=== PATIENT | female | born 1995 | race Caucasian/White ===

== ENCOUNTER 2022-05-12 16:42 | Emergency (ER) | payer BC, SELFPAY ==
[2022-05-12 17:02] VITALS: BP 133/91; PULSE 92; RESP 16; TEMP 36.6; O2SAT 98; BMI 34.5
--- NOTE | 2022-05-12 18:25 | CRLHL7_ITS ---
For Patients: As a result of the Century Cures Act, medical imaging exams and procedure reports are released immediately into your electronic medical record. You may view this report before your referring provider. If you have questions, please contact your health care provider. INDICATION: Cough. TECHNIQUE: Chest 2 views. COMPARISON: Radiograph 06/01/2017. FINDINGS: Cardiovascular and mediastinum: Heart size and vasculature are normal in caliber and appearance. Lungs and pleural spaces: Lungs are clear. No sign of infiltrate or mass. No sign of pleural effusion. No pneumothorax. Bones and soft tissues: No significant findings. IMPRESSION: No acute cardiopulmonary abnormalities. Dictated by Harish Rodriguez MD @ 05/12/2022 7:22:18 PM (Electronically Signed)
--- NOTE | 2022-05-12 18:25 | ED.GENADULT ---
HPI - General Adult General Date Seen: 05/12/22 Chief complaint: Cough Stated complaint: Cough getting worse, pressure right side of chest Time Seen by Provider: 05/12/22 18:18 Source: patient History of Present Illness HPI narrative: Patient is a 27-year-old here for evaluation of persistent cough. She says initially she had more congestion and runny nose, but now she just has a cough. She has not had fevers. She feels like her right lung has become congested and full feeling and she has tightness across her entire chest. She does not have any underlying asthma. She was diagnosed with lichen planus about a month ago and has been on prednisone ever since. No significant shortness of breath. No pleuritic chest pain. She says her son has been sick with upper respiratory infections and ear infections since February and she thinks she caught something from him. The cough just does not seem to be getting any better, and in fact she feels like it is getting a little worse. Related Data Home Medications Medication Instructions Recorded Confirmed benzonatate 100 mg capsule mg PO 05/12/22 doxycycline monohydrate 100 mg mg 05/12/22 tablet Previous Rx's Medication Instructions Recorded prednisone 20 mg tablet 40 mg PO QDAY Lichen Planus #30 04/02/22 tabs methylprednisolone 4 mg tablets in See Rx Instructions PO PER PKG DIR 05/07/22 a dose pack (Medrol (Tony)) #21 ea albuterol sulfate 90 mcg/actuation 2 puff inhalation 6XD PRN 05/12/22 aerosol inhaler shortness of breath or wheezing #6.7 grams codeine 10 mg-guaifenesin 100 mg/5 10 ml PO Q4-6H PRN #120 mL 05/12/22 mL oral liquid (Guaifenesin AC) Allergies Allergy/AdvReac Type Severity Reaction Status Date / Time latex Allergy Mild Rash Verified 05/12/22 17:08 ketorolac Allergy Verified 05/12/22 17:08 tree nut Allergy Verified 05/12/22 17:08 Review of Systems Status of ROS: Reports: 6 or more systems reviewed and unremarkable except as noted in History and below [facility] Medical History Abdominal pain Acute viral pharyngitis Contusion of knee History of delivery Injury of left shoulder Lichen planus care premature rupture of membranes, delivered, current hospitalization Vomiting and diarrhea Surgical History History of nasal septoplasty Family History Family/Other Colorectal cancer Maternal Grandmother Diabetes Father High cholesterol High blood pressure Social History Smoking Status: Never smoker Exam Narrative: Exam Narrative: Vital signs as noted above. In general, an alert, well-appearing patient. Head: Normocephalic, atraumatic. Eyes: Pupils are equal reactive. Extraocular movements are full. Conjunctivae are normal. ENT: Mucous membranes are moist. Throat is normal. TMs normal bilaterally. Neck: Supple without lymphadenopathy. No stridor. Heart: Regular rate and rhythm. No murmur or rub. Lungs: Few scattered wheezes bilaterally, right greater than left. No increased work of breathing. Abdomen: Soft and nontender. No organomegaly. Affect: Normal. Skin: Warm and dry. Well perfused. Const: Vital Signs, click to edit/add: Vital Signs - 24 hr 05/12/22 17:02 Temperature 97.9 F Pulse Rate [Right Pulse Oximeter] 92 Respiratory Rate 16 Blood Pressure [Ri ght Upper Arm] 133/91 H Pulse Oximetry 98 Oxygen Delivery Me thod Room Air Documenting provider has reviewed patient's vital signs: yes Course Course Hospital Course: Chest x-ray by my review is negative. Final radiology read is likewise negative. I think symptoms likely represent bronchitis, discussed with her that this is viral. From a symptomatic standpoint she might improve with albuterol. She can continue the prednisone that she is already on for her skin condition. Also offered to give her some Robitussin with codeine for nighttime cough as she says she has not been able to sleep for the past month. Anticipate this should improve over the next couple of weeks, if not recommend follow-up with primary doctor. If she has worsening such as high fevers, significant shortness of breath, etcetera. Return for re-evaluation. Vital Signs Vital signs: Initial Vital Signs Temperature 97.9 F 05/12/22 17:02 Temperature Source Temporal Artery Scan 05/12/22 17:02 Pulse Rate 92 05/12/22 17:02 Respiratory Rate 16 05/12/22 17:02 Blood Pressure 133/91 H 05/12/22 17:02 Blood Pressure Mean 105 05/12/22 17:02 Blood Pressure Position Sitting 05/12/22 17:02 Pulse Oximetry 98 05/12/22 17:02 Oxygen Delivery Method 05/12/22 17:02 Vital Signs Temperature 97.9 F 05/12/22 17:02 Pulse Rate 92 05/12/22 17:02 Respiratory Rate 16 05/12/22 17:02 Blood Pressure 133/91 H 05/12/22 17:02 Pulse Oximetry 98 05/12/22 17:02 Oxygen Delivery Method 05/12/22 17:02 Temperature 97.9 F 05/12/22 17:02 Pulse Rate 92 05/12/22 17:02 Respiratory Rate 16 05/12/22 17:02 Blood Pressure 133/91 H 05/12/22 17:02 Pulse Oximetry 98 05/12/22 17:02 Oxygen Delivery Method 05/12/22 17:02 Discharge Plan Discharge Clinical Impression: Bronchitis Patient Disposition: Home, Self-Care Condition: Stable Instructions: Acute Bronchitis (ED) Additional Instructions: Continue prednisone, inhaler as prescribed. Syrup as needed. If no improvement over the next couple weeks, follow up with primary care. If you have new symptoms such as high fever, significant shortness of breath, vomiting, etcetera, return for re-evaluation. Activity Level: No Restrictions Discharge Diet: Regular Prescriptions: New albuterol sulfate 90 mcg/actuation HFA aerosol inhaler 2 puff inhalation 6XD PRN (Reason: shortness of breath or wheezing) Qty: 6.7 0RF codeine-guaifenesin [Guaifenesin AC] 10-100 mg/5 mL liquid 10 ml PO Q4-6H PRNQty: 120 0RF No Action methylprednisolone [Medrol (Tony)] 4 mg tablets,dose pack See Rx Instructions PO PER PKG DIR Qty: 21 0RF Rx Instructions: orally per package directions; PO PER PKG DIR prednisone 20 mg tablet 40 mg PO QDAY Qty: 30 1RF doxycycline monohydrate 100 mg tablet benzonatate 100 mg capsule PO Follow Up/Referrals: Rich Resendez MD [Primary Care Provider] - Stand Alone Forms: MyHealth Info Instructions Discharge Comment: Pt knows to pick scripts up from [facility].
== END 2022-05-12 19:23 | disposition home or self-care (01) ==
PROVIDERS: Emergency Provider Emergency Medicine; PCP Internal Medicine
DX: J40 Bronchitis, not specified as acute or chronic (principal)
CPT/HCPCS: 71046; 99283; 99284

== ENCOUNTER 2022-06-16 14:20 | Outpatient (CLI) | payer BC, SELFPAY ==
[2022-06-16 16:52] LABS: Vitamin D 25 Hydroxy* 22 ng/mL (30-80)
[2022-06-16 17:23] LABS: Vitamin B12* 276 pg/mL (243-894)
[2022-06-16 17:59] LABS: Chlamydia DNA Amplified* NOT DETECTED (No Detected); GC DNA Amplified* NOT DETECTED (No Detected)
[2022-06-16 18:54] LABS: HCG Qualitative Serum* Negative (Negative)
== END 2022-06-16 14:21 | disposition home or self-care (01) ==
PROVIDERS: PCP Internal Medicine; Visit Provider Obstetrics & Gynecology
DX: Z01.419 Encounter for gynecological examination (general) (routine) without abnormal findings (principal); R63.5 Abnormal weight gain; E55.9 Vitamin D deficiency, unspecified; N92.6 Irregular menstruation, unspecified; Z11.3 Encounter for screening for infections with a predominantly sexual mode of transmission; Z86.2 Personal history of diseases of the blood and blood-forming organs and certain disorders involving the immune mechanism
CPT/HCPCS: 82306; 82607; 84443; 84703; 87491; 87591

== ENCOUNTER 2022-08-29 11:07 | Outpatient (CLI) | payer BC, SELFPAY ==
[2022-08-29 15:35] LABS: GC DNA Amplified* NOT DETECTED (No Detected)
[2022-08-29 17:04] LABS: Chlamydia DNA Amplified* DETECTED (No Detected)
== END 2022-08-29 11:08 | disposition home or self-care (01) ==
PROVIDERS: PCP Internal Medicine; Visit Provider Advanced Practice Midwife
DX: N89.8 Other specified noninflammatory disorders of vagina (principal); Z11.9 Encounter for screening for infectious and parasitic diseases, unspecified; Z11.3 Encounter for screening for infections with a predominantly sexual mode of transmission
CPT/HCPCS: 86592; 86703; 86706; 86803; 87340; 87491; 87591

== ENCOUNTER 2022-09-03 09:46 | Outpatient (CLI) | payer BC, SELFPAY ==
--- NOTE | 2022-09-03 10:00 | CRLHL7_ITS ---
For Patients: As a result of the Cures Act, medical imaging exams and procedure reports are released immediately into your electronic medical record. You may view this report before your referring provider. If you have questions, please contact your health care provider. Indication: Facial numbness, history of trauma Technique: Performed without IV contrast Comparison: 11/24/2016 Findings: Frontal sinuses: Clear. Ethmoid sinuses: Clear. Maxillary sinuses: Minimal mucosal thickening within both maxillary sinuses. The maxillary sinus drainage pathways are patent on both sides. Sphenoid sinuses: Clear, including both sphenoethmoidal recesses. Nasal Cavity: Postop changes the nasal septum. No polyps. Small olena bullosa right middle turbinate. No TMJ abnormalities identified. The visualized portions of the orbits, intracranial contents and upper soft tissue neck are grossly negative. Impression: 1. Minimal sinus disease within the maxillary sinuses. 2. Clear sinus drainage pathways. Postop changes to the nasal septum. Please note that all CT scans at this facility use dose modulation, iterative reconstruction, and/or weight-based dosing when appropriate to reduce radiation dose to as low as reasonably achievable. Dictated by Roland Roberto MD @ 09/03/2022 12:39:29 PM (Electronically Signed)
== END 2022-09-03 09:47 | disposition home or self-care (01) ==
LOC: CT 09:48
PROVIDERS: PCP Internal Medicine; Visit Provider Otolaryngology
DX: R09.81 Nasal congestion (principal); J32.0 Chronic maxillary sinusitis; J34.2 Deviated nasal septum; R20.0 Anesthesia of skin
CPT/HCPCS: 70486

== ENCOUNTER 2022-10-24 10:35 | Day surgery (SDC) | payer BC, SELFPAY ==
[2022-10-24] VITALS (19 sets, daily range): BP systolic 104–128; BP diastolic 52–87; PULSE 84–104; RESP 14–23; TEMP 36.5–36.8; O2SAT 94–97; BMI 34.0
[2022-10-24 11:27] LABS: Ur HCG Qualitative* Negative (Negative)
[2022-10-24] MEDS: LACTATED RINGERS 1000 ML 1,000 ML 35 ML IV (11:30)
[2022-10-24] MEDS: OXYMETAZOLINE 0.05% NASAL SPRAY 2 SPRAY NOSTRIL-B (11:33)
[2022-10-24] MEDS: SODIUM CHLORIDE 0.9 % (FLUSH) 10 ML SYRINGE IVF (11:33)
[2022-10-24] MEDS: COCAINE HCL 4 % 4 ML SOLUTION NOSTRIL-B (12:47)
[2022-10-24] MEDS: BUPIVACAINE 0.5%/EPINEPHRINE 0.9 MG (30.9 ML) INJECTION (12:48)
[2022-10-24] MEDS: MUPIROCIN 1 GM PACKET 1 APPLIC TOPICAL (13:08)
[2022-10-24] MEDS: AYR SALINE NASAL GEL 1 APPLIC NOSTRIL-B (13:09)
--- NOTE | 2022-10-24 13:13 | W.PM.ENTPROC ---
Procedure Note Date of procedure: 10/24/22 Procedure: Preoperative diagnosis acquired external nasal deformity, deviated septum nasal obstruction, right middle turbinate olena bullosa Postoperative diagnosis same Procedure septoplasty, endoscopic partial resection right middle turbinate olena bullosa, open reduction nasal fracture. Under general endotracheal anesthesia patient was prepped draped usual fashion the nose injected and decongested. A right hemitransfixion incision was made a left anterior tunnel created. This mobilized the septum enough I was able to simply post to push it to midline. The hemitransfixion was closed with 2 4-0 chromic sutures. Both inferior turbinates were outfractured. This portion of procedure was done with the available assistance of a 0 degree endoscope. The right middle turbinate olena bullosa was incised along its lateral aspect with a 15 blade the bone infractured and then the turbinate crushed with the Benjamin forceps. A right IC incision was made and the nasal dorsum was exposed through this. There is a fracture line that was reduced with a rasp. Bilateral baseline osteotomies were performed to straighten the bony pyramid. An external dressing consisting of benzoin Steri tapes an Aquaplast was applied. Silastic stents were secured inside the septum with 3-0 nylon. Merocel pack was placed in each side of the nose. The patient procedure well was taken recovery in satisfactory condition. Blood loss during procedure less than 50 mL. Surgeon: Reza Goff MD
--- NOTE | 2022-10-24 13:21 | W.ANESCHARGE ---
Anesthesia Charges Start Date/Time Anesthesia Start Date: 10/24/22 Anesthesia Start Time: 12:31 Stop Date/Time Anesthesia Stop Date: 10/24/22 Anesthesia Stop Time: 13:20
[2022-10-24] MEDS: fentaNYL 100 MCG/2 ML inj 50 MCG IVP (13:53)
--- NOTE | 2022-10-24 14:05 | SUR.PHASEI ---
patient met discharge criteria per anesthesia
--- NOTE | 2022-10-24 14:22 | W.ANESCHARGE ---
Anesthesia Charges Start Date/Time Anesthesia Start Date: 10/24/22 Anesthesia Start Time: 12:31 Stop Date/Time Anesthesia Stop Date: 10/24/22 Anesthesia Stop Time: 13:20
--- NOTE | 2022-10-24 15:34 | CRLHL7_ITS ---
For Patients: As a result of the Cures Act, medical imaging exams and procedure reports are released immediately into your electronic medical record. You may view this report before your referring provider. If you have questions, please contact your health care provider. INDICATION: Chest pain. Post surgery. Septoplasty. TECHNIQUE: Portable seated chest x-ray. COMPARISON : Two-view chest x-ray May 12, 2022. FINDINGS: Clear lungs. Normal heart size and pulmonary vascularity. Normal included skeleton. IMPRESSION: Negative chest. No change other than technique. Dictated by John Hodge MD @ 10/24/2022 4:04:19 PM (Electronically Signed)
--- NOTE | 2022-10-24 15:40 | SUR.PHASEII ---
1508: Patient complaining of chest pressure beginning at 1430. Patient dressed and moved to recliner. Patient states it still feels like someone is pushing on my chest. Pressure felt slightly worse after moving to the recliner. States she feels short of breath. VSS TOMASZ Zimmerman notified. VORB EKG. 1526: TOMASZ Zimmerman notified of EKG result. She is consulting Dr. Laws and will return a call. 1534: TOMASZ Zimmerman VORB portable chest xray. 1545: Portable chest xray obtained. Patient states no change in chest pressure. Unable to identify a number related discomfort. Restates it feels like someone leaning and pushing against her chest. States it's hard to breath. VSS
--- NOTE | 2022-10-24 16:32 | SUR.PHASEII ---
1600: TOMASZ Zimmerman at patient bedside to speak with patient. 1613: TOMASZ Zimmerman returned to patient room to review EKG and chest xray results. Patient verbalizes understanding. Patient plans to go home and nap. Patient understands to go to the ER for any concerns. She states there is no change in her chest pressure. VSS.
== END 2022-10-24 16:42 | disposition home or self-care (01) ==
PROVIDERS: PCP Internal Medicine; Visit Provider Otolaryngology
PROC: (CPT 31231; principal; 2022-10-24 11:45)
PROC: 0NSBXZZ Reposition Nasal Bone, External Approach (ICD-10-PCS; CPT 30520; 2022-10-24 11:45)
DX: M95.0 Acquired deformity of nose (principal); J34.2 Deviated nasal septum; J34.3 Hypertrophy of nasal turbinates
CPT/HCPCS: 30520; 30930; 31240; 21330; 00160; 00170; 71045; 81025; 84703; 93005; A4580; A9270; J1170; J1885; J2704; J3010; J3490; J7120

== ENCOUNTER 2022-11-06 09:35 | Outpatient (CLI) | payer BC, SELFPAY | END 2022-11-06 09:36 | disposition home or self-care (01) | PROVIDERS: PCP Internal Medicine; Visit Provider Dermatology | DX: Z51.81 Encounter for therapeutic drug level monitoring (principal); Z79.631 Long term (current) use of antimetabolite agent | CPT/HCPCS: 80053 ==

== ENCOUNTER 2022-12-09 09:57 | Outpatient (CLI) | payer BC, SELFPAY | END 2022-12-09 09:58 | disposition home or self-care (01) | LOC: NFLDREF 12-10 15:11 | PROVIDERS: PCP Internal Medicine; Referring Provider Internal Medicine; Visit Provider Dermatology | DX: N89.8 Other specified noninflammatory disorders of vagina (principal); Z79.899 Other long term (current) drug therapy | CPT/HCPCS: 80076 ==

== ENCOUNTER 2022-12-10 10:08 | Outpatient (CLI) | payer BC, SELFPAY ==
[2022-12-10 12:17] LABS: Chlamydia DNA Amplified* NOT DETECTED (No Detected); GC DNA Amplified* NOT DETECTED (No Detected)
== END 2022-12-10 10:09 | disposition home or self-care (01) ==
LOC: NFLDREF 10:08
PROVIDERS: PCP Internal Medicine; Visit Provider Registered Nurse
DX: N89.8 Other specified noninflammatory disorders of vagina (principal)
CPT/HCPCS: 87491; 87591

== ENCOUNTER 2022-12-17 15:42 | Outpatient (CLI) | payer BC, SELFPAY ==
--- NOTE | 2022-12-17 16:00 | CRLHL7_ITS ---
For Patients: As a result of the Century Cures Act, medical imaging exams and procedure reports are released immediately into your electronic medical record. You may view this report before your referring provider. If you have questions, please contact your health care provider. Indication: Chronic sinusitis. Technique: Noncontrast axial CT of the paranasal sinuses with coronal reformats are provided. No comparisons. Findings: Hypoplastic frontal sinuses. The visualized paranasal sinuses are clear. The ostiomeatal complexes are patent bilaterally. The visualized intraorbital contents appear within normal limits. Impression: Unremarkable CT of the paranasal sinuses. Please note that all CT scans at this facility use dose modulation, iterative reconstruction, and/or weight-based dosing when appropriate to reduce radiation dose to as low as reasonably achievable. Dictated by Los Rothman MD @ 12/17/2022 5:33:46 PM (Electronically Signed)
== END 2022-12-17 15:43 | disposition home or self-care (01) ==
LOC: CT 15:43
PROVIDERS: PCP Internal Medicine; Visit Provider Otolaryngology
DX: J32.9 Chronic sinusitis, unspecified (principal)
CPT/HCPCS: 70486

== ENCOUNTER 2023-05-15 12:36 | Outpatient (CLI) | payer BC, SELFPAY ==
--- OUTSIDE RECORDS SUMMARY | 2023-05-15 12:40 | XMS_ITS | Referral Summary ---
Author Name Unknown Organization [facility] Address [address] [place] [address] Care Team Providers Care Credit Portfolio Advisor Name Role Phone Rich Resendez MD Primary Care Provider Allergies Active Allergy Reactions Criticality Noted Date Comments Latex Rash Low 01/01/2019 Ketorolac Difficulty breathing High 01/01/2019 Medications Medication Sig Dispensed Refills Start Date End Date Status butalbital-acetaminop hen-caffeine (FIORICET/ESGIC) 50-325-40 MG tabletIndications:Sebastián adrianna Take 1 tablet by mouth every 6 hours as needed for headaches 0 Active MV-Min-Fe Fum-FA-DHA ( 1 PO) Take 1 tablet by mouth daily 0 Active Active Problems Problem Noted Date Diagnosed Date Encounter for triage in patient 019 Social History Tobacco Use Types Packs/Day Years Used Date Smoking Tobacco: Never Assessed Sex and Gender Information Value Date Recorded Sex Assigned at Not on file Gender Identity Not on file Sexual Orientation Not on file Last Filed Vital Signs Vital Sign Reading Time Taken Comments Blood Pressure 125/87 01/01/2019 6:25 AM CDT Pulse 107 01/01/2019 6:25 AM CDT Temperature 37 ??C (98.6 ??F) 01/01/2019 6:25 AM CDT Respiratory Rate 20 01/01/2019 6:25 AM CDT Oxygen Saturation - - Inhaled Oxygen Concentration - - Weight - - Height - - Body Mass Index - - Plan of Treatment Not on file Care Teams Credit Portfolio Advisor Relationship Specialty Start Date End Date Rich Resendez MD [facility] [address] [place] [address] PCP - General Emergency Medicine 01/02/19
--- OUTSIDE RECORDS SUMMARY | 2023-05-15 12:40 | XMS_ITS | Clinical Summary ---
Author Name Unknown Organization [facility] Address [place], [place] [address] Care Team Providers Care Business Broker Name Role Phone Rich Resendez MD Primary Care Provider [phone] Allergies Active Allergy Reactions Criticality Noted Date Comments Ketorolac Itching 02/07/2015 Medications Medication Sig Dispensed Refills Start Date End Date Status NUVARING vaginal ring Insert 1 ring into the vagina. 1 02/19/2017 Active celecoxib (CELEBREX) 100 mg capsule Take 1 capsule by mouth 2 times daily if needed. 0 03/05/2017 Active cyclobenzaprine (FLEXERIL) 10 mg tablet Take 1 tablet by mouth once daily. At bedtime if needed. 0 01/06/2017 Active fluticasone (50 mcg per actuation) nasal solution (FLONASE) Inhale 2 Sprays into both nostrils once daily. 11 03/03/2017 Active ferrous sulfate, 65 mg elemental, (IRON) tablet Take 1 tablet by mouth 2 times daily with meals. 0 03/23/2017 Active ondansetron (ZOFRAN ODT) 4 mg disintegrating tabletIndications:Servando sea and vomiting, unspecified vomiting type Place 1 Tablet (4 mg) on the tongue every 8 hours if needed for Nausea/Vomiting. 10 Tablet 0 06/25/2021 Active loperamide (IMODIUM) 2 mg capsuleIndications:Ab dominal pain, unspecified abdominal location,Nausea and vomiting, unspecified vomiting type Take 4mg by mouth with 1st loose stool, then 2mg with each subsequent loose stool. Max 16 mg in 24 hrs 15 Capsule 0 06/25/2021 Active Active Problems Problem Noted Date Diagnosed Date Adjustment disorder with depressed mood 06/25/19 09 Immunizations Name Administration Dates Next Due DTP 12/19/1999 Hepatitis B (Peds) 1994,1994, 994 Human Papilloma Virus Vaccine 10/09/2014 MMR 02/02/2007 Oral Polio Vaccine 12/19/1999 Tdap 02/02/2007 Family History Relation Name Status Comments Father Alive Mother Alive Social History Tobacco Use Types Packs/Day Years Used Date Smoking Tobacco: Never Smokeless Tobacco: Never Tobacco Cessation:Counseling Given: Yes Alcohol Use Standard Drinks/Week Comments Yes 0 (1 standard drink = 0.6 oz pur e alcohol) Sex and Gender Information Value Date Recorded Sex Assigned at Not on file Gender Identity Not on file Sexual Orientation Not on file Obstetrics History Last Filed Vital Signs Vital Sign Reading Time Taken Comments Blood Pressure 131/107 06/25/2021 3:02 AM [employer] Pulse 95 06/25/2021 3:59 AM [employer] Temperature 37.4 ??C (99.3 ??F) 06/25/2021 3:02 AM CS T Respiratory Rate 16 06/25/2021 3:02 AM [employer] Oxygen Saturation 98% 06/25/2021 3:59 AM [employer] Inhaled Oxygen Concentration - - Weight 83.9 kg (185 lb) 06/25/2021 3:02 AM [employer] Height 167.6 cm (5' 6) 06/25/2021 3:02 AM [employer] Body Mass Index 29.86 06/25/2021 3:02 AM [employer] Plan of Treatment Health Maintenance Due Date Last Done Comments COVID-19 vaccine series (#1) 1994 Depression screening for age 12+ 2006 HIV for age 15-65 2009 Hepatitis C screening for age 18-79 01/23/2012 Tetanus booster 02/02/2017 02/02/2007 BMI (ht and wt on same day) for age 18+ 03/23/2018 03/23/2017 Influenza for age 9-49 01/02/2023 Pap test for age 21-65 01/05/2024 , 06/07/2018, 10/09/2015, Additional history exists Tdap Completed 02/02/2007 Pneumococcal series for age 6-64 Aged Out No longer eligible based on patient's age to complete this topic Care Teams Business Broker Relationship Specialty Start Date End Date Rich Resendez MD [address] [place] [address] PCP - General Internal Medicine 07/29/20
--- OUTSIDE RECORDS SUMMARY | 2023-05-15 12:40 | XMS_ITS | Clinical Summary ---
Author Name Unknown Organization [facility] Address [address] [place] [place] [address] Care Team Providers Care Veneer Clipper Helper Name Role Phone Rich Resendez MD Primary [...] of Treatment Not on file Care Teams Veneer Clipper Helper Relationship Specialty Start Date End Date Rich Resendez MD [facility] [address] [place] [address] PCP - General Emergency Medicine 01/02/19
[2023-05-15 17:18] LABS: Chlamydia DNA Amplified* NOT DETECTED (No Detected); GC DNA Amplified* NOT DETECTED (No Detected)
== END 2023-05-15 12:37 | disposition home or self-care (01) ==
LOC: NFLDREF 12:37
PROVIDERS: PCP Internal Medicine; Visit Provider Registered Nurse
DX: N93.0 Postcoital and contact bleeding (principal); Z11.3 Encounter for screening for infections with a predominantly sexual mode of transmission
CPT/HCPCS: 87491; 87591

== ENCOUNTER 2023-05-20 15:01 | Outpatient (CLI) | payer BC, SELFPAY ==
--- NOTE | 2023-05-20 15:00 | CRLHL7_ITS ---
For Patients: As a result of the Century Cures Act, medical imaging exams and procedure reports are released immediately into your electronic medical record. You may view this report before your referring provider. If you have questions, please contact your health care provider. CLINICAL HISTORY: PELVIC AND PERINEAL PAIN Comparison 01/09/2021 TECHNIQUE: 2D paul scale ultrasound. In addition color Doppler and spectral Doppler analysis was performed of the pelvis using a transabdominal and transvaginal approach. FINDINGS: On transvaginal imaging, the myometrium has a normal uniform echotexture. The uterus measures 8.0 x 3.9 x 4.5 cm. The endometrial lining appears normal and measures 6 mm in thickness. The right ovary measures 4.5 x 3.1 x 2.3 cm in size and the left ovary measures 3.5 x 1.3 x 1.6 cm. The ovaries demonstrate normal arterial and venous blood flow on color Doppler and spectral Doppler analysis. There are no suspicious fluid collections within the cul-de-sac. Two smoothly marginated solid like lesions within the right ovary including mild-moderate internal flow. Measuring 2.3 x 1.7 x 2.1 cm and 2.6 x 1.9 x 2.4 cm. IMPRESSION: Two solid like lesions within the right ovary measuring 2.3 cm and 2.6 cm. Pelvic MRI recommended. No torsion. Dictated by Roland Roberto MD @ 05/21/2023 9:51:01 AM (Electronically Signed)
--- OUTSIDE RECORDS SUMMARY | 2023-05-20 15:04 | XMS_ITS | Referral Summary ---
Author Name Unknown Organization [facility] Address [address] [place] [address] Care Team Providers Care Computer Artist Name Role Phone Rich Resendez MD Primary [...] of Treatment Not on file Care Teams Computer Artist Relationship Specialty Start Date End Date Rich Resendez MD [facility] [address] [place] [address] PCP - General Emergency Medicine 01/02/19
--- OUTSIDE RECORDS SUMMARY | 2023-05-20 15:04 | XMS_ITS | Clinical Summary ---
Author Name Unknown Organization [facility] Address [place], [place] [address] Care Team Providers Care Consulting Database Administrator Name Role Phone Rich Resendez MD Primary [...] Adjustment disorder with depressed mood 06/25/19 09 Encounters Date Type Department Care Team Description 05/18/2023 Lab Requisition [facility] [phone] Vanessa Chavez, MECHANICAL TEST ENGINEER from Last 3 Months Immunizations Name Administration Dates Next Due DTP [...] Comments Blood Pressure 131/107 06/25/2021 3:02 AM PVC MONITOR Pulse 95 06/25/2021 3:59 AM PVC MONITOR Temperature 37.4 ??C (99.3 ??F) 06/25/2021 3:02 AM CS T Respiratory Rate 16 06/25/2021 3:02 AM PVC MONITOR Oxygen Saturation 98% 06/25/2021 3:59 AM PVC MONITOR Inhaled Oxygen Concentration - - Weight 83.9 kg (185 lb) 06/25/2021 3:02 AM PVC MONITOR Height 167.6 cm (5' 6) 06/25/2021 3:02 AM PVC MONITOR Body Mass Index 29.86 06/25/2021 3:02 AM PVC MONITOR Plan of Treatment Health Maintenance Due Date [...] age to complete this topic Care Teams Consulting Database Administrator Relationship Specialty Start Date End Date Rich Resendez MD [address] [place] [address] PCP - General Internal Medicine 07/29/20
--- OUTSIDE RECORDS SUMMARY | 2023-05-20 15:04 | XMS_ITS | Clinical Summary ---
Author Name Unknown Organization [facility] Address [address] [place] [address] Care Team Providers Care Tool Crib Manager Name Role Phone Rich Resendez MD Primary [...] of Treatment Not on file Care Teams Tool Crib Manager Relationship Specialty Start Date End Date Rich Resendez MD [facility] [address] [place] [address] PCP - General Emergency Medicine 01/02/19
== END 2023-05-20 15:02 | disposition home or self-care (01) ==
PROVIDERS: PCP Internal Medicine; Visit Provider Registered Nurse
DX: R10.2 Pelvic and perineal pain (principal); N83.201 Unspecified ovarian cyst, right side; N93.0 Postcoital and contact bleeding
CPT/HCPCS: 76830; 76856; 93976

== ENCOUNTER 2023-05-25 10:17 | Outpatient (CLI) | payer BC, SELFPAY ==
--- OUTSIDE RECORDS SUMMARY | 2023-05-28 09:42 | XMS_ITS | Clinical Summary ---
Author Name Unknown Organization [place] Address [address] [place] [address] Care Team Providers Care Police Clerk Name Role Phone Rich Resendez MD Primary [...] of Treatment Not on file Care Teams Police Clerk Relationship Specialty Start Date End Date Rich Resendez MD [facility] [address] [place] [address] PCP - General Emergency Medicine 01/02/19
--- OUTSIDE RECORDS SUMMARY | 2023-05-28 09:42 | XMS_ITS | Clinical Summary ---
Author Name Unknown Organization [facility] Address [place], [place] [address] Care Team Providers Care Supervisor Typesetting Name Role Phone Rich Resendez MD Primary [...] Department Care Team Description 05/18/2023 Lab Requisition [facility] [phone] Vanessa Chavez, STORAGE FACILITY RENTAL CLERK from Last 3 Months Immunizations Name Administration [...] Comments Blood Pressure 131/107 06/25/2021 3:02 AM DISPATCH MANAGER Pulse 95 06/25/2021 3:59 AM DISPATCH MANAGER Temperature 37.4 ??C (99.3 ??F) 06/25/2021 3:02 AM CS T Respiratory Rate 16 06/25/2021 3:02 AM DISPATCH MANAGER Oxygen Saturation 98% 06/25/2021 3:59 AM DISPATCH MANAGER Inhaled Oxygen Concentration - - Weight 83.9 kg (185 lb) 06/25/2021 3:02 AM DISPATCH MANAGER Height 167.6 cm (5' 6) 06/25/2021 3:02 AM DISPATCH MANAGER Body Mass Index 29.86 06/25/2021 3:02 AM DISPATCH MANAGER Plan of Treatment Health Maintenance Due Date Last Done Comments COVID-19 vaccine series (#1) 1994 Depression screening for age 12+ 2006 HIV for age 15-65 2009 Hepatitis C screening for age 18-79 01/23/2012 Tetanus booster 02/02/2017 02/02/2007 BMI (ht and wt on same day) for age 18+ 03/23/2018 03/23/2017 Influenza for age 9-49 01/02/2023 Pap test for age 21-65 05/15/2026 4, 05/15/2023, 01/04/2021, Additional history exists Tdap Completed 02/02/2007 Pneumococcal series for age 6-64 Aged Out No longer eligible based on patient's age to complete this topic Procedures Procedure Name Priority Date/Time Associated Diagnosis Comments LAB TRACKING EVENT Routine 05/15/2023 12 :30 PM DISPATCH MANAGER HPV THIN PREP Routine 05/15/2023 12:30 PM DISPATCH MANAGER POWER TRUCK DRIVER THIN PREP PAP SCREEN IMAGED Routine 05/15/2023 12:00 PM DISPATCH MANAGER from Last 3 Months Results * LAB TRACKING EVENT (05/15/2023 12:30 PM DISPATCH MANAGER) Other (Other) Client Collect / Unknown 05/15/2023 12:30 PM DISPATCH MANAGER 05/18/2023 3:12 PM DISPATCH MANAGER Vanessa Chavez NP LAB BILL ONLY [facility] [address] [place] [address] * (ABNORMAL) HPV HIGH RISK (05/15/2023 12:30 PM DISPATCH MANAGER) TYPE 16 Negative Negative 05/22/2023 11:44 AM DISPATCH MANAGER [facility] TYPE 18 Negative Negative 05/22/2023 11:44 AM DISPATCH MANAGER [facility] OTHER HIGH RISK TYPES Positive(A) Negative 05/22/2023 11:44 AM DISPATCH MANAGER [facility] Other (Cervical) Non-Blood / Unknown 05/15/2023 12:30 PM DISPATCH MANAGER 05/21/2023 7:37 AM DISPATCH MANAGER Narrative [facility] - 05/22/2023 11:44 AM DISPATCH MANAGER Specimen is positive for the DNA of any one of, or combination of, the following high risk HPV types: 31, 33, 35, 39, 45, 51, 52, 56, 58, 59, 66, 68. HPV types 16 and 18 DNA were undetectable or below the pre-set threshold. ? Methodology: Curio[employer] 4800 HPV Test Vanessa Chavez NP MICROBIOLOGY [facility] [address] [place] [address], * (ABNORMAL) POWER TRUCK DRIVER THIN PREP PAP SCREEN IMAGED (05/15/2023 12:00 PM DISPATCH MANAGER) Case Report Gynecologic Cytology Report ? Case: [id number] ? Authorizing Provider: ??Vanessa Chavez NP ?? Collected: ? 05/15/2023 1200 ? Ordering Location: ? [facility] ?Received: ?05/19/2023 08 ? First Screen: ?Bridgette Wilson ? Pathologist: ? Elsie Lopez MD ? Specimen: ?POWER TRUCK DRIVER ThinPrep Vial Screening, Cervical ? 05/25/2023 2:51 PM DISPATCH MANAGER [facility] INTERPRETATION/ RESULT LOW GRADE SQUAMOUS INTRAEPITHELIAL LESION (LSIL)(A) (none) 05/25/2023 2:51 PM DISPATCH MANAGER [facility] NISM(S) Fungal organisms morphologically consistent with Jeniffer species 05/25/2023 2:51 PM DISPATCH MANAGER [facility] SPECIMEN ADEQUACY Satisfactory for evaluation Endocervical component present 05/25/2023 2:51 PM DISPATCH MANAGER [facility] HPV REQUEST HPV and PAP 05/25/2023 2:51 PM DISPATCH MANAGER [facility] Date of LMP 04/14/2023 05/25/2023 2:51 PM DISPATCH MANAGER [facility] Last Pap Date 01/04/2021 05/25/2023 2:51 PM DISPATCH MANAGER [facility] Last Pap Result NIL 2:51 PM DISPATCH MANAGER [facility] Abnormal Pap or [place] Bx in last 5 years No 05/25/2023 2:51 PM DISPATCH MANAGER [facility] Menstrual Status Abnormal bleeding 05/25/2023 2:51 PM DISPATCH MANAGER [facility] [place] Bx Done Today No 05/25/2023 2:51 PM DISPATCH MANAGER [facility] Additional Information 05/25/2023 2:51 PM DISPATCH MANAGER [facility] Comment: Interpreted at [facility], Central Laboratory - [address], [place] [address] Automated Review Successful 05/25/2023 2:51 PM [facility] Comment:Specimen processed s uccessfully by automated manager cafe device, ThinPrep Imaging System, [employer] ANCILLARY TESTING POWER TRUCK DRIVER HPV Ordered, Please see separate report 05/25/2023 2:51 PM DISPATCH MANAGER [facility] Note The pap test is a screening technique, not a diagnostic procedure. It is used primarily to screen for squamous cancers and precursor lesions. Published studies have shown that it is subject to both false negative and false positive results. The pap test should not be used as the sole means to diagnose or exclude pre-malignant and malignant lesions. 05/25/2023 2:51 PM DISPATCH MANAGER [facility] Other (Cervical) 05/15/2023 12:00 PM DISPATCH MANAGER 05/19/2023 8:57 AM DISPATCH MANAGER Vanessa Chavez STORAGE FACILITY RENTAL CLERK PATHOLOGY/CYTOLOG Y [facility] [address] [place] [address], from Last 3 Months Care Teams Supervisor Typesetting Relationship Specialty Start Date End Date Rich Resendez MD [address] [place] [address] PCP - General Internal Medicine 07/29/20
--- OUTSIDE RECORDS SUMMARY | 2023-05-28 09:42 | XMS_ITS | Referral Summary ---
Author Name Unknown Organization [place] Address [address] [place] [address] Care Team Providers Care Antique Clock Repairer Name Role Phone Rich Resendez MD Primary [...] of Treatment Not on file Care Teams Antique Clock Repairer Relationship Specialty Start Date End Date Rich Resendez MD [facility] [address] [place] [address] PCP - General Emergency Medicine 01/02/19
== END 2023-05-25 10:18 | disposition home or self-care (01) ==
LOC: NFLDREF 05-28 09:37
PROVIDERS: PCP Internal Medicine; Referring Provider Internal Medicine; Visit Provider Registered Nurse
DX: N83.9 Noninflammatory disorder of ovary, fallopian tube and broad ligament, unspecified (principal)
CPT/HCPCS: 86304

== ENCOUNTER 2023-06-05 09:50 | Outpatient (CLI) | payer BC, SELFPAY ==
--- OUTSIDE RECORDS SUMMARY | 2023-06-05 09:53 | XMS_ITS | Referral Summary ---
Author Name Unknown Organization [place] Address [address] [place] [address] Care Team Providers Care Timber Estimator Name Role Phone Rich Resendez MD Primary [...] of Treatment Not on file Care Teams Timber Estimator Relationship Specialty Start Date End Date Rich Resendez MD [facility] [address] [place] [address] PCP - General Emergency Medicine 01/02/19
--- OUTSIDE RECORDS SUMMARY | 2023-06-05 09:53 | XMS_ITS | Clinical Summary ---
Author Name Unknown Organization [place] Address [address] [facility] [place] [address] Care Team Providers Care Director Water And Waste Services Name Role Phone Rich Resendez MD Primary [...] of Treatment Not on file Care Teams Director Water And Waste Services Relationship Specialty Start Date End Date Rich Resendez MD [facility] [address] [place] [address] PCP - General Emergency Medicine 01/02/19
--- OUTSIDE RECORDS SUMMARY | 2023-06-05 09:53 | XMS_ITS | Clinical Summary ---
Author Name Unknown Organization [facility] Address [place], [place] [address] Care Team Providers Care Day Habilitation Specialist Name Role Phone Rich Resendez MD Primary [...] Department Care Team Description 05/18/2023 Lab Requisition [facility] [phone] Vanessa Chavez, PROGRESS CLERK from Last 3 Months Immunizations Name [...] Comments Blood Pressure 131/107 06/25/2021 3:02 AM FREIGHT CONDUCTOR Pulse 95 06/25/2021 3:59 AM FREIGHT CONDUCTOR Temperature 37.4 ??C (99.3 ??F) 06/25/2021 3:02 AM CS T Respiratory Rate 16 06/25/2021 3:02 AM FREIGHT CONDUCTOR Oxygen Saturation 98% 06/25/2021 3:59 AM FREIGHT CONDUCTOR Inhaled Oxygen Concentration - - Weight 83.9 kg (185 lb) 06/25/2021 3:02 AM FREIGHT CONDUCTOR Height 167.6 cm (5' 6) 06/25/2021 3:02 AM FREIGHT CONDUCTOR Body Mass Index 29.86 06/25/2021 3:02 AM FREIGHT CONDUCTOR Plan of Treatment Health Maintenance Due Date [...] TRACKING EVENT Routine 05/15/2023 12 :30 PM FREIGHT CONDUCTOR HPV THIN PREP Routine 05/15/2023 12:30 PM FREIGHT CONDUCTOR WELDER EXPERIMENTAL THIN PREP PAP SCREEN IMAGED Routine 05/15/2023 12:00 PM FREIGHT CONDUCTOR from Last 3 Months Results * LAB TRACKING EVENT (05/15/2023 12:30 PM FREIGHT CONDUCTOR) Other (Other) Client Collect / Unknown 05/15/2023 12:30 PM FREIGHT CONDUCTOR 05/18/2023 3:12 PM FREIGHT CONDUCTOR Vanessa Chavez NP LAB BILL ONLY [facility] [address] [place] [address] * (ABNORMAL) HPV HIGH RISK (05/15/2023 12:30 PM FREIGHT CONDUCTOR) TYPE 16 Negative Negative 05/22/2023 11:44 AM FREIGHT CONDUCTOR [facility] TYPE 18 Negative Negative 05/22/2023 11:44 AM FREIGHT CONDUCTOR [facility] OTHER HIGH RISK TYPES Positive(A) Negative 05/22/2023 11:44 AM FREIGHT CONDUCTOR [facility] Other (Cervical) Non-Blood / Unknown 05/15/2023 12:30 PM FREIGHT CONDUCTOR 05/21/2023 7:37 AM FREIGHT CONDUCTOR Narrative [facility] - 05/22/2023 11:44 AM FREIGHT CONDUCTOR Specimen is positive for the DNA of any one of, or combination of, the following high risk HPV types: 31, 33, 35, 39, 45, 51, 52, 56, 58, 59, 66, 68. HPV types 16 and 18 DNA were undetectable or below the pre-set threshold. ? Methodology: [employer] 4800 HPV Test Vanessa Chavez NP MICROBIOLOGY [facility] [address] [place] [address], * (ABNORMAL) WELDER EXPERIMENTAL THIN PREP PAP SCREEN IMAGED (05/15/2023 12:00 PM FREIGHT CONDUCTOR) Case Report Gynecologic Cytology Report ? Case: [id number] ? Authorizing Provider: ??Vanessa Chavez NP ?? Collected: ? 05/15/2023 1200 ? Ordering Location: ? [facility] ?Received: ?05/19/2023 08 ? First Screen: ?Bridgette Wilson ? Pathologist: ? Elsie Lopez MD ? Specimen: ?WELDER EXPERIMENTAL ThinPrep Vial Screening, Cervical ? 05/25/2023 2:51 PM FREIGHT CONDUCTOR [facility] INTERPRETATION/ RESULT LOW GRADE SQUAMOUS INTRAEPITHELIAL LESION (LSIL)(A) (none) 05/25/2023 2:51 PM FREIGHT CONDUCTOR [facility] NISM(S) Fungal organisms morphologically consistent with Jeniffer species 05/25/2023 2:51 PM FREIGHT CONDUCTOR [facility] SPECIMEN ADEQUACY Satisfactory for evaluation Endocervical component present 05/25/2023 2:51 PM FREIGHT CONDUCTOR [facility] HPV REQUEST HPV and PAP 05/25/2023 2:51 PM FREIGHT CONDUCTOR [facility] Date of LMP 04/14/2023 05/25/2023 2:51 PM FREIGHT CONDUCTOR [facility] Last Pap Date 01/04/2021 05/25/2023 2:51 PM FREIGHT CONDUCTOR [facility] Last Pap Result NIL 2:51 PM FREIGHT CONDUCTOR [facility] Abnormal Pap or [place] Bx in last 5 years No 05/25/2023 2:51 PM FREIGHT CONDUCTOR [facility] Menstrual Status Abnormal bleeding 05/25/2023 2:51 PM FREIGHT CONDUCTOR [facility] [place] Bx Done Today No 05/25/2023 2:51 PM FREIGHT CONDUCTOR [facility] Additional Information 05/25/2023 2:51 PM FREIGHT CONDUCTOR [facility] Comment: Interpreted at [facility], [facility] Laboratory - [address], [place] [address] Automated Review Successful 05/25/2023 2:51 PM [facility] Comment:Specimen processed s uccessfully by automated desktop support consultant device, ThinPrep Imaging System, [employer] ANCILLARY TESTING WELDER EXPERIMENTAL HPV Ordered, Please see separate report 05/25/2023 2:51 PM FREIGHT CONDUCTOR [facility] Note The pap test is a screening technique, not a diagnostic procedure. It is used primarily to screen for squamous cancers and precursor lesions. Published studies have shown that it is subject to both false negative and false positive results. The pap test should not be used as the sole means to diagnose or exclude pre-malignant and malignant lesions. 05/25/2023 2:51 PM FREIGHT CONDUCTOR [facility] LABOR[facility] Other (Cervical) 05/15/2023 12:00 PM FREIGHT CONDUCTOR 05/19/2023 8:57 AM FREIGHT CONDUCTOR Vanessa Chavez PROGRESS CLERK PATHOLOGY/CYTOLOG Y [facility] [address] [place] [address], from Last 3 Months Care Teams Day Habilitation Specialist Relationship Specialty Start Date End Date Rich Resendez MD [address] [place] [address] PCP - General Internal Medicine 07/29/20
--- NOTE | 2023-06-05 10:15 | CRLHL7_ITS ---
For Patients: As a result of the Century Cures Act, medical imaging exams and procedure reports are released immediately into your electronic medical record. You may view this report before your referring provider. If you have questions, please contact your health care provider. INDICATION: Right ovarian lesions. COMPARISON: Pelvic ultrasound dated 20 May 2023. TECHNIQUE: Pelvic MRI with T1, T2, and postcontrast images. Intravenous gadolinium administered. FINDINGS: 2.0 x 1.6 x 1.3 cm fluid collection in the fundal portion of the endometrial canal. The uterus is otherwise unremarkable. Two lesions in the right ovary measuring 2.4 x 1.9 x 1.6 cm and 2.3 x 1.9 x 1.3 cm show heterogeneous enhancement. The right ovary measures 4.2 x 2.8 x 2.8 cm. Small follicles in a normal-appearing left ovary. The left ovary measures 3.1 x 1.8 x 1.8 cm. No other pelvic masses. No adenopathy. No other bony or soft tissue abnormalities identified. Impression : 1. Two heterogeneous enhancing lesions in the right ovary may represent collapsed cysts but cannot exclude an ovarian neoplasm. Recommend follow-up ultrasound in 6-8 weeks to assess for decrease in size. Recommend BOTTOM LOADER consultation. 2. Fluid collection in the fundal portion of the endometrial canal. Cannot exclude this representing a gestational sac. Correlate with test. Dictated by Gurdeep Little MD @ 06/11/2023 11:17:16 AM (Electronically Signed)
== END 2023-06-05 09:51 | disposition home or self-care (01) ==
LOC: MRI 09:51
PROVIDERS: PCP Internal Medicine; Visit Provider Registered Nurse
DX: N83.9 Noninflammatory disorder of ovary, fallopian tube and broad ligament, unspecified (principal)
CPT/HCPCS: 72197; A9575

== ENCOUNTER 2023-07-03 09:44 | Outpatient (CLI) | payer BC, SELFPAY ==
--- NOTE | 2023-07-03 11:15 | US_ITS ---
Patient: LENORE Lugo DAILY Facility:?[facility] Patient ID:?[id number] Site Patient ID:?[id number]. Site :?[id number] Study:?US-OB Pelvis OB TV-07/03/2023 11:56:29 AM Ordering Physician:FRANC AUGUST Final Report: Indication: Dating and viability LMP: 04/14/2024 Technique: Real-time sonographic images of the pelvis were obtained transvaginally using grayscale, color, and Doppler imaging. Comparison: Report 05/21/2023 Findings: Uterus: Normal. Gestational sac: Mean sac diameter measures 4.5 centimeter. Small subchorionic hemorrhage is seen inferior to the gestational sac measuring 0.9 x 0.3 x 1.4 centimeter. pole: Neal-rump length measures 3.6 centimeter, compatible with an average ultrasound age of 10 weeks 4 days and estimated date of delivery 01/25/2024. Yolk sac: Present. heart rate: 159 beats/min. Right ovary: Size: 3.9 x 2.3 x 2.0 centimeter. Appearance: Normal morphology. No masses. Left ovary: Size: 2.7 x 1.7 x 1.4 centimeter. Appearance: Normal morphology. No masses. Bladder: Visualized bladder is normal. Other: No free fluid. Impression: 1. Single live intrauterine with crown-rump length corresponding to 10 weeks 4 days. 2. Small subchorionic hemorrhage is seen inferior to the gestational sac measuring 0.9 x 0.3 x 1.4 centimeter. 3. Please see previous ultrasound and MRI for description of right ovarian lesions, which are not well visualized today. Dictated by Bong Browning MD @ 07/03/2023 12:46:22 PM Signed by:?Bong Browning MD @07/03/2023 12:46:22 PM (Electronic Signature)
== END 2023-07-03 09:45 | disposition home or self-care (01) ==
PROVIDERS: PCP Internal Medicine; Visit Provider Physician Assistant
DX: Z34.91 Encounter for supervision of normal pregnancy, unspecified, first trimester (principal); O20.9 Hemorrhage in early pregnancy, unspecified; Z3A.10 10 weeks gestation of pregnancy
CPT/HCPCS: 76817; 86703; 86706; 86803; 86850; 86900; 86901; 87086; 87340; 87491; 87591

== ENCOUNTER 2023-07-03 13:33 | Outpatient (CLI) | payer BC, SELFPAY ==
[2023-07-03 19:09] LABS: Chlamydia DNA Amplified* NOT DETECTED (No Detected); GC DNA Amplified* NOT DETECTED (No Detected)
== END 2023-07-03 13:34 | disposition home or self-care (01) ==
PROVIDERS: PCP Internal Medicine; Visit Provider Advanced Practice Midwife
DX: Z34.91 Encounter for supervision of normal pregnancy, unspecified, first trimester (principal)
CPT/HCPCS: 86592; 86703; 86704; 86706; 86762; 86787; 86803; 86850; 86900; 86901; 87086; 87340; 87491; 87591

== ENCOUNTER 2023-08-31 13:22 | Outpatient (CLI) | payer BC, SELFPAY ==
--- OUTSIDE RECORDS SUMMARY | 2023-08-31 13:24 | XMS_ITS | Referral Summary ---
Author Name Unknown Organization [place] Address [address] [place] [address] Care Team Providers Care Warranty Coordinator Name Role Phone Rich Resendez MD Primary Care Provider Allergies Active Allergy Reactions Criticality Noted Date Comments Latex Rash Low 01/01/2019 Ketorolac Difficulty breathing High 01/01/2019 Medications Medication Sig Dispensed Refills Start Date End Date Status butalbital-acetaminop hen-caffeine (FIORICET/ESGIC) 50-325-40 MG tabletIndications:Sebastián adrianna Take 1 tablet by mouth every 6 hours as needed for headaches Active MV-Min-Fe Fum-FA-DHA ( 1 PO) Take 1 tablet by mouth daily Active Active Problems Problem Noted Date Diagnosed [...] of Treatment Not on file Care Teams Warranty Coordinator Relationship Specialty Start Date End Date Rich Resendez MD [facility] [address] [place] [address] PCP - General Emergency Medicine 01/02/19
--- OUTSIDE RECORDS SUMMARY | 2023-08-31 13:24 | XMS_ITS | Clinical Summary ---
Author Name Unknown Organization [employer] [facility] [employer] [facility] Address [place], [place] [address] Care Team Providers Care Door Puller Name Role Phone Rich Resendez MD Primary [...] hours if needed for Nausea/Vomiting. 10 Tablet 06/25/2021 Active loperamide (IMODIUM) 2 mg capsuleIndications:Ab dominal pain, unspecified abdominal location,Nausea and vomiting, unspecified vomiting type Take 4mg by mouth with 1st loose stool, then 2mg with each subsequent loose stool. Max 16 mg in 24 hrs 15 Capsule 06/25/2021 Active Active Problems Problem Noted Date Diagnosed Date Adjustment disorder with depressed mood 06/25/19 09 Encounters Date Type Department Care Team Description 06/12/2023 Lab Requisition [facility] [phone] Verito Mckay MD from Last 3 Months Immunizations Name Administration [...] Comments Blood Pressure 131/107 06/25/2021 3:02 AM PULMONOLOGIST/INTENSIVIST Pulse 95 06/25/2021 3:59 AM PULMONOLOGIST/INTENSIVIST Temperature 37.4 ??C (99.3 ??F) 06/25/2021 3:02 AM CS T Respiratory Rate 16 06/25/2021 3:02 AM PULMONOLOGIST/INTENSIVIST Oxygen Saturation 98% 06/25/2021 3:59 AM PULMONOLOGIST/INTENSIVIST Inhaled Oxygen Concentration - - Weight 83.9 kg (185 lb) 06/25/2021 3:02 AM PULMONOLOGIST/INTENSIVIST Height 167.6 cm (5' 6) 06/25/2021 3:02 AM PULMONOLOGIST/INTENSIVIST Body Mass Index 29.86 06/25/2021 3:02 AM PULMONOLOGIST/INTENSIVIST Plan of Treatment Health Maintenance Due Date Last Done Comments Depression screening for age 12+ 2006 HIV for age 15-65 2009 Hepatitis C screening for age 18-79 01/23/2012 Tetanus booster 02/02/2017 02/02/2007 BMI (ht and wt on same day) for age 18+ 03/23/2018 03/23/2017 COVID-19 vaccine series ( season) 2023 Influenza for age 9-49 01/03/2024 Pap test for age 21-65 05/15/2026 4, 05/15/2023, 01/04/2021, Additional history exists Tdap Completed 02/02/2007 Pneumococcal series for age 6-64 Aged Out No longer eligible based on patient's age to complete this topic Procedures Procedure Name Priority Date/Time Associated Diagnosis Comments LAB TRACKING EVENT Routine 06/11/2023 11 :40 AM PULMONOLOGIST/INTENSIVIST PATH TISSUE EXAM Routine 06/11/2023 11:4 0 AM PULMONOLOGIST/INTENSIVIST HPV THIN PREP Routine 05/15/2023 12:30 PM PULMONOLOGIST/INTENSIVIST from Last 3 Months or Most Recently Relevant to Health Maintenance Results * LAB TRACKING EVENT (06/11/2023 11:40 AM PULMONOLOGIST/INTENSIVIST) Other (Other) Client Collect / Unknown 06/11/2023 11:40 AM PULMONOLOGIST/INTENSIVIST 06/12/2023 3:29 PM PULMONOLOGIST/INTENSIVIST Verito Mckay MD LAB BILL [facility] [address] [place], [place] [id number], * PATH TISSUE EXAM (06/11/2023 11:40 AM PULMONOLOGIST/INTENSIVIST) Case Report Pathology Report ?Case: [id number] ? Authorizing Provider: ??Verito Mckay ??Collected: ? 06/11/2023 1140 ? MD Sole ? Ordering Location: ? [facility] ?Received: ?06/12/2023 1725 ? Pathologist: ? Franklin Duckworth MD ? Specimens: ?? A) - Cervical Biopsy, 6 oclock ? B) - Cervical Biopsy, 9 oclock ? 06/17/2023 7:45 AM [facility]ATORY Addendum The patient's prior Pap test ([id number]; 4) was diagnosed as low grade squamous intraepithelial lesion (LSIL). Concurrent HR-HPV testing was positive for HR-HPV other (non-16/18) subtype(s). The atypical cells seen on the prior cervical Pap test are explained by the current biopsies 06/17/2023 7:45 AM [facility] Addendum electronically signed by Franklin Duckworth MD on 06/17/2023 at 7:45 AM Final Diagnosis A) CERVIX, 6:00, BIOPSY: 1. Low grade squamous intraepithelial lesion (NICHOLE 1) ?? a. Sampling: Ectocervix and endocervix ?? b. Transformation zone: Present 2. Negative for high grade NICHOLE and invasive carcinoma 3. Background cervical mucosa with acute and chronic cervicitis B) CERVIX, 9:00, BIOPSY: 1. Low grade squamous intraepithelial lesion (NICHOLE 1) ?? a. Sampling: Ectocervix and endocervix ?? b. Transformation zone: Present 2. Negative for high grade NICHOLE and invasive carcinoma 3. Background cervical mucosa with acute and chronic cervicitis 06/17/2023 7:45 AM PULMONOLOGIST/INTENSIVIST [facility] [employer] [facility] Comment Case seen in consultation with Dr. Bailey (H&E stained slides only). 06/17/2023 7:45 AM PULMONOLOGIST/INTENSIVIST [facility] Payments Anytime | Anywhere [facility] Clinical Information LGSIL, HPV positive Pap test 06/17/2023 7:45 AM PULMONOLOGIST/INTENSIVIST [facility] [employer] [facility] Gross Description A) Received in formalin, labeled with the patient's name and A cervical biopsy, is a single clemens mucosal fragment measuring 0.7 cm in greatest dimension. ??The specimen is entirely submitted in 1 cassette. B) Received in formalin, labeled with the patient's name and B cervical biopsy, is a single clemens mucosal fragment measuring 0.5 cm in greatest dimension as well as a 1.0 x 0.5 x 0.1 cm aggregate of blood-tinged mucus. ??The specimen is entirely submitted in 1 cassette. EKW 06/12/2023 06/17/2023 7:45 AM [facility] Microscopic Description The final diagnosis is based on microscopic examination of appropriate sections of all specimens. Immunohistochemica l staining for p16 is performed on specimen blocks A1,B1 (patchy rare cells) and supports the diagnosis. 06/17/2023 7:45 AM PULMONOLOGIST/INTENSIVIST [facility] [employer] [facility] Additional Information Interpreted at [facility] Central Laboratory - [address] [address] 06/17/2023 7:45 AM [facility] [employer] [facility] Other (Cervical Biopsy) 06/11/2023 11:40 AM PULMONOLOGIST/INTENSIVIST 06/12/2023 5:25 PM PULMONOLOGIST/INTENSIVIST Specimen (specimen) (Cervical Biopsy) 06/11/2023 11:40 AM PULMONOLOGIST/INTENSIVIST 06/12/2023 5:25 PM PULMONOLOGIST/INTENSIVIST Verito Mckay MD PATHOLOGY/ CYTOLOGY Performing Organization Address [facility] Co de Phone Number [facility] [address] [place] [address], * (ABNORMAL) HPV HIGH RISK (05/15/2023 12:30 PM PULMONOLOGIST/INTENSIVIST) TYPE 16 Negative Negative 05/22/2023 11:44 AM PULMONOLOGIST/INTENSIVIST [facility] TRAL LABORATORY TYPE 18 Negative Negative 05/22/2023 11:44 AM PULMONOLOGIST/INTENSIVIST [facility] TRA LABORATORY OTHER HIGH RISK TYPES Positive(A) Negative 05/22/2023 11:44 AM PULMONOLOGIST/INTENSIVIST [facility] Other (Cervical) Non-Blood / Unknown 05/15/2023 12:30 PM PULMONOLOGIST/INTENSIVIST 05/21/2023 7:37 AM PULMONOLOGIST/INTENSIVIST Narrative [facility] - 05/22/2023 11:44 AM PULMONOLOGIST/INTENSIVIST Specimen is positive for the DNA of any one of, or combination of, the following high risk HPV types: 31, 33, 35, 39, 45, 51, 52, 56, 58, 59, 66, 68. HPV types 16 and 18 DNA were undetectable or below the pre-set threshold. ? Methodology: Yung Mabel 4800 HPV Test Vanessa Chavez NP MICROBIOLOGY Performing Organization Address [facility] Co de Phone Number [facility] [address] [place] [address], from Last 3 Months or Most Recently Relevant to Health Maintenance Care Teams Door Puller Relationship Specialty Start Date End Date Rich Resendez MD [address] [place] [address] PCP - General Internal Medicine 07/29/20"
--- OUTSIDE RECORDS SUMMARY | 2023-08-31 13:24 | XMS_ITS | Clinical Summary ---
Author Name Unknown Organization [place] Address [address] [place] [address] Care Team Providers Care Customer Service Security Officer Name Role Phone Rich Resendez MD Primary [...] of Treatment Not on file Care Teams Customer Service Security Officer Relationship Specialty Start Date End Date Rich Resendez MD [facility] [address] [place] [address] PCP - General Emergency Medicine 01/02/19
[2023-08-31 16:02] LABS: Chlamydia DNA Amplified* NOT DETECTED (No Detected); GC DNA Amplified* NOT DETECTED (No Detected)
== END 2023-08-31 13:23 | disposition home or self-care (01) ==
PROVIDERS: PCP Internal Medicine; Visit Provider Obstetrics & Gynecology
DX: N89.8 Other specified noninflammatory disorders of vagina (principal); R10.2 Pelvic and perineal pain
CPT/HCPCS: 87086; 87491; 87591

== ENCOUNTER 2023-09-17 13:56 | Outpatient (CLI) | payer BC, SELFPAY ==
--- OUTSIDE RECORDS SUMMARY | 2023-09-17 13:58 | XMS_ITS | Referral Summary ---
Author Name Unknown Organization [place] Address [address] [place] [address] Care Team Providers Care Property Adjuster Name Role Phone Rich Resendez MD Primary [...] of Treatment Not on file Care Teams Property Adjuster Relationship Specialty Start Date End Date Rich Resendez MD [facility] [address] [place] [address] PCP - General Emergency Medicine 01/02/19
--- OUTSIDE RECORDS SUMMARY | 2023-09-17 13:58 | XMS_ITS | Clinical Summary ---
Author Name Unknown Organization [place] Address [address] [place] [address] Care Team Providers Care 1St Grade Teacher Name Role Phone Rich Resendez MD Primary [...] of Treatment Not on file Care Teams 1St Grade Teacher Relationship Specialty Start Date End Date Rich Resendez MD [facility] [address] [place] [address] PCP - General Emergency Medicine 01/02/19
--- OUTSIDE RECORDS SUMMARY | 2023-09-17 13:58 | XMS_ITS | Clinical Summary ---
Author Name Unknown Organization [employer] [facility] [employer] Address [place], [place] [address] Care Team Providers Care Courtesy Car Driver Name Role Phone Rich Resendez MD Primary Care Provider [phone] Allergies Active Allergy Reactions Criticality Noted Date [...] Comments Blood Pressure 131/107 06/25/2021 3:02 AM ENTRY LEVEL INSTALLATION TECHNICIAN Pulse 95 06/25/2021 3:59 AM ENTRY LEVEL INSTALLATION TECHNICIAN Temperature 37.4 ??C (99.3 ??F) 06/25/2021 3:02 AM CS T Respiratory Rate 16 06/25/2021 3:02 AM ENTRY LEVEL INSTALLATION TECHNICIAN Oxygen Saturation 98% 06/25/2021 3:59 AM ENTRY LEVEL INSTALLATION TECHNICIAN Inhaled Oxygen Concentration - - Weight 83.9 kg (185 lb) 06/25/2021 3:02 AM ENTRY LEVEL INSTALLATION TECHNICIAN Height 167.6 cm (5' 6) 06/25/2021 3:02 AM ENTRY LEVEL INSTALLATION TECHNICIAN Body Mass Index 29.86 06/25/2021 3:02 AM ENTRY LEVEL INSTALLATION TECHNICIAN Plan of Treatment Health Maintenance Due Date Last Done Comments Depression screening for age 12+ 2006 HIV for age 15-65 2009 Hepatitis C screening for age 18-79 01/23/2012 Tetanus booster 02/02/2017 02/02/2007 BMI (ht and wt on same day) for age 18+ 03/23/2018 03/23/2017 COVID-19 vaccine series (2022- season) 2023 Influenza for age 9-49 01/03/2024 Pap test for age 21-65 05/15/2026 , 05/15/2023, 01/04/2021, Additional history exists Tdap Completed 02/02/2007 Pneumococcal series for age 6-64 Aged Out No longer eligible based on patient's age to complete this topic Procedures Procedure Name Priority Date/Time Associated Diagnosis Comments HPV THIN PREP Routine 05/15/2023 12:30 PM ENTRY LEVEL INSTALLATION TECHNICIAN from Last 3 Months or Most Recently Relevant to Health Maintenance Results * (ABNORMAL) HPV HIGH RISK (05/15/2023 12:30 PM ENTRY LEVEL INSTALLATION TECHNICIAN) TYPE 16 Negative Negative 05/22/2023 11:44 AM ENTRY LEVEL INSTALLATION TECHNICIAN [facility] LAB[facility]AT[facility] TYPE 18 Negative Negative 05/22/2023 11:44 AM ENTRY LEVEL INSTALLATION TECHNICIAN [facility] LAB[facility] OTHER HIGH RISK TYPES Positive(A) Negative 05/22/2023 11:44 AM ENTRY LEVEL INSTALLATION TECHNICIAN [facility] Other (Cervical) Non-Blood / Unknown 05/15/2023 12:30 PM ENTRY LEVEL INSTALLATION TECHNICIAN 05/21/2023 7:37 AM ENTRY LEVEL INSTALLATION TECHNICIAN Narrative [facility] - 05/22/2023 11:44 AM ENTRY LEVEL INSTALLATION TECHNICIAN Specimen is positive for the DNA of any one of, or combination of, the following high risk HPV types: 31, 33, 35, 39, 45, 51, 52, 56, 58, 59, 66, 68. HPV types 16 and 18 DNA were undetectable or below the pre-set threshold. ? Methodology: Yung Mabel 4800 HPV Test Vanessa Chavez NP MICROBIOLOGY [facility] [address] [address], from Last 3 Months or Most Recently Relevant to Health Maintenance Care Teams Courtesy Car Driver Relationship Specialty Start Date End Date Rich Resendez MD [address] [place] [address] PCP - General Internal Medicine 07/29/20
--- NOTE | 2023-09-17 14:00 | US_ITS ---
Patient: LENORE Lugo DAILY Facility:?[facility] RIS Patient ID:?[id number] Site Patient ID:?[id number]. Site :?[id number] Study:?US-Pelvis PELVIS TA & TV-09/17/2023 2:50:40 PM Ordering Physician:?BACILIO GILLESPIE M.D. Final Report: INDICATION: Other noninflammatory disorders of ovary COMPARISON: 05/20/2023 TECHNIQUE: 2D paul scale and color Doppler images were acquired of the pelvis using a transabdominal and transvaginal approach. FINDINGS: Sonographic images demonstrate a normal size and smooth outer contour of the uterus. Uterus measures 9.5 cm in length by 4.1 cm in AP diameter by 6.3 cm in transverse dimension. The myometrium has a normal uniform echotexture. The endometrial lining appears normal and measures 5 mm in composite thickness. The right ovary measures 4.7 x 3.6 x 3.8 cm in size and the left ovary measures 4.7 x 3.8 x 3.4 cm. The ovaries demonstrate normal arterial and venous blood flow on color Doppler analysis. There are no suspicious fluid collections within the cul-de-sac. Simple anechoic ovarian cysts are present bilaterally measuring 3.3 x 2.7 x 2.6 cm on the right and 3.2 x 3.4 x 2.7 cm on the left. IMPRESSION: Simple bilateral ovarian cysts. Dictated by Roland Roberto MD @ 09/18/2023 10:01:53 AM Signed by:?Roland Roberto MD @09/18/2023 10:01:53 AM (Electronic Signature)
== END 2023-09-17 13:57 | disposition home or self-care (01) ==
LOC: US 13:56
PROVIDERS: PCP Internal Medicine; Visit Provider Obstetrics & Gynecology
DX: N83.201 Unspecified ovarian cyst, right side (principal); N83.202 Unspecified ovarian cyst, left side
CPT/HCPCS: 76830; 76856; 93976

== ENCOUNTER 2023-11-19 09:03 | Outpatient (CLI) | payer BC, SELFPAY ==
--- OUTSIDE RECORDS SUMMARY | 2023-11-19 09:05 | XMS_ITS | Clinical Summary ---
Author Organization [place] Address [address] [facility] [place] [address] Care Team Providers Care Epic Willow Analyst Name Role Phone Rich Resendez MD Primary [...] of Treatment Not on file Care Teams Epic Willow Analyst Relationship Specialty Start Date End Date Rich Resendez MD [facility] [address] [place] [address] PCP - General Emergency Medicine 01/02/19
--- OUTSIDE RECORDS SUMMARY | 2023-11-19 09:05 | XMS_ITS | Referral Summary ---
Author Organization [place] Address [address] [facility] [place] [address] Care Team Providers Care Numerical Control Drill Press Operator Name Role Phone Rich Resendez MD Primary [...] of Treatment Not on file Care Teams Numerical Control Drill Press Operator Relationship Specialty Start Date End Date Rich Resendez MD [facility] [address] [place] [address] PCP - General Emergency Medicine 01/02/19
--- OUTSIDE RECORDS SUMMARY | 2023-11-19 09:05 | XMS_ITS | Clinical Summary ---
Author Organization [employer] [facility] [employer] [facility] Address [place], [place] [address] Care Team Providers Care Direct Response Consultant Name Role Phone Rich Resendez MD Primary Care Provider [phone] Allergies Active Allergy Reactions Criticality Noted Date [...] Comments Blood Pressure 131/107 06/25/2021 3:02 AM TERRA COTTA ROOFER HELPER Pulse 95 06/25/2021 3:59 AM TERRA COTTA ROOFER HELPER Temperature 37.4 ??C (99.3 ??F) 06/25/2021 3:02 AM CS T Respiratory Rate 16 06/25/2021 3:02 AM TERRA COTTA ROOFER HELPER Oxygen Saturation 98% 06/25/2021 3:59 AM TERRA COTTA ROOFER HELPER Inhaled Oxygen Concentration - - Weight 83.9 kg (185 lb) 06/25/2021 3:02 AM TERRA COTTA ROOFER HELPER Height 167.6 cm (5' 6) 06/25/2021 3:02 AM TERRA COTTA ROOFER HELPER Body Mass Index 29.86 06/25/2021 3:02 AM TERRA COTTA ROOFER HELPER Plan of Treatment Health Maintenance Due Date [...] HPV THIN PREP Routine 05/15/2023 12:30 PM TERRA COTTA ROOFER HELPER from Last 3 Months or Most Recently Relevant to Health Maintenance Results * (ABNORMAL) HPV HIGH RISK (05/15/2023 12:30 PM TERRA COTTA ROOFER HELPER) TYPE 16 Negative Negative 05/22/2023 11:44 AM TERRA COTTA ROOFER HELPER [facility] TRAL LAB[facility] TYPE 18 Negative Negative 05/22/2023 11:44 AM TERRA COTTA ROOFER HELPER [facility] TRA LABORATORY OTHER HIGH RISK TYPES Positive(A) Negative 05/22/2023 11:44 AM TERRA COTTA ROOFER HELPER [facility] Other (Cervical) Non-Blood / Unknown 05/15/2023 12:30 PM TERRA COTTA ROOFER HELPER 05/21/2023 7:37 AM TERRA COTTA ROOFER HELPER Narrative [facility] - 05/22/2023 11:44 AM TERRA COTTA ROOFER HELPER Specimen is positive for the DNA of any one of, or combination of, the following high risk HPV types: 31, 33, 35, 39, 45, 51, 52, 56, 58, 59, 66, 68. HPV types 16 and 18 DNA were undetectable or below the pre-set threshold. ? Methodology: Yung Mabel 4800 HPV Test Vanessa Chavez NP MICROBIOLOGY [facility] [address] [place] [address], from Last 3 Months or Most Recently Relevant to Health Maintenance Care Teams Direct Response Consultant Relationship Specialty Start Date End Date Rich Resendez MD [address] [place] [address] PCP - General Internal Medicine 07/29/20
--- NOTE | 2023-11-19 09:15 | CRLHL7_ITS ---
For Patients: As a result of the Cures Act, medical imaging exams and procedure reports are released immediately into your electronic medical record. You may view this report before your referring provider. If you have questions, please contact your health care provider. INDICATION: First trimester scan, establish dates. COMPARISON: None. TECHNIQUE: Real-time paul-scale imaging of the pelvis was performed. FINDINGS: Sonographic imaging demonstrates a twin living intrauterine gestation, diamniotic/dichorionic. Twin A: The embryo demonstrates a regular cardiac rate measuring 169 beats per minute. The embryo`s crown-rump length measurement of 1.6 cm corresponds to a gestational age of 8 weeks 0 days with a sonographic due date of 07/02/2024. There is a normal-appearing yolk sac. There are no gross abnormalities noted within the embryo at this early state of development. The gestational sac has a normal appearance. The amount of fluid within the sac appears appropriate for gestational age. Twin B: The embryo demonstrates a regular cardiac rate measuring 165 beats per minute. The embryo`s crown-rump length measurement of 1.7 cm corresponds to a gestational age of 8 weeks 1 day with a sonographic due date of 07/02/2024. There is a normal-appearing yolk sac. There are no gross abnormalities noted within the embryo at this early state of development. The gestational sac has a normal appearance. The amount of fluid within the sac appears appropriate for gestational age. The cervix is closed. Small inferior subchorionic hemorrhage measures 4 x 5 x 10 millimeters. The myometrium appears normal. The ovaries are of normal size. There are no suspicious fluid collections noted in the cul-de-sac. Corpus luteal cyst right ovary. IMPRESSION: Twin A: Gestational age calculated at 7 weeks 5 days with a sonographic due date of 07/02/2024. Twin B: Gestational age calculated at 7 weeks 5 days with a sonographic due date of 07/02/2024. Dictated by Roland Roberto MD @ 11/19/2023 10:20:48 AM (Electronically Signed)
== END 2023-11-19 09:04 | disposition home or self-care (01) ==
LOC: US 09:03
PROVIDERS: PCP Internal Medicine; Visit Provider Physician Assistant
DX: Z34.91 Encounter for supervision of normal pregnancy, unspecified, first trimester (principal); O30.001 Twin pregnancy, unspecified number of placenta and unspecified number of amniotic sacs, first trimester; Z3A.01 Less than 8 weeks gestation of pregnancy
CPT/HCPCS: 76817

== ENCOUNTER 2023-12-01 14:37 | Outpatient (CLI) | payer BC, SELFPAY ==
--- OUTSIDE RECORDS SUMMARY | 2023-12-01 14:39 | XMS_ITS | Clinical Summary ---
Author Organization [employer] [facility] [employer] [facility] Address [place], [place] [address] Care Team Providers Care Coffee Brewer Name Role Phone Rich Resendez MD Primary [...] Comments Blood Pressure 131/107 06/25/2021 3:02 AM ORDNANCE EQUIPMENT WORKER Pulse 95 06/25/2021 3:59 AM ORDNANCE EQUIPMENT WORKER Temperature 37.4 ??C (99.3 ??F) 06/25/2021 3:02 AM CS T Respiratory Rate 16 06/25/2021 3:02 AM ORDNANCE EQUIPMENT WORKER Oxygen Saturation 98% 06/25/2021 3:59 AM ORDNANCE EQUIPMENT WORKER Inhaled Oxygen Concentration - - Weight 83.9 kg (185 lb) 06/25/2021 3:02 AM ORDNANCE EQUIPMENT WORKER Height 167.6 cm (5' 6) 06/25/2021 3:02 AM ORDNANCE EQUIPMENT WORKER Body Mass Index 29.86 06/25/2021 3:02 AM ORDNANCE EQUIPMENT WORKER Plan of Treatment Health Maintenance Due Date [...] HPV THIN PREP Routine 05/15/2023 12:30 PM ORDNANCE EQUIPMENT WORKER from Last 3 Months or Most Recently Relevant to Health Maintenance Results * (ABNORMAL) HPV HIGH RISK (05/15/2023 12:30 PM ORDNANCE EQUIPMENT WORKER) TYPE 16 Negative Negative 05/22/2023 11:44 AM ORDNANCE EQUIPMENT WORKER [facility] TRAL LABORAT[facility] TYPE 18 Negative Negative 05/22/2023 11:44 AM ORDNANCE EQUIPMENT WORKER [facility] TRA LABORATORY OTHER HIGH RISK TYPES Positive(A) Negative 05/22/2023 11:44 AM ORDNANCE EQUIPMENT WORKER [facility] Other (Cervical) Non-Blood / Unknown 05/15/2023 12:30 PM ORDNANCE EQUIPMENT WORKER 05/21/2023 7:37 AM ORDNANCE EQUIPMENT WORKER Narrative [facility] - 05/22/2023 11:44 AM ORDNANCE EQUIPMENT WORKER Specimen is positive for the DNA of any one of, or combination of, the following high risk HPV types: 31, 33, 35, 39, 45, 51, 52, 56, 58, 59, 66, 68. HPV types 16 and 18 DNA were undetectable or below the pre-set threshold. ? Methodology: Yung Mabel 4800 HPV Test Vanessa Chavez NP MICROBIOLOGY [facility] [address] [place] [address], from Last 3 Months or Most Recently Relevant to Health Maintenance Care Teams Coffee Brewer Relationship Specialty Start Date End Date Rich Resendez MD [address] [place] [address] PCP - General Internal Medicine 07/29/20
--- OUTSIDE RECORDS SUMMARY | 2023-12-01 14:39 | XMS_ITS | Clinical Summary ---
Author Organization [place] Address [address] [facility] [place] [address] Care Team Providers Care Geospatial Imagery Intelligence Analyst Name Role Phone Rich Resendez MD [...] of Treatment Not on file Care Teams Geospatial Imagery Intelligence Analyst Relationship Specialty Start Date End Date Rich Resendez MD [facility] [address] [place] [address] PCP - General Emergency Medicine 01/02/19
--- OUTSIDE RECORDS SUMMARY | 2023-12-01 14:39 | XMS_ITS | Referral Summary ---
Author Organization [place] Address [address] [facility] [place] [address] Care Team Providers Care Credit Or Loans Officer Name Role Phone Rich Resendez MD [...] Treatment Not on file Care Teams Credit Or Loans Officer Relationship Specialty Start Date End Date Rich Resendez MD [facility] [address] [place] [address] PCP - General Emergency Medicine 01/02/19
[2023-12-01 21:02] LABS: Chlamydia DNA Amplified* NOT DETECTED (No Detected); GC DNA Amplified* NOT DETECTED (No Detected)
== END 2023-12-01 14:38 | disposition home or self-care (01) ==
PROVIDERS: PCP Internal Medicine; Visit Provider Physician Assistant
DX: O30.041 Twin pregnancy, dichorionic/diamniotic, first trimester (principal); Z3A.09 9 weeks gestation of pregnancy
CPT/HCPCS: 82607; 86592; 86703; 86704; 86706; 86762; 86787; 86803; 86850; 86900; 86901; 87086; 87340; 87491; 87591

== ENCOUNTER 2023-12-23 14:36 | Outpatient (CLI) | payer BC, SELFPAY ==
--- OUTSIDE RECORDS SUMMARY | 2023-12-23 14:39 | XMS_ITS | Encounter Summary ---
Author Organization [place] Address [address] [place] [address]. [place] [address] Care Team Providers Care Insulator Tester Name Role Phone Rich Resendez MD Primary Care Provider Encounter Details Date Type Department Care Team (Late st Contact Info) Description 12/17/2023 4:00 PM CDT Lab [facility] Laboratory [address] [place] [phone] Rima Portillo MD [address] [facility] [address] [place] [address] Dichorionic diamniotic twin in first trimester; screening encounter; Encounter of female for testing for genetic disease carrier status for procreative management Social History Tobacco Use Types Packs/Day Years Used Date Smoking Tobacco: Never Assessed Estimated Date of Delivery Comme nts Yes 06/30/2024 Based on last me nstrual period of 09/24/2023 Sex and Gender Information Value Date Recorded Sex Assigned at Female 12/03/2023 6:00 PM CDT Gender Identity Female 12/03/2023 6:00 PM CDT Sexual Orientation Straight 12/03/2023 6: 00 PM CDT documented as of this encounter Plan of Treatment Upcoming Encounters Date Type Department Care Team (Late st Contact Info) Description 02/01/2024 8:45 AM CDT Appointment [facility] [place] [address] [place] [phone] Rima Portillo MD [address] [place], [place] [address] 02/01/2024 9:15 AM CDT Office Visit [facility] Maternal Medicine [facility] [address] [place], [place] [address] Rima Portillo MD [address] [facility] [address] [place], [place] [phone] Pending Results Name Type Priority Associated Diagnoses Date /Time Laboratory Miscellaneous Result Lab Routine Dichorionic diamniotic twin in first trimester screening encounter 12/17/2023 5:29 PM CDT Laboratory Miscellaneous Result Lab Routine Dichorionic diamniotic twin in first trimester Encounter of female for testing for genetic disease carrier status for procreative management 12/17/2023 5:30 PM CDT documented as of this encounter Procedures Procedure Name Priority Date/Time Associated Diagnosis Comments LABORATORY MISCELLANEOUS ORDER Routine 12/17/2023 5:30 PM CDT Dichorionic diamniotic twin in first trimester Encounter of female for testing for genetic disease carrier status for procreative management LABORATORY MISCELLANEOUS ORDER Routine 12/17/2023 5:29 PM CDT Dichorionic diamniotic twin in first trimester screening encounter documented in this encounter Results * Other Laboratory; Iain; Horizon (Laboratory Miscellaneous Order) (12/17/2023 5:30 PM CDT) Specimen Status Specimen received. Reordered and sent to performing laboratory. Report to follow upon completion. RAMAKRISHNA 12/18/2023 2:56 PM CDT UU LABORATORY Performing Laboratory Iain RAMAKRISHNA 12/18/2023 2:56 PM CDT UR LABORATORY Test Name Horizon RAMAKRISHNA 12/18/2023 2:56 PM CDT UR LABORATORY Blood BLOOD SPECIMEN / Unknown Venipuncture / Unknown 12/17/2023 5:30 PM CDT 12/17/2023 5:35 PM CDT Roxane Goldstein GC LAB - BLOOD ORDERABL ES U LABORATORY [facility] Core Lab [address] [facility], [address] [place] [address], [facility] UR LABORATORY [facility] Acute Care Lab [address] [facility], Room [address] [phone] * Other Laboratory; Iain; Panorama (Laboratory Miscellaneous Order) (12/17/2023 5:29 PM CDT) Specimen Status Specimen received. Reordered and sent to performing laboratory. Report to follow upon completion. RAMAKRISHNA 12/18/2023 2:50 PM CDT [facility]U LABORATORY Performing Laboratory Iain RAMAKRISHNA 12/18/2023 2:50 PM CDT UR LABORATORY Test Name Panorama [facility] 12/18/2023 2:50 PM CDT UR LABORATORY Blood BLOOD SPECIMEN / Unknown Venipuncture / Unknown 12/17/2023 5:29 PM CDT 12/17/2023 5:30 PM CDT Roxane Goldstein LAB - BLOOD ORDERABL ES U LABORATORY [facility] Core Lab [address] [facility], [address] [place] [phone], [facility] UR LABORATORY [facility] Acute Care Lab Count includes the [facility], [address] [phone], [facility] documented in this encounter Visit Diagnoses Diagnosis Dichorionic diamniotic twin in first trimester Twin , antepartum screening encounter Unspecified screening Encounter of female for testing for genetic disease carrier status for procreative management Testing of female for genetic disease carrier status documented in this encounter Care Teams Insulator Tester Relationship Specialty Start Date End Date Rich Resendez MD [facility] [address] [place] [address] PCP - General Emergency Medicine 01/02/19 documented as of this encounter
--- OUTSIDE RECORDS SUMMARY | 2023-12-23 14:39 | XMS_ITS | Encounter Summary ---
Author Organization [place] Address [address] [facility] [place] [address] Care Team Providers Care Cattle And Wheat Farmer Name Role Phone Rich Resendez MD Primary Care Provider Reason for Visit * Reason Onset Date Comments Clinic Care Coordination - Follow-up 12/18/2023 Encounter Details Date Type Department Care Team (Late st Contact Info) Description 12/18/2023 Telephone [facility] Maternal Medicine [facility] [address] [place], [place] [phone] Roxane Goldstein GC [address] [place] [address] [address] [place] [address] Clinic Care Coordination - Follow-up Social History Tobacco Use Types Packs/Day Years [...] Info) Description 02/01/2024 8:45 AM CDT Appointment [facility] Maternal Medicine [facility] [address] [place] [phone] Rima Portillo MD [address] [facility] [address] [place], [place] [phone] 02/01/2024 9:15 AM CDT Office Visit [facility] Maternal Medicine [facility] [address] [place], [place] [phone] Rima Portillo MD [address] [place], [place] [phone] documented as of this encounter Visit Diagnoses Not on filedocumented in this encounter Care Teams Cattle And Wheat Farmer Relationship Specialty Start Date End Date Rich Resendez MD [facility] [address] [place] [address] PCP - General Emergency Medicine 01/02/19 documented as of this encounter
--- OUTSIDE RECORDS SUMMARY | 2023-12-23 14:39 | XMS_ITS | Clinical Summary ---
Author Organization [place] Address [address] [place] [address]. [place] [address] Care Team Providers Care Newspaper Press Operator Apprentice Name Role Phone Rich Resendez MD Primary Care Provider Allergies Active Allergy Reactions Criticality Noted Date Comments Ketorolac Difficulty breathing,Itching High 015 Latex Rash Low 01/01/2019 Medications Medication Sig Dispensed Refills Start Date End Date Status butalbital-acetaminop hen-caffeine (FIORICET/ESGIC) 50-325-40 MG tabletIndications:Sebastián adrianna Take 1 tablet by mouth every 6 hours as needed for headaches Active MV-Min-Fe Fum-FA-DHA ( 1 PO) Take 1 tablet by mouth daily Active ASPIRIN LOW DOSE 81 MG EC tablet Take 81 mg by mouth daily 12/08/2023 Active Active Problems Problem Noted Date Diagnosed Date Encounter for triage in patient 019 Estimated Date of Delivery Comme nts Yes 06/30/2024 Based on last me nstrual period of 09/24/2023 Resolved Problems Problem Noted Date Diagnosed Date Resolved Date related condition in second trimester 12/18/2023 12/18/2023 Encounters Date Type Department Care Team Description 12/18/2023 Telephone [facility] [place] [address] [place], [place] [phone] Roxane Goldstein GC Clinic Care Coordination - Follow-up 12/17/2023 4:00 PM CDT Lab [facility] Laboratory [address] [place] [phone] Rima Portillo MD Dichorionic diamniotic twin in first trimester; screening encounter; Encounter of female for testing for genetic disease carrier status for procreative management 12/17/2023 2:15 PM CDT Office Visit [facility] Medicine [facility] [address] [place] [address] Rima Portillo MD Dichorionic diamniotic twin in first trimester (Primary Dx); History of delivery, currently in first trimester 12/17/2023 12:45 PM CDT Office Visit [facility] Medicine [facility] [address] [place] [address] Rima Portillo MD Meyer, Jennifer R, NEELAM screening encounter (Primary Dx); Dichorionic diamniotic twin in first trimester; Encounter of female for testing for genetic disease carrier status for procreative management 12/17/2023 12:24 PM CDT - 12/17/2023 11:59 PM CDT Hospital Encounter [facility] [address] [place] [phone] Rima Portillo MD Dichorionic diamniotic twin in first trimester; Joint derangement Discharge Disposition: Home or Self Care 12/17/2023 Travel 12/15/2023 PRE VISIT [facility] [address] [place] [address] Lilia Moctezuma, RN Genetic Counseling (Di/di twins, PCOS, Fibromyalgia, BMI>30, hx PPROM/PTD); Ultrasound (Twin NT- Di/di twins, PCOS, Fibromyalgia, BMI>30, hx PPROM/PTD/); Consult (Di/di twins, PCOS, Fibromyalgia, BMI>30, hx PPROM/PTD/) 12/12/2023 Travel 12/11/2023 MyC Medical Advice [facility] [address] [facility] [address] [place] [phone] Albina Lorne 12/03/2023 Transcribe Orders [facility] Medicine [facility] [address] [place] [address] August related condition (Primary Dx) 12/02/2023 Orders Only [facility] Maternal Medicine [facility] [address] [place] [address] Elsie Blanchard, RN Dichorionic diamniotic twin in first trimester (Primary Dx); Joint derangement 12/02/2023 Transcribe Orders [facility] Maternal Medicine [facility] [address] [place] [phone] August related condition, antepartum (Primary Dx) 12/01/2023 Medical Correspondence [facility] [address] [place] [address] Scan, Non-Provider from Last 3 Months Social History Tobacco Use Types Packs/Day Years Used Date Smoking Tobacco: Never Assessed Estimated Date of Delivery Comme nts Yes 06/30/2024 Based on last me nstrual period of 09/24/2023 Sex and Gender Information Value Date Recorded Sex Assigned at Female 12/03/2023 6:00 PM CDT Gender Identity Female 12/03/2023 6:00 PM CDT Sexual Orientation Straight 12/03/2023 6: 00 PM CDT Last Filed Vital Signs Vital Sign Reading Time Taken Comments Blood Pressure 125/87 01/01/2019 6:25 AM CDT Pulse 107 01/01/2019 6:25 AM CDT Temperature 37 ??C (98.6 ??F) 01/01/2019 6:25 AM CDT Respiratory Rate 20 01/01/2019 6:25 AM CDT Oxygen Saturation - - Inhaled Oxygen Concentration - - Weight - - Height - - Body Mass Index - - Plan of Treatment Upcoming Encounters Date Type Department Care Team (Late st Contact Info) Description 02/01/2024 8:45 AM CDT Appointment [facility] Maternal Medicine [facility] [address] [place] [phone] Rima Portillo MD [address] [place], [place] [phone] 02/01/2024 9:15 AM CDT Office Visit [facility] [place] [address] [place], [place] [phone] Rima Portillo MD [address] [place], [place] [phone] Health Maintenance Due Date Last Done Comments ADVANCE CARE PLANNING 1994 ANNUAL REVIEW OF HM ORDERS 1994 YEARLY PREVENTIVE VISIT 1994 HIV SCREENING 2009 HEPATITIS C SCREENING 01/23/2012 COVID-19 Vaccine ( season) 2023 PHQ-2 (once per calendar year) 2023 MATERNAL SCREENING DISCUSSION 12/03/2023 INFLUENZA VACCINE (#1) 2024 02/02/2019, 2018 RSV VACCINE ( & 60+) (1 - Risk 1-dose series) 05/05/2024 PAP 05/15/2026 05/15/2023, 06/07/2018 DTAP/TDAP/TD IMMUNIZATION (5 - Td or Tdap) 12/27/2028 12/27/2018, 04/01/2017, 02/02/2007, Additional history exists HEPATITIS B IMMUNIZATION Completed 995, 1994, 1994 HPV IMMUNIZATION Completed 08/27/2016, 06/2015, 10/09/2014 MENINGITIS IMMUNIZATION Aged Out 08/27/2016 No l onger eligible based on patient's age to complete this topic Pneumococcal Vaccine: Pediatrics (0 to 5 Years) and At-Risk Patients (6 to 64 Years) Aged Out No longer eligible based on patient's age to complete this topic RSV MONOCLONAL ANTIBODY Aged Out No l onger eligible based on patient's age to complete this topic Procedures Procedure Name Priority Date/Time Associated Diagnosis Comments LABORATORY MISCELLANEOUS ORDER Routine 12/17/2023 5:30 PM CDT Dichorionic diamniotic twin in first trimester Encounter of female for testing for genetic disease carrier status for procreative management LABORATORY MISCELLANEOUS ORDER Routine 12/17/2023 5:29 PM CDT Dichorionic diamniotic twin in first trimester screening encounter MFM TWINS NUCHAL TRANSLUCENCY W US Routine 12/17/2023 2:19 PM CDT Dichorionic diamniotic twin in first trimester Joint derangement from Last 3 Months Results * Other Laboratory; Iain; Horizon (Laboratory Miscellaneous Order) (12/17/2023 5:30 PM CDT) Only the most recent of2 resultswithin the time period is included. Specimen Status Specimen received. Reordered and sent to performing laboratory. Report to follow upon completion. [facility] 12/18/2023 2:56 PM CDT [facility]U LABORATORY Performing Laboratory Iain [facility] 12/18/2023 2:56 PM CDT UR LABORATORY Test Name Horizon [facility] 12/18/2023 2:56 PM CDT UR LABORATORY Blood BLOOD SPECIMEN / Unknown Venipuncture / Unknown 12/17/2023 5:30 PM CDT 12/17/2023 5:35 PM CDT Roxane Goldstein LAB - BLOOD ORDERABL ES UU LABORATORY [facility] Core Lab [address] [facility], [address] [place] [address], [facility] UR LABORATORY [facility] Acute Care Lab [address] [facility], [address] [place] [address], [facility] * MFM Twins Nuchal Trans w/US (12/17/2023 2:19 PM CDT) Anatomical Region Laterality Modality Ultrasound 12/17/2023 1:29 PM CDT Impressions 12/17/2023 5:01 PM CDT IMPRESSION ----- 1. Dichorionic diamniotic twins at 12w 0d gestational age. 2. There are separate placentas with a thick intertwin membrane consistent with a dichorionic diamniotic twin . 3. Sonographic biometry agrees with gestational age predicted by assigned SHORTY for both fetuses. 4. The nuchal translucency measurement is within the normal range in both fetuses. 5. The nasal bone was visualized in both twins. 6. Visualized anatomy appears normal for early gestational age. Narrative 12/17/2023 5:01 PM CDT ?NT ----- Pat. Name: LENORE CALLOWAY ? Study Date: ??12/17/2023 1:29pm Pat. NO: ??[id number] ?Referring ??MD: AUGUST SADIE Site: ? Service Desk Technician: Patricia Irvin RDMS : ??1995 ?Age: ?? 28 ----- INDICATION ----- Twin gestation METHOD ----- Transabdominal ultrasound examination. View: Sufficient. ----- Twin . Number of fetuses: 2. Dichorionic-diamniotic Membrane Description: thick dividing membrane visualized between fetuses 1 and 2 DATING ----- ? Date ?Details ?Gest. age ?SHORTY LMP ?09/24/2023 ? 12 w + 0 d ? 06/30/2024 Previous U/S ?11/19/2023 ?GA, GA 7 w + 5 d ? 11 w + 5 d ?07/02/2024 U/S Fetus 1 ? 12/17/2023 ? based upon CRL ?12 w + 1 d ? 06/29/2024 U/S Fetus 2 ?based upon CRL ? 12 w + 2 d ? 06/28/2024 Assigned dating ?based on the LMP, selected on 12/17/2023 ? 12 w + 0 d ? 06/30/2024 Fetus 1: GENERAL EVALUATION ----- Cardiac activity present Placenta: anterior Cord vessels: normal insertion Amniotic fluid: normal amount Fetus 2: GENERAL EVALUATION ----- Cardiac activity present Placenta: posterior Cord vessels: normal insertion Amniotic fluid: normal Fetus 1: BIOMETRY ----- FHR ? 158 ? bpm CRL ? 55.6 ?mm ? 12w 1d ? Hadlock NT ?1.30 ? mm Fetus 2: BIOMETRY ----- FHR ? 153 ? bpm CRL ? 58.1 ?mm ? 12w 2d ? Hadlock NT ?1.40 ? mm Fetus 1: ANATOMY ----- Face: Nasal bone present Neck: Normal Nuchal Translucency The following structures appear normal: Cranium. Abdominal wall. Stomach. Bladder. Arms. Legs. Fetus 2: ANATOMY ----- Face: Nasal bone present Neck: Normal Nuchal Translucency The following structures appear normal: Cranium. Abdominal wall. Stomach. Bladder. Arms. Legs. MATERNAL STRUCTURES ----- Cervix ?Visualized ? Appearance: Appears Closed ? Approach - Transabdominal Right Ovary ?Visualized Left Ovary ?Visualized RECOMMENDATION ----- We discussed the findings on today's ultrasound with the patient. The patient was see for an outpatient consultation in conjunction with the ultrasound today. Please see the EPIC chart for further details. Your patient had cell-free DNA screening and expanded carrier screening drawn today. The results of the screen will be forwarded to you as soon as they become available. Because cell-free DNA screening does not screen for open neural tube defects, the patient should be offered MSAFP screening at 15 to 20 weeks gestation. Recommend serial cervical lengths (every 2 weeks) from 16 through 23-24 weeks gestation, which can be scheduled in our office or in your office at your discretion. Additionally, a comprehensive ultrasound is recommended at 18 to 20 weeks gestation and has been scheduled at our [facility] clinic at patient's request. Return to primary provider for continued care. Thank-you for the opportunity to participate in the care of this patient. If you have questions regarding today's evaluation or if we can be of further service, please contact the Maternal- Medicine Center. anomalies may be present but not detected Procedure Note Rima Portillo MD - 12/17/2023 NT ----- Pat. Name: LENORE CALLOWAY Study Date: 12/17/2023 1:29pm Pat. NO: [id number] Referring MD: LATISHA NOEL Site: Service Desk Technician: Patricia Irvin RDMS : 1995 Age: 28 ----- INDICATION ----- Twin gestation METHOD ----- Transabdominal ultrasound examination. View: Sufficient. ----- Twin . Number of fetuses: 2. Dichorionic-diamniotic Membrane Description: thick dividing membrane visualized between fetuses 1and 2 DATING ----- DateDetailsGest. age SHORTY LMP w + 0 d 06/30/2024 Previous U/S 11/19/2023 GA, GA7 w + 5 d11 w + 5 d 07/02/2024 U/S Fetus 1 12/17/2023 basedupon CRL12 w + 1 d 06/29/2024 U/S Fetus 2based upon CRL12 w + 2 d 06/28/2024 Assigned dating based on the LMP, selected on w + 0 d 06/30/2024 Fetus 1: GENERAL EVALUATION ----- Cardiac activity present Placenta: anterior Cord vessels: normal insertion Amniotic fluid: normal amount Fetus 2: GENERAL EVALUATION ----- Cardiac activity present Placenta: posterior Cord vessels: normal insertion Amniotic fluid: normal Fetus 1: BIOMETRY ----- FHR 158bpm CRL 55.6mm 12w 1dHadlock NT 1.30mm Fetus 2: BIOMETRY ----- FHR 153bpm CRL 58.1mm 12w 2dHadlock NT 1.40mm Fetus 1: ANATOMY ----- Face: Nasal bone present Neck: Normal Nuchal Translucency The following structures appear normal: Cranium. Abdominal wall. Stomach. Bladder. Arms. Legs. Fetus 2: ANATOMY ----- Face: Nasal bone present Neck: Normal Nuchal Translucency The following structures appear normal: Cranium. Abdominal wall. Stomach. Bladder. Arms. Legs. MATERNAL STRUCTURES ----- Cervix Visualized Appearance: Appears Closed Approach - Transabdominal Right Ovary Visualized Left Ovary Visualized RECOMMENDATION ----- We discussed the findings on today's ultrasound with the patient. [facility] Please see the EPIC chart for further details. Your patient had cell-free DNA screening and expanded carrier screeningdrawn today. The results of the screen will be forwarded to you as soon asthey become available. Because cell-free DNA screening does not screen for open neural tubedefects, the patient should be offered MSAFP screening at 15 to 20 weeksgestation. Recommend serial cervical lengths (every 2 weeks) from 16 through 23-24weeks gestation, which can be scheduled in our office or in your office atyour discretion. Additionally, a comprehensive ultrasound is recommended at 18 to 20 weeksgestation and [facility]. Return to primary provider for continued care. Thank-you for the opportunity to participate in the care of this patient.If you have questions regarding today's evaluation or if we can be offurther service, please contact the Maternal- Medicine Center. anomalies may be present but not detected IMPRESSION ----- 1. Dichorionic diamniotic twins at 12w 0d gestational age. 2. There are separate placentas with a thick intertwin membrane consistentwith a dichorionic diamniotic twin . 3. Sonographic biometry agrees with gestational age predicted by assignedEDD for both fetuses. 4. The nuchal translucency measurement is within the normal range in bothfetuses. 5. The nasal bone was visualized in both twins. 6. Visualized anatomy appears normal for early gestational age. Katiana Montez [facility] ORDER JANIE from Last 3 Months Care Teams Newspaper Press Operator Apprentice Relationship Specialty Start Date End Date Rich Resendez MD [facility] [address] [place] [address] PCP - General Emergency Medicine 01/02/19
--- OUTSIDE RECORDS SUMMARY | 2023-12-23 14:39 | XMS_ITS | Referral Summary ---
Author Organization [facility] Address [address] [place] [address]. [place] [address] Care Team Providers Care Finisher Brush Name Role Phone Rich Resendez MD Primary Care Provider Encounters Date Type Department Care Team Description 12/18/2023 Telephone [facility] [place] [address] [place] [phone] Roxane Goldstein, Clinic Care Coordination - Follow-up 12/17/2023 4:00 PM CDT Lab [facility] [place] [phone] Rima Portillo MD Dichorionic diamniotic twin in first trimester; screening encounter; Encounter of female for testing for genetic disease carrier status for procreative management 12/17/2023 Travel 12/17/2023 2:15 PM CDT Office Visit [facility] [place] [address] [place] [address] Rima Portillo MD Dichorionic diamniotic twin in first trimester (Primary Dx); History of delivery, currently in first trimester 12/17/2023 12:24 PM CDT - 12/17/2023 11:59 PM CDT Hospital Encounter [facility] [place] [address] [place] [phone] Rima Portillo MD Dichorionic diamniotic twin in first trimester; Joint derangement Discharge Disposition: Home or Self Care 12/17/2023 12:45 PM CDT Office Visit [facility] [address] [place] [address] Rima Portillo MD Meyer, Jennifer R, GC screening encounter (Primary Dx); Dichorionic diamniotic twin in first trimester; Encounter of female for testing for genetic disease carrier status for procreative management 12/15/2023 PRE VISIT [facility] [address] [place] [address] Lilia Moctezuma RN Genetic Counseling (Di/di twins, PCOS, Fibromyalgia, BMI>30, hx PPROM/PTD); Ultrasound (Twin NT- Di/di twins, PCOS, Fibromyalgia, BMI>30, hx PPROM/PTD/); Consult (Di/di twins, PCOS, Fibromyalgia, BMI>30, hx PPROM/PTD/) 12/12/2023 Travel 12/11/2023 MyC Medical Advice [facility] [address] [facility] [address] [place] [address] [facility] 12/03/2023 Transcribe Orders [facility] [address] [place], [place] [address] [place] [address] Tobyaugust related condition (Primary Dx) 12/02/2023 Orders Only [facility] [address] [place] [address] Elsie Blanchard, RN Dichorionic diamniotic twin in first trimester (Primary Dx); Joint derangement 12/02/2023 Transcribe Orders [facility] [address] [facility] [address] [place] [address] SadieAugust related condition, antepartum (Primary Dx) 12/01/2023 Medical Correspondence [facility] Info [facility] [address] [place] [phone] Scan, Non-Provider from Last 3 Months Allergies Active Allergy Reactions Criticality Noted Date Comments Ketorolac Difficulty breathing,Itching High 015 Latex Rash Low 01/01/2019 Medications Medication Sig Dispensed Refills Start Date End Date Status butalbital-acetaminop hen-caffeine (FIORICET/ESGIC) 50-325-40 MG tabletIndications:Sebastián rodas Take 1 tablet by mouth every 6 [...] related condition in second trimester 12/18/2023 12/18/2023 Social History Tobacco Use Types Packs/Day Years [...] Info) Description 02/01/2024 8:45 AM CDT Appointment [facility] [place] [address] [place] [phone] Rima Portillo MD [address] [place] [address] 02/01/2024 9:15 AM CDT Office Visit [facility] [place] [address] [place] [address] Rima Portillo MD [address] [place] [address] Procedures Procedure Name Priority Date/Time Associated Diagnosis [...] Goldstein GC LAB - BLOOD ORDERABL ES [facility] [place] [facility] [address] [facility] [address] Building, Room [address] [place] [address], [facility] Acute Care Lab [address] [facility] Building, [address] [place] [address], [facility] * MFM Twins Nuchal Trans w/US [...] ? Study Date: ??12/17/2023 1:29pm Pat. NO: ??[id number] ?Referring ??MD: LATISHA SADIE Site: ? Training Designer: Patricia Irvin RDMS : ??1995 ?Age: ?? [...] gestation and [facility] at patient's request. Return to primary [...] [place] Study Date: 12/17/2023 1:29pm Pat. NO: [id number] Referring MD: LATISHA NOEL Site: Training Designer: Patricia Irvin RDMS : 1995 Age: 28 [...] for an outpatient consultation in conjunction with theultrasound today. Please see the EPIC chart for [...] weeksgestation and has [facility] at[facility]'s request. Return to primary provider [...] normal for early gestational age. Katiana Montez CNM [facility] US ORDER JANIE from Last 3 Months Care Teams Finisher Brush Relationship Specialty Start Date End Date Rich Resendez MD [facility] [address] [place] [address] PCP - General Emergency Medicine 01/02/19
--- OUTSIDE RECORDS SUMMARY | 2023-12-23 14:40 | XMS_ITS | Encounter Summary ---
Author Organization [facility] Address [address] [place] [address] Care Team Providers Care Bisque Kiln Placer Name Role Phone Rich Resendez MD Primary Care Provider Encounter Details Date Type Department Care Team (Late st Contact Info) Description 12/11/2023 MyC Medical Advice [facility] [address] [place] [address] [address] [place] [address] [facility] Social History Tobacco Use Types Packs/Day Years Used Date Smoking Tobacco: Never Assessed Sex and Gender Information Value Date Recorded Sex Assigned at Female 12/03/2023 6:00 PM CDT Gender Identity Female 12/03/2023 6:00 PM CDT Sexual Orientation Straight 12/03/2023 6: 00 PM CDT documented as of this encounter Plan of Treatment Upcoming Encounters Date Type Department Care Team (Late Contact Info) Description 02/01/2024 8:45 AM CDT Appointment [facility] [place] [address] [place] [phone] Rima Portillo MD [address] [facility] [address] [place] [address] 02/01/2024 9:15 AM CDT Office Visit [facility] [place] [address] [place], [place] [address] Rima Portillo MD [address] [place], [place] [address]E [facility] [address] [place] [address] documented as of this encounter Visit Diagnoses Not on filedocumented in this encounter Care Teams Bisque Kiln Placer Relationship Specialty Start Date End Date Rich Resendez MD [facility] [address] [place] [address] PCP - General Emergency Medicine 01/02/19 documented as of this encounter
--- OUTSIDE RECORDS SUMMARY | 2023-12-23 14:40 | XMS_ITS | Encounter Summary ---
Author Organization [place] Address [address] [facility] [place] [address] Care Team Providers Care Stars Specialist Name Role Phone Rich Resendez MD Primary Care Provider Encounter Details Date Type Department Care Team (Latest Contact Info) Description 12/17/2023 Travel Social History Tobacco Use Types Packs/Day Years [...] Info) Description 02/01/2024 8:45 AM CDT Appointment [facility] [place] [address] [place] [phone] Rima Portillo MD [address] [place], [place] [address] [address] [address] 02/01/2024 9:15 AM CDT Office Visit [facility] [place] [address] [place], [place] [phone] Rima Portillo MD [address] [place], [place] [address] [facility] [address] [place], [place] [address] documented as of this encounter Visit Diagnoses Not on filedocumented in this encounter Care Teams Stars Specialist Relationship Specialty Start Date End Date Rich Resendez MD [facility] [address] [place] [address] PCP - General Emergency Medicine 01/02/19 documented as of this encounter
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
--- OUTSIDE RECORDS SUMMARY | 2023-12-23 14:40 | XMS_ITS | Encounter Summary ---
Author Organization [place] Address [address] [facility] [place] [address] Care Team Providers Care Medical Recruiter Name Role Phone Rich Resendez MD Primary Care Provider Reason for Referral * Consultation (Routine: Next available opening) - Pending Review Specialty Diagnoses / Procedures Referred By Vale argueta Referred To Contact Diagnoses related condition Monica Becerril [address] [place] [address] Referral ID Status Reason Start Date Expiration Date V isits Requested Visits Authorized [id number] Pending Review 12/03/2023 12/02/2024 1 1 Question Answer Office Visit Type: MFM Consult Encounter Details Date Type Department Care Team (Latest Contact Info) Description 12/03/2023 Transcribe Orders [facility] [place] [address] [place] [address] Monica Becerril [address] [place] [phone] related condition (Primary Dx) Social History Tobacco Use Types Packs/Day Years [...] Appointment [facility] [place] [address] [place] [address] Rima Portillo MD [address] [place] [address] 02/01/2024 9:15 AM CDT Office Visit [facility] [address] [place] [address] Rima Portillo MD [address] [facility] [address] [place], [place] [address] Scheduled Referrals Name Type Priority Associated Diagnoses Orde r Schedule MFM Office Visit - M Consult Referral Routine: Next available opening related condition Expected: 12/03/2023 (Approximate), Expires: 12/02/2024 documented as of this encounter Visit Diagnoses Diagnosis related condition- Primary Unspecified complication of , unspecified as to episode of care documented in this encounter Care Teams Medical Recruiter Relationship Specialty Start Date End Date Rich Resendez MD [facility] [address] [place] [address] PCP - General Emergency Medicine 01/02/19 documented as of this encounter
--- OUTSIDE RECORDS SUMMARY | 2023-12-23 14:40 | XMS_ITS | Clinical Summary ---
Author Organization [facility] Address [place], [place] [address] Care Team Providers Care Corner Block Cutter Name Role Phone Rich Resendez MD Primary [...] Comments Blood Pressure 131/107 06/25/2021 3:02 AM DRILL OPERATOR Pulse 95 06/25/2021 3:59 AM DRILL OPERATOR Temperature 37.4 ??C (99.3 ??F) 06/25/2021 3:02 AM CS T Respiratory Rate 16 06/25/2021 3:02 AM DRILL OPERATOR Oxygen Saturation 98% 06/25/2021 3:59 AM DRILL OPERATOR Inhaled Oxygen Concentration - - Weight 83.9 kg (185 lb) 06/25/2021 3:02 AM DRILL OPERATOR Height 167.6 cm (5' 6) 06/25/2021 3:02 AM DRILL OPERATOR Body Mass Index 29.86 06/25/2021 3:02 AM DRILL OPERATOR Plan of Treatment Health Maintenance Due Date [...] HPV THIN PREP Routine 05/15/2023 12:30 PM DRILL OPERATOR from Last 3 Months or Most Recently Relevant to Health Maintenance Results * (ABNORMAL) HPV HIGH RISK (05/15/2023 12:30 PM DRILL OPERATOR) TYPE 16 Negative Negative 05/22/2023 11:44 AM DRILL OPERATOR [facility] TYPE 18 Negative Negative 05/22/2023 11:44 AM DRILL OPERATOR [facility] OTHER HIGH RISK TYPES Positive(A) Negative 05/22/2023 11:44 AM DRILL OPERATOR [facility] Other (Cervical) Non-Blood / Unknown 05/15/2023 12:30 PM DRILL OPERATOR 05/21/2023 7:37 AM DRILL OPERATOR Narrative [facility] - 05/22/2023 11:44 AM DRILL OPERATOR Specimen is positive for the DNA of any one of, or combination of, the following high risk HPV types: 31, 33, 35, 39, 45, 51, 52, 56, 58, 59, 66, 68. HPV types 16 and 18 DNA were undetectable or below the pre-set threshold. ? Methodology: Yung Mabel 4800 HPV Test Vanessa Chavez NP MICROBIOLOGY [facility] [address] [place] [address], from Last 3 Months or Most Recently Relevant to Health Maintenance Care Teams Corner Block Cutter Relationship Specialty Start Date End Date Rich Resendez MD [address] [place] [address] PCP - General Internal Medicine 07/29/20
--- OUTSIDE RECORDS SUMMARY | 2023-12-23 14:40 | XMS_ITS | Encounter Summary ---
Author Organization [place] Address [address] [facility] [place] [address] Care Team Providers Care Grid Caster Name Role Phone Rich Resendez MD Primary Care Provider Reason for Referral * Diagnostic Imaging Ultrasound (Routine) - Pending Review Specialty Diagnoses / Procedures Referred By Vale argueta Referred To Contact Radiology. Diagnoses Dichorionic diamniotic twin in first trimester Joint derangement Procedures MFM Twins Nuchal Trans w/US Katiana Montez CNM [address] [place] [address] Referral ID Status Reason Start Date Expiration Date V isits Requested Visits Authorized [id number] Pending Review 12/02/2023 12/01/2024 1 1 Reason for Visit * Diagnostic Imaging Ultrasound (Routine) - Pending Review Specialty Diagnoses / Procedures Referred By Vale argueta Referred To Contact Radiology. Diagnoses Dichorionic diamniotic twin in first trimester Joint derangement Procedures MFM Twins Nuchal Trans w/US Katiana Montez CNM [address] [place] [address] Referral ID Status Reason Start Date Expiration Date V isits Requested Visits Authorized [id number] Pending Review 12/02/2023 12/01/2024 1 1 Encounter Details Date Type Department Care Team (Latest Contact Info) Description 12/17/2023 12:24 PM CDT - 12/17/2023 11:59 PM CDT Hospital Encounter [facility] [address] [place] [phone] Rima Portillo MD [address] [address] Dichorionic diamniotic twin in first trimester; Joint derangement Discharge Disposition: Home or Self Care Social History Tobacco Use Types Packs/Day Years [...] PM CDT documented as of this encounter Medications at Time of Discharge Medication Sig Dispensed Refills Start Date End Date ASPIRIN LOW DOSE 81 MG EC tablet Take 81 mg by mouth daily 12/08/2023 butalbital-acetaminophen -caffeine (FIORICET/ESGIC) 50-325-40 MG tabletIndications:Migrai ne Take 1 tablet by mouth every 6 hours as needed for headaches MV-Min-Fe Fum-FA-DHA ( 1 PO) Take 1 tablet by mouth daily documented as of this encounter Plan of Treatment Upcoming Encounters Date Type Department Care Team (Late st Contact Info) Description 02/01/2024 8:45 AM CDT Appointment [facility] [address] [place] [phone] Rima Portillo MD [address] [id number] 02/01/2024 9:15 AM CDT Office Visit [facility] [address] [place] [address] Rima Portillo MD [address] [address] [phone] (work) documented as of this encounter Procedures Procedure Name Priority Date/Time Associated Diagnosis Comments MFM TWINS NUCHAL TRANSLUCENCY W US Routine 12/17/2023 2:19 PM CDT Dichorionic diamniotic twin in first trimester Joint derangement documented in this encounter Results * MFM Twins Nuchal Trans w/US (12/17/2023 [...] ? Study Date: ??12/17/2023 1:29pm Pat. NO: ??[id number] ?Referring ??MD: LATISHA NOEL Site: ? Mini Shifter: Patricia Irvin RDMS : ??1995 ?Age: ?? [...] gestation [facility] patient's [facility]. Return [...] [place] Study Date: 12/17/2023 1:29pm Pat. NO: [id number] Referring MD: LATISHA NOEL Site: Mini Shifter: Patricia Irvin RDMS : 1995 Age: 28 [...] [facility]. Please see the EPIC chart for [...] weeksgestation and has been scheduled at our [facility] clinic atpatient's request. Return to [...] for early gestational age. Katiana Montez CNM IMG MFM US ORDER JANIE documented in this encounter Visit Diagnoses Diagnosis Dichorionic diamniotic twin in first trimester Twin , antepartum Joint derangement Unspecified derangement, joint, site unspecified documented in this encounter Care Teams Grid Caster Relationship Specialty Start Date End Date Rich Resendez MD [place] [phone] PCP - General Emergency Medicine 01/02/19 documented as of this encounter
--- OUTSIDE RECORDS SUMMARY | 2023-12-23 14:40 | XMS_ITS | Encounter Summary ---
Author Organization [place] Address [address] [facility] [place] [address] Care Team Providers Care Mold Parter Name Role Phone Rich Resendez MD Primary Care Provider Reason for Referral * Consultation (Routine: Next available opening) - Pending Review Specialty Diagnoses / Procedures Referred By Vale t Referred To Contact Diagnoses related condition, antepartum Jone August [address] [place] [address] Maternal Med [address] [place] [address] Referral ID Status Reason Start Date Expiration Date V isits Requested Visits Authorized [id number] Pending Review 12/02/2023 12/01/2024 1 1 Question Answer Preferred Location: [facility] [place] 06/30/2024 Ultrasound MFM Recommendation US PROC NONE MFM Issue OTHER (enter details in Comments) - twin preg, di-di, joint derangement, supervision of other high risk preg MFM MD Consultation (unrelated to Ultrasound findings): Yes Inflammatory Bowel Disease Clinic: Joint MFM and GI Consultation: No Chronic Kidney Disease: Joint MFM and Nephrology Consultation No Cardio-Obstetrics: Joint MFM and Cardiology Consultation No Genetic Counseling Consultation: No fax [facility] August Jone [phone] Comments twin preg, di-di, joint derangement, supervision of other high risk preg Encounter Details Date Type Department Care Team (Latest Contact Info) Description 12/02/2023 Transcribe Orders [facility] [place] [address] [place] [address] Monica Becerril [facility] [address] [facility] [facility] [place] [address] related condition, antepartum (Primary Dx) Social History Tobacco Use Types [...] CDT Appointment [facility] [place] [address] [place], [place] [address] [place] [phone] Rima Portillo MD [address] [place] [id number] 02/01/2024 9:15 AM CDT Office Visit [facility] [address] [place] [address] Rima Portillo MD [address] [place] [phone] Scheduled Referrals Name Type Priority Associated Diagnoses Orde r Schedule [facility] Referral - Referral Routine: Next available opening related condition, antepartum Expected: 12/02/2023 (Approximate), Expires: 05/30/2024 documented as of this encounter Visit Diagnoses Diagnosis related condition, antepartum- Primary documented in this encounter Care Teams Mold Parter Relationship Specialty Start Date End Date Rich Resendez MD [facility] [address] [place] [address] PCP - General Emergency Medicine 01/02/19 documented as of this encounter
--- OUTSIDE RECORDS SUMMARY | 2023-12-23 14:40 | XMS_ITS | Encounter Summary ---
Author Organization [place] Address [address] [facility] [place] [address] Care Team Providers Care Form Maker Name Role Phone Rich Resendez MD Primary Care Provider Reason for Visit * Reason Comments Genetic Counseling Di/di twins, PCOS, F ibromyalgia, BMI>30, hx PPROM/PTD Ultrasound Twin NT- Di/di twins , PCOS, Fibromyalgia, BMI>30, hx PPROM/PTD Consult Di/di twins, PCOS, F ibromyalgia, BMI>30, hx PPROM/PTD Encounter Details Date Type Department Care Team (Late st Contact Info) Description 12/15/2023 PRE VISIT [facility] [place] [address] [place], [place] [phone] Lilia Moctezuma, RN Genetic Counseling (Di/di twins, PCOS, Fibromyalgia, BMI>30, hx PPROM/PTD); Ultrasound (Twin NT- Di/di twins, PCOS, Fibromyalgia, BMI>30, hx PPROM/PTD/); Consult (Di/di twins, PCOS, Fibromyalgia, BMI>30, hx PPROM/PTD/) Social History Tobacco Use Types Packs/Day Years [...] Info) Description 02/01/2024 8:45 AM CDT Appointment [facility] [address] [place] [address] Rima Portillo MD [address] [place] [address] 02/01/2024 9:15 AM CDT Office Visit [facility] [address] [place] [address] Rima Portillo MD [address] [facility] [address] [place], [place] [phone] documented as of this encounter Visit Diagnoses Not on filedocumented in this encounter Care Teams Form Maker Relationship Specialty Start Date End Date Rich Resendez MD [facility] [address] [place] [address] PCP - General Emergency Medicine 01/02/19 documented as of this encounter
--- OUTSIDE RECORDS SUMMARY | 2023-12-23 14:40 | XMS_ITS | Encounter Summary ---
Author Organization [facility] Address [address] 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 Joint derangement Katiana Montez CNM [address] [place] [id number] Referral ID Status Reason Start Date Expiration Date V isits Requested Visits Authorized [id number] Pending Review 12/02/2023 12/01/2024 1 1 Encounter Details Date Type Department Care Team (Late st Contact Info) Description 12/17/2023 12:45 PM CDT Office Visit [facility] [address] [id number] Rima Portillo MD [address] [place], [place] [id number] [address] [address] Roxane Goldstein GC [address] [place] [id number] screening encounter (Primary Dx); Dichorionic diamniotic twin [...] as of this encounter Progress Notes * Roxane Goldstein, - 12/17/2023 12:45 PM CDT [facility] Genetic Counseling Consult Patient: Constance Lugo Daily Date of : 1995 Date of Service: 12/17/23 Constance Lugo Daily was seen at [facility] for genetic consultation to discuss the options for screening and testing for chromosome abnormalities. The indication for genetic counseling is desire to discuss options for genetic screening and diagnostics. Constance was accompanied to the appointment today by her rwthch-wn-rrb (her brother's ) Yumi. IMPRESSION/ PLAN 1. Constance has not had genetic screening in this but elected to have screening today. 2. During today's [facility] visit, Constance had blood draw for NIPS (Panorama) through [facility]. The NIPS screens for trisomy 21, 18, and 13, monosomy X if twins are monozygotic, and the patient opted to include sex reporting and opted for 22q11.2 deletion syndrome screening. Results are expected in 7-10 days. The patient will be called with results and if they do not answer they requested a detailed message with results on their voicemail, including the predicted sex information. Patient was informed that results, including sex, will be available in [employer]. 3. Constance had a blood draw for expanded carrier screening (Horizon carrier screen, 613 conditions,through [employer]). Results are expected within 14-21 days, and will be available in [employer]. We willcontact her to discuss the results, and a copy will be forwarded to the office of the referring OB provider. The patient was informed that results will also be available via [employer]. Consent to communicate form to share results with her partner Lilia was completed today to allow us to coordinate carrier screening for him as indicated by results. 4. Since the patient chose aneuploidy screening via NIPT, quad screen is NOT recommended in the second trimester. If the patient desires screening for open neural tube defects, maternal serum AFP only is recommended, ideally between 16- 18 weeks gestation. 5. Constance had a nuchal translucency ultrasound today. Please see the ultrasound report for furtherdetails. Constance also had a MFM consultation today. Please see the consult note for more details. 6. Further recommendations include a anatomy level II ultrasound with MFM. The upcoming ultrasound has been scheduled for 02/01/2024. HISTORY /Parity: Constance's history is significant for: 01/2019: 36w3d , PPROM, male 07/2023: IAB, 15w - conceived with a different partner CURRENT Current Age: [age] year old Age at Delivery: 29 year old SHORTY: 06/30/2024, by Last Menstrual Period Gestational Age: 12w1d This is a dichorionic diamniotic twin gestation. Twin pregnancies are described by the number of placentas (-chorionic) and amniotic sacs (-amniotic). In addition, twin pregnancies are also characterized by the number (mono- or di-) of zygotes (fertilized egg) the developed from. This is a dichorionic diamniotic twin which means each fetus has a separate placenta and a separate amniotic sac. Due to being dichorionic, there is a 20-30% chance the twins are monozygotic, or genetically identical and a 70-80% chance the twins are dizygotic, or NOT genetically identical. If the twins are discordant in sex (one male, one female) they are most likely dizygotic. If they are the same sex, the zygosity is unclear. There is a screening option called cell-free DNA that can determine zygosity with certain technology (see discussion below). This was conceived spontaneously. 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 She was evaluated for Esthela Danlos syndrome (EDS) at age 11 at [facility] and met many criteria but did not receive a diagnosis of EDS at that time. She does report that she underwent genetic testing for some forms of EDS at that time, including at least vascular EDS, and this was negative. Thisreport is not available for review today. She denies any personal or family history of arterial aneurysm/dissection/rupture or organ rupture (such as uterine or gastrointestinal). Constance also had [facility] consultation today with Dr. Portillo to discuss management recommendations. Please see [facility] consult note for details. FAMILY HISTORY A three-generation pedigree was obtained today and is scanned under the Media tab in [employer]. The family history was reported by Constance and her gwgcak-zw-qsu Yumi. The following significant findings were reported today: Constance's partner and the father of her 4 year old son, Lilia, is 31 and has epilepsy. Constance's 4 year old son has autism and epilepsy. He has had some genetic testing, which identified a genetic change that Constance was told can be associated with epilepsy but may not be causative of all of his features. He has a follow-up appointment with genetics at [facility] in January to discuss further testing. Constance does not believe that she or Lilia have been tested for this variant. This report was not available for review during our consult today. We discussed that testing for Constance and Lilia, if indicated, could determine whether this variant is de marquise in their son or was inherited and wouldinform recurrence risk in the current . She was encouraged to discuss this further with her son's genetics providers at his appointment. We reviewed that if a genetic cause were identified for her son's features and was found to be inherited, testing for the current would be available either via invasive diagnostic testing ([facility] or amniocentesis) or postnatally. Constance shared that she would not wish to proceed with amniocentesis to test for this variant if the current were at risk. She was provided with my card and will call me after her son's upcoming appointmentif any additional information is gathered. Constance's nephew (her brother's son) also has autism. He has not had any genetic testing. This nephew and his brother were both found to be cystic fibrosis carriers via the screen. Per this brother's Yumi, who is here today, she believes that she was tested for CF carrier status and was negative, so it was presumed that Constance's brother was a CF carrier, but she does not believe heever had testing. We reviewed that based on the reported family history, there would be a 50% chance that Constance is also a carrier of CF. She opted to proceed with expanded carrier screening today, which includes carrier screening for cystic fibrosis. See below for details. Constance has a brother who was born with a hole in his heart that required surgical repair. This brother also has hearing loss, which he has had since . Constance notes that she also has hearing impairment which was not present at . Congenital heart defects can be isolated or associated with multiple defects (syndromic). There are many genetic syndromes, single gene disorders or chromosomal abnormalities, that can be associated with congenital heart defects. Isolated congenital heart defects are usually a multi-factorialcondition caused by the combination of genetic and environmental factors and familial clustering isnot uncommon. Since there is a genetic component to multi-factorial conditions, the recurrence riskis higher for first degree relatives (siblings) than in second degree relatives and decreases with distance in relationship. This is a second degree relative to the family member with a hole in his heart; therefore, the recurrence risk is likely slightly increased over baseline populationrisks. Reviewed the role of comprehensive level II ultrasound. We reviewed that approximately half of cases of hearing loss are thought to be due to environmentalfactors (acoustic trauma, ototoxic drug exposure, and bacterial or viral infections such as rubellaor cytomegalovirus) and half may be due to an underlying genetic etiology. Genetic causes can be syndromic or nonsyndromic. In the absence of an identified underlying cause, risk assessment is challenging. We discussed option of carrier screening which can include more common genes related to nonsyndromic hearing loss. Hulbert screen involves a hearing screen and this family history can be sharedwith the sales planning analyst. Constance had a sister who was born with a neural tube defect which sounds most consistent with anencephaly and in the period. Anencephaly is a type of neural tube defect (NTD) that results in the incomplete development of theskull and brain. The cause of this condition is likely multifactorial, including multiple genetic and environmental factors. Given that this is a second degree relative to the , the recurrence risk for a neural tube defect is likely slightly increased over population-level risk. Reviewed role of ultrasound in screening for neural tube defects. Constance's paternal grandmother was born with a cleft lip. She was otherwise healthy. Cleft lip can be isolated or part of a broader genetic syndrome. When isolated, orofacial clefts are usually multifactorial, meaning they are often caused by a combination of genetic and environmental factors. In general, the recurrence risk is likely increased for first and second degree relatives of an individual with a defect. This is a third degree relative to the family member with cleft lip; therefore, the recurrence risk is likely equal to the population risk. Constance's mother had multiple miscarriages of unknown etiology. Otherwise, the reported family history is unremarkable for multiple miscarriages, stillbirths, defects, intellectual disabilities, known genetic conditions, and consanguinity. RISK ASSESSMENT FOR INHERITED CONDITIONS AND CARRIER SCREENING OPTIONS Expanded carrier screening is available to screen for autosomal recessive conditions and X-linked conditions in a large list of genes. Carrier screening does not test the but gives a risk assessment for the and future pregnancies to have the condition. Expanded carrier screeningis designed to identify carrier status for conditions that are primarily childhood or adolescent onset. Expanded carrier screening does not evaluate for adult-onset conditions such as hereditary cancer syndromes, dementia/ Alzheimer's disease, or cardiovascular disease risk factors. Additionally, expanded carrier screening is not comprehensive for all known genetic diseases or inherited conditions. Carrier screening does not test for all genetic and health conditions or risk factors. It does not intentionally screen for autosomal dominant conditions. Hulbert screening was reviewed. About [place] Hulbert Screening Autosomal recessive conditions happen when a mutation has been inherited from the egg and sperm andinclude conditions like cystic fibrosis, thalassemia, hearing loss, spinal muscular atrophy, and more. We reviewed that when both biological parents carry a harmful genetic change in a gene associated with autosomal recessive inheritance, each of their pregnancies has a 1 in 4 (25%) chance to be affected by that condition. X-linked conditions happen when a mutation has been inherited from the eggand include conditions like fragile X syndrome.With x-linked conditions, the specific risk generally depends on the chromosomal sex of the fetus, with XY individuals (generally male) being most severely affected. The patient does NOT have a family history of known inherited conditions. This does NOT mean the patient and/or their partner is not a carrier of a condition. Approximately 90% of couples at an increased reproductive risk for an inherited condition have no family history of that condition. The patient has not had carrier screening previously. Constance opted to proceed with carrier screening today. We discussed the option of proceeding with testing through either [employer] (up to 267 conditions) or [facility] (up to 613 conditions). After reviewing the benefits and limitations, expressed her desire for as much information as possible and opted to proceed with the [employer] 613 panel. We did specifically review that if she has any positive results, an accurate reproductive risk assessment is only possible if the father of the undergoescarrier screening as well and Constance voiced understanding. If both parents are carriers of an autosomal recessive condition, there are three possible outcomesfor each /child: 25% unaffected, 50% carrier, and 25% affected. The only method to determine the outcome or diagnose the condition in a is an invasive testing option such as an amniocentesis. Some genetic conditions will have ultrasound findings during the but many do not. Some couples will choose the diagnostic testing to plan for delivery or choose termination of anaffected . Other couples will choose to test for the condition after delivery. While theseconditions cannot be cured or treated during the it may guide management recommendations ( ultrasounds) for as well as delivery and infant care. Carrier screening is not meant to diagnose the patient with a condition, and generally carriers areasymptomatic. However, certain genes may confer increased risks for various health concerns in carriers (including, but not limited to: YOLANDE, DMD, FMR1). We discussed that carrier screening can have implications for other family members. If an individual is a carrier of a condition there is a chance for relatives to also be a carrier. This may be helpful information to disclose to family members of reproductive age (e.g. siblings, cousins) so they may choose if they want to pursue carrier screening. In addition, if only one parent is found to be acarrier, there is a 50% chance for each child to be a carrier. This may be helpful information for the patient's children when they start a family. We reviewed that there is a law in place, the Genetic Information Nondiscrimination Act (CRISTIAN), that protects patients from discrimination by health insurance companies and employers based on their genetic information. CRISTIAN does not protect against discrimination by life insurance companies or disability insurance. We reviewed that carrier screening will report on variants classified by the lab as pathogenic or likely pathogenic. Although carrier status does not change management lead time, it is possible that a variant could be reclassified as more information about the variant is learned. If this occurs, the couple will be contacted and a new risk assessment will be provided. We discussed that [facility] will generate a cost estimate and contact the patient with their expected [id number] cost. If the estimated [id number] cost is estimated to exceed $349, a patient-pay option of $349 is available. The patient must select this option in the [facility] portal within a specific window after receiving their cost estimate. It is the patient's responsibility to determine whether insurance billing or patient pay is a better financial decision and to follow up with [facility] to make the selection for patient pay if desired. The patient was also provided with a [facility] billing card and is encouraged to contact [employer]'s billing office directly if they have additional questions or concerns regarding billing. The patient expressed her understanding. RISK ASSESSMENT FOR CHROMOSOME CONDITIONS We explained that the risk for chromosome abnormalities increases with maternal age. We discussed specific features of common chromosome abnormalities, including Down syndrome, trisomy 13, trisomy 18, and sex chromosome trisomies. At age 29 at midtrimester, the risk to have a baby with Down syndrome is 1 in 690. At age 29 at midtrimester, the risk to have a baby with any chromosome abnormality is 1 in 345. The above estimates reflect the risk for a single conception. In a monozygotic twin , eachtwin received their DNA from the same conception, and the twins are expected to have the same complement of chromosomes. The risk numbers above would accurately reflect the risks for a chromosome abnormality to be affecting both twins in a monozygotic twin . In a dizygotic twin , each twin comes from a separate conception and has separate risks for chromosome abnormalities. In adizygotic , the risks above reflect the risk to each individual fetus to have a chromosomeabnormality, and the overall risk for the as a whole to have either fetus affected with achromosome abnormality are doubled. We discussed that current ACMG guidelines also recommend that screening for 22q11.2 deletion syndrome be offered to all patients. 22q11.2 deletion syndrome has an estimated prevalence of 1 in 990 to 1 in 2148 (0.05-0.1%). Risk is not thought to increase with maternal age. Clinical featuresare variable but include congenital heart defects, cleft palate, developmental delays, immune system deficiencies, and hearing loss. Approximately 90% of cases are de marquise (a sporadic new change in apregnancy) and 10% are inherited. Cell-free DNA screening for 22q11.2 deletion syndrome is available via [facility] for monozygotic twins. We discussed the limitations of cell-free DNA screening in detecting microdeletions and the possiblity of false positives and false negatives. Constance has not had genetic screening in this but elected to have screening today. GENETIC TESTING OPTIONS Genetic testing during a includes screening and diagnostic procedures. Screening tests are non-invasive which means no risk to the and includes ultrasounds and blood work. The benefits and limitations of screening were reviewed. Screening tests provide a risk assessment (chance) specific to the for certain chromosome abnormalities but cannot definitively diagnose or exclude a chromosome abnormality. Follow-up genetic counseling and consideration of diagnostic testing is recommended with any abnormal screening result. Diagnostic testing during a is more certain and can test for more conditions. However, the tests do have a risk of miscarriage that requires careful consideration. These tests can detect chromosome ab normalities with greater than 99% certainty. Results can be compromised by maternal cell contamination or mosaicism and are limited by the resolution of current genetic testing technology. There is no screening or diagnostic test that detects all forms of defects or intellectual disability. We discussed the following screening options: Non-invasive testing (NIPT) Also called cell-free DNA screening because it detects chromosomes from the placenta in the person's blood Can be done any time after 10 weeks gestation Screens for trisomy 21, trisomy 18, trisomy 13, and sex chromosome aneuploidies. Can also include screening for 22q11.2 microdeletion syndrome. Cannot screen for open neural tube defects, maternal serum AFP after 15 weeks is recommended The following was discussed regarding NIPT in twin pregnancies: Cell-free DNA non-invasive screening (NIPT) is available for twins, but results are difficult to interpret since the cell-free DNA in maternal circulation derives from the placenta(s). If the result is abnormal, especially for dichorionic twins, it is difficult to determine which twin's placenta contributed to the abnormal result. Less validation data is available for twins and some insurance plans will not cover this screening in twin pregnancies. NIPT for twin pregnancies does not allow for assessment of all sex chromosome differences. NIPT runon MPSS platform (such as [employer] Prequel) does not allow for assessment of any sex chromosome conditions. NIPT run on a SNP platform ([employer]) can screen for monosomy X if the twins are identified to be monozygotic. NIPT through MPSS platform does not allow for assessment of 22q11.2 deletion syndrome. NIPT throughSNP platform can include 22q11.2 deletion syndrome. Analysis can be performed to detect the presence or absence of a Y chromosome. In the case of a dichorionic twin the presence of a Y chromosome would mean that at least one twin is a male. SNP-based NIPT ([employer] through [employer]) allows for sex to be reported for each twin in a dichorionic twin . SNP-based NIPT platform allows for zygosity reporting (monozygotic or dizygotic) in the case of dichorionic twin pregnancies, which can be helpful if abnormalities are identified in a . SNP-based NIPT platform has an estimated 10% failure rate for twins, which is likely slightly higher than MPSS platforms. We discussed that [employer] or [facility] will perform a benefits investigation to determine coverage, butthat it is the patient's responsibility to select billing through insurance or self-pay ($249 for either test). If no contact from [employer] or [facility] is received, of if she is very concerned about cost, the patient should contact [employer]'s or [employer]'s billing office at the number provided today. We reviewed that if no selection is made before results return, no cost can be guaranteed. The patient expressed her understanding. Carrier screening Risk assessment for certain autosomal recessive and x-linked conditions. These conditions are generally infantile- or childhood-onset conditions. Can be done any time during the or prior to . Can screen for over 400 different genetic conditions. Is not intended to diagnosis a condition in the carrier parent. Even with negative results, a residual risk for screened conditions remains. We discussed the following ultrasound options: Nuchal translucency (NT) ultrasound Ultrasound between [id number] that includes nuchal translucency measurement and nasal bone assessments for each twin Nuchal translucency refers to the space at the back of the neck where fluid builds up. All babies at this stage have fluid and there is only concern if there is too much fluid Nasal bone refers to the small bone in the nose. There is concern for conditions like Down syndromeif the bone cannot be seen at all If the NT measurements are discordant, this may help in the interpretation of abnormal screening results. This ultrasound can be done as part of first trimester screening, at the same time as another screen (NIPT), at the same time as a CVS, or if the patient does not want genetic screening. Markers on ultrasound detects about 70% of pregnancies with aneuploidy Abnormalities on NT ultrasound can also increase the risk for a defect, like a heart defect Comprehensive level II ultrasound ( Anatomy Ultrasound) Ultrasound done between 18-20 weeks gestation Screens for major defects and markers for aneuploidy (like trisomy 21 and trisomy 18) Includes assessment of the growth, internal organs, placenta, and amniotic fluid We discussed the following diagnostic options: Chorionic villus sampling (CVS) Invasive diagnostic procedure done between 10w0d and 13w6d The procedure collects a small sample from the placenta for the purpose of chromosomal testing and/or other genetic testing Diagnostic result; more than 99% sensitivity for chromosome abnormalities Cannot screen for open neural tube defects, maternal serum AFP after 15 weeks is recommended Amniocentesis Invasive diagnostic procedure done after 15 weeks gestation The procedure collects a small sample of amniotic fluid for the purpose of chromosomal testing and/or other genetic testing Diagnostic result; more than 99% sensitivity for chromosome abnormalities Testing for AFP in the amniotic fluid can test for open neural tube defects It was a pleasure to be involved with [facility] [place]. Bjjq-dy-xrwc time of the meeting was 45 minutes. Roxane Goldstein [facility], [facility] Certified and [place] Licensed Genetic Counselor [facility] Maternal Medicine Office: [phone] MFM: [phone] [facility] documented in this encounter Plan of Treatment Upcoming Encounters Date Type Department Care Team (Late st Contact Info) Description 02/01/2024 8:45 AM CDT Appointment [facility] [place] [address] [place] [address] Rima Portillo MD [address] [address] 02/01/2024 9:15 AM CDT Office Visit [facility] [address] [place] [address] Rima Portillo MD [address] [place] [address] documented as of this encounter Results * Other Laboratory; Iain; Tanja (Laboratory Miscellaneous Order) (12/17/2023 5:30 PM CDT) Specimen Status Specimen received. Reordered and sent to performing laboratory. Report to follow upon completion. RAMAKRISHNA 12/18/2023 2:56 PM CDT [facility] Performing Laboratory Iain [facility] 12/18/2023 2:56 PM CDT [facility] Test Name Horizon [facility] 12/18/2023 2:56 PM CDT [facility] LAB[facility]ATORY Blood BLOOD SPECIMEN / Unknown Venipuncture / Unknown 12/17/2023 5:30 PM CDT 12/17/2023 5:35 PM CDT Roxane Goldstein GC LAB - BLOOD ORDERABL ES [facility] Core Lab [address] [facility], [address] [place] [address], [facility] UR LABORATORY [facility] Acute Care Lab [address], [address] [place] [address] * Other Laboratory; Iain; Mari (Laboratory Miscellaneous Order) (12/17/2023 5:29 PM CDT) Specimen Status Specimen received. Reordered and sent to performing laboratory. Report to follow upon completion. RAMAKRISHNA 12/18/2023 2:50 PM CDT [facility] Performing Laboratory Iain RAMAKRISHNA 12/18/2023 2:50 PM CDT UR LABORATORY Test Name Panorama [facility] 12/18/2023 2:50 PM CDT UR LABORATORY Blood BLOOD SPECIMEN / Unknown Venipuncture / Unknown 12/17/2023 5:29 PM CDT 12/17/2023 5:30 PM CDT Roxane Goldstein GC LAB - BLOOD ORDERABL ES [facility] Core Lab [address] [facility] [address], [address] [place] [address], [facility] UR LABORATORY [facility] Acute Care Lab [address], [address] [place] [address] documented in this encounter Visit Diagnoses Diagnosis screening encounter- Primary Unspecified screening Dichorionic diamniotic twin in first trimester Twin , antepartum Encounter of female for testing for genetic disease carrier status for procreative management Testing of female for genetic disease carrier status documented in this encounter Care Teams Washer And Crusher Tender Relationship Specialty Start Date End Date Rich Resendez MD [facility] [address] [place] [address] PCP - General Emergency Medicine 01/02/19 documented as of this encounter
--- OUTSIDE RECORDS SUMMARY | 2023-12-23 14:40 | XMS_ITS | Encounter Summary ---
Author Organization [place] Address [address] [facility] [place] [address] Care Team Providers Care Fermentation Scientist Name Role Phone Rich Resendez MD Primary Care Provider Encounter Details Date Type Department Care Team (Latest Contact Info) Description 12/12/2023 Travel Social History Tobacco Use Types Packs/Day [...] Info) Description 02/01/2024 8:[address] [facility] Maternal Medicine [facility] [address] [place] [phone] Rima Portillo MD [address] [place], [place] [address]E [address] [address] 02/01/2024 9:15 AM CDT Office Visit [facility] Maternal Medicine [facility] [address] [place] [address] Rima Portillo MD [address] [address] documented as of this encounter Visit Diagnoses Not on filedocumented in this encounter Care Teams Fermentation Scientist Relationship Specialty Start Date End Date Rich Resendez MD [facility] [address] [place] [address] PCP - General Emergency Medicine 01/02/19 documented as of this encounter
--- OUTSIDE RECORDS SUMMARY | 2023-12-23 14:40 | XMS_ITS | Encounter Summary ---
Author Organization [place] Address [address] [place] [address]. [place] [address] Care Team Providers Care Returned Goods Receiving Clerk Name Role Phone Rich Resendez MD Primary Care Provider Encounter Details Date Type Department Care Team (Late st Contact Info) Description 12/01/2023 Medical Correspondence [facility] Mgmt [facility] [address] [place] [address] Scan, Non-Provider Social History Tobacco Use Types Packs/Day Years [...] Info) Description 02/01/2024 8:45 AM CDT Appointment [facility] Maternal Medicine Center [place] [address] [place] [phone] Rima Portillo MD [address] [address] 02/01/2024 9:15 AM CDT Office Visit [facility] Maternal Medicine [facility] [address] [place], [place] [address] Rima Portillo MD [address] [phone] documented as of this encounter Visit Diagnoses Not on filedocumented in this encounter Care Teams Returned Goods Receiving Clerk Relationship Specialty Start Date End Date Rich Resendez MD [facility] [address] [place] [address] PCP - General Emergency Medicine 01/02/19 documented as of this encounter
--- OUTSIDE RECORDS SUMMARY | 2023-12-23 14:40 | XMS_ITS | Encounter Summary ---
Author Organization [place] Address [address] [place] [address] Care Team Providers Care Raw Shellfish Preparer Name Role Phone Rich Resendez MD Primary Care Provider Reason for Referral * Consultation (Routine: Next available opening) - Pending Review Specialty Diagnoses / Procedures Referred By Vale argueta Referred To Contact Diagnoses Dichorionic diamniotic twin in first trimester Joint derangement Katiana Montez CNM [address] [place] [address] Referral ID Status Reason Start Date Expiration Date V isits Requested Visits Authorized [id number] Pending Review 12/02/2023 12/01/2024 1 1 * Diagnostic Imaging Ultrasound (Routine) - Pending Review Specialty Diagnoses / Procedures Referred By Vale argueta Referred To Contact Radiology. Diagnoses Dichorionic diamniotic twin in first trimester Joint derangement Procedures MFM Twins Nuchal Trans w/US Katiana Montez CNM [address] [place] [address] Referral ID Status Reason Start Date Expiration Date V isits Requested Visits Authorized [id number] Pending Review 12/02/2023 12/01/2024 1 1 Encounter Details Date Type Department Care Team (Late st Contact Info) Description 12/02/2023 Orders Only [facility] Maternal Medicine [facility] [address] [place] [address] Elsie Blanchard RN Dichorionic diamniotic twin in first trimester (Primary Dx); Joint derangement Social History Tobacco Use Types Packs/Day Years [...] Info) Description 02/01/2024 8:45 AM CDT Appointment [facility] Maternal Medicine [facility] [address] [place] [phone] Rima Portillo MD [address] [address] 02/01/2024 9:15 AM CDT Office Visit [facility] Maternal Medicine [facility] [address] [place] [address] Rima Portillo MD [address] [phone] Scheduled Referrals Name Type Priority Associated Diagnoses Orde r Schedule [facility] Genetic Counseling Referral Routine: Next available opening Dichorionic diamniotic twin in first trimester Joint derangement Expected: 12/02/2023 (Approximate), Expires: 12/01/2024 documented as of this encounter Results * [facility] Twins Nuchal Trans w/US (12/17/2023 2:19 PM [...] ? Study Date: ??12/17/2023 1:29pm Pat. NO: ??[id number] ?Referring ??MD: LATISHA SADIE Site: ? Manager Instrumentation: Patricia Irvin RDMS : ??1995 ?Age: ?? [...] gestation and [facility] at [facility] at patient's request. Return to [...] [place] Study Date: 12/17/2023 1:29pm Pat. NO: [id number] Referring MD: AUGUST SADIE Site: Manager Instrumentation: Patricia Irvin RDMS : 1995 Age: 28 [...] [facility]. Please see the EPIC chart for [...] weeksgestation and has been scheduled at our [facility] clinic atpatient's request. Return to primary provider [...] normal for early gestational age. Katiana Montez [facility] US ORDER JANIE documented in this encounter Visit Diagnoses Diagnosis Dichorionic diamniotic twin in first trimester- Primary Twin , antepartum Joint derangement Unspecified derangement, joint, site unspecified Dichorionic diamniotic twin in first trimester Twin , antepartum Joint derangement Unspecified derangement, joint, site unspecified documented in this encounter Care Teams Raw Shellfish Preparer Relationship Specialty Start Date End Date Rich Resendez MD [facility] [address] [place] [address] PCP - General Emergency Medicine 01/02/19 documented as of this encounter
== END 2023-12-23 14:37 | disposition home or self-care (01) ==
PROVIDERS: PCP Internal Medicine; Visit Provider Internal Medicine
DX: E53.8 Deficiency of other specified B group vitamins (principal); Z86.2 Personal history of diseases of the blood and blood-forming organs and certain disorders involving the immune mechanism
CPT/HCPCS: 82607; 83090

== ENCOUNTER 2024-01-13 07:53 | Outpatient (CLI) | payer BC, SELFPAY ==
--- OUTSIDE RECORDS SUMMARY | 2024-01-13 07:55 | XMS_ITS | Encounter Summary ---
Author Organization [place] Address [address] [facility] [place] [address] Care Team Providers Care Sewer And Cutter Finger Buff Material Name Role Phone Rich Resendez MD Primary Care Provider Reason for Referral * Diagnostic Imaging Ultrasound (Routine) - Pending Review Specialty Diagnoses / Procedures Referred By Vale argueta Referred To Contact Radiology. Diagnoses Dichorionic diamniotic twin in first trimester Joint derangement Procedures MFM Twins Nuchal Trans w/US Katiana Montez CNM [address] [place] [address] Referral ID Status Reason Start Date Expiration Date V isits Requested Visits Authorized [id number] Pending Review 12/02/2023 12/01/2024 1 1 Reason for Visit * Diagnostic Imaging Ultrasound (Routine) - Pending Review Specialty Diagnoses / Procedures Referred By Vale argueta Referred To Contact Radiology. Diagnoses Dichorionic diamniotic twin in first trimester Joint derangement Procedures MFM Twins Nuchal Trans w/US Katiana Montez CNM [address] [place] [address] Referral ID Status Reason Start Date Expiration Date V isits Requested Visits Authorized [id number] Pending Review 12/02/2023 12/01/2024 1 1 Encounter Details Date Type Department Care Team (Latest Contact Info) Description 12/17/2023 12:24 PM CDT - 12/17/2023 11:59 PM CDT Hospital Encounter [facility] Maternal Medicine Center [place] [address] [place] [phone] Rima Portillo MD [address] [address] Dichorionic diamniotic twin in first trimester; Joint [...] Info) Description 02/01/2024 8:45 AM CDT Appointment [facility] Maternal Medicine Center [place] [address] [place] [phone] Rima Portillo MD [address] [address] 02/01/2024 9:15 AM CDT Office Visit [facility] Medicine [facility] [place] [address] [place] [address] Rima Portillo MD [address] [address] [phone] (work) documented as of this encounter Procedures [...] ? Study Date: ??12/17/2023 1:29pm Pat. NO: ??[id number] ?Referring ??MD: LATISHA NOEL Site: ? Cutting Machine Tender Decorative: Patricia Irvin RDMS : ??1995 ?Age: ?? [...] [facility] at patient's request. Return to primary [...] [place] Study Date: 12/17/2023 1:29pm Pat. NO: [id number] Referring MD: LATISHA NOEL Site: Cutting Machine Tender Decorative: Patricia Irvin RDMS : 1995 Age: 28 [...] for an outpatient [facility]. Please see the EPIC chart for [...] and has been scheduled at our [facility] clinic atpatient's request. Return to primary provider [...] unspecified documented in this encounter Care Teams Sewer And Cutter Finger Buff Material Relationship Specialty Start Date End Date Rich Resendez MD [place] [id number] PCP - General Emergency Medicine 01/02/19 documented as of this encounter
--- OUTSIDE RECORDS SUMMARY | 2024-01-13 07:55 | XMS_ITS | Encounter Summary ---
Author Organization [place] Address [address] [place] [address]. [place] [address] Care Team Providers Care Stove Carriage Operator Name Role Phone Rich Resendez MD Primary Care Provider Encounter Details Date Type Department Care Team (Late st Contact Info) Description 12/28/[address] [facility] Mgmt [facility] [address] [place] [phone] Scan, Non-Provider Social History Tobacco Use [...] Appointment [facility] Maternal Medicine Center [place] [address] [place] [phone] Rima Portillo MD [address] [facility] [address] [place], [place] [address] 02/01/2024 9:15 AM CDT Office Visit [facility] Maternal Medicine Center [place] [address] [place], [place] [address] Rima Portillo MD [address] [facility] [address] [place] [address] documented as of this encounter Visit Diagnoses Not on filedocumented in this encounter Care Teams Stove Carriage Operator Relationship Specialty Start Date End Date Rich Resendez MD [facility] [address] [place] [address] PCP - General Emergency Medicine 01/02/19 documented as of this encounter
--- OUTSIDE RECORDS SUMMARY | 2024-01-13 07:55 | XMS_ITS | Encounter Summary ---
Author Organization [place] Address [address] [facility] [place] [address] Care Team Providers Care Academic Vice President Name Role Phone Rich Resendez MD Primary Care Provider Reason for Referral * Diagnostic Imaging Ultrasound (Routine) - Pending Review Specialty Diagnoses / Procedures Referred By Vale t Referred To Contact Radiology. Diagnoses related condition Procedures [facility] US Comprehensive [facility] Rima Portillo MD [address] [place] [address] Referral ID Status Reason Start Date Expiration Date V isits Requested Visits Authorized [id number] Pending Review 12/17/2023 12/16/2024 1 1 Reason for Visit * Reason Comments Ultrasound Twin NT- Di/di twins , fibromyalgia, PCOS, BMI>30, hx PPROM/PTD Consult Di/di twins, fibromy algia, PCOS, BMI>30, hx PPROM/PTD * Consultation (Routine: Next available opening) - Pending Review Specialty Diagnoses / Procedures Referred By Contac t Referred To Contact Diagnoses related condition Jone, [place] [phone] [place] [address] Referral ID Status Reason Start Date Expiration Date V isits Requested Visits Authorized [id number] Pending Review 12/03/2023 12/02/2024 1 1 Encounter Details Date Type Department Care Team (Late st Contact Info) Description 12/17/2023 2:15 PM CDT Office Visit [facility] Maternal Medicine Center [place] [address] [place] [address] Rima Portillo MD [address] [place], [place] [address] Dichorionic diamniotic twin in first trimester (Primary [...] note were not included. Maternal Medicine Center [address], [place] [address] Main: [phone], Referring Provider: Jone Alonsocrista Del Toro is a 28 year old at 12w0d by LMP consistent with 7w5d US here for MFM consultation regarding di/di twin with joint derangement. She presents with her sister in-law for this visit. Her obstetric history is notable for vaginal delivery of male at 36w3d in 2019 and one surgical induced at 15 weeks gestation on 07/2023. Her delivery was in the setting of PPROM and labor. During that , she endorsed hypermobile joints with episodes of falls she attributed to her joints. From her chart review, she has history of fibromyalgia and deviated septum s/p septoplasty. She endorsed being evaluated at [facility] at the age of 11 for Ehler [...] been with Dr. Becerril from [facility]. OB History Para Term AB Living [...] Medication Sig Last Dose Taking? Auth Provider Inspector [place] End Date ASPIRIN LOW DOSE 81 MG EC tablet Take 81 mg by mouth daily Taking Yes Reported, Patient MV-Min-Fe Fum-FA-DHA ( 1 PO) Take 1 tablet by mouth daily Taking Yes Reported, Patient czzgbmudow-iidikaftjujna-xwncjazl (FIORICET/ESGIC) 50-325-40 MG tablet Take 1 tablet [...] (we presume these will be performed through [facility]). -Targeted anatomy at 18-20 weeks (schedule at [facility] due to patient preference/appointment access to coordinate with her child's appointments at the [facility] in [place]. -Serial growth ultrasounds every 4 weeks until [...] can potentially do these via MFM in [place]. Pt discharged stable and ambulatory to outpatient lab. Lilia Moctezuma RN documented in this encounter Plan of Treatment Upcoming Encounters Date Type Department Care Team (Late st Contact Info) Description 02/01/2024 8:45 AM CDT Appointment [facility] Maternal Medicine Center [address] [phone] Rima Portillo MD [address] [place] [phone] 02/01/2024 9:15 AM CDT Office Visit [facility] Maternal Medicine [facility] [place] [address] [place], [place] [address] Rima Portillo MD [address] [place] [address] Scheduled Orders Name Type Priority Associated Diagnoses Orde r Schedule [facility] US Comprehensive Single Imaging Routine Expected: 2023 (Approximate), Expires: 10/16/2024 documented as of this encounter Visit Diagnoses Diagnosis Dichorionic diamniotic twin in first trimester- Primary Twin , antepartum History of delivery, currently in first trimester documented in this encounter Care Teams Academic Vice President Relationship Specialty Start Date End Date Rich Resendez MD [facility] [address] [place] [address] PCP - General Emergency Medicine 01/02/19 documented as of this encounter
--- OUTSIDE RECORDS SUMMARY | 2024-01-13 07:55 | XMS_ITS | Encounter Summary ---
Author Organization [place] Address [address] [facility] [place] [address] Care Team Providers Care Stone Finisher Name Role Phone Rich Resendez MD Primary Care Provider Reason for Visit * Reason Onset Date Comments Results 12/28/2023 NIPT Encounter Details Date Type Department Care Team (Late st Contact Info) Description 12/28/2023 Telephone [facility] Maternal Medicine Center [place] [address] [facility] [address] [place] [address] Kaitlin Olivera GC [address] [place] [address] Results (NIPT) Social History Tobacco Use Types Packs/Day Years [...] PM CDT documented as of this encounter Miscellaneous Notes * Telephone Encounter - Kaitlin Olivera GC - 12/28/2023 8:48 AM CDT December 28, 2023 I called Constance and spoke to her regarding her NIPT result. It was run as a rogel and Constance is with twins. Discussed that I will re-requisition the NIPT and results will be available in 48-72 hours. Called and spoke to a Iain account maintenance representative who has begun this process. Constance had no further questions. Kaitlin Olivera MS, [facility] Licensed Genetic Counselor [facility] Pager: [phone] Office: documented in this encounter Plan of Treatment Upcoming Encounters Date Type Department Care Team (Late st Contact Info) Description 02/01/2024 8:45 AM CDT Appointment [facility] Maternal Medicine [facility] [address] [place] [address] Rima Portillo MD [address] [place], [place] [address] [address] [address] 02/01/2024 9:15 AM CDT Office Visit [facility] Maternal Medicine [facility] [address] [place] [address] Rima Portillo MD [address] [address] documented as of this encounter Visit Diagnoses Not on filedocumented in this encounter Care Teams Stone Finisher Relationship Specialty Start Date End Date Rich Resendez MD [facility] [address] [place] [address] PCP - General Emergency Medicine 01/02/19 documented as of this encounter
--- OUTSIDE RECORDS SUMMARY | 2024-01-13 07:55 | XMS_ITS | Encounter Summary ---
Author Organization [place] Address [address] [place] [address]. [place] [address] Care Team Providers Care Cleat Blanker Name Role Phone Rich Resendez MD Primary Care Provider Encounter Details Date Type Department Care Team (Late st Contact Info) Description 12/17/2023 4:00 PM CDT Lab [facility] [address] [place] [phone] Rima Portillo MD [address] [facility] [address] [place] [address] Dichorionic diamniotic twin in first [...] Info) Description 02/01/2024 8:45 AM CDT Appointment [facility] [place] [address] [place] [phone] Rima Portillo MD [address] [place] [address] 02/01/2024 9:15 AM CDT Office Visit [facility] [address] [place], [place] [phone] Rima Portillo MD [address] [place], [place] [address] documented as of this encounter Procedures Procedure Name Priority Date/Time Associated Diagnosis Comments LABORATORY MISCELLANEOUS RESULT Routine 12/17/2023 5:30 PM CDT Dichorionic diamniotic twin in first trimester Encounter of female for testing for genetic disease carrier status for procreative management LABORATORY MISCELLANEOUS ORDER Routine 12/17/2023 5:30 PM CDT Dichorionic diamniotic twin in first trimester Encounter of female for testing for genetic disease carrier status for procreative management LABORATORY MISCELLANEOUS RESULT Routine 12/17/2023 5:29 PM CDT Dichorionic diamniotic twin in first trimester screening encounter LABORATORY MISCELLANEOUS ORDER Routine 12/17/2023 5:29 PM CDT Dichorionic diamniotic twin in first trimester screening encounter documented in this encounter Results * (ABNORMAL) Laboratory Miscellaneous Result (12/17/2023 5:30 PM CDT) Test Name [facility] 12/30/2023 11:13 AM CDT MISCELLANEOUS TESTING See Scanned Result LABORATORY MISCELLANEOUS RESULT-Scanned(A ) 12/30/2023 11:13 AM CDT MISCELLANEOUS TESTING Blood BLOOD SPECIMEN / Unknown Venipuncture / Unknown 12/17/2023 5:30 PM CDT 12/17/2023 5:35 PM CDT Roxane Goldstein GC LAB - BLOOD ORDERABL ES MISCELLANEOUS TESTING * Other Laboratory; Iain; Horizon (Laboratory Miscellaneous Order) (12/17/2023 5:30 PM CDT) Specimen Status Specimen received. Reordered and sent to performing laboratory. Report to follow upon completion. [facility] 12/18/2023 2:56 PM CDT [facility] LABORATORY Performing Laboratory Iain [facility] 12/18/2023 2:56 PM CDT UR LABORATORY Test Name Horizon [facility] 12/18/2023 2:56 PM CDT UR LABORATORY Blood BLOOD SPECIMEN / Unknown Venipuncture / Unknown 12/17/2023 5:30 PM CDT 12/17/2023 5:35 PM CDT Roxane Goldstein LAB - BLOOD ORDERABL ES Performing Organization Address [facility] Co de Phone Number UU LABORATORY [facility] Core Lab [address] [facility], [address] [place] [address] [[email or web address]] UR LABORATORY [facility] Acute Care Lab [address] [facility], [address] [place] [address] [[email or web address]] * Laboratory Miscellaneous Result (12/17/2023 5:29 PM CDT) Test Name [facility] 12/29/2023 9:50 AM CDT MISCELLANEOUS TESTING See Scanned Result LABORATORY MISCELLANEOUS RESULT-Scanned 12/29/2023 9:50 AM CDT MISCELLANEOUS TESTING Blood BLOOD SPECIMEN / Unknown Venipuncture / Unknown 12/17/2023 5:29 PM CDT 12/17/2023 5:30 PM CDT Roxane Goldstein GC LAB - BLOOD ORDERABL ES Performing Organization Address City/[facility]/ZIP Co de Phone Number MISCELLANEOUS TESTING * Other Laboratory; Iain; Mari (Laboratory Miscellaneous Order) (12/17/2023 5:29 PM CDT) Specimen Status Specimen received. Reordered and sent to performing laboratory. Report to follow upon completion. [facility] 12/18/2023 2:50 PM CDT [facility]U LABORATORY Performing Laboratory Iain [facility]AKR[facility]NA 12/18/2023 2:50 PM CDT UR LABORATORY Test Name Mari [facility] 12/18/2023 2:50 PM CDT UR LABORATORY Blood BLOOD SPECIMEN / Unknown Venipuncture / Unknown 12/17/2023 5:29 PM CDT 12/17/2023 5:30 PM CDT Roxane Goldstein GC LAB - BLOOD ORDERABL ES [facility] LABORATORY [facility] Core Lab [address] [facility], [address] [place] [address] [[email or web address]] UR LABORATORY [facility] Acute Care Lab [address] [facility], [address] [place] [address] [[email or web address]] documented in this encounter Visit Diagnoses Diagnosis Dichorionic diamniotic twin in first trimester Twin , antepartum screening encounter Unspecified screening Encounter of female for testing for genetic disease carrier status for procreative management Testing of female for genetic disease carrier status documented in this encounter Care Teams Cleat Blanker Relationship Specialty Start Date End Date Rich Resendez MD [facility] [address] [place] [address] PCP - General Emergency Medicine 01/02/19 documented as of this encounter
--- OUTSIDE RECORDS SUMMARY | 2024-01-13 07:55 | XMS_ITS | Referral Summary ---
Author Organization [place] Address [address] [place] [address]. [place] [address] Care Team Providers Care Anode Builder Name Role Phone Rich Resendez MD Primary Care Provider Encounters Date Type Department Care Team Description 12/30/2023 Telephone [facility] [address] [facility] [facility] [address] [place] [address] Kaitlin Olivera GC 12/28/[address] [facility] Info Mgmt [facility] [address] [place] [phone] Scan, Non-Provider 12/28/2023 Telephone [facility] [address] [facility] [address] [place] [address] Kaitlin Olivera GC Results (NIPT) 12/18/2023 Telephone [facility] Maternal Medicine [facility] [address] [place] [address] Roxane Goldstein GC Clinic Care Coordination - Follow-up 12/17/2023 4:00 PM CDT Lab [facility] [address] [place] [phone] Rima Portillo MD Dichorionic diamniotic twin in first trimester; screening encounter; Encounter of female for testing for genetic disease carrier status for procreative management 12/17/2023 Travel 12/17/2023 2:15 PM CDT Office Visit [facility] [address] [place] [address] Rima Portillo MD Dichorionic diamniotic twin in first trimester (Primary Dx); History of delivery, currently in first trimester 12/17/2023 12:24 PM CDT - 12/17/2023 11:59 PM CDT Hospital Encounter [facility] [address] [place] [phone] Rima Portillo MD Dichorionic diamniotic twin in first trimester; Joint derangement Discharge Disposition: Home or Self Care 12/17/2023 12:45 PM CDT Office Visit [facility] [address] [place] [address] Rima Portillo MD Meyer, Jennifer R screening encounter (Primary Dx); Dichorionic diamniotic twin in first trimester; Encounter of female for testing for genetic disease carrier status for procreative management 12/15/2023 PRE VISIT [facility] [address] [facility] [place] [address] Lilia Moctezuma, RN Genetic Counseling (Di/di twins, PCOS, Fibromyalgia, BMI>30, hx PPROM/PTD); Ultrasound (Twin NT- Di/di twins, PCOS, Fibromyalgia, BMI>30, hx PPROM/PTD/); Consult (Di/di twins, PCOS, Fibromyalgia, BMI>30, hx PPROM/PTD/) 12/12/2023 Travel 12/11/2023 MyC Medical Advice [facility] [address] [facility] [address] [place] [phone] Lorne Montemayor 12/03/2023 Transcribe Orders [facility] [address] [facility] [facility] [place] [address] Monica Noel related condition (Primary Dx) 12/02/2023 Orders Only [facility] [address] [place] [address] Elsie Blanchard RN Dichorionic diamniotic twin in first trimester (Primary Dx); Joint derangement 12/02/2023 Transcribe Orders [facility] [place] [address] [place] [address] Fitzlaugust related condition, antepartum (Primary Dx) 12/01/[address] [facility] Info Mgmt Sr[facility] [address] [place] [address] Scan, Non-Provider from Last 3 Months Allergies [...] CDT Appointment [facility] [place] [address] [place] [phone] Rima Portillo MD [address] [place], [place] [address] 02/01/2024 9:15 AM CDT Office Visit [facility] [address] [place], [place] [address] Rima Portillo MD [address] [facility] [address] [place] [address] Procedures Procedure Name Priority Date/Time [...] diamniotic twin in first trimester Joint derangement GENETIC LAB RESULT - HIM SCAN 12/17/2023 12:00 AM CDT from Last 3 Months Results * (ABNORMAL) Laboratory Miscellaneous Result (12/17/2023 5:30 PM CDT) Only the most recent of2 resultswithin the time period is included. Test Name [facility] 12/30/2023 11:13 AM CDT MISCELLANEOUS TESTING See [...] performing laboratory. Report to follow upon completion. [facility] 12/18/2023 2:56 PM CDT [facility]U LABORATORY Performing Laboratory Iain [facility] 12/18/2023 2:56 PM CDT UR LABORATORY Test Name Horizon [facility] 12/18/2023 2:56 PM CDT UR LABORATORY Blood BLOOD SPECIMEN / Unknown Venipuncture / Unknown 12/17/2023 5:30 PM CDT 12/17/2023 5:35 PM CDT Roxane Goldstein GC LAB - BLOOD ORDERABL ES UU LABORATORY [facility] Core Lab [address] [facility], [address] [place] [address], [facility] UR LABORATORY [facility] Acute Care Lab [address] [facility], [address] [place] [address], [place] * [facility] Twins Nuchal Trans w/US (12/17/2023 2:19 [...] ? Study Date: ??12/17/2023 1:29pm Pat. NO: ??[id number] ?Referring ??MD: MONICA NOEL Site: ? Process Equipment Operator: Patricia Irvin RDMS : ??1995 ?Age: ?? [...] gestation and has been scheduled at our [facility] clinic at patient's request. Return to primary [...] [place] Study Date: 12/17/2023 1:29pm Pat. NO: [id number] Referring MD: MONICA NOEL Site: Process Equipment Operator: Patricia Irvin RDMS : 1995 Age: 28 [...] for an outpatient [facility]. Please see the EPIC chart for [...] weeksgestation and has been scheduled at our [facility] clinic atpatient's request. Return to primary [...] normal for early gestational age. Katiana Montez [facility] US ORDER JANIE * Genetic Lab Result - HIM Scan (12/17/2023 12:00 AM CDT) 12/17/2023 Provider Outside LAB - [facility] SPECIAL DIAG ORDERABLES from Last 3 Months Care Teams Anode Builder Relationship Specialty Start Date End Date Rich Resendez MD [facility] [address] [place] [address] PCP - General Emergency Medicine 01/02/19
--- OUTSIDE RECORDS SUMMARY | 2024-01-13 07:55 | XMS_ITS | Encounter Summary ---
Author Organization [place] Address [address] [facility] [place] [address] Care Team Providers Care Bottoming Room Inspector Name Role Phone Rich Resendez MD Primary Care Provider Encounter Details Date Type Department Care Team (Late st Contact Info) Description 12/30/2023 Telephone [facility] [place] [address] [facility] [address] [place] [address] Kaitlin Olivera, GC [address] [place] [address] Social History Tobacco Use Types Packs/Day Years [...] Telephone Encounter - Kaitlin Olivera GC - 12/30/2023 12:03 PM CDT December 30, 2023 I spoke with Constance regarding her NIPT results. Report was amended due to first result run as a rogel. Results indicate NO ANEUPLOIDY DETECTED for chromosomes 21, 18, or 13. I disclosed predicted male sex of babies. This puts her current at low risk for Down syndrome, trisomy 18, and trisomy 13. Althoughthese results are reassuring, this does not replace a standard chromosome analysis from a chorionicvillus sampling or amniocentesis Level II ultrasound is scheduled. MSAFP is the appropriate second trimester screening test for open neural tube defects; the maternalquad screen is not recommended. I disclosed her Horizon 613 carrier screening results. She is not expected to have symptoms of the conditions she carries. She is encouraged to share results with family members for their own consideration of carrier screening. 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 We discussed that should her partner desire carrier screening, or should she desire an amniocentesis to sequence the genes for an additional variant, she could callthierry or Roxane Goldstein MS, [facility] directly. Abeoj-Qrrdm-Imtlr syndrome (SLOS) (DHCR7: c.440G>A): This condition is caused by deficiency of an enzyme involved in cholesterol synthesis. It can be a very severe condition, impacting many body systems, though it can vary in severity even among individuals of the same family. Infants with severe SLOS have hypotonia, feeding difficulties, and slow growth. Microcephaly, cleftpalate, finger and toe anomalies, and short stature are common. The condition can also present withbehavioral concerns, intellectual disability, and autism. Other body systems commonly impacted include the heart, lungs, kidneys, and GI tract. In males, underdeveloped genitalia are common. Individuals with the more mild forms may only present with hypotonia and subtle facial or toe characteristics. They may have mild intellectual disability, or typical cognitive function. Life expectancy depends on severity of symptoms, and approximately 25% of individuals with SLOS pass away in childhood. Steroid Resistant Nephrotic Syndrome (NPHS2: c.686G>A (p.R229Q)): This condition impacts the body's ability to properly filter waste products from the blood. There are different types of nephrotic syndrome caused by mutations in different genes. Type 2 is also called steroid-resistant nephrotic syndrome. Symptoms can include protein in the urine, increased cholesterol in the blood, abnormal buildup of fluid in the abdominal cavity, and whole-body swelling. Other symptoms can include blood in the urine, anemia, and an increased risk for infections. Affected individuals typically experience kidney failure during childhood or adolescence. However, age of onset and severity can vary. Her results are available in her [facility] chart for her primary OB to review. Kaitlin Olivera MS, [facility] Licensed Genetic Counselor [facility] Pager: [phone] Office: [phone] documented in this encounter Plan of Treatment Upcoming Encounters Date Type Department Care Team (Late st Contact Info) Description 02/01/2024 8:45 AM CDT Appointment [facility] Maternal [facility] [address] [place] [phone] Rima Portillo MD [address] [place], [place] [address] 02/01/2024 9:15 AM CDT Office Visit [facility] M[facility] [address] [place], [place] [address] Rima Portillo MD [address] [place], [place] [phone] documented as of this encounter Visit Diagnoses Not on filedocumented in this encounter Care Teams Bottoming Room Inspector Relationship Specialty Start Date End Date Rich Resendez MD [facility] [address] [place] [address] PCP - General Emergency Medicine 01/02/19 documented as of this encounter
--- OUTSIDE RECORDS SUMMARY | 2024-01-13 07:55 | XMS_ITS | Encounter Summary ---
Author Organization [place] Address [address] [facility] [place] [address] Care Team Providers Care Piercer Name Role Phone Rich Resendez MD Primary Care Provider Reason for Visit * Reason Onset Date Comments Clinic Care Coordination - Follow-up 12/18/2023 Encounter Details Date Type Department Care Team (Late st Contact Info) Description 12/18/2023 Telephone [facility] [address] [place], [place] [phone] Roxane Goldstein GC [address] [place] [address] [address] [place] [address] Clinic Care Coordination - Follow-up [...] AM CDT Appointment [facility] [address] [place] [phone] Rima Portillo MD [address] [facility] [address] [place], [place] [phone] 02/01/2024 9:15 AM CDT Office Visit [facility] [address] [place], [place] [phone] Rima Portillo MD [address] [place], [place] [phone] documented as of this encounter Visit Diagnoses Not on filedocumented in this encounter Care Teams Piercer Relationship Specialty Start Date End Date Rich Resendez MD [facility] [address] [place] [address] PCP - General Emergency Medicine 01/02/19 documented as of this encounter
--- OUTSIDE RECORDS SUMMARY | 2024-01-13 07:55 | XMS_ITS | Encounter Summary ---
Author Organization [place] Address [address] [facility] [place] [address] Care Team Providers Care Pastry Finisher Name Role Phone Rich Resendez MD [...] Info) Description 02/01/2024 8:45 AM CDT Appointment [facility] [place] [address] [place] [phone] Rima Portillo MD [address] [place], [place] [address] [address] [address] 02/01/2024 9:15 AM CDT Office Visit [facility] [place] [address] [place], [place] [phone] Rima Portillo MD [address] [place], [place] [address] [facility] [address] [place], [place] [address] documented as of this encounter Visit Diagnoses Not on filedocumented in this encounter Care Teams Pastry Finisher Relationship Specialty Start Date End Date Rich Resendez MD [facility] [place] [address] [place] [address] PCP - General Emergency Medicine 01/02/19 documented as of this encounter
--- OUTSIDE RECORDS SUMMARY | 2024-01-13 07:55 | XMS_ITS | Encounter Summary ---
Author Organization [place] Address [address] [facility] [place] [address] Care Team Providers Care [employer] Technology Teacher Name Role Phone Rich Resendez MD Primary Care Provider Reason for Visit * Reason Comments Genetic Counseling screening * Consultation (Routine: Next available opening) - Pending Review Specialty Diagnoses / Procedures Referred By Contac t Referred To Contact Diagnoses Dichorionic diamniotic twin in first trimester Joint derangement Katiana Montez CNM [address] [place] [id number] Referral ID Status Reason Start Date Expiration Date V isits Requested Visits Authorized [id number] Pending Review 12/02/2023 12/01/2024 1 1 Encounter Details Date Type Department Care Team (Late st Contact Info) Description 12/17/2023 12:45 PM CDT Office Visit [facility] [address] [id number] Rima Portillo MD [address] [place], [place] [address] [address] [address] Roxane Goldstein GC [address] [place] [address] screening encounter (Primary Dx); Dichorionic diamniotic [...] Roxane Goldstein, - 12/17/2023 12:[address] [facility] Medicine [facility] Genetic Counseling Consult Patient: Constance Lugo Daily Date of : 1995 Date of Service: 12/17/23 Constance Lugo Daily was seen at [facility] for genetic consultation to discuss the options for screening and testing for chromosome abnormalities. The indication for genetic counseling is desire to discuss options for genetic screening and diagnostics. Constance was accompanied to the appointment today by her avzrbs-fd-bao (her brother's ) Yumi. IMPRESSION/ PLAN 1. Constance has not had genetic screening in this but elected to have screening today. 2. During today's [facility] visit, Constance had blood draw for NIPS (Panorama) through [facility]. The NIPS screens for trisomy 21, 18, [...] results, including sex, will be available in Eayun. 3. Constance had a blood draw for expanded carrier screening (Horizon carrier screen, 613 conditions,through [employer]). Results are expected within 14-21 days, and will be available in Soniqplay. We willcontact her to discuss the results, and a copy will be forwarded to the office of the referring OB provider. The patient was informed that results will also be available via Eayun. 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 Constance also had [facility] consultation today with Dr. Portillo to discuss management recommendations. Please see [facility] consult note for details. FAMILY HISTORY A three-generation pedigree was obtained today and is scanned under the Media tab in Soniqplay. The family history was reported by Constance and her eyfdny-fv-lfm Yumi. The following significant findings were reported [...] has a follow-up appointment with genetics at [facility] in January to discuss further testing. Constance [...] common genes related to nonsyndromic hearing loss. screen involves a hearing screen and this family history can be sharedwith the manager aerospace. Constance had a sister who was born [...] not intentionally screen for autosomal dominant conditions. screening was reviewed. About [place] Screening Autosomal recessive conditions happen when a [...] option of proceeding with testing through either [employer] (up to 267 conditions) or [facility] (up to 613 conditions). After reviewing the [...] ultrasounds) for as well as delivery and care. Carrier screening is not meant to [...] likely pathogenic. Although carrier status does not exchange consultant time, it is possible that a variant could be reclassified as more information about the variant is learned. If this occurs, the couple will be contacted and a new risk assessment will be provided. We discussed that [employer] [facility] will generate a cost estimate and contact the patient with their expected odu-gd-omewwp cost. If the estimated qcr-rp-kbbmlg cost is estimated to exceed $349, a patient-pay option of $349 is available. The patient must select this option in the [employer] [facility] portal within a specific window after receiving their cost estimate. It is the patient's responsibility to determine whether insurance billing or patient pay is a better financial decision and to follow up with [employer] [facility] to make the selection for patient pay if desired. The patient was also provided with a [employer] [facility] billing card and is encouraged to contact [employer] [facility]'s billing office directly if they have additional [...] conditions. NIPT run on a SNP platform ([employer]) can screen for monosomy X if the [...] one twin is a male. SNP-based NIPT ([employer] through [employer] [facility]) allows for sex to be reported for [...] higher than MPSS platforms. We discussed that [employer] or [employer] [facility] will perform a benefits investigation to determine coverage, butthat it is the patient's responsibility to select billing through insurance or self-pay ($249 for either test). If no contact from [employer] or [employer] [facility] is received, of if she is very concerned about cost, the patient should contact [employer]'s or [employer] [facility]'s billing office at the number provided today. [...] options: Nuchal translucency (NT) ultrasound Ultrasound between [id number] that includes nuchal translucency measurement and nasal [...] was a pleasure to be involved with [facility] [place] [facility]. Etvx-gi-vlsx time of the meeting was 45 minutes. Roxane Goldstein [facility] [place], [facility] Certified and [place] Licensed Genetic Counselor [facility] Maternal Medicine Office: [phone] MFM: [phone] [facility] documented in this encounter Plan of Treatment Upcoming Encounters Date Type Department Care Team (Late st Contact Info) Description 02/01/2024 8:45 AM CDT Appointment [facility] [place] [address] [place] [address] Rima Portillo MD [address] [address] 02/01/2024 9:15 AM CDT Office Visit [facility] Maternal Medicine [facility] [address] [place] [address] Rima Portillo MD [address] [place] [address] documented as of this encounter [...] LAB - BLOOD ORDERABL ES [facility] Core Lab [address] [facility], [address] [place] [address], [facility] UR LABORATORY [facility] Acute Care Lab [address] [facility], [address] [place] [address] * Other Laboratory; Iain; Mari (Laboratory Miscellaneous Order) (12/17/2023 5:29 PM CDT) Specimen Status Specimen received. Reordered and sent to performing laboratory. Report to follow upon completion. RAMAKRISHNA 12/18/2023 2:50 PM CDT [facility] LAB[facility]AT[facility] Performing Laboratory Iain RAMAKRISHNA 12/18/2023 2:50 PM CDT UR LABORATORY Test Name Panorama [facility] 12/18/2023 2:50 PM CDT UR LABORATORY Blood BLOOD SPECIMEN / Unknown Venipuncture / Unknown 12/17/2023 5:29 PM CDT 12/17/2023 5:30 PM CDT Roxane Goldstein GC LAB - BLOOD ORDERABL ES [facility] LABORATORY [facility] Core Lab [address] [facility] [address], [address] [place] [address], [facility] UR LABORATORY [facility] Acute Care Lab [address] [facility], [address] [place] [address] documented in this encounter Visit Diagnoses Diagnosis screening encounter- Primary Unspecified screening Dichorionic diamniotic twin in first trimester Twin , antepartum Encounter of female for testing for genetic disease carrier status for procreative management Testing of female for genetic disease carrier status documented in this encounter Care Teams Middle [employer] Technology Teacher Relationship Specialty Start Date End Date Rich Resendez MD [facility] [address] [place] [address] PCP - General Emergency Medicine 01/02/19 documented as of this encounter
--- OUTSIDE RECORDS SUMMARY | 2024-01-13 07:55 | XMS_ITS | Clinical Summary ---
Author Organization [place] Address [address] [facility] [place] [address] Care Team Providers Care Monitor And Storage Bin Tender Name Role Phone Rich Resendez MD [...] Type Department Care Team Description 12/30/2023 Telephone [facility] [place] [address] [place] [address] Kaitlin Olivera, NEELAM 12/28/2023 [facility] [address] [place] [address] Scan, Non-Provider 12/28/2023 Telephone [facility] [place] [address] [place] [phone] Kaitlin Olivera, NEELAM Results (NIPT) 12/18/2023 Telephone [facility] Maternal Medicine [facility] [address] [place] [address] Roxane Goldstein GC Clinic Care Coordination - Follow-up 12/17/2023 4:00 PM CDT Lab [facility] Laboratory [address] [place] [phone] Rima Portillo MD Dichorionic diamniotic twin in first trimester; screening encounter; Encounter of female for testing for genetic disease carrier status for procreative management 12/17/2023 2:15 PM CDT Office Visit [facility] Maternal Medicine [facility] [address] [place] [address] Rima Portillo MD Dichorionic diamniotic twin in first trimester (Primary Dx); History of delivery, currently in first trimester 12/17/2023 12:45 PM CDT Office Visit [facility] Medicine [facility] [address] [place] [address] Rima Portillo MD Meyer, Jennifer R, GC screening encounter (Primary Dx); Dichorionic diamniotic twin in first trimester; Encounter of female for testing for genetic disease carrier status for procreative management 12/17/2023 12:24 PM CDT - 12/17/2023 11:59 PM CDT Hospital Encounter [facility] Maternal Medicine [facility] [address] [place] [phone] Rima Portillo MD Dichorionic diamniotic twin in first trimester; Joint derangement Discharge Disposition: Home or Self Care 12/17/2023 Travel 12/15/2023 PRE VISIT [facility] Maternal Medicine [facility] [address] [place] [address] Lilia Moctezuma, RN Genetic Counseling (Di/di twins, PCOS, Fibromyalgia, BMI>30, hx PPROM/PTD); Ultrasound (Twin NT- Di/di twins, PCOS, Fibromyalgia, BMI>30, hx PPROM/PTD/); Consult (Di/di twins, PCOS, Fibromyalgia, BMI>30, hx PPROM/PTD/) 12/12/2023 Travel 12/11/2023 MyC Medical Advice [facility] [address] [facility] [address] [place] [phone] [facility] 12/03/2023 Transcribe Orders [facility] M[facility] [place] [address] [facility] [place] [address] SadieAugust related condition (Primary Dx) 12/02/2023 Orders Only [facility] [place] [address] [place] [address] Elsie Blanchard RN Dichorionic diamniotic twin in first trimester (Primary Dx); Joint derangement 12/02/2023 Transcribe Orders [facility] [place] [address] [facility] [address] [place] [phone] SadieAugust related condition, antepartum (Primary Dx) 12/01/[address] [facility] [address] [place] [phone] Scan, Non-Provider from Last 3 Months Social [...] Info) Description 02/01/2024 8:45 AM CDT Appointment [facility] Maternal Medicine [facility] [address] [place] [phone] Rima Portillo MD [address] [facility] [address] [place] [address] 02/01/2024 9:15 AM CDT Office Visit [facility] Maternal Medicine [facility] [address] [place] [address] Rima Portillo MD [address] [facility] [address] [place] [address] Health Maintenance Due Date Last Done Comments ADVANCE CARE PLANNING 1995 ANNUAL REVIEW OF HM ORDERS 1995 YEARLY PREVENTIVE VISIT 1995 HIV SCREENING 2009 HEPATITIS C SCREENING 01/23/2012 PHQ-2 (once per calendar year) 2023 MATERNAL SCREENING DISCUSSION 12/03/2023 COVID-19 Vaccine ( season) 2024 INFLUENZA VACCINE (#1) 2024 02/02/2019, 2018 RSV VACCINE (1 - Risk 1-dose series) 05/05/2024 PAP [...] the time period is included. Test Name RAMAKRISHNA 12/30/2023 11:13 AM CDT MISCELLANEOUS TESTING See [...] performing laboratory. Report to follow upon completion. [facility] 12/18/2023 2:56 PM CDT [facility] LABORATORY Performing Laboratory Iain [facility] 12/18/2023 2:56 PM CDT UR LABORATORY Test Name Tanja [facility] 12/18/2023 2:56 PM CDT UR LABORATORY Blood BLOOD SPECIMEN / Unknown Venipuncture / Unknown 12/17/2023 5:30 PM CDT 12/17/2023 5:35 PM CDT Roxane Goldstein GC LAB - BLOOD ORDERABL ES UU LABORATORY [facility] Core Lab [address] [facility], [address] [place] [address] UR LABORATORY [facility] Acute Care Lab [address] [facility], [address] [place] [address], [facility] * MFM Twins Nuchal Trans [...] ? Study Date: ??12/17/2023 1:29pm Pat. NO: ??[id number] ?Referring ??MD: AUGUST SADIE Site: ? Call Or Contact Centre Team Leader: Patricia Irvin RDMS : ??1995 ?Age: ?? [...] gestation and has been scheduled at our [facility] clinic at patient's request. Return to [...] [place] Study Date: 12/17/2023 1:29pm Pat. NO: [id number] Referring MD: LATISHA SADIE Site: Call Or Contact Centre Team Leader: Patricia Irvin RDMS : 1995 Age: 28 [...] for an outpatient consultation in conjunction with [facility] today. Please see the EPIC chart for [...] weeksgestation and has been scheduled at [facility] atpatient's request. Return to primary provider [...] [facility] ORDER JANIE * Genetic Lab Result - HIM Scan (12/17/2023 12:00 AM CDT) 12/17/2023 Provider Outside LAB - COPATH SPECIAL DIAG ORDERABLES from Last 3 Months Care Teams Monitor And Storage Bin Tender Relationship Specialty Start Date End Date Rich Resendez MD [facility] [address] [place] [address] PCP - General Emergency Medicine 01/02/19
--- OUTSIDE RECORDS SUMMARY | 2024-01-13 07:56 | XMS_ITS | Encounter Summary ---
Author Organization [place] Address [address] [place] [address] Care Team Providers Care Crew Boat Operator Name Role Phone Rich Resendez MD Primary Care Provider Encounter Details Date Type Department Care Team (Late st Contact Info) Description 12/11/2023 MyC Medical Advice [facility] [address] [place] [address] [address] [place] [address] [facility] Social History Tobacco Use Types Packs/Day [...] Info) Description 02/01/2024 8:45 AM CDT Appointment [facility] M[facility] Medicine [facility] [place] [address] [place] [phone] Rima Portillo MD [address] [facility] [address] [place] [address] 02/01/2024 9:15 AM CDT Office Visit [facility] Maternal Medicine Center [place] [address] [place], [place] [phone] Rima Portillo MD [address] [place], [place] [address] [facility] [address] [place] [address] documented as of this encounter Visit Diagnoses Not on filedocumented in this encounter Care Teams Crew Boat Operator Relationship Specialty Start Date End Date Rich Resendez MD [facility] [address] [place] [address] PCP - General Emergency Medicine 01/02/19 documented as of this encounter
--- OUTSIDE RECORDS SUMMARY | 2024-01-13 07:56 | XMS_ITS | Encounter Summary ---
Author Organization [place] Address [address] [place] [address]. [place] [address] Care Team Providers Care Cash Analyst Name Role Phone Rich Resendez MD Primary Care Provider Encounter Details Date Type Department Care Team (Late st Contact Info) Description 12/01/2023 Medical Correspondence [facility] [address] [place] [address] Scan, Non-Provider Social History Tobacco Use [...] CDT Appointment [facility] [place] [address] [place] [phone] Rima Portillo MD [address] [address] 02/01/2024 9:15 AM CDT Office Visit [facility] Maternal Medicine [facility] [address] [place], [place] [address] Rima Portillo MD [address] [phone] documented as of this encounter Visit Diagnoses Not on filedocumented in this encounter Care Teams Cash Analyst Relationship Specialty Start Date End Date Rich Resendez MD [facility] [address] [place] [address] PCP - General Emergency Medicine 01/02/19 documented as of this encounter
--- OUTSIDE RECORDS SUMMARY | 2024-01-13 07:56 | XMS_ITS | Encounter Summary ---
Author Organization [place] Address [address] [facility] [place] [address] Care Team Providers Care Infectious Waste Technician Name Role Phone Rich Resendez MD Primary Care Provider Reason for Visit * Reason Comments Genetic Counseling Di/di twins, PCOS, F ibromyalgia, BMI>30, hx PPROM/PTD Ultrasound Twin NT- Di/di twins , PCOS, Fibromyalgia, BMI>30, hx PPROM/PTD Consult Di/di twins, PCOS, F ibromyalgia, BMI>30, hx PPROM/PTD Encounter Details Date Type Department Care Team (Late st Contact Info) Description 12/15/2023 PRE VISIT [facility] M[facility] Medicine [facility] [place] [address] [place], [place] [phone] Lilia Moctezuma, RN Genetic Counseling (Di/di twins, [...] Info) Description 02/01/2024 8:45 AM CDT Appointment [facility] Maternal Medicine [facility] [address] [place] [address] Rima Portillo MD [address] [place] [address] 02/01/2024 9:15 AM CDT Office Visit [facility] Maternal Medicine [facility] [address] [place] [address] Rima Portillo MD [address] [facility] [address] [place], [place] [address] documented as of this encounter Visit Diagnoses Not on filedocumented in this encounter Care Teams Infectious Waste Technician Relationship Specialty Start Date End Date Rich Resendez MD [facility] [address] [place] [address] PCP - General Emergency Medicine 01/02/19 documented as of this encounter
--- OUTSIDE RECORDS SUMMARY | 2024-01-13 07:56 | XMS_ITS | Clinical Summary ---
Author Organization [facility] Address [place], [place] [address] Care Team Providers Care Cotton Cleaner Name Role Phone Rich Resendez MD Primary [...] Comments Blood Pressure 131/107 06/25/2021 3:02 AM BUILDING MAINTENANCE MECHANIC Pulse 95 06/25/2021 3:59 AM BUILDING MAINTENANCE MECHANIC Temperature 37.4 ??C (99.3 ??F) 06/25/2021 3:02 AM CS T Respiratory Rate 16 06/25/2021 3:02 AM BUILDING MAINTENANCE MECHANIC Oxygen Saturation 98% 06/25/2021 3:59 AM BUILDING MAINTENANCE MECHANIC Inhaled Oxygen Concentration - - Weight 83.9 kg (185 lb) 06/25/2021 3:02 AM BUILDING MAINTENANCE MECHANIC Height 167.6 cm (5' 6) 06/25/2021 3:02 AM BUILDING MAINTENANCE MECHANIC Body Mass Index 29.86 06/25/2021 3:02 AM BUILDING MAINTENANCE MECHANIC Plan of Treatment Health Maintenance Due Date Last Done Comments Depression screening for age 12+ 2006 HIV for age 15-65 2009 Hepatitis C screening for age 18-79 01/23/2012 Tetanus booster 02/02/2017 02/02/2007 BMI (ht and wt on same day) for age 18+ 03/23/2018 03/23/2017 COVID-19 vaccine series ( season) 2024 Influenza for age 9-49 01/03/2024 Pap test for age 21-65 05/15/2026 , 05/15/2023, 01/04/2021, Additional history exists Tdap Completed 02/02/2007 Pneumococcal series for age 6-64 Aged Out No longer eligible based on patient's age to complete this topic Procedures Procedure Name Priority Date/Time Associated Diagnosis Comments HPV THIN PREP Routine 05/15/2023 12:30 PM BUILDING MAINTENANCE MECHANIC from Last 3 Months or Most Recently Relevant to Health Maintenance Results * (ABNORMAL) HPV HIGH RISK (05/15/2023 12:30 PM BUILDING MAINTENANCE MECHANIC) TYPE 16 Negative Negative 05/22/2023 11:44 AM BUILDING MAINTENANCE MECHANIC [facility] TYPE 18 Negative Negative 05/22/2023 11:44 AM BUILDING MAINTENANCE MECHANIC [facility] OTHER HIGH RISK TYPES Positive(A) Negative 05/22/2023 11:44 AM BUILDING MAINTENANCE MECHANIC [facility] Other (Cervical) Non-Blood / Unknown 05/15/2023 12:30 PM BUILDING MAINTENANCE MECHANIC 05/21/2023 7:37 AM BUILDING MAINTENANCE MECHANIC Narrative [facility] - 05/22/2023 11:44 AM BUILDING MAINTENANCE MECHANIC Specimen is positive for the DNA of any one of, or combination of, the following high risk HPV types: 31, 33, 35, 39, 45, 51, 52, 56, 58, 59, 66, 68. HPV types 16 and 18 DNA were undetectable or below the pre-set threshold. ? Methodology: Yung Mabel 4800 HPV Test Vanessa Chavez NP MICROBIOLOGY [facility] [address] [place] [address], from Last 3 Months or Most Recently Relevant to Health Maintenance Care Teams Cotton Cleaner Relationship Specialty Start Date End Date Rich Resendez MD [address] [place] [address] PCP - General Internal Medicine 07/29/20
--- OUTSIDE RECORDS SUMMARY | 2024-01-13 07:56 | XMS_ITS | Encounter Summary ---
Author Organization [place] Address [address] [place] [address] Care Team Providers Care Slip Cover Seamstress Name Role Phone Rich Resendez MD Primary Care Provider Reason for Referral * Consultation (Routine: Next available opening) - Pending Review Specialty Diagnoses / Procedures Referred By Vale t Referred To Contact Diagnoses related condition, antepartum Jone August [address] [place] [address] Maternal Med [address] [place] [address] Referral ID Status Reason Start Date Expiration Date V isits Requested Visits Authorized [id number] Pending Review 12/02/2023 12/01/2024 1 1 Question Answer Preferred Location: [facility] [place] SH[facility] 06/30/2024 Ultrasound MFM Recommendation US PROC [...] Consultation No Genetic Counseling Consultation: No fax [facility] August Jone [phone] Comments twin preg, di-di, joint derangement, supervision of other high risk preg Encounter Details Date Type Department Care Team (Latest Contact Info) Description 12/02/2023 Transcribe Orders [facility] Maternal Medicine Center [place] [address] [place] [address] Monica Becerril [facility] [address] [place] [address] related condition, antepartum (Primary Dx) Social History [...] Info) Description 02/01/2024 8:45 AM CDT Appointment [facility] Maternal Medicine Center [place] [address] [place], [place] [address] [place] [phone] Rima Portillo MD [address] [place] [address] [id number] 02/01/2024 9:15 AM CDT Office Visit [facility] Maternal Medicine [facility] [address] [place] [address] Rima Portillo MD [address] [place] [phone] Scheduled Referrals Name Type Priority Associated Diagnoses Orde r Schedule [facility] Med Ctr Referral - Referral Routine: Next available opening related condition, antepartum Expected: 12/02/2023 (Approximate), Expires: 05/30/2024 documented as of this encounter Visit Diagnoses Diagnosis related condition, antepartum- Primary documented in this encounter Care Teams Slip Cover Seamstress Relationship Specialty Start Date End Date Rich Resendez MD [facility] [address] [place] [address] PCP - General Emergency Medicine 01/02/19 documented as of this encounter
--- OUTSIDE RECORDS SUMMARY | 2024-01-13 07:56 | XMS_ITS | Encounter Summary ---
Author Organization [place] Address [address] [place] [address] Care Team Providers Care Dining Room Tables Set Up Attendant Name Role Phone Rich Resendez MD Primary Care Provider Reason for Referral * Consultation (Routine: Next available opening) - Pending Review Specialty Diagnoses / Procedures Referred By Vale argueta Referred To Contact Diagnoses related condition Monica Becerril [place] [address] [place] [address] Referral ID Status Reason Start Date Expiration Date V isits Requested Visits Authorized [id number] Pending Review 12/03/2023 12/02/2024 1 1 Question Answer Office Visit Type: MFM Consult Encounter Details Date Type Department Care Team (Latest Contact Info) Description 12/03/2023 Transcribe Orders [facility] Maternal Medicine Center [place] [address] [place] [address] Monica Becerril [place] [address] [place] [phone] related condition (Primary Dx) Social History Tobacco [...] Appointment [facility] Maternal Medicine [facility] [place] [address] [place] [address] Rima Portillo MD [address] [place] [address] 02/01/2024 9:15 AM CDT Office Visit [facility] Maternal Medicine [facility] [address] [place] [address] Rima Portillo MD [address] [facility] [address] [place], [place] [address] Scheduled Referrals Name Type Priority Associated Diagnoses Orde r Schedule MFM Office Visit - M Consult Referral Routine: Next available opening related condition Expected: 12/03/2023 (Approximate), Expires: 12/02/2024 documented as of this encounter Visit Diagnoses Diagnosis related condition- Primary Unspecified complication of , unspecified as to episode of care documented in this encounter Care Teams Dining Room Tables Set Up Attendant Relationship Specialty Start Date End Date Rich Resendez MD [facility] [address] [place] [address] PCP - General Emergency Medicine 01/02/19 documented as of this encounter
--- OUTSIDE RECORDS SUMMARY | 2024-01-13 07:56 | XMS_ITS | Encounter Summary ---
Author Organization [place] Address [address] [facility] [place] [address] Care Team Providers Care Group Art Supervisor Name Role Phone Rich Resendez MD Primary [...] CDT Appointment [facility] Maternal Medicine [facility] [address] [place] [phone] Rima Portillo MD [address] [place], [place] [address] [id number] 02/01/2024 9:15 AM CDT Office Visit [facility] Maternal Medicine [facility] [address] [place] [address] Rima Portillo MD [address] [address] documented as of this encounter Visit Diagnoses Not on filedocumented in this encounter Care Teams Group Art Supervisor Relationship Specialty Start Date End Date Rich Resendez MD [facility] [address] [place] [address] PCP - General Emergency Medicine 01/02/19 documented as of this encounter
--- OUTSIDE RECORDS SUMMARY | 2024-01-13 07:56 | XMS_ITS | Encounter Summary ---
Author Organization [place] Address [address] [facility] [place] [address] Care Team Providers Care Air Support Control Officer Name Role Phone Rich Resendez MD Primary Care Provider Reason for Referral * Consultation (Routine: Next available opening) - Pending Review Specialty Diagnoses / Procedures Referred By Vale argueta Referred To Contact Diagnoses Dichorionic diamniotic twin in first trimester Joint derangement Katiana Montez CNM [address] [place] [address] Referral ID Status Reason Start Date Expiration Date V isits Requested Visits Authorized [id number] Pending Review 12/02/2023 12/01/2024 1 1 * Diagnostic Imaging Ultrasound (Routine) - Pending Review Specialty Diagnoses / Procedures Referred By Vale argueta Referred To Contact Radiology. Diagnoses Dichorionic diamniotic twin in first trimester Joint derangement Procedures MFM Twins Nuchal Trans w/US Katiana Montez CNM [address] [place] [address] Referral ID Status Reason Start Date Expiration Date V isits Requested Visits Authorized [id number] Pending Review 12/02/2023 12/01/2024 1 1 Encounter Details Date Type Department Care Team (Late st Contact Info) Description 12/02/2023 Orders Only [facility] Maternal Medicine [facility] [address] [place] [address] Elsie Blanchard RN Dichorionic diamniotic twin in [...] 02/01/2024 8:45 AM CDT Appointment [facility] Maternal Medicine [facility] [address] [place] [phone] Rima Portillo MD [address] 1[address] 02/01/2024 9:15 AM CDT Office Visit [facility] Maternal Medicine [facility] [address] [place] [address] Rima Portillo MD [address] [id number] Scheduled Referrals Name Type Priority Associated Diagnoses Orde r Schedule [facility] Genetic Counseling Referral Routine: Next available opening Dichorionic diamniotic twin in first trimester Joint derangement Expected: 12/02/2023 (Approximate), Expires: 12/01/2024 documented as of this encounter Results * [facility] Twins Nuchal Trans w/US (12/17/2023 2:19 [...] ? Study Date: ??12/17/2023 1:29pm Pat. NO: ??[id number] ?Referring ??MD: LATISHA SADIE Site: ? Consumer Electronics Merchandiser: Patricia Irvin RDMS : ??1995 ?Age: ?? [...] gestation and [facility] at patient's request. Return [...] [place]AY Study Date: 12/17/2023 1:29pm Pat. NO: [id number] Referring MD: AUGUST SADIE Site: [employer] Merchandiser: Patricia Irvin RDMS : 1995 Age: 28 [...] [facility]. Please see the EPIC chart [...] and has been scheduled at our [facility] clinic atpatient's request. Return to primary [...] normal for early gestational age. Katiana Montez [facility] US ORDER JANIE documented in this encounter Visit Diagnoses Diagnosis Dichorionic diamniotic twin in first trimester- Primary Twin , antepartum Joint derangement Unspecified derangement, joint, site unspecified Dichorionic diamniotic twin in first trimester Twin , antepartum Joint derangement Unspecified derangement, joint, site unspecified documented in this encounter Care Teams Air Support Control Officer Relationship Specialty Start Date End Date Rich Resendez MD [facility] [address] [place] [address] PCP - General Emergency Medicine 01/02/19 documented as of this encounter
--- NOTE | 2024-01-13 08:00 | CRLHL7_ITS ---
For Patients: As a result of the Century Cures Act, medical imaging exams and procedure reports are released immediately into your electronic medical record. You may view this report before your referring provider. If you have questions, please contact your health care provider. INDICATION: f/u cervix and FHR DI DI Twin COMPARISON: 11/19/2023 TECHNIQUE: Real-time paul-scale imaging of the pelvis was performed. FINDINGS: Normal early twin gestation noted, diamniotic/dichorionic. Left ovary normal. Right ovary not visualized. heart rates are 168 beats per minute and 144 beats per minute. Transvaginal measurement of the cervix performed. The cervix measures 4.0 cm. IMPRESSION: Twin A heart rate 168 beats per minute. Twin B heart rate 144 beats per minute. Cervix closed measuring 4.0 cm. Dictated by Roland Roberto MD @ 01/13/2024 9:54:46 AM (Electronically Signed)
== END 2024-01-13 07:54 | disposition home or self-care (01) ==
LOC: US 07:53
PROVIDERS: PCP Internal Medicine; Visit Provider Obstetrics & Gynecology
DX: O30.041 Twin pregnancy, dichorionic/diamniotic, first trimester (principal)
CPT/HCPCS: 76816; 76817; 81511

== ENCOUNTER 2024-01-29 09:58 | Outpatient (CLI) | payer BC, SELFPAY ==
--- OUTSIDE RECORDS SUMMARY | 2024-01-29 10:03 | XMS_ITS | Encounter Summary ---
Author Organization [place] Address [address] [facility] [place] [address] Care Team Providers Care Crocheter Name Role Phone Rich Resendez MD Primary Care Provider Reason for Visit * Reason Onset Date Comments Clinic Care Coordination - Follow-up 12/18/2023 Encounter Details Date Type Department Care Team (Late st Contact Info) Description 12/18/2023 Telephone [facility] Maternal Medicine Center [place] [address] [facility] [place], [place] [phone] Roxane Goldstein, [address] [place] [address] [address] [place] [address] Clinic Care Coordination - Follow-up [...] Team (Late st Contact Info) Description 02/01/2024 8:00 AM CDT Appointment [facility] Maternal Medicine Center [place] [address] [place] [phone] Monica Becerril [place] [address] [facility] [facility] [place] [id number] 02/01/2024 9:15 AM CDT Office Visit [facility] Maternal Medicine [facility] [address] [place] [address] Jone, Monica [facility] [address] [facility] [place] [address] documented as of this encounter Visit Diagnoses Not on filedocumented in this encounter Care Teams Crocheter Relationship Specialty Start Date End Date Rich Resendez MD [facility] [address] [place] [address] PCP - General Emergency Medicine 01/02/19 documented as of this encounter
--- OUTSIDE RECORDS SUMMARY | 2024-01-29 10:03 | XMS_ITS | Encounter Summary ---
Author Organization [place] Address [address] [facility] [place] [address] Care Team Providers Care Bending Frame Operator Name Role Phone Rich Resendez MD Primary Care Provider Reason for Referral * Diagnostic Imaging Ultrasound (Routine) - Pending Review Specialty Diagnoses / Procedures Referred By Vale argueta Referred To Contact Radiology. Diagnoses Dichorionic diamniotic twin in first trimester Joint derangement Procedures MFM Twins Nuchal Trans w/US Katiana Montez CNM [address] [place] [address] Referral ID Status Reason Start Date Expiration Date V isits Requested Visits Authorized [id number] Pending Review 12/02/2023 12/01/2024 1 1 Reason for Visit * Diagnostic Imaging Ultrasound (Routine) - Pending Review Specialty Diagnoses / Procedures Referred By Vale argueta Referred To Contact Radiology. Diagnoses Dichorionic diamniotic twin in first trimester Joint derangement Procedures MFM Twins Nuchal Trans w/US Katiana Montez CNM [address] [place] [address] Referral ID Status Reason Start Date Expiration Date V isits Requested Visits Authorized [id number] Pending Review 12/02/2023 12/01/2024 1 1 Encounter Details Date Type Department Care Team (Latest Contact Info) Description 12/17/2023 12:24 PM CDT - 12/17/2023 11:59 PM CDT Hospital Encounter [facility] Maternal Medicine Center [place] [address] [place] [phone] Rima Portillo MD [address] [place] [address] Dichorionic diamniotic twin in first trimester; Joint [...] Info) Description 02/01/2024 8:00 AM CDT Appointment [facility] Maternal Medicine [facility] [address] [place] [phone] Monica Noel [place] [address] [place] [id number] 02/01/2024 9:15 AM CDT Office Visit [facility] Maternal Medicine [facility] [address] [place] [address] Monica Noel [place] [address] [id number] documented as of this encounter Procedures Procedure [...] ? Study Date: ??12/17/2023 1:29pm Pat. NO: ??[id number] ?Referring ??MD: AUGUST SADIE Site: ? Table Runner: Patricia Irvin RDMS : ??1995 ?Age: ?? [...] gestation and has been scheduled at our [facility] clinic at patient's request. Return [...] CALLOWAY Study Date: 12/17/2023 1:29pm Pat. NO: [id number] Referring MD: MONICA NOEL Site: Table Runner: Patricia Irvin RDMS : 1995 Age: 28 [...] weeksgestation and [facility]'s request. Return to [...] early gestational age. Katiana Montez CNM [facility] US ORDER JANIE documented in this encounter Visit Diagnoses Diagnosis Dichorionic diamniotic twin in first trimester Twin , antepartum Joint derangement Unspecified derangement, joint, site unspecified documented in this encounter Care Teams Bending Frame Operator Relationship Specialty Start Date End Date Rich Resendez MD [facility] [address] [place] [address] PCP - General Emergency Medicine 01/02/19 documented as of this encounter
--- OUTSIDE RECORDS SUMMARY | 2024-01-29 10:03 | XMS_ITS | Encounter Summary ---
Author Organization [place] Address [address] 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 We discussed that should her partner desire carrier screening, or should she desire an amniocentesis to sequence the genes for an additional variant, she could callthierry or Roxane Goldstein MS, [facility] directly. 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 Her results are available in her [facility] chart for her primary OB to review. Kaitlin Olivera MS, [facility] Licensed Genetic Counselor [facility] Pager: [phone] Office: [phone] documented in this encounter Plan of Treatment Upcoming Encounters Date Type Department Care Team (Late st Contact Info) Description 02/01/2024 8:00 AM CDT Appointment [facility] Maternal Medicine [facility] [address] [place] [phone] [facility] [address] [place] [address] 02/01/2024 9:15 AM CDT Office Visit [facility] Medicine [facility] [address] [place] [address] [facility] [address] [place] [address] documented as of this encounter Visit Diagnoses Not on filedocumented in this encounter Care Teams Heavy Equipment Sales Associate Relationship Specialty Start Date End Date Rich Resendez MD [facility] [address] [place] [address] PCP - General Emergency Medicine 01/02/19 documented as of this encounter
--- OUTSIDE RECORDS SUMMARY | 2024-01-29 10:03 | XMS_ITS | Encounter Summary ---
Author Organization [place] Address [address] [place] [address] Care Team Providers Care Despatching And Receiving Clerk Name Role Phone Rich Resendez MD Primary Care Provider Encounter Details Date Type Department Care Team (Late st Contact Info) Description 12/11/2023 MyC Medical Advice [facility] [address] [place] [address] [address] [place] [phone] [facility] Social History Tobacco Use Types Packs/Day Years Used Date Smoking Tobacco: Never Assessed Sex and Gender Information Value Date Recorded Sex Assigned at Female 12/03/2023 6:00 PM CDT Gender Identity Female 12/03/2023 6:00 PM CDT Sexual Orientation Straight 12/03/2023 6: 00 PM CDT documented as of this encounter Plan of Treatment Upcoming Encounters Date Type Department Care Team (Late Contact Info) Description 02/01/2024 8:00 AM CDT Appointment [facility] Maternal Medicine [facility] [address] [place] [phone] [place] [address] [place] [address] 02/01/2024 9:15 AM CDT Office Visit [facility] Maternal Medicine [facility] [address] [place] [address] [place] [address] [place] [address] documented as of this encounter Visit Diagnoses Not on filedocumented in this encounter Care Teams Despatching And Receiving Clerk Relationship Specialty Start Date End Date Rich Resendez MD [facility] [address] [place] [address] PCP - General Emergency Medicine 01/02/19 documented as of this encounter
--- OUTSIDE RECORDS SUMMARY | 2024-01-29 10:03 | XMS_ITS | Encounter Summary ---
Author Organization [place] Address [address] [facility] [place] [place] [address] Care Team Providers Care Machined Parts Metal Sprayer Name Role Phone Rich Resendez MD Primary Care Provider Reason for Visit * Reason Onset Date Comments Results 12/28/2023 NIPT Encounter Details Date Type Department Care Team (Late st Contact Info) Description 12/28/[address] [facility] Maternal Medicine Center [place] [address] [facility] [address] [place] [address] Kaitlin Olivera GC [address] [place] [address] Results (NIPT) Social History Tobacco [...] hours. Called and spoke to a Iain key account representative who has begun this process. Constance had no further questions. Kaitlin Olivera MS, [facility] Licensed Genetic Counselor [facility] Pager: [phone] Office: documented in this encounter Plan of Treatment Upcoming Encounters Date Type Department Care Team (Late st Contact Info) Description 02/01/2024 8:[address] [facility] Maternal Medicine [facility] [address] [place] [phone] [place] [address] [place] [address] 02/01/2024 9:15 AM CDT Office [facility] [address] [place] [address] Jone [place] [address] [place] [address] documented as of this encounter Visit Diagnoses Not on filedocumented in this encounter Care Teams Machined Parts Metal Sprayer Relationship Specialty Start Date End Date Rich Resendez MD [facility] [address] [place] [address] PCP - General Emergency Medicine 01/02/19 documented as of this encounter
--- OUTSIDE RECORDS SUMMARY | 2024-01-29 10:03 | XMS_ITS | Encounter Summary ---
Author Organization [place] Address [address] [facility] [place] [address] Care Team Providers Care Runstitching Machine Operator Name Role Phone Rich Resendez MD Primary Care Provider Reason for Visit * Reason Comments Genetic Counseling Di/di twins, PCOS, F ibromyalgia, BMI>30, hx PPROM/PTD Ultrasound Twin NT- Di/di twins , PCOS, Fibromyalgia, BMI>30, hx PPROM/PTD Consult Di/di twins, PCOS, F ibromyalgia, BMI>30, hx PPROM/PTD Encounter Details Date Type Department Care Team (Late st Contact Info) Description 12/15/2023 PRE VISIT [facility] Medicine [facility] [place] [address] [place], [place] [phone] Lilia Moctezuma, RN Genetic Counseling (Di/di twins, [...] Info) Description 02/01/2024 8:00 AM CDT Appointment [facility] Maternal Medicine [facility] [address] [place] [address] [place] [address] [place] [address] 02/01/2024 9:15 AM CDT Office Visit [facility] Medicine [facility] [address] [place] [address] Monica Becerril [place] [address] [place] [address] documented as of this encounter Visit Diagnoses Not on filedocumented in this encounter Care Teams Runstitching Machine Operator Relationship Specialty Start Date End Date Rich Resendez MD [facility] [address] [place] [address] PCP - General Emergency Medicine 01/02/19 documented as of this encounter
--- OUTSIDE RECORDS SUMMARY | 2024-01-29 10:03 | XMS_ITS | Encounter Summary ---
Author Organization [place] Address [address] [facility] [place] [address] Care Team Providers Care Supervisor Mold Shop Name Role Phone Rich Resendez MD Primary [...] Info) Description 02/01/2024 8:00 AM CDT Appointment [facility] Maternal Medicine [facility] [address] [place] [phone] Monica Becerril [place] [address] [place] [address] 02/01/2024 9:15 AM CDT Office Visit [facility] Maternal Medicine [facility] [address] [place] [address] Monica Becerril [place] [address] [place] [address] documented as of this encounter Visit Diagnoses Not on filedocumented in this encounter Care Teams Supervisor Mold Shop Relationship Specialty Start Date End Date Rich Resendez MD [facility] [address] [place] [address] PCP - General Emergency Medicine 01/02/19 documented as of this encounter
--- OUTSIDE RECORDS SUMMARY | 2024-01-29 10:03 | XMS_ITS | Encounter Summary ---
Author Organization [place] Address [address] [place] [address] Care Team Providers Care Forest Economics Professor Name Role Phone Rich Resendez MD Primary Care Provider Reason for Visit * Reason Comments Ultrasound Twin NT- Di/di twins , fibromyalgia, PCOS, BMI>30, hx PPROM/PTD Consult Di/di twins, fibromy algia, PCOS, BMI>30, hx PPROM/PTD * Consultation (Routine: Next available opening) - Pending Review Specialty Diagnoses / Procedures Referred By Contac t Referred To Contact Diagnoses related condition JoneAugust [facility] [address] [facility] [place] [address] Referral ID Status Reason Start Date Expiration Date V isits Requested Visits Authorized [id number] Pending Review 12/03/2023 12/02/2024 1 1 Encounter Details Date Type Department Care Team (Late st Contact Info) Description 12/17/2023 2:15 PM CDT Office Visit [facility] [place] [address] [place], [place] [address] Rima Portillo MD [address] [place] [address] Dichorionic diamniotic twin in first trimester (Primary [...] note were not included. Maternal Medicine Center [address] [place] [address] [address], [place] [address] Main: [phone], Referring Provider: Jone Alonsocrista Del Toro is [...] s/p septoplasty. She endorsed being evaluated at [facility] at the age of 11 for Ehler [...] this has been with Dr. Becerril from [facility] in [facility]. OB History Para Term AB Living [...] Medication Sig Last Dose Taking? Auth Provider Residential End Date ASPIRIN LOW DOSE 81 MG EC tablet Take 81 mg by mouth daily Taking Yes Reported, Patient MV-Min-Fe Fum-FA-DHA ( 1 PO) Take 1 tablet by mouth daily Taking Yes Reported, Patient xoakukafav-dhlhavgdsnzqb-ytgtksae (FIORICET/ESGIC) 50-325-40 MG tablet Take 1 tablet [...] [facility]pos[facility]2023[facility] - Genetic Screening: Planning on NIPT and [...] tocolytic drugs, or prophylactic cerclage. Given Ms Del Toro history of PPROM and PTB, recommendation is [...] (we presume these will be performed through [facility]). -Targeted anatomy at 18-20 weeks (schedule at [facility] due to patient preference/appointment access to coordinate with her child's appointments at the [facility] in [place]. -Serial growth ultrasounds every 4 weeks until [...] can potentially do these via MFM in [place]. Pt discharged stable and ambulatory to outpatient lab. Lilia R. Wevers, RN documented in this encounter Plan of Treatment Upcoming Encounters Date Type Department Care Team (Late st Contact Info) Description 02/01/2024 8:00 AM CDT Appointment [facility] Maternal Medicine [facility] [address] [place] [address] [place] [address] [place] [address] 02/01/2024 9:15 AM CDT Office Visit [facility] Medicine [facility] [address] [place] [address] [place] [address] [place] [address] documented as of this encounter Visit Diagnoses Diagnosis Dichorionic diamniotic twin in first trimester- Primary Twin , antepartum History of delivery, currently in first trimester documented in this encounter Care Teams Forest Economics Professor Relationship Specialty Start Date End Date Rich Resendez MD [facility] [address] [place] [address] PCP - General Emergency Medicine 01/02/19 documented as of this encounter
--- OUTSIDE RECORDS SUMMARY | 2024-01-29 10:03 | XMS_ITS | Encounter Summary ---
Author Organization [place] Address [address] [facility] [place] [address] Care Team Providers Care Android Architect Name Role Phone Rich Resendez MD Primary Care Provider Reason for Referral * Diagnostic Imaging Ultrasound (Routine) - Pending Review Specialty Diagnoses / Procedures Referred By Vale argueta Referred To Contact Radiology. Diagnoses related condition, antepartum Procedures MFM [facility] Jone Monica [place] [address] [place] [address] Referral ID Status Reason Start Date Expiration Date V isits Requested Visits Authorized [id number] Pending Review 01/28/2024 01/27/2025 1 1 Encounter Details Date Type Department Care Team (Latest Contact Info) Description 01/28/2024 Transcribe Orders [facility] M[facility] [place] [address] [place] [address] Monica Becerril [place] [address] [place] [place] [id number] related condition, antepartum (Primary Dx) Social History [...] Info) Description 02/01/2024 8:00 AM CDT Appointment [facility] Maternal Medicine [facility] [address] [place] [address] [place] [address] [place] [address] 02/01/2024 9:15 AM CDT Office Visit [facility] Maternal Medicine [facility] [address] [place] [address] [place] [address] [place] [address] Scheduled Orders Name Type Priority Associated Diagnoses Orde r Schedule MFM Twins [facility] Routine related condition, antepartum Expected: 02/01/2024 (Approximate), Expires: 11/26/2024 documented as of this encounter Visit Diagnoses Diagnosis related condition, antepartum- Primary documented in this encounter Care Teams Android Architect Relationship Specialty Start Date End Date Rich Resendez MD [facility] [address] [place] [address] PCP - General Emergency Medicine 01/02/19 documented as of this encounter
--- OUTSIDE RECORDS SUMMARY | 2024-01-29 10:03 | XMS_ITS | Encounter Summary ---
Author Organization [place] Address [address] [place] [address]. [place] [address] Care Team Providers Care Longshore Equipment Operator Name Role Phone Rich Resendez MD Primary Care Provider Encounter Details Date Type Department Care Team (Late st Contact Info) Description 12/17/2023 4:00 PM CDT Lab [facility] [address] [place] [phone] Rima Portillo MD [address] [place] [address] Dichorionic diamniotic twin in first [...] CDT Appointment [facility] [place] [address] [place] [phone] Monica Becerril [place] [address] [address] [facility] [place] [address] 02/01/2024 9:15 AM CDT Office Visit [facility] Maternal Medicine [facility] [address] [place] [address] August [facility] [address] [place] [address] documented as of this encounter Procedures Procedure [...] Result (12/17/2023 5:30 PM CDT) Test Name RAMAKRISHNA 12/30/2023 11:13 AM CDT MISCELLANEOUS TESTING See Scanned Result LABORATORY MISCELLANEOUS RESULT-Scanned(A ) 12/30/2023 11:13 AM CDT MISCELLANEOUS TESTING Blood BLOOD SPECIMEN / Unknown Venipuncture / Unknown 12/17/2023 5:30 PM CDT 12/17/2023 5:35 PM CDT Roxane Goldstein GC LAB - BLOOD ORDERABL ES MISCELLANEOUS TESTING * Other Laboratory; Iain; Tanja (Laboratory Miscellaneous Order) (12/17/2023 5:30 PM CDT) Specimen Status Specimen received. Reordered and sent to performing laboratory. Report to follow upon completion. [facility] 12/18/2023 2:56 PM CDT UU LABORATORY Performing Laboratory Iain [facility] 12/18/2023 2:56 PM CDT UR LABORATORY Test Name Horizon [facility] 12/18/2023 2:56 PM CDT UR LABORATORY Blood BLOOD SPECIMEN / Unknown Venipuncture / Unknown 12/17/2023 5:30 PM CDT 12/17/2023 5:35 PM CDT Roxane Goldstein GC LAB - BLOOD ORDERABL ES UU LABORATORY [facility] Core Lab [address] [facility], [address] [place] [address] UR LABORATORY [facility] Acute Care Lab [address] [facility], [address] [place] [address] * Laboratory Miscellaneous Result (12/17/2023 5:29 PM CDT) Test Name [facility] 12/29/2023 9:50 AM CDT MISCELLANEOUS TESTING See Scanned Result LABORATORY MISCELLANEOUS RESULT-Scanned 12/29/2023 9:50 AM CDT MISCELLANEOUS TESTING Blood BLOOD SPECIMEN / Unknown Venipuncture / Unknown 12/17/2023 5:29 PM CDT 12/17/2023 5:30 PM CDT Roxane Goldstein GC LAB - BLOOD ORDERABL ES MISCELLANEOUS TESTING * Other Laboratory; Iain; Mari (Laboratory Miscellaneous Order) (12/17/2023 5:29 PM CDT) Specimen Status Specimen received. Reordered and sent to performing laboratory. Report to follow upon completion. [facility] 12/18/2023 2:50 PM CDT UU LABORATORY Performing Laboratory Aiin RAMAKRISHNA 12/18/2023 2:50 PM CDT UR LABORATORY Test Name Mari RAMAKRISHNA 12/18/2023 2:50 PM CDT UR LABORATORY Blood BLOOD SPECIMEN / Unknown Venipuncture / Unknown 12/17/2023 5:29 PM CDT 12/17/2023 5:30 PM CDT Roxane Goldstein GC LAB - BLOOD ORDERABL ES UU LABORATORY [facility] Core Lab [address] [facility], [address] [place] [address], [facility] UR LABORATORY [facility] Acute Care Lab [address] [facility], [address] [place] [address] documented in this encounter Visit Diagnoses Diagnosis Dichorionic diamniotic twin in first trimester Twin , antepartum screening encounter Unspecified screening Encounter of female for testing for genetic disease carrier status for procreative management Testing of female for genetic disease carrier status documented in this encounter Care Teams Longshore Equipment Operator Relationship Specialty Start Date End Date Rich Resendez MD [facility] [address] [place] [address] PCP - General Emergency Medicine 01/02/19 documented as of this encounter
--- OUTSIDE RECORDS SUMMARY | 2024-01-29 10:03 | XMS_ITS | Clinical Summary ---
Author Organization [place] Address [address] [facility] [place] [address] Care Team Providers Care Drift Miner Name Role Phone Rich Resendez MD Primary [...] Encounters Date Type Department Care Team Description 01/28/2024 Transcribe Orders [facility] M[facility] Medicine [facility] [place] [address] [place] [address] SadieAugust related condition, antepartum (Primary Dx) 12/30/2023 Telephone [facility] M[facility] [place] [address] [place] [address] Kaitlin Olivera GC 12/28/2023 Medical Correspondence [facility] Mgmt Srvcs [address] [place] [address] Scan, Non-Provider 12/28/2023 Telephone [facility] Maternal Medicine [facility] [address] [place] [address] Kaitlin Olivera, NEELAM Results (NIPT) 12/18/2023 Telephone [facility] Maternal Medicine [facility] [address] [place] [address] Roxane Goldstein GC Clinic Care Coordination - Follow-up 12/17/2023 4:00 PM CDT Lab [facility] Laboratory [address] [place] [phone] Rima Portillo MD Dichorionic diamniotic twin in first trimester; screening encounter; Encounter of female for testing for genetic disease carrier status for procreative management 12/17/2023 2:15 PM CDT Office Visit [facility] [place] [address] [place] [address] Rima Portillo MD Dichorionic diamniotic twin in first trimester (Primary Dx); History of delivery, currently in first trimester 12/17/2023 12:45 PM CDT Office Visit [facility] Maternal Medicine [facility] [address] [place] [address] Rima Portillo MD [place], Jennifer R, GC screening encounter (Primary Dx); Dichorionic diamniotic twin in first trimester; Encounter of female for testing for genetic disease carrier status for procreative management 12/17/2023 12:24 PM CDT - 12/17/2023 11:59 PM CDT Hospital Encounter [facility] Maternal Medicine [facility] [address] [place] [phone] Rima Portillo MD Dichorionic diamniotic twin in first trimester; Joint derangement Discharge Disposition: Home or Self Care 12/17/2023 Travel 12/15/2023 PRE VISIT [facility] [place] [address] [place] [address] Lilia Moctezuma, RN Genetic Counseling (Di/di twins, PCOS, Fibromyalgia, BMI>30, hx PPROM/PTD); Ultrasound (Twin NT- Di/di twins, PCOS, Fibromyalgia, BMI>30, hx PPROM/PTD/); Consult (Di/di twins, PCOS, Fibromyalgia, BMI>30, hx PPROM/PTD/) 12/12/2023 Travel 12/11/2023 MyC Medical Advice [facility] [address] [facility] [address] [place] [phone] Albina [place] 12/03/2023 Transcribe Orders [facility] [place] [address] [place] [address] SadieAugust related condition (Primary Dx) 12/02/2023 Orders Only [facility] Maternal Medicine [facility] [address] [facility] [place] [address] Elsie Blanchard RN Dichorionic diamniotic twin in first trimester (Primary Dx); Joint derangement 12/02/2023 Transcribe Orders [facility] [place] [address] [facility] [address] [place] [phone] SadieAugust related condition, antepartum (Primary Dx) 12/01/2023 Medical Correspondence [facility] Info Mgmt Srvcs [address] [place] [phone] Scan, Non-Provider from Last 3 Months Social [...] CDT Appointment [facility] Maternal Medicine [facility] [address] [place] [phone] Sadie [place] [address] [place] [address] 02/01/2024 9:15 AM CDT Office Visit [facility] Maternal Medicine [facility] [address] [place] [address] Sadie [place] [address] [place] [address] Health Maintenance Due Date Last Done Comments [...] 12/27/2028 12/27/2018, 04/01/2017, 02/02/2007, Additional history exists HPV IMMUNIZATION Completed 08/27/2016, 06/2015, 10/09/2014 MENINGITIS IMMUNIZATION Aged Out 08/27/2016 No l onger eligible based on patient's age to complete this topic HEPATITIS B IMMUNIZATION Completed 024, 1994, 1994, Additional history exists Pneumococcal Vaccine: Pediatrics (0 to 5 Years) [...] the time period is included. Test Name [facility] 12/30/2023 11:13 AM CDT MISCELLANEOUS TESTING See Scanned Result LABORATORY MISCELLANEOUS RESULT-Scanned(A ) 12/30/2023 11:13 AM CDT MISCELLANEOUS TESTING Blood BLOOD SPECIMEN / Unknown Venipuncture / Unknown 12/17/2023 5:30 PM CDT 12/17/2023 5:35 PM CDT Roxane Goldstein LAB - BLOOD ORDERABL ES MISCELLANEOUS TESTING * Other Laboratory; Iain; Horizon (Laboratory Miscellaneous Order) (12/17/2023 5:30 PM CDT) Only the most recent of2 resultswithin the time period is included. Specimen Status Specimen received. Reordered and sent to performing laboratory. Report to follow upon completion. [facility] 12/18/2023 2:56 PM CDT UU LABORATORY Performing Laboratory Iain [facility] 12/18/2023 2:56 PM CDT UR LABORATORY Test Name Horizon [facility] 12/18/2023 2:56 PM CDT UR LABORATORY Blood BLOOD SPECIMEN / Unknown Venipuncture / Unknown 12/17/2023 5:30 PM CDT 12/17/2023 5:35 PM CDT Roxane Goldstein LAB - BLOOD ORDERABL ES UU LABORATORY [employer] Core Lab [address] [facility], [address] [place] [address] UR LABORATORY [facility] Acute Care Lab [address] [facility], [address] [place] [address] * MFM Twins Nuchal Trans [...] ? Study Date: ??12/17/2023 1:29pm Pat. NO: ??[id number] ?Referring ??MD: AUGUST SADIE Site: ? [place] Ro[place]er: Patricia Irvin RDMS : ??1995 ?Age: ?? [...] gestation and has been scheduled at our [facility] clinic at patient's request. Return to [...] [place] Study Date: 12/17/2023 1:29pm Pat. NO: [id number] Referring MD: AUGUST SADIE Site: [place]: Patricia Irvin RDMS : 1995 Age: 28 [...] and [facility] atpatient's request. Return to primary [...] normal for early gestational age. Katiana Montez [facility] ORDER JANIE * Genetic Lab Result - [facility] Scan (12/17/2023 12:00 AM CDT) 12/17/2023 Provider Outside LAB - [facility] ORDERABLES from Last 3 Months Care Teams Drift Miner Relationship Specialty Start Date End Date Rich Resendez MD [facility] [address] [place] [address] PCP - General Emergency Medicine 01/02/19
--- OUTSIDE RECORDS SUMMARY | 2024-01-29 10:03 | XMS_ITS | Encounter Summary ---
Author Organization [place] Address [address] [place] [address]. [place] [address] Care Team Providers Care Room Service Waiter Name Role Phone Rich Resendez MD Primary Care Provider Encounter Details Date Type Department Care Team (Late st Contact Info) Description 12/28/2023 Medical Correspondence [facility] Info Mgmt [facility] [address] [place] [address] Scan, Non-Provider Social History Tobacco Use [...] Info) Description 02/01/2024 8:00 AM CDT Appointment [facility] M[facility] Medicine [facility] [place] [address] [place] [phone] Monica Becerril [place] [address] [place] [address] 02/01/2024 9:15 AM CDT Office Visit [facility] [place] [address] [place] [address] Monica Becerril [address] [place] [address] documented as of this encounter Visit Diagnoses Not on filedocumented in this encounter Care Teams Room Service Waiter Relationship Specialty Start Date End Date Rich Resendez MD [facility] [address] [place] [address] PCP - General Emergency Medicine 01/02/19 documented as of this encounter
--- OUTSIDE RECORDS SUMMARY | 2024-01-29 10:03 | XMS_ITS | Encounter Summary ---
Author Organization [place] Address [address] [facility] [place] [address] Care Team Providers Care Cvt Rn Name Role Phone Rich Resendez MD Primary [...] Info) Description 02/01/2024 8:00 AM CDT Appointment [facility] M[facility] Medicine [facility] [place] [address] [place] [phone] [place] [address] [place] [address] 02/01/2024 9:15 AM CDT Office Visit [facility] Medicine [facility] [place] [address] [place] [address] Monica Becerril [place] [address] [place] [address] documented as of this encounter Visit Diagnoses Not on filedocumented in this encounter Care Teams Cvt Rn Relationship Specialty Start Date End Date Rich Resendez MD [facility] [address] [place] [address] PCP - General Emergency Medicine 01/02/19 documented as of this encounter
--- OUTSIDE RECORDS SUMMARY | 2024-01-29 10:03 | XMS_ITS | Referral Summary ---
Author Organization [facility] Address [address] [place] [address]. [place] [address] Care Team Providers Care Warp Coiler Name Role Phone Rich Resendez MD Primary Care Provider Encounters Date Type Department Care Team Description 01/28/2024 Transcribe Orders [facility] Maternal Medicine [facility] [address] [place] [address] SadieAugust related condition, antepartum (Primary Dx) 12/30/2023 Telephone [facility] Maternal Medicine [facility] [address] [place] [address] Kaitlin Olivera GC 12/28/2023 Medical [facility] [address] [place] [address] Scan, Non-Provider 12/28/2023 Telephone [facility] [address] [place] [address] Kaitlin Olivera GC Results (NIPT) 12/18/2023 Telephone [facility] Maternal Medicine [facility] [address] [place], [place] [phone] Roxane Goldstein GC Clinic Care Coordination - Follow-up 12/17/2023 4:00 PM CDT Lab [facility] Laboratory [address] [place] [address] Rima Portillo MD Dichorionic diamniotic twin in first trimester; screening encounter; Encounter of female for testing for genetic disease carrier status for procreative management 12/17/2023 Travel 12/17/2023 2:15 PM CDT Office Visit [facility] [address] [place] [address] Rima Portillo MD Dichorionic diamniotic twin in first trimester (Primary Dx); History of delivery, currently in first trimester 12/17/2023 12:24 PM CDT - 12/17/2023 11:59 PM CDT Hospital Encounter [facility] [address] [place] [phone] Rima Portillo MD Dichorionic diamniotic twin in first trimester; Joint derangement Discharge Disposition: Home or Self Care 12/17/2023 12:45 PM CDT Office Visit [facility] [address] [place] [address] Rima Portillo MD Meyer, Jennifer R, GC screening encounter (Primary Dx); Dichorionic diamniotic twin in first trimester; Encounter of female for testing for genetic disease carrier status for procreative management 12/15/2023 PRE VISIT [facility] [address] [place] [address] Lilia Moctezuma, RN Genetic Counseling (Di/di twins, PCOS, Fibromyalgia, BMI>30, hx PPROM/PTD); Ultrasound (Twin NT- Di/di twins, PCOS, Fibromyalgia, BMI>30, hx PPROM/PTD/); Consult (Di/di twins, PCOS, Fibromyalgia, BMI>30, hx PPROM/PTD/) 12/12/2023 Travel 12/11/2023 MyC Medical Advice [facility] [address] [facility] [address] [place] [address] Albina [facility] 12/03/2023 Transcribe Orders [facility] [address] [place] [address] August related condition (Primary Dx) 12/02/2023 Orders Only [facility] Maternal Medicine [facility] [address] [place] [address] Elsie Blanchard RN Dichorionic diamniotic twin in first trimester (Primary Dx); Joint derangement 12/02/2023 Transcribe Orders [facility] Maternal Medicine [facility] [address] [place] [phone] August related condition, antepartum (Primary Dx) 12/01/2023 Medical Correspondence [facility] [address] [place] [phone] Scan, Non-Provider from Last 3 Months Allergies [...] Info) Description 02/01/2024 8:00 AM CDT Appointment [facility] Maternal Medicine [facility] [address] [place] [address] [place] [address] [place] [address] 02/01/2024 9:15 AM CDT Office Visit [facility] [address] [place] [address] Sadie [place] [address] [place] [address] Procedures Procedure Name Priority Date/Time Associated Diagnosis [...] the time period is included. Test Name [facility] 12/30/2023 11:13 AM CDT MISCELLANEOUS TESTING See Scanned Result LABORATORY MISCELLANEOUS RESULT-Scanned(A ) 12/30/2023 11:13 AM CDT MISCELLANEOUS TESTING Blood BLOOD SPECIMEN / Unknown Venipuncture / Unknown 12/17/2023 5:30 PM CDT 12/17/2023 5:35 PM CDT Roxane Golsdtein LAB - BLOOD ORDERABL ES MISCELLANEOUS TESTING * Other Laboratory; Iain; Horizon (Laboratory Miscellaneous Order) (12/17/2023 5:30 PM CDT) Only the most recent of2 resultswithin the time period is included. Specimen Status Specimen received. Reordered and sent to performing laboratory. Report to follow upon completion. [facility] 12/18/2023 2:56 PM CDT UU LABORATORY Performing Laboratory Iain [facility] 12/18/2023 2:56 PM CDT UR LABORATORY Test Name Horizon [facility] 12/18/2023 2:56 PM CDT UR LABORATORY Blood BLOOD SPECIMEN / Unknown Venipuncture / Unknown 12/17/2023 5:30 PM CDT 12/17/2023 5:35 PM CDT Roxane Goldstein LAB - BLOOD ORDERABL ES UU LABORATORY [facility] [place] Core Lab [address] [facility], [address] [place] [address], [facility] UR LABORATORY [facility] Acute Care Lab [address] [facility], [address] [place] [address], [facility] * MFM Twins Nuchal Trans w/US (12/17/2023 [...] ? Study Date: ??12/17/2023 1:29pm Pat. NO: ??[id number] ?Referring ??MD: AUGUST SADIE Site: ? Digital Sales Assistant: Patricia Irvin RDMS : ??1995 ?Age: ?? [...] gestation [facility] at patient's request. Return to [...] CALLOWAY Study Date: 12/17/2023 1:29pm Pat. NO: [id number] Referring MD: LATISHA NOEL Site: Digital Sales Assistant: Patricia Irvin RDMS : 1995 Age: 28 [...] weeksgestation and [facility] atpatient's request. Return to primary [...] appears normal for early gestational age. Katiana Avelar Tc CNM IMG MFM US ORDER JANIE * Genetic Lab Result - HIM Scan (12/17/2023 12:00 AM CDT) 12/17/2023 Provider Outside LAB - COPATH SPECIAL DIAG ORDERABLES from Last 3 Months Care Teams Warp Coiler Relationship Specialty Start Date End Date Rich Resendez MD [facility] [address] [place] [address] PCP - General Emergency Medicine 01/02/19
--- OUTSIDE RECORDS SUMMARY | 2024-01-29 10:03 | XMS_ITS | Encounter Summary ---
Author Organization [facility] Address [address] [facility] [place] [address] Care Team Providers Care Reinforcing Bar Setter Name Role Phone Rich Resendez MD Primary Care Provider Reason for Visit * Reason Comments Genetic Counseling screening * Consultation (Routine: Next available opening) - Pending Review Specialty Diagnoses / Procedures Referred By Contac t Referred To Contact Diagnoses Dichorionic diamniotic twin in first trimester Joint derangement Katiana Montez CNM [address] [place] [address] Referral ID Status Reason Start Date Expiration Date V isits Requested Visits Authorized [id number] Pending Review 12/02/2023 12/01/2024 1 1 Encounter Details Date Type Department Care Team (Late st Contact Info) Description 12/17/2023 12:45 PM CDT Office Visit [facility] Maternal Medicine Center [address] [phone] Rima Portillo MD [address] [place], [place] [address] [address] Roxane Goldstein GC [address] [place] [address] screening encounter (Primary Dx); Dichorionic diamniotic [...] 12/17/23 Constance Lugo Daily was seen at [facility] Maternal Medicine Center for genetic consultation to discuss the options for screening and testing for chromosome abnormalities. The indication for genetic counseling is desire to discuss options for genetic screening and diagnostics. Constance was accompanied to the appointment today by her [id number]-jys (her brother's ) Yumi. IMPRESSION/ PLAN 1. Constance has not had genetic screening in this but elected to have screening today. 2. During today's [facility] visit, Constance had blood draw for NIPS (Panorama) through [employer]. The NIPS screens for trisomy 21, 18, [...] results, including sex, will be available in [facility] [employer] [facility]. 3. Constance had a blood draw for expanded carrier screening (Horizon carrier screen, 613 conditions,through [employer]). Results are expected within 14-21 days, and will be available in [facility]. We willcontact her to discuss the results, and a copy will be forwarded to the office of the referring OB provider. The patient was informed that results will also be available via [employer]. Consent to communicate form to share results [...] (EDS) at age 11 at [facility] and met many criteria but did not [...] uterine or gastrointestinal). Constance also had [facility] consultation today with Dr. Portillo to discuss management recommendations. Please see [facility] consult note for details. FAMILY HISTORY A three-generation pedigree was obtained today and is scanned under the Media tab in [facility]. The family history was reported by Constance and her ipwdws-ui-ewc Yumi. The following significant findings were reported [...] has a follow-up appointment with genetics at [facility] in January to discuss further testing. [...] this family history can be sharedwith the publication designer. Constance had a sister who was born [...] option of proceeding with testing through either [employer] (up to 267 conditions) or [employer] (up to 613 conditions). After reviewing the [...] Although carrier status does not change management specialist time, it is possible that a variant could be reclassified as more information about the variant is learned. If this occurs, the couple will be contacted and a new risk assessment will be provided. We discussed that [employer] will generate a cost estimate and contact the patient with their expected lye-xe-vaondf cost. If the estimated pdg-ef-wvjpch cost is estimated to exceed $349, a patient-pay option of $349 is available. The patient must select this option in the [employer] portal within a specific window after receiving their cost estimate. It is the patient's responsibility to determine whether insurance billing or patient pay is a better financial decision and to follow up with [employer] to make the selection for patient pay if desired. The patient was also provided with a [employer] billing card and is encouraged to contact [employer]'s billing office directly if they have additional [...] conditions. NIPT run on a SNP platform ([employer]) can screen for monosomy X if the [...] one twin is a male. SNP-based NIPT ([employer] through [employer]) allows for sex to be reported for [...] higher than MPSS platforms. We discussed that [employer] or [employer] will perform a benefits investigation to determine coverage, butthat it is the patient's responsibility to select billing through insurance or self-pay ($249 for either test). If no contact from [employer] or [employer] is received, of if she is very concerned about cost, the patient should contact [employer]'s or [employer]'s billing office at the number provided today. [...] options: Nuchal translucency (NT) ultrasound Ultrasound between [id number] that includes nuchal translucency measurement and nasal [...] was a pleasure to be involved with [facility]. Psqc-dr-fvny time of the meeting was [address] [facility], [facility] Certified and [place] Licensed Genetic Counselor [facility] Maternal Medicine Office: [phone] MFM: [phone] [facility] documented in this encounter Plan of Treatment Upcoming Encounters Date Type Department Care Team (Late st Contact Info) Description 02/01/2024 8:00 AM CDT Appointment [facility] Maternal Medicine Center [place] [address] [place] [address] Jone[address] [place] [address] 02/01/2024 9:15 AM CDT Office Visit [facility] Maternal Medicine [facility] [address] [place] [address] TobyokbybisiAugust [facility] [address] [place] [address] documented as of this encounter Results * Other Laboratory; Iain; Tanja (Laboratory Miscellaneous Order) (12/17/2023 5:30 PM CDT) Specimen Status Specimen received. Reordered and sent to performing laboratory. Report to follow upon completion. [facility] 12/18/2023 2:56 PM CDT UU LABORATORY Performing Laboratory Iain [facility] 12/18/2023 2:56 PM CDT UR LABORATORY Test Name Horizon [facility] 12/18/2023 2:56 PM CDT UR LABORATORY Blood BLOOD SPECIMEN / Unknown Venipuncture / Unknown 12/17/2023 5:30 PM CDT 12/17/2023 5:35 PM CDT Roxane Goldstein GC LAB - BLOOD ORDERABL ES UU LABORATORY [facility] Core Lab [address] [facility], [address] [place] [address] UR LABORATORY [facility] Acute Care Lab [address] [facility], [address] [place] [address] * Other Laboratory; Iain; Mari (Laboratory Miscellaneous Order) (12/17/2023 5:29 PM CDT) Specimen Status Specimen received. Reordered and sent to performing laboratory. Report to follow upon completion. [facility] 12/18/2023 2:50 PM CDT UU LABORATORY Performing Laboratory Iain RAMAKRISHNA 12/18/2023 2:50 PM CDT UR LABORATORY Test Name Panorama [facility] 12/18/2023 2:50 PM CDT UR LABORATORY Blood BLOOD SPECIMEN / Unknown Venipuncture / Unknown 12/17/2023 5:29 PM CDT 12/17/2023 5:30 PM CDT Roxane Goldstein GC LAB - BLOOD ORDERABL ES UU LABORATORY [facility] Core Lab [address] [facility], [address] [place] [address], [facility] UR LABORATORY [facility] Acute Care Lab [address] [facility], [address] [place] [address], [facility] documented in this encounter Visit Diagnoses Diagnosis screening encounter- Primary Unspecified screening Dichorionic diamniotic twin in first trimester Twin , antepartum Encounter of female for testing for genetic disease carrier status for procreative management Testing of female for genetic disease carrier status documented in this encounter Care Teams Reinforcing Bar Setter Relationship Specialty Start Date End Date Rich Resendez MD [facility] [address] [place] [address] PCP - General Emergency Medicine 01/02/19 documented as of this encounter
--- OUTSIDE RECORDS SUMMARY | 2024-01-29 10:04 | XMS_ITS | Clinical Summary ---
Author Organization [facility] Address [place], [place] [address] Care Team Providers Care Leather Cutter Name Role Phone Rich Resendez MD Primary Care Provider [phone] Allergies Active Allergy Reactions Criticality Noted Date [...] Comments Blood Pressure 131/107 06/25/2021 3:02 AM TRANSMISSION SUPERINTENDENT Pulse 95 06/25/2021 3:59 AM TRANSMISSION SUPERINTENDENT Temperature 37.4 ??C (99.3 ??F) 06/25/2021 3:02 AM CS T Respiratory Rate 16 06/25/2021 3:02 AM TRANSMISSION SUPERINTENDENT Oxygen Saturation 98% 06/25/2021 3:59 AM TRANSMISSION SUPERINTENDENT Inhaled Oxygen Concentration - - Weight 83.9 kg (185 lb) 06/25/2021 3:02 AM TRANSMISSION SUPERINTENDENT Height 167.6 cm (5' 6) 06/25/2021 3:02 AM TRANSMISSION SUPERINTENDENT Body Mass Index 29.86 06/25/2021 3:02 AM TRANSMISSION SUPERINTENDENT Plan of Treatment Health Maintenance Due Date Last Done Comments Depression screening for age 12+ 2006 HIV for age 15-65 2009 Hepatitis C screening for age 18-79 01/23/2012 Tetanus booster 02/02/2017 02/02/2007 BMI (ht and wt on same day) for age 18+ 03/23/2018 03/23/2017 COVID-19 vaccine series (2023- season) 2024 Influenza for age 9-49 01/03/2024 Pap test for age 21-65 05/15/2026 , 05/15/2023, 01/04/2021, Additional history exists Tdap Completed 02/02/2007 Pneumococcal series for age 6-64 Aged Out No longer eligible based on patient's age to complete this topic Procedures Procedure Name Priority Date/Time Associated Diagnosis Comments HPV HIGH RISK Routine 05/15/2023 12:30 PM TRANSMISSION SUPERINTENDENT from Last 3 Months or Most Recently Relevant to Health Maintenance Results * (ABNORMAL) HPV HIGH RISK (05/15/2023 12:30 PM TRANSMISSION SUPERINTENDENT) TYPE 16 Negative Negative 05/22/2023 11:44 AM TRANSMISSION SUPERINTENDENT [facility] TRAL [facility] TYPE 18 Negative Negative 05/22/2023 11:44 AM TRANSMISSION SUPERINTENDENT [facility] TRA LABORATORY OTHER HIGH RISK TYPES Positive(A) Negative 05/22/2023 11:44 AM TRANSMISSION SUPERINTENDENT [facility] Other (Cervical) Non-Blood / Unknown 05/15/2023 12:30 PM TRANSMISSION SUPERINTENDENT 05/21/2023 7:37 AM TRANSMISSION SUPERINTENDENT Narrative [facility] - 05/22/2023 11:44 AM TRANSMISSION SUPERINTENDENT Specimen is positive for the DNA of any one of, or combination of, the following high risk HPV types: 31, 33, 35, 39, 45, 51, 52, 56, 58, 59, 66, 68. HPV types 16 and 18 DNA were undetectable or below the pre-set threshold. ? Methodology: Yung Mabel 4800 HPV Test Vanessa Chavez NP MICROBIOLOGY [facility] [address] [place] [address], from Last 3 Months or Most Recently Relevant to Health Maintenance Care Teams Leather Cutter Relationship Specialty Start Date End Date Rich Resendez MD [address] [place] [address] PCP - General Internal Medicine 07/29/20
--- OUTSIDE RECORDS SUMMARY | 2024-01-29 10:04 | XMS_ITS | Encounter Summary ---
Author Organization [place] Address [address] [facility] [place] [address] Care Team Providers Care Health Director Name Role Phone Rich Resendez MD Primary Care Provider Reason for Referral * Consultation (Routine: Next available opening) - Pending Review Specialty Diagnoses / Procedures Referred By Vale t Referred To Contact Diagnoses related condition, antepartum Jone August [address] [place] [address] Maternal Med [address] [place] [address] Referral ID Status Reason Start Date Expiration Date V isits Requested Visits Authorized [id number] Pending Review 12/02/2023 12/01/2024 1 1 Question Answer Preferred Location: [facility] [place] 06/30/2024 Ultrasound MFM Recommendation US PROC [...] No Genetic Counseling Consultation: No fax [facility] August Jone [phone] Comments twin preg, di-di, joint derangement, supervision of other high risk preg Encounter Details Date Type Department Care Team (Latest Contact Info) Description 12/02/2023 Transcribe Orders [facility] Maternal Medicine [facility] [address] [place] [address] [place] [address] [place] [address] related condition, antepartum (Primary Dx) Social History [...] [facility] Maternal Medicine [facility] [address] [place] [phone] [place] [address] [place] [address] 02/01/2024 9:15 AM CDT Office Visit [facility] Medicine [address] [address] [place] [address] [place] [address] Scheduled Referrals Name Type Priority Associated Diagnoses Orde r Schedule Mat Med Ctr Referral - Referral Routine: Next available opening related condition, antepartum Expected: 12/02/2023 (Approximate), Expires: 05/30/2024 documented as of this encounter Visit Diagnoses Diagnosis related condition, antepartum- Primary documented in this encounter Care Teams Health Director Relationship Specialty Start Date End Date Rich Resendez MD [facility] [address] [place] [address] PCP - General Emergency Medicine 01/02/19 documented as of this encounter
--- OUTSIDE RECORDS SUMMARY | 2024-01-29 10:04 | XMS_ITS | Encounter Summary ---
Author Organization [place] Address [address] [facility] [place] [address] Care Team Providers Care Chief Internal Auditor Name Role Phone Rich Resendez MD Primary Care Provider Reason for Referral * Consultation (Routine: Next available opening) - Pending Review Specialty Diagnoses / Procedures Referred By Vale argueta Referred To Contact Diagnoses Dichorionic diamniotic twin in first trimester Joint derangement Katiana Montez CNM [address] [place] [address] Referral ID Status Reason Start Date Expiration Date V isits Requested Visits Authorized [id number] Pending Review 12/02/2023 12/01/2024 1 1 * Diagnostic Imaging Ultrasound (Routine) - Pending Review Specialty Diagnoses / Procedures Referred By Vale argueta Referred To Contact Radiology. Diagnoses Dichorionic diamniotic twin in first trimester Joint derangement Procedures MFM Twins Nuchal Trans w/US Katiana Montez CNM [address] [place] [address] Referral ID Status Reason Start Date Expiration Date V isits Requested Visits Authorized [id number] Pending Review 12/02/2023 12/01/2024 1 1 Encounter Details Date Type Department Care Team (Late st Contact Info) Description 12/02/2023 Orders Only [facility] Maternal Medicine [facility] [address] [place] [address] Elsie Blanchard RN Dichorionic diamniotic twin in [...] Info) Description 02/01/2024 8:00 AM CDT Appointment [facility] Maternal Medicine [facility] [address] [place] [address] [place] [place] [address] [place] [address] 02/01/2024 9:15 AM CDT Office Visit [facility] Medicine [facility] [address] [place] [address] [place] [place] [address] [place] [address] Scheduled Referrals Name Type Priority Associated Diagnoses Orde r Schedule [facility] Genetic Counseling Referral Routine: Next available opening Dichorionic diamniotic twin in first trimester Joint derangement Expected: 12/02/2023 (Approximate), Expires: 12/01/2024 documented as of this encounter Results * [facility] Twins Nuchal Trans w/US (12/17/2023 2:19 [...] ? Study Date: ??12/17/2023 1:29pm Pat. NO: ??[id number] ?Referring ??: LATISHA NOEL Site: ? Log Processor Operator: Patricia Irvin RDMS : ??1995 ?Age: [...] gestation and has been scheduled at our [facility] clinic at patient's request. Return to [...] CALLOWAY Study Date: 12/17/2023 1:29pm Pat. NO: [id number] Referring MD: AUGUST SADIE Site: Log Processor Operator: Patricia Irvin RDMS : 1995 Age: [...] for an [facility]. Please see the EPIC chart for [...] weeksgestation and has been scheduled at our [facility] clinic atpatient's request. Return to primary [...] appears normal for early gestational age. [facility] documented in this encounter Visit Diagnoses Diagnosis Dichorionic diamniotic twin in first trimester- Primary Twin , antepartum Joint derangement Unspecified derangement, joint, site unspecified Dichorionic diamniotic twin in first trimester Twin , antepartum Joint derangement Unspecified derangement, joint, site unspecified documented in this encounter Care Teams Chief Internal Auditor Relationship Specialty Start Date End Date Rich Resendez MD [address] [address] PCP - General Emergency Medicine 01/02/19 documented as of this encounter
--- OUTSIDE RECORDS SUMMARY | 2024-01-29 10:04 | XMS_ITS | Encounter Summary ---
Author Organization [place] Address [address] [place] [address]. [place] [address] Care Team Providers Care Nuclear Test Technician Name Role Phone Rich Resendez MD Primary Care Provider Encounter Details Date Type Department Care Team (Late st Contact Info) Description 12/01/2023 Medical Correspondence [facility] [address] [place] [phone] Scan, Non-Provider Social History Tobacco Use [...] Info) Description 02/01/2024 8:00 AM CDT Appointment [facility] [place] [address] [place] [phone] [place] [address] [place] [address] 02/01/2024 9:15 AM CDT Office Visit [facility] Maternal Medicine [facility] [address] [place] [address] [address] [place] [address] [address] [place] [id number] documented as of this encounter Visit Diagnoses Not on filedocumented in this encounter Care Teams Nuclear Test Technician Relationship Specialty Start Date End Date Rich Resendez MD [facility] [address] [place] [address] PCP - General Emergency Medicine 01/02/19 documented as of this encounter
--- OUTSIDE RECORDS SUMMARY | 2024-01-29 10:04 | XMS_ITS | Encounter Summary ---
Author Organization [place] Address [address] [facility] [place] [address] Care Team Providers Care Certified Physician'S Assistant Name Role Phone Rich Resendez MD Primary Care Provider Reason for Referral * Consultation (Routine: Next available opening) - Pending Review Specialty Diagnoses / Procedures Referred By Vale argueta Referred To Contact Diagnoses related condition Monica Becerril [address] [address] [address] [place] [address] Referral ID Status Reason Start Date Expiration Date V isits Requested Visits Authorized [id number] Pending Review 12/03/2023 12/02/2024 1 1 Question Answer Office Visit Type: MFM Consult Encounter Details Date Type Department Care Team (Latest Contact Info) Description 12/03/[address] [facility] [place] [address] [place] [address] Monica Becerril [address] [address] [address] [place] [id number] related condition (Primary Dx) Social History Tobacco [...] [facility] [address] [place] [phone] [place] [address] [place] [id number] 02/01/2024 9:15 AM CDT Office Visit [facility] Maternal Medicine [facility] [address] [place] [address] [place] [place] [address] [place] [address] Scheduled Referrals Name Type Priority Associated Diagnoses Orde r Schedule MFM Office Visit - [facility] Consult Referral Routine: Next available opening related condition Expected: 12/03/2023 (Approximate), Expires: 12/02/2024 documented as of this encounter Visit Diagnoses Diagnosis related condition- Primary Unspecified complication of , unspecified as to episode of care documented in this encounter Care Teams Certified Physician'S Assistant Relationship Specialty Start Date End Date Rich Resendez MD [facility] [address] [place] [address] PCP - General Emergency Medicine 01/02/19 documented as of this encounter
== END 2024-01-29 09:59 | disposition home or self-care (01) ==
PROVIDERS: PCP Internal Medicine; Visit Provider Obstetrics & Gynecology
DX: M24.9 Joint derangement, unspecified (principal)
CPT/HCPCS: 93306

== ENCOUNTER 2024-02-11 09:26 | Outpatient (CLI) | payer BC, SELFPAY ==
--- OUTSIDE RECORDS SUMMARY | 2024-02-11 09:28 | XMS_ITS | Clinical Summary ---
Author Organization [place] Address [address] [facility] [place] [address] Care Team Providers Care Hospitality Housekeeper Name Role Phone Rich Resendez MD Primary [...] Encounters Date Type Department Care Team Description 02/01/2024 9:15 AM CDT Office Visit [facility] [place] [address] [place], [place] [address] Raymundo Sinha MD Dichorionic diamniotic twin in second trimester (Primary Dx); H/O delivery, currently , second trimester 02/01/2024 7:57 AM CDT - 02/01/2024 11:59 PM CDT Hospital Encounter [facility] [place] [address] [place] [phone] Raymundo Sinha MD related condition, antepartum Discharge Disposition: Home or Self Care 02/01/2024 Travel 01/29/2024 Travel 01/28/2024 Transcribe Orders [facility] [address] [place] [address] Monica Noel related condition, antepartum (Primary Dx) 12/30/2023 Telephone [facility] [address] [place] [address] Kaitlin Olivera GC 12/28/2023 Medical Correspondence [facility] [address] [place] [phone] Scan, Non-Provider 12/28/2023 Telephone [facility] [address] [place] [phone] Kaitlin Olivera GC Results (NIPT) 12/18/2023 Telephone [facility] [address] [place] [address] Roxane Goldstein GC Clinic Care Coordination - Follow-up 12/17/2023 4:00 PM CDT Lab [facility] [address] [place] [phone] Rima Portillo MD Dichorionic diamniotic twin in first trimester; screening encounter; Encounter of female for testing for genetic disease carrier status for procreative management 12/17/2023 2:15 PM CDT Office Visit [facility] Medicine [facility] [address] [place] [address] Rima Portillo MD Dichorionic diamniotic twin in first trimester (Primary Dx); History of delivery, currently in first trimester 12/17/2023 12:45 PM CDT Office Visit [facility] Medicine [facility] [address] [place] [address] Rima Portillo MD Meyer, Jennifer R, GC screening encounter (Primary Dx); Dichorionic diamniotic twin in first trimester; Encounter of female for testing for genetic disease carrier status for procreative management 12/17/2023 12:24 PM CDT - 12/17/2023 11:59 PM CDT Hospital Encounter [facility] Medicine [facility] [address] [place] [phone] Rima Portillo MD Dichorionic diamniotic twin in first trimester; Joint derangement Discharge Disposition: Home or Self Care 12/17/2023 Travel 12/15/2023 PRE VISIT [facility] Medicine [facility] [address] [place] [address] Lilia Moctezuma, RN Genetic Counseling (Di/di twins, PCOS, Fibromyalgia, BMI>30, hx PPROM/PTD); Ultrasound (Twin NT- Di/di twins, PCOS, Fibromyalgia, BMI>30, hx PPROM/PTD/); Consult (Di/di twins, PCOS, Fibromyalgia, BMI>30, hx PPROM/PTD/) 12/12/2023 Travel 12/11/2023 MyC Medical Advice [facility] [address] [facility] [address] [place] [phone] Lorne Montemayor 12/03/2023 Transcribe Orders [facility] Medicine [facility] [address] [place] [address] Monica Noel related condition (Primary Dx) 12/02/2023 Orders Only [facility] Medicine [facility] [address] [place] [address] Elsie Blanchard, RN Dichorionic diamniotic twin in first trimester (Primary Dx); Joint derangement 12/02/2023 Transcribe Orders [facility] [address] [place] [phone] kobyaugust related condition, antepartum (Primary Dx) 12/01/[address] [facility] Info Mgmt [facility] [address] [phone] Scan, Non-Provider from Last 3 Months [...] Mass Index - - Plan of Treatment Health Maintenance Due Date Last Done Comments ADVANCE CARE PLANNING 1995 ANNUAL REVIEW OF HM ORDERS 1994 YEARLY PREVENTIVE VISIT 1994 HIV SCREENING 2009 HEPATITIS C SCREENING 01/23/2012 PHQ-2 (once per calendar year) 2023 MATERNAL SCREENING DISCUSSION 12/03/2023 COVID-19 Vaccine ( - season) 2024 INFLUENZA VACCINE (#1) 2024 02/02/2019, 2018 OBGCT (OB) 03/10/2024 RSV VACCINE (1 - Risk 1-dose series) [...] Priority Date/Time Associated Diagnosis Comments MFM TWINS US COMPREHENSIVE Routine 02/01/2024 9:29 AM CDT related condition, antepartum LABORATORY MISCELLANEOUS RESULT Routine 12/17/2023 5:30 PM [...] CDT from Last 3 Months Results * MFM Twins US Comprehensive (02/01/2024 9:29 AM CDT) Anatomical Region Laterality Modality Ultrasound 02/01/2024 8:01 AM CDT Impressions 02/01/2024 9:44 AM CDT IMPRESSION ----- Dichorionic diamniotic twins at 18w 4d gestational age. Fetus 1 1. No anomalies commonly detected by ultrasound were identified in the detailed anatomic survey within the limits of ultrasound. 2. Growth parameters and estimated weight were consistent with gestational age predicted by assigned SHORTY. 3. The amniotic fluid volume appeared normal. Fetus 2 1. No anomalies commonly detected by ultrasound were identified in the detailed anatomic survey within the limits of ultrasound. 2. Growth parameters and estimated weight were consistent with gestational age predicted by assigned SHORTY. The inter-twin discordance was 0.5 %. 3. The amniotic fluid volume appeared normal. On transvaginal imaging the cervix appears long and closed at 39 mm. Narrative 02/01/2024 9:44 AM CDT ?Comprehensive ----- Pat. Name: ELLILENORE ? Study Date: ??02/01/2024 8:01am Pat. NO: ??[id number] ?Referring ??: MONICA NOEL Site: ? Medicare Sales Executive: ??Kimberly Hernandez RDMS : ??1995 ?Age: ?? 29 ----- INDICATION ----- Dichorionic, Diamniotic Twin gestation. Prior late at 36 weeks. METHOD ----- Transabdominal and transvaginal ultrasound approaches were used. (Transvaginal ultrasound examination was required to adequately complete the exam.). View: Sufficient. ----- Twin . Number of fetuses: 2. Dichorionic-diamniotic DATING ----- ? Date ?Details ?Gest. age ?SHORTY LMP ?09/24/2023 ? 18 w + 4 d ? 06/30/2024 Previous U/S ?11/19/2023 ?GA, GA 7 w + 5 d ? 18 w + 2 d ? 07/02/2024 U/S Fetus 1 ? 02/01/2024 ? based upon AC, BPD, Femur, HC ?19 w + 0 d ? 06/27/2024 U/S Fetus 2 ?based upon AC, BPD, Femur, HC ?18 w + 5 d ? 06/29/2024 Assigned dating ?based on the LMP, selected on 12/17/2023 ? 18 w + 4 d ? 06/30/2024 Fetus 1: GENERAL EVALUATION ----- Cardiac activity present. FHR 142 bpm. movements: present. Presentation: cephalic, maternal right, presenting Placenta: Anterior, No Previa, > 2 cm from internal os, thick dividing membrane Umbilical cord: Cord vessels: 3 vessel cord. Insertion site: normal insertion Amniotic fluid: Amount of AF: normal. MVP 4.3 cm Fetus 2: GENERAL EVALUATION ----- Cardiac activity present. FHR 137 bpm. movements: present. Presentation: breech, maternal left, superior Placenta: Posterior, No Previa, > 2 cm from internal os, thick dividing membrane Umbilical cord: Cord vessels: 3 vessel cord. Insertion site: normal insertion Amniotic fluid: Amount of AF: normal. MVP 4.5 cm Fetus 1: BIOMETRY ----- BPD ? 44.6 ?mm ? 19w 3d ?Hadlock OFD ? 55.1 ?mm ? 18w 2d ?Nicolaides HC ? 159.6 ?mm ? 18w 6d ? Hadlock Cerebellum tr ?18.8 ?mm ? 18w 3d ? Nicolaides Nuchal fold ?3.7 ? mm AC ? 135.1 ?mm ? 19w 0d ?60% ?Hadlock Femur ?27.9 ?mm ? 18w 4d ? Hadlock Humerus ? 26.6 ? mm ?18w 3d ?Kimo Weight Calculation: EFW ?258 ? g ? 57% ?Hadlock EFW (lb,oz) ?0 lb 9 ?oz EFW by ?Hadlock ([id number]-AD-CF-FL) EFW discordance ?0.5 ? % Head / Face / Neck Biometry: Advanced Developer ?6.5 ? mm CM ? 5.4 ? mm Nasal bone ? 5.9 ?mm Fetus 2: BIOMETRY ----- BPD ? 42.2 ?mm ? 18w 5d ?Hadlock OFD ? 54.4 ?mm ? 18w 1d ?Nicolaides HC ? 156.1 ?mm ? 18w 4d ? Hadlock Cerebellum tr ?18.2 ?mm ? 18w 1d ? Nicolaides Nuchal fold ?3.5 ? mm AC ? 136.3 ?mm ? 19w 1d ?64% ?Hadlock Femur ?28.1 ?mm ? 18w 4d ? Hadlock Humerus ? 29.0 ? mm ?19w 3d ?Kimo Weight Calculation: EFW ?259 ? g ? 59% ?Hadlock EFW (lb,oz) ?0 lb 9 ?oz EFW by ?Hadlock (CSX-VR-VP-FL) EFW discordance ?0.5 ? % Head / Face / Neck Biometry: Advanced Developer ?7.4 ? mm CM ? 4.6 ? mm Nasal bone ? 6.0 ?mm Fetus 1: ANATOMY ----- The following structures appear normal: Head / Neck ? Cranium. Head size. Head shape. Lateral ventricles. Choroid plexus. Midline falx. Cavum septi pellucidi. Cerebellum. Cisterna magna. ? Parenchyma. Thalami. Vermis. ? Neck. Nuchal fold. Face ? Lips. Profile. Nose. Maxilla. Mandible. Orbits. Lens. Heart / Thorax ?4-chamber view. RVOT view. LVOT view. 3-vessel view. 2-zvcatm-dpbrvgq view. Situs. Aortic arch view. Bicaval view. Ductal arch view. Superior ? vena cava. Inferior vena cava. Cardiac position. Cardiac size. Cardiac rhythm. ? Right lung. Left lung. Diaphragm. Abdomen ? Abdom. wall. Cord insertion. Stomach. Kidneys. Bladder. Liver. Bowel. Genitals. Spine ?Cervical spine. Thoracic spine. Lumbar spine. Sacral spine. Extremities / Skeleton ?Arms. Right arm. Right hand. Left arm. Left hand. Legs. Right leg. Right foot. Left leg. Left foot. sex: male. Fetus 2: ANATOMY ----- The following structures appear normal: Head / Neck ? Cranium. Head size. Head shape. Lateral ventricles. Choroid plexus. Midline falx. Cavum septi pellucidi. Cerebellum. Cisterna magna. ? Parenchyma. Thalami. Vermis. ? Neck. Nuchal fold. Face ? Lips. Profile. Nose. Maxilla. Mandible. Orbits. Lens. Heart / Thorax ?4-chamber view. RVOT view. LVOT view. 3-vessel view. 6-datyqo-wcwrgas view. Situs. Aortic arch view. Bicaval view. Ductal arch view. Superior ? vena cava. Inferior vena cava. Cardiac position. Cardiac size. ? Right lung. Left lung. Diaphragm. Abdomen ? Abdom. wall. Cord insertion. Stomach. Kidneys. Bladder. Liver. Bowel. Genitals. Spine ?Cervical spine. Thoracic spine. Lumbar spine. Sacral spine. Extremities / Skeleton ?Arms. Right hand. Left hand. Legs. Right foot. Left foot. sex: male. MATERNAL STRUCTURES ----- Cervix ?Visualized ? Appearance: Appears Closed, ? Approach - Transvaginal: Cervical length 39.6 mm Right Ovary ?Visualized Left Ovary ?Visualized RECOMMENDATION ----- Thank-you for referring your patient for a comprehensive ultrasound due to dichorionic diamniotic twin . I discussed the findings on today's ultrasound with the patient. I reviewed the limitations of ultrasound both in detecting aneuploidy and structural abnormalities. Ultrasound can routinely detect 80-90% of structural abnormalities. She had cell free DNA for genetic screening this which was low risk. Serial ultrasounds for growth every 4 weeks are recommended, as well as serial TVUS until 23-24 weeks. She has the cervical length assessments scheduled in [place] and will check to see if she can do her twin growth US there as well. We also recommend weekly BPP at 36 weeks. We also recommend a daily low dose aspirin for pre-eclampsia prevention. Return to primary provider for continued care. If you have questions regarding today's evaluation or if we can be of further service, please contact the Maternal- Medicine Center. anomalies may be present but not detected Procedure Note Raymundo Sinha MD - 02/01/2024 Comprehensive ----- Pat. Name: LENORE CALLOWAY Study Date: 02/01/2024 8:01am Pat. NO: [id number] Referring MD: MONICA NOEL Site: Medicare Sales Executive: Kimberly Hernandez RDMS : 1995 Age: 29 ----- INDICATION ----- Dichorionic, Diamniotic Twin gestation. Prior late at 36 weeks. METHOD ----- Transabdominal and transvaginal ultrasound approaches were used.(Transvaginal ultrasound examination was required to adequately completethe exam.). View: Sufficient. ----- Twin . Number of fetuses: 2. Dichorionic-diamniotic DATING ----- DateDetailsGest. age SHORTY LMP w + 4 d 06/30/2024 Previous U/S 11/19/2023 GA, GA7 w + 5 d18 w + 2 d 07/02/2024 U/S Fetus 1 02/01/2024 basedupon AC, BPD, Femur, HC 19w + 0 d 06/27/2024 U/S Fetus 2based upon AC, BPD, Femur, HC18 w + 5 d 06/29/2024 Assigned dating based on the LMP, selected on w + 4 d 06/30/2024 Fetus 1: GENERAL EVALUATION ----- Cardiac activity present. FHR 142 bpm. movements: present.Presentation: cephalic, maternal right, presenting Placenta: Anterior, No Previa, > 2 cm from internal os, thick dividingmembrane Umbilical cord: Cord vessels: 3 vessel cord. Insertion site: normalinsertion Amniotic fluid: Amount of AF: normal. MVP 4.3 cm Fetus 2: GENERAL EVALUATION ----- Cardiac activity present. FHR 137 bpm. movements: present.Presentation: breech, maternal left, superior Placenta: Posterior, No Previa, > 2 cm from internal os, thick dividingmembrane Umbilical cord: Cord vessels: 3 vessel cord. Insertion site: normalinsertion Amniotic fluid: Amount of AF: normal. MVP 4.5 cm Fetus 1: BIOMETRY ----- BPD 44.6mm 19w 3dHadlock OFD 55.1mm 18w 2dNicolaides HC 159.6mm 18w 6dHadlock Cerebellum tr 18.8mm 18w 3dNicolaides Nuchal fold 3.7mm AC 135.1mm 19w 0d 60%Hadlock Femur 27.9mm 18w 4dHadlock Humerus 26.6mm 18w 3dJeanty Weight Calculation: EFW 258g 57%Hadlock EFW (lb,oz) 0 lb 9oz EFW by Hadlock(TOR-KS-NS-FL) EFW discordance 0.5% Head / Face / Neck Biometry: Advanced Developer 6.5mm CM 5.4mm Nasal bone 5.9mm Fetus 2: BIOMETRY ----- BPD 42.2mm 18w 5dHadlock OFD 54.4mm 18w 1dNicolaides HC 156.1mm 18w 4dHadlock Cerebellum tr 18.2mm 18w 1dNicolaides Nuchal fold 3.5mm AC 136.3mm 19w 1d 64%Hadlock Femur 28.1mm 18w 4dHadlock Humerus 29.0mm 19w 3dJeanty Weight Calculation: EFW 259g 59%Hadlock EFW (lb,oz) 0 lb 9oz EFW by Hadlock(ZQK-PV-VB-FL) EFW discordance 0.5% Head / Face / Neck Biometry: Advanced Developer 7.4mm CM 4.6mm Nasal bone 6.0mm Fetus 1: ANATOMY ----- The following structures appear normal: Head / Neck Cranium. Head size. Head shape.Lateral ventricles. Choroid plexus. Midline falx. Cavum septi pellucidi.Cerebellum. Cisterna magna. Parenchyma. Thalami. Vermis. Neck. Nuchal fold. Face Lips. Profile. Nose. Maxilla.Mandible. Orbits. Lens. Heart / Thorax 4-chamber view. RVOT view. LVOT view.3-vessel view. 6-bysnif-kfcfogb view. Situs. Aortic arch view. Bicavalview. Ductal arch view. Superior vena cava. Inferior vena cava.Cardiac position. Cardiac size. Cardiac rhythm. Right lung. Left lung.Diaphragm. Abdomen Abdom. wall. Cord insertion. Stomach.Kidneys. Bladder. Liver. Bowel. Genitals. Spine Cervical spine. Thoracic spine.Lumbar spine. Sacral spine. Extremities / Skeleton Arms. Right arm. Right hand. Left arm.Left hand. Legs. Right leg. Right foot. Left leg. Left foot. sex: male. Fetus 2: ANATOMY ----- The following structures appear normal: Head / Neck Cranium. Head size. Head shape.Lateral ventricles. Choroid plexus. Midline falx. Cavum septi pellucidi.Cerebellum. Cisterna magna. Parenchyma. Thalami. Vermis. Neck. Nuchal fold. Face Lips. Profile. Nose. Maxilla.Mandible. Orbits. Lens. Heart / Thorax 4-chamber view. RVOT view. LVOT view.3-vessel view. 7-rhospm-iidpnnt view. Situs. Aortic arch view. Bicavalview. Ductal arch view. Superior vena cava. Inferior vena cava.Cardiac position. Cardiac size. Right lung. Left lung.Diaphragm. Abdomen Abdom. wall. Cord insertion. Stomach.Kidneys. Bladder. Liver. Bowel. Genitals. Spine Cervical spine. Thoracic spine.Lumbar spine. Sacral spine. Extremities / Skeleton Arms. Right hand. Left hand. Legs. Rightfoot. Left foot. sex: male. MATERNAL STRUCTURES ----- Cervix Visualized Appearance: Appears Closed, Approach - Transvaginal:Cervical length 39.6 mm Right Ovary Visualized Left Ovary Visualized RECOMMENDATION ----- Thank-you for referring your patient for a comprehensive ultrasound due todichorionic diamniotic twin . I discussed the findings on today's ultrasound with the patient. Ireviewed the limitations of ultrasound both in detecting aneuploidy andstructural abnormalities. Ultrasound can routinely detect 80-90% of structural abnormalities. She had cell freefetal DNA for genetic screening this which was low risk. Serial ultrasounds for growth every 4 weeks are recommended, as wellas serial TVUS until 23-24 weeks. She has the cervical length assessmentsscheduled in [place] and will check to see if she can do her twin growth US there aswell. We also recommend weekly BPP at 36 weeks. We also recommend a daily low dose aspirin for pre-eclampsia prevention. Return to primary provider for continued care. If you have questions regarding today's evaluation or if we can be offurther service, please contact the Maternal- Medicine Center. anomalies may be present but not detected IMPRESSION ----- Dichorionic diamniotic twins at 18w 4d gestational age. Fetus 1 1. No anomalies commonly detected by ultrasound were identified inthe detailed anatomic survey within the limits of prenatalultrasound. 2. Growth parameters and estimated weight were consistent withgestational age predicted by assigned SHORTY. 3. The amniotic fluid volume appeared normal. Fetus 2 1. No anomalies commonly detected by ultrasound were identified inthe detailed anatomic survey within the limits of prenatalultrasound. 2. Growth parameters and estimated weight were consistent withgestational age predicted by assigned SHORTY. The inter-twin discordance was0.5 %. 3. The amniotic fluid volume appeared normal. On transvaginal imaging the cervix appears long and closed at 39 mm. Monica Noel [facility] US ORDERABLE S * (ABNORMAL) Laboratory Miscellaneous Result (12/17/2023 5:30 PM CDT) Only the most recent of2 resultswithin the time period is included. Test Name [facility] 12/30/2023 11:13 AM CDT MISCELLANEOUS TESTING See Scanned Result LABORATORY MISCELLANEOUS RESULT-Scanned(A ) 12/30/2023 11:13 AM CDT MISCELLANEOUS TESTING Blood BLOOD SPECIMEN / Unknown Venipuncture / Unknown 12/17/2023 5:30 PM CDT 12/17/2023 5:35 PM CDT Roxane Goldstein GC LAB - BLOOD ORDERABL MISCELLANEOUS TESTING * Other Laboratory; Iain; Tanja (Laboratory Miscellaneous Order) (12/17/2023 5:30 PM CDT) Only the most recent of2 resultswithin the time period is included. Specimen Status Specimen received. Reordered and sent to performing laboratory. Report to follow upon completion. [facility] 12/18/2023 2:56 PM CDT UU LABORATORY Performing Laboratory Iain [facility] 12/18/2023 2:56 PM CDT UR LABORATORY Test Name Horizon [facility] 12/18/2023 2:56 PM CDT UR LABORATORY Blood BLOOD SPECIMEN / Unknown Venipuncture / Unknown 12/17/2023 5:30 PM CDT 12/17/2023 5:35 PM CDT Roxane Goldstein LAB - BLOOD ORDERABL ES [facility]U LABORATORY [facility] Core Lab [address], [address] [place] [address] UR LABORATORY [facility] Acute Care Lab [address] [place] [address] * MFM Twins Nuchal Trans w/US (12/17/2023 [...] ? Study Date: ??12/17/2023 1:29pm Pat. NO: ??[id number] ?Referring ??MD: AUGUST SADIE Site: ? Medicare Sales Executive: Patricia Irvin RDMS : ??1995 ?Age: ?? [...] gestation and [facility] at patient's request. Return to [...] CALLOWAY Study Date: 12/17/2023 1:29pm Pat. NO: [id number] Referring MD: MONICA SADIE Site: Medicare Sales Executive: Patricia Irvin RDMS : 1995 Age: 28 [...] for an outpatient consultation in [facility]. Please see the EPIC chart [...] weeksgestation and has been scheduled at our [facility] clinic atpatient's request. Return to [...] normal for early gestational age. Katiana Montez CN [facility] ORDER JANIE * Genetic Lab Result - HIM Scan (12/17/2023 12:00 AM CDT) 12/17/2023 Provider Outside LAB - [facility] SPECIAL DIAG ORDERABLES from Last 3 Months Care Teams Hospitality Housekeeper Relationship Specialty Start Date End Date Rich Resendez MD [facility] [address] [place] [address] PCP - General Emergency Medicine 01/02/19
--- OUTSIDE RECORDS SUMMARY | 2024-02-11 09:28 | XMS_ITS | Encounter Summary ---
Author Organization [place] Address [address] [place] [address] Care Team Providers Care Brazer Production Line Name Role Phone Rich Resendez MD Primary Care Provider Reason for Visit * Reason Comments Ultrasound L2/TV - Di/Di twins, Encounter Details Date Type Department Care Team (Late st Contact Info) Description 02/01/2024 9:15 AM CDT Office Visit [facility] Maternal Medicine Center [place] [address] [place], [place] [phone] Raymundo Sinha MD [address] [place] [address] Dichorionic diamniotic twin in second trimester (Primary Dx); H/O delivery, currently , second trimester Social History Tobacco Use Types Packs/Day [...] as of this encounter Progress Notes * Raymundo Sinha MD - 02/01/2024 9:15 AM CDT Please see full imaging report from ViewPoint program under imaging tab. Raymundo Sinha MD Maternal Medicine documented in this encounter Nursing Notes * Mariaelena Mena RN - 02/01/2024 9:15 AM CDT Patient reports positive movement, no pain, no contractions, leaking of fluid, or bleeding. Education provided to patient on today's ultrasound and TV. Her clinic did 2 weeks ago TV and will bedoing TV in 2 weeks SBAR given to PRISCILLA STEPHENSON, see their note in Epic. documented in this encounter Plan of Treatment Not on file documented as of this encounter Visit Diagnoses Diagnosis Dichorionic diamniotic twin in second trimester- Primary Twin , antepartum H/O delivery, currently , second trimester documented in this encounter Care Teams Brazer Production Line Relationship Specialty Start Date End Date Rich Resendez MD [facility] [address] [place] [address] PCP - General Emergency Medicine 01/02/19 documented as of this encounter
--- OUTSIDE RECORDS SUMMARY | 2024-02-11 09:28 | XMS_ITS | Encounter Summary ---
Author Organization [place] Address [address] [facility] [place] [address] Care Team Providers Care Flue Lining Dipper Name Role Phone Rich Resendez MD Primary Care Provider Reason for Referral * Diagnostic Imaging Ultrasound (Routine) - Pending Review Specialty Diagnoses / Procedures Referred By Vale argueta Referred To Contact Radiology. Diagnoses related condition, antepartum Procedures MFM Twins US [facility] Jone Monica [place] [address] [place] [address] Referral ID Status Reason Start Date Expiration Date V isits Requested Visits Authorized [id number] Pending Review 01/28/2024 01/27/2025 1 1 Encounter Details Date Type Department Care Team (Latest Contact Info) Description 01/28/2024 Transcribe Orders [facility] Maternal Medicine Center [place] [address] [place] [address] Monica Noel [place] [address] [place] [phone] related condition, antepartum (Primary Dx) Social History [...] as of this encounter Plan of Treatment Not on file documented as of this encounter Results * MFM Twins US Comprehensive (02/01/2024 [...] 9:44 AM CDT ?Comprehensive ----- Pat. Name: LENORE CALLOWAY ? Study Date: ??02/01/2024 8:01am Pat. NO: ??[id number] ?Referring ??MD: MONICA NOEL Site: ? Medical Doctor Nuclear Medicine: ??Kimberly Hernandez : ??1995 ?Age: ?? 29 ----- INDICATION [...] ?0 lb 9 ?oz EFW by ?Hadlock (STG-HE-VA-FL) EFW discordance ?0.5 ? % Head / Face / Neck Biometry: Clerical Assistant ?6.5 ? mm CM ? 5.4 ? [...] ?0 lb 9 ?oz EFW by ?Hadlock (UXC-ZV-QT-FL) EFW discordance ?0.5 ? % Head / Face / Neck Biometry: Clerical Assistant ?7.4 ? mm CM ? 4.6 ? [...] view. RVOT view. LVOT view. 3-vessel view. 9-apckfa-kptcduu view. Situs. Aortic arch view. Bicaval view. [...] view. RVOT view. LVOT view. 3-vessel view. 3-zfavey-ghngsfl view. Situs. Aortic arch view. Bicaval view. [...] has the cervical length assessments scheduled in [place] and will check to see if she [...] CALLOWAY Study Date: 02/01/2024 8:01am Pat. NO: [id number] Referring MD: MONICA NOEL Site: Medical Doctor Nuclear Medicine: Kimberly Hernandez RDMS : 1995 Age: 29 [...] EFW (lb,oz) 0 lb 9oz EFW by Hadlock(KIW-KX-WJ-FL) EFW discordance 0.5% Head / Face / Neck Biometry: Clerical Assistant 6.5mm CM 5.4mm Nasal bone 5.9mm Fetus 2: BIOMETRY ----- BPD 42.2mm 18w 5dHadlock OFD 54.4mm 18w 1dNicolaides HC 156.1mm 18w 4dHadlock Cerebellum tr 18.2mm 18w 1dNicolaides Nuchal fold 3.5mm AC 136.3mm 19w 1d 64%Hadlock Femur 28.1mm 18w 4dHadlock Humerus 29.0mm 19w 3dJeanty Weight Calculation: EFW 259g 59%Hadlock EFW (lb,oz) 0 lb 9oz EFW by Hadlock(CXF-YG-NG-FL) EFW discordance 0.5% Head / Face / Neck Biometry: Clerical Assistant 7.4mm CM 4.6mm Nasal bone 6.0mm Fetus 1: ANATOMY ----- The following structures appear normal: Head / Neck Cranium. Head size. Head shape.Lateral ventricles. Choroid plexus. Midline falx. Cavum septi pellucidi.Cerebellum. Cisterna magna. Parenchyma. Thalami. Vermis. Neck. Nuchal fold. Face Lips. Profile. Nose. Maxilla.Mandible. Orbits. Lens. Heart / Thorax 4-chamber view. RVOT view. LVOT view.3-vessel view. 9-lnlunt-hnqcrer view. Situs. Aortic arch view. Bicavalview. Ductal [...] 4-chamber view. RVOT view. LVOT view.3-vessel view. 9-pexbaf-isupwjv view. Situs. Aortic arch view. Bicavalview. Ductal [...] She has the cervical length assessmentsscheduled in [place] and will check to see if she [...] appears long and closed at 39 mm. [facility] documented in this encounter Visit Diagnoses Diagnosis related condition, antepartum- Primary related condition, antepartum documented in this encounter Care Teams Flue Lining Dipper Relationship Specialty Start Date End Date Rich Resendez MD [facility] [address] [place] [address] PCP - General Emergency Medicine 01/02/19 documented as of this encounter
--- OUTSIDE RECORDS SUMMARY | 2024-02-11 09:28 | XMS_ITS | Encounter Summary ---
Author Organization [place] Address [address] [facility] [place] [address] Care Team Providers Care Coal Washer Tender Name Role Phone Rich Resendez MD Primary Care Provider Encounter Details Date Type Department Care Team (Late st Contact Info) Description 12/30/2023 Telephone [facility] Maternal Medicine Center [place] [address] [facility] [address] [place] [address] Kaitlin Olivera, GC [address] [place] [address] Social History Tobacco Use Types [...] for their own consideration of carrier screening. 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 We discussed that should her partner desire carrier screening, or should she desire an amniocentesis to sequence the genes for an additional variant, she could callthierry or Roxane Goldstein MS, [facility] directly. Sgpfj-Rwgvi-Khnpx syndrome (SLOS) (DHCR7: c.440G>A): This condition is [...] vary. Her results are available in her [facility] chart for her primary OB to review. Kaitlin Olivera MS, [facility] Licensed Genetic Counselor [facility] Pager: [phone] Office: [phone] documented in this encounter Plan of Treatment Not on file documented as of this encounter Visit Diagnoses Not on filedocumented in this encounter Care Teams Coal Washer Tender Relationship Specialty Start Date End Date Rich Resendez MD [facility] [address] [place] [address] PCP - General Emergency Medicine 01/02/19 documented as of this encounter
--- OUTSIDE RECORDS SUMMARY | 2024-02-11 09:28 | XMS_ITS | Encounter Summary ---
Author Organization [place] Address [facility] [place] [address] Care Team Providers Care Reproducer Name Role Phone Rich Resendez MD Primary Care Provider Encounter Details Date Type Department Care Team (Latest Contact Info) Description 02/01/2024 Travel Social History Tobacco Use Types Packs/Day [...] on filedocumented in this encounter Care Teams Reproducer Relationship Specialty Start Date End Date Rich Resendez MD [facility] [address] [place] [address] PCP - General Emergency Medicine 01/02/19 documented as of this encounter
--- OUTSIDE RECORDS SUMMARY | 2024-02-11 09:28 | XMS_ITS | Encounter Summary ---
Author Organization [place] Address [facility] [place] [address] Care Team Providers Care Accreditation Coordinator Name Role Phone Rich Resendez MD Primary Care Provider Encounter Details Date Type Department Care Team (Latest Contact Info) Description 01/29/2024 Travel Social History Tobacco Use Types Packs/Day [...] on filedocumented in this encounter Care Teams Accreditation Coordinator Relationship Specialty Start Date End Date Rich Resendez MD [facility] [address] [place] [address] PCP - General Emergency Medicine 01/02/19 documented as of this encounter
--- OUTSIDE RECORDS SUMMARY | 2024-02-11 09:28 | XMS_ITS | Encounter Summary ---
Author Organization [place] Address [address] [facility] [place] [address] Care Team Providers Care Bobbin Disker Name Role Phone Rich Resendez MD Primary Care Provider Reason for Referral * Diagnostic Imaging Ultrasound (Routine) - Pending Review Specialty Diagnoses / Procedures Referred By Contac t Referred To Contact Radiology. Diagnoses related condition, antepartum Procedures MFM Twins [address] [place] [address] Referral ID Status Reason Start Date Expiration Date V isits Requested Visits Authorized [id number] Pending Review 01/28/2024 01/27/2025 1 1 Reason for Visit * Diagnostic Imaging Ultrasound (Routine) - Pending Review Specialty Diagnoses / Procedures Referred By Contac t Referred To Contact Radiology. Diagnoses related condition, antepartum Procedures MFM Twins [address] [place] [address] Referral ID Status Reason Start Date Expiration Date V isits Requested Visits Authorized [id number] Pending Review 01/28/2024 01/27/2025 1 1 Encounter Details Date Type Department Care Team (Latest Contact Info) Description 02/01/2024 7:57 AM CDT - 02/01/2024 11:59 PM CDT Hospital Encounter [facility] Maternal Medicine [facility] [address] [place] [address] Raymundo Sinha MD [address] [place] [address] related condition, antepartum Discharge Disposition: Home or Self Care Social [...] on file documented as of this encounter Procedures Procedure Name Priority Date/Time Associated Diagnosis Comments MFM TWINS COMPREHENSIVE Routine 02/01/2024 9:29 AM CDT related condition, antepartum documented in this encounter Results * MFM Twins Comprehensive (02/01/2024 9:29 AM CDT) Anatomical Region [...] ? Study Date: ??02/01/2024 8:01am Pat. NO: ??[id number] ?Referring ??MD: AUGUST SADIE Site: ? Key Ringer: ??Kimberly Hernandez RDMS : ??1995 ?Age: ?? [...] ?0 lb 9 ?oz EFW by ?Hadlock (TGE-LT-RJ-FL) EFW discordance ?0.5 ? % Head / Face / Neck Biometry: Tax Specialist ?6.5 ? mm CM ? 5.4 ? mm Nasal bone ? 5.9 ?mm Fetus 2: BIOMETRY ----- BPD ? 42.2 ?mm ? 18w 5d ?Hadcristi RIVAS ? 54.4 ?mm ? 18w 1d ?Nicolaides [...] ?0 lb 9 ?oz EFW by ?Hadlock (FPE-OK-WY-FL) EFW discordance ?0.5 ? % Head / Face / Neck Biometry: Tax Specialist ?7.4 ? mm CM ? 4.6 ? [...] view. RVOT view. LVOT view. 3-vessel view. 8-nnbyqb-vscuatf view. Situs. Aortic arch view. Bicaval view. [...] view. RVOT view. LVOT view. 3-vessel view. 5-yuimct-yijucue view. Situs. Aortic arch view. Bicaval view. [...] has the cervical length assessments scheduled in [place] and will check to see if she [...] CALLOWAY Study Date: 02/01/2024 8:01am Pat. NO: [id number] Referring MD: MONICA NOEL Site: Key Ringer: Kimberly Hernandez RDMS : 1995 Age: 29 [...] EFW (lb,oz) 0 lb 9oz EFW by Hadlock(GCT-LY-FV-FL) EFW discordance 0.5% Head / Face / Neck Biometry: Tax Specialist 6.5mm CM 5.4mm Nasal bone 5.9mm Fetus 2: BIOMETRY ----- BPD 42.2mm 18w 5dHadlock OFD 54.4mm 18w 1dNicolaides HC 156.1mm 18w 4dHadlock Cerebellum tr 18.2mm 18w 1dNicolaides Nuchal fold 3.5mm AC 136.3mm 19w 1d 64%Hadlock Femur 28.1mm 18w 4dHadlock Humerus 29.0mm 19w 3dJeanty Weight Calculation: EFW 259g 59%Hadlock EFW (lb,oz) 0 lb 9oz EFW by Hadlock(ISL-VR-VW-FL) EFW discordance 0.5% Head / Face / Neck Biometry: Tax Specialist 7.4mm CM 4.6mm Nasal bone 6.0mm Fetus 1: ANATOMY ----- The following structures appear normal: Head / Neck Cranium. Head size. Head shape.Lateral ventricles. Choroid plexus. Midline falx. Cavum septi pellucidi.Cerebellum. Cisterna magna. Parenchyma. Thalami. Vermis. Neck. Nuchal fold. Face Lips. Profile. Nose. Maxilla.Mandible. Orbits. Lens. Heart / Thorax 4-chamber view. RVOT view. LVOT view.3-vessel view. 8-bihbnx-myricjd view. Situs. Aortic arch view. Bicavalview. Ductal [...] 4-chamber view. RVOT view. LVOT view.3-vessel view. 5-ohbocs-rptwhjm view. Situs. Aortic arch view. Bicavalview. Ductal [...] She has the cervical length assessmentsscheduled in [place] and will check to see if she [...] long and closed at 39 mm. August Sadie [facility] US ORDERABLE S documented in this encounter Visit Diagnoses Diagnosis related condition, antepartum documented in this encounter Care Teams Bobbin Disker Relationship Specialty Start Date End Date Rich Resendez MD [facility] [address] [place] [address] PCP - General Emergency Medicine 01/02/19 documented as of this encounter
--- OUTSIDE RECORDS SUMMARY | 2024-02-11 09:28 | XMS_ITS | Encounter Summary ---
Author Organization [place] Address [facility] [place] [address] Care Team Providers Care Pattern Grader Cutter Name Role Phone Rich Resendez MD [...] on filedocumented in this encounter Care Teams Pattern Grader Cutter Relationship Specialty Start Date End Date Rich Resendez MD [facility] [address] [place] [address] PCP - General Emergency Medicine 01/02/19 documented as of this encounter
--- OUTSIDE RECORDS SUMMARY | 2024-02-11 09:28 | XMS_ITS | Encounter Summary ---
Author Organization [place] Address [address] [place] [address]. [place] [address] Care Team Providers Care Insulation Board Back Tender Name Role Phone Rich Resendez MD Primary Care Provider Encounter Details Date Type Department Care Team (Late st Contact Info) Description 12/17/2023 4:00 PM CDT Lab [facility] [place] [address] Rima Portillo MD [address] [place] [address] [address] [place] [address] Dichorionic diamniotic twin in first [...] Result (12/17/2023 5:30 PM CDT) Test Name [facility] 12/30/2023 11:13 AM CDT MISCELLANEOUS TESTING See Scanned Result LABORATORY MISCELLANEOUS RESULT-Scanned(A ) 12/30/2023 11:13 AM CDT MISCELLANEOUS TESTING Blood BLOOD SPECIMEN / Unknown Venipuncture / Unknown 12/17/2023 5:30 PM CDT 12/17/2023 5:35 PM CDT Roxane Goldstein GC LAB - BLOOD ORDERABL MISCELLANEOUS TESTING * Other Laboratory; [facility]; [facility] (Laboratory Miscellaneous Order) (12/17/2023 5:30 PM CDT) Specimen Status Specimen received. Reordered and sent to performing laboratory. Report to follow upon completion. [facility] 12/18/2023 2:56 PM CDT [facility]U LABORATORY Performing Laboratory Iain [facility] 12/18/2023 2:56 PM CDT UR LABORATORY Test Name Horizon [facility] 12/18/2023 2:56 PM CDT UR LABORATORY Blood BLOOD SPECIMEN / Unknown Venipuncture / Unknown 12/17/2023 5:30 PM CDT 12/17/2023 5:35 PM CDT Roxane Goldstein GC LAB - BLOOD ORDERABL ES UU LABORATORY [facility] [place] [facility] [address] [facility] [address], [address] [place] [address], [facility] UR LABORATORY [facility] Acute Care Lab [address] [facility], [address] [address], [facility] * Laboratory Miscellaneous Result (12/17/2023 5:29 PM CDT) Test Name [facility] 12/29/2023 9:50 AM CDT MISCELLANEOUS TESTING See Scanned Result LABORATORY MISCELLANEOUS RESULT-Scanned 12/29/2023 9:50 AM CDT MISCELLANEOUS TESTING Blood BLOOD SPECIMEN / Unknown Venipuncture / Unknown 12/17/2023 5:29 PM CDT 12/17/2023 5:30 PM CDT Roxane Goldstein GC LAB - BLOOD ORDERABL ES Performing Organization Address [facility]/ZIP Co de Phone Number MISCELLANEOUS TESTING * Other Laboratory; [facility]; [facility] (Laboratory Miscellaneous Order) (12/17/2023 5:29 PM CDT) Specimen Status Specimen received. Reordered and sent to performing laboratory. Report to follow upon completion. [facility] 12/18/2023 2:50 PM CDT U[facility] LABORATORY Performing Laboratory [facility] 12/18/2023 2:50 PM CDT UR LABORATORY Test Name Panorama [facility] 12/18/2023 2:50 PM CDT UR LABORATORY Blood BLOOD SPECIMEN / Unknown Venipuncture / Unknown 12/17/2023 5:29 PM CDT 12/17/2023 5:30 PM CDT Roxane Goldstein GC LAB - BLOOD ORDERABL ES UU LABORATORY [facility] [place] [facility] [address] [facility] [address], [address] [place] [address], [facility] UR LABORATORY [facility] Acute Care Lab [address] [facility], [address] [place] [address] documented in this encounter Visit Diagnoses Diagnosis Dichorionic diamniotic twin in first trimester Twin , antepartum screening encounter Unspecified screening Encounter of female for testing for genetic disease carrier status for procreative management Testing of female for genetic disease carrier status documented in this encounter Care Teams Insulation Board Back Tender Relationship Specialty Start Date End Date Rich Resendez MD [address] [address] PCP - General Emergency Medicine 01/02/19 documented as of this encounter
--- OUTSIDE RECORDS SUMMARY | 2024-02-11 09:28 | XMS_ITS | Encounter Summary ---
Author Organization [place] Address [address] [facility] [place] [address] Care Team Providers Care Television Journalist Name Role Phone Rich Resendez MD Primary Care Provider Reason for Referral * Diagnostic Imaging Ultrasound (Routine) - Pending Review Specialty Diagnoses / Procedures Referred By Vale argueta Referred To Contact Radiology. Diagnoses Dichorionic diamniotic twin in first trimester Joint derangement Procedures MFM Twins Nuchal Trans w/US Katiana Montez CNM [address] [place] [address] Referral ID Status Reason Start Date Expiration Date V isits Requested Visits Authorized [id number] Pending Review 12/02/2023 12/01/2024 1 1 Reason for Visit * Diagnostic Imaging Ultrasound (Routine) - Pending Review Specialty Diagnoses / Procedures Referred By Vale argueta Referred To Contact Radiology. Diagnoses Dichorionic diamniotic twin in first trimester Joint derangement Procedures MFM Twins Nuchal Trans w/US Katiana Montez CNM [address] [place] [address] Referral ID Status Reason Start Date Expiration Date V isits Requested Visits Authorized [id number] Pending Review 12/02/2023 12/01/2024 1 1 Encounter Details Date Type Department Care Team (Latest Contact Info) Description 12/17/2023 12:24 PM CDT - 12/17/2023 11:59 PM CDT Hospital Encounter [facility] Maternal Medicine Center [place] [address] [place] [address] Rima Portillo MD [address] [place] [address] Dichorionic diamniotic twin in first trimester; Joint [...] ? Study Date: ??12/17/2023 1:29pm Pat. NO: ??[id number] ?Referring ??: LATISHA NOEL Site: ? Vegetable Tester: Patricia Irvin RDMS : ??1995 ?Age: ?? [...] gestation and has been scheduled at our [facility] clinic at patient's request. Return to primary [...] CALLOWAY Study Date: 12/17/2023 1:29pm Pat. NO: [id number] Referring MD: AUGUST SADIE Site: Vegetable Tester: Patricia Irvin RDMS : 1995 Age: 28 [...] normal for early gestational age. Katiana Montez [facility] US ORDER JANIE documented in this encounter Visit Diagnoses Diagnosis Dichorionic diamniotic twin in first trimester Twin , antepartum Joint derangement Unspecified derangement, joint, site unspecified documented in this encounter Care Teams Television Journalist Relationship Specialty Start Date End Date Rich Resendez MD [facility] [address] [place] [address] PCP - General Emergency Medicine 01/02/19 documented as of this encounter
--- OUTSIDE RECORDS SUMMARY | 2024-02-11 09:28 | XMS_ITS | Encounter Summary ---
Author Organization [place] Address [address] [facility] [place] [address] Care Team Providers Care Curriculum Writer Name Role Phone Rich Resendez MD Primary Care Provider Reason for Visit * Reason Onset Date Comments Results 12/28/2023 NIPT Encounter Details Date Type Department Care Team (Late st Contact Info) Description 12/28/2023 Telephone [facility] Maternal Medicine Center [place] [address] [facility] [address] [place] [address] Kaitlin Olivera GC [address] [place] [address] Results (NIPT) Social History Tobacco [...] hours. Called and spoke to a [place] student services representative who has begun this process. Constance had no further questions. Kaitlin Olivera MS, [facility] Licensed Genetic Counselor [facility] Pager: [phone] Office: [phone] documented in this encounter Plan of Treatment Not on file documented as of this encounter Visit Diagnoses Not on filedocumented in this encounter Care Teams Curriculum Writer Relationship Specialty Start Date [place] [address] PCP - General Emergency Medicine 01/02/19 documented as of this encounter
--- OUTSIDE RECORDS SUMMARY | 2024-02-11 09:28 | XMS_ITS | Encounter Summary ---
Author Organization [place] Address [address] [place] [address]. [place] [address] Care Team Providers Care Field Court Researcher Name Role Phone Rich Resendez MD Primary Care Provider Encounter Details Date Type Department Care Team (Late st Contact Info) Description 12/28/2023 Medical Correspondence [facility] Info Mgmt [facility] [address] [place] [address] Scan, Non-Provider Social History Tobacco Use [...] on filedocumented in this encounter Care Teams Field Court Researcher Relationship Specialty Start Date End Date Rich Resendez MD [facility] [address] [place] [address] PCP - General Emergency Medicine 01/02/19 documented as of this encounter
--- OUTSIDE RECORDS SUMMARY | 2024-02-11 09:28 | XMS_ITS | Encounter Summary ---
Author Organization [place] Address [address] [facility] [place] [address] Care Team Providers Care Nurse First Aid Name Role Phone Rich Resendez MD Primary Care Provider Reason for Visit * Reason Onset Date Comments Clinic Care Coordination - Follow-up 12/18/2023 Encounter Details Date Type Department Care Team (Late st Contact Info) Description 12/18/2023 Telephone [facility] Maternal Medicine Center [place] [address] [place] [phone] Roxane Goldstein, [address] [place] [address] [address] [place] [address] Clinic Care Coordination - Follow-up [...] on filedocumented in this encounter Care Teams Nurse First Aid Relationship Specialty Start Date End Date Rich Resendez MD [facility] [address] [place] [address] PCP - General Emergency Medicine 01/02/19 documented as of this encounter
--- OUTSIDE RECORDS SUMMARY | 2024-02-11 09:28 | XMS_ITS | Encounter Summary ---
Author Organization [place] Address [address] [facility] [place] [address] Care Team Providers Care Paraprofessional Aide Name Role Phone Rich Resendez MD Primary Care Provider Reason for Visit * Reason Comments Ultrasound Twin NT- Di/di twins , fibromyalgia, PCOS, BMI>30, hx PPROM/PTD Consult Di/di twins, fibromy algia, PCOS, BMI>30, hx PPROM/PTD * Consultation (Routine: Next available opening) - Pending Review Specialty Diagnoses / Procedures Referred By Contac t Referred To Contact Diagnoses related condition JoneAugust [facility] [place] [address] [place] [address] Referral ID Status Reason Start Date Expiration Date V isits Requested Visits Authorized [id number] Pending Review 12/03/2023 12/02/2024 1 1 Encounter Details Date Type Department Care Team (Late st Contact Info) Description 12/17/2023 2:15 PM CDT Office Visit [facility] M[facility] [place] [address] [place], [place] [address] Rima Portillo MD [address] [place] [address] Dichorionic diamniotic twin in first [...] note were not included. Maternal Medicine Center [address] [place] [address] [address], [place] [address] Main: [phone], Referring Provider: Jone Alonsocrista Del Toro is [...] s/p septoplasty. She endorsed being evaluated at [facility] at the age of 11 for Ehler [...] this has been with Dr. Becerril from [facility] in [facility]. OB History Para Term AB Living 3 [...] Medication Sig Last Dose Taking? Auth Provider Industrial Safety And Health Technician End Date ASPIRIN LOW DOSE 81 MG EC tablet Take 81 mg by mouth daily Taking Yes Reported, Patient MV-Min-Fe Fum-FA-DHA ( 1 PO) Take 1 tablet by mouth daily Taking Yes Reported, Patient qhfdisiuyx-filmllrensqeo-hkitkljw (FIORICET/ESGIC) 50-325-40 MG tablet Take 1 tablet [...] Colposcopy 06/2023, [facility] - Genetic Screening: Planning on NIPT [...] (we presume these will be performed through [facility]). -Targeted anatomy at 18-20 weeks (schedule at [facility] due to patient preference/appointment access to coordinate with her child's appointments at the [facility] in [place]. -Serial growth ultrasounds every 4 weeks until [...] can potentially do these via MFM in [place]. Pt discharged stable and ambulatory to outpatient lab. Lilia R. Wevers, RN documented in this encounter Plan of Treatment Not on file documented as of this encounter Visit Diagnoses Diagnosis Dichorionic diamniotic twin in first trimester- Primary Twin , antepartum History of delivery, currently in first trimester documented in this encounter Care Teams Paraprofessional Aide Relationship Specialty Start Date End Date Rich Resendez MD [address] [address] PCP - General Emergency Medicine 01/02/19 documented as of this encounter
--- OUTSIDE RECORDS SUMMARY | 2024-02-11 09:28 | XMS_ITS | Referral Summary ---
Author Organization [place] Address [address] [place] [address]. [place] [address] Care Team Providers Care Cattle Dealer Name Role Phone Rich Resendez MD Primary Care Provider Encounters Date Type Department Care Team Description 02/01/2024 Travel 02/01/2024 9:15 AM CDT Office Visit [facility] Maternal Medicine [facility] [address] [place] [address] Raymundo Sinha MD Dichorionic diamniotic twin in second trimester (Primary Dx); H/O delivery, currently , second trimester 02/01/2024 7:57 AM CDT - 02/01/2024 11:59 PM CDT Hospital Encounter [facility] Maternal Medicine [facility] [address] [place] [phone] Raymundo Sinha MD related condition, antepartum Discharge Disposition: Home or Self Care 01/29/2024 Travel 01/28/2024 Transcribe Orders [facility] Maternal Medicine [facility] [address] [place] [address] Senaaugust related condition, antepartum (Primary Dx) 12/30/2023 Telephone [facility] Maternal Medicine [facility] [address] [place] [address] Kaitlin Olivera GC 12/28/2023 Medical Correspondence [facility] [address] [place] [phone] Scan, Non-Provider 12/28/2023 Telephone [facility] Maternal Medicine [facility] [address] [place] [address] Kaitlin Olivera GC Results (NIPT) 12/18/2023 Telephone [facility] Maternal Medicine [facility] [address] [place] [address] Roxane Goldstein GC Clinic Care Coordination - Follow-up 12/17/2023 4:00 PM CDT Lab [facility] [address] [place] [phone] Rima Portillo MD Dichorionic diamniotic twin in first trimester; screening encounter; Encounter of female for testing for genetic disease carrier status for procreative management 12/17/2023 Travel 12/17/2023 2:15 PM CDT Office Visit [facility] Medicine [facility] [address] [place] [address] Rima Portillo MD Dichorionic diamniotic twin in first trimester (Primary Dx); History of delivery, currently in first trimester 12/17/2023 12:24 PM CDT - 12/17/2023 11:59 PM CDT Hospital Encounter [facility] Medicine [facility] [address] [place] [phone] Rima Portillo MD Dichorionic diamniotic twin in first trimester; Joint derangement Discharge Disposition: Home or Self Care 12/17/2023 12:45 PM CDT Office Visit [facility] Medicine [facility] [address] [place] [address] Rima Portillo MD Meyer, Jennifer R, GC screening encounter (Primary Dx); Dichorionic diamniotic twin in first trimester; Encounter of female for testing for genetic disease carrier status for procreative management 12/15/2023 PRE VISIT [facility] Medicine [facility] [address] [place] [address] Lilia Moctezuma, RN Genetic Counseling (Di/di twins, PCOS, Fibromyalgia, BMI>30, hx PPROM/PTD); Ultrasound (Twin NT- Di/di twins, PCOS, Fibromyalgia, BMI>30, hx PPROM/PTD/); Consult (Di/di twins, PCOS, Fibromyalgia, BMI>30, hx PPROM/PTD/) 12/12/2023 Travel 12/11/2023 MyC Medical Advice [facility] [address] [facility] [address] [place] [phone] [facility] 12/03/2023 Transcribe Orders [facility] Maternal Medicine [facility] [address] [place] [address] SadieAugust related condition (Primary Dx) 12/02/2023 Orders Only [facility] Maternal Medicine [facility] [address] [place] [address] Elsie Blanchard RN Dichorionic diamniotic twin in first trimester (Primary Dx); Joint derangement 12/02/2023 Transcribe Orders [facility] Maternal Medicine [facility] [address] [facility] [address] [place] [phone] SadieAugust related condition, antepartum (Primary Dx) 12/01/2023 Medical Correspondence [facility] Info [facility] [address] [place] [phone] Scan, Non-Provider from Last 3 Months Allergies [...] - Plan of Treatment Not on file Procedures Procedure Name Priority Date/Time Associated Diagnosis [...] ? Study Date: ??02/01/2024 8:01am Pat. NO: ??[id number] ?Referring ??MD: AUGUST SADIE Site: ? Row Boss Hoeing: ??Kimberly Hernandez [facility] : ??1995 ?Age: ?? 29 ----- INDICATION [...] ?0 lb 9 ?oz EFW by ?Hadlock ([id number]-FL) EFW discordance ?0.5 ? % Head / Face / Neck Biometry: Core Microarchitect ?6.5 ? mm CM ? 5.4 ? [...] ?0 lb 9 ?oz EFW by ?Hadlock (VFH-NL-YG-FL) EFW discordance ?0.5 ? % Head / Face / Neck Biometry: Core Microarchitect ?7.4 ? mm CM ? 4.6 ? [...] view. RVOT view. LVOT view. 3-vessel view. 0-qfwhlo-boifwhd view. Situs. Aortic arch view. Bicaval view. [...] view. RVOT view. LVOT view. 3-vessel view. 8-ipzebc-hhndtft view. Situs. Aortic arch view. Bicaval view. [...] has the cervical length assessments scheduled in [place] and will check to see if she [...] [place] Study Date: 02/01/2024 8:01am Pat. NO: [id number] Referring MD: LATISHA NOEL Site: Row Boss Hoeing: Kimberly Hernandez RDMS : 1995 Age: 29 [...] EFW (lb,oz) 0 lb 9oz EFW by Hadlock(KKM-MZ-EY-FL) EFW discordance 0.5% Head / Face / Neck Biometry: Core Microarchitect 6.5mm CM 5.4mm Nasal bone 5.9mm Fetus 2: BIOMETRY ----- BPD 42.2mm 18w 5dHadlock OFD 54.4mm 18w 1dNicolaides HC 156.1mm 18w 4dHadlock Cerebellum tr 18.2mm 18w 1dNicolaides Nuchal fold 3.5mm AC 136.3mm 19w 1d 64%Hadlock Femur 28.1mm 18w 4dHadlock Humerus 29.0mm 19w 3dJeanty Weight Calculation: EFW 259g 59%Hadlock EFW (lb,oz) 0 lb 9oz EFW by Hadlock(WYR-IC-QM-FL) EFW discordance 0.5% Head / Face / Neck Biometry: Core Microarchitect 7.4mm CM 4.6mm Nasal bone 6.0mm Fetus 1: ANATOMY ----- The following structures appear normal: Head / Neck Cranium. Head size. Head shape.Lateral ventricles. Choroid plexus. Midline falx. Cavum septi pellucidi.Cerebellum. Cisterna magna. Parenchyma. Thalami. Vermis. Neck. Nuchal fold. Face Lips. Profile. Nose. Maxilla.Mandible. Orbits. Lens. Heart / Thorax 4-chamber view. RVOT view. LVOT view.3-vessel view. 1-kbkanz-gnmbgjq view. Situs. Aortic arch view. Bicavalview. Ductal [...] 4-chamber view. RVOT view. LVOT view.3-vessel view. 6-xvgvhn-vhvsxrg view. Situs. Aortic arch view. Bicavalview. Ductal [...] She has the cervical length assessmentsscheduled in [place] and will check to see if she [...] and closed at 39 mm. August Sadie [facility] US ORDERABLE S * (ABNORMAL) [...] laboratory. Report to follow upon completion. [facility] 12/18/2023 2:56 PM CDT [facility] Performing Laboratory Iain [facility] 12/18/2023 2:56 PM CDT [facility] Test Name Horizon [facility] 12/18/2023 2:56 PM CDT [facility] Blood BLOOD SPECIMEN / Unknown Venipuncture / Unknown 12/17/2023 5:30 PM CDT 12/17/2023 5:35 PM CDT Roxane Goldstein GC LAB - BLOOD ORDERABL ES [facility] Lab [address] [facility] [address], [address] [place] [address], [facility] UR LABORATORY [facility] Acute Care Lab [address] [facility] [place] [address], [facility] * MFM Twins Nuchal [...] 5:01 PM CDT ?NT ----- Pat. Name: ELLIAPRILNA ? Study Date: ??12/17/2023 1:29pm Pat. NO: ??[id number] ?Referring ??MD: AUGUST SADIE Site: ? Row Boss Hoeing: Patricia Irvin RDMS : ??1995 ?Age: ?? [...] gestation and has been scheduled at our [facility] clinic at patient's request. Return [...] [place] Study Date: 12/17/2023 1:29pm Pat. NO: [id number] Referring MD: LATISHA SADIE Site: Row Boss Hoeing: Patricia Irvin RDMS : 1995 Age: 28 [...] for an outpatient [facility]. Please see the EPIC [...] weeksgestation and has been scheduled at our [facility] clinic atpatient's request. Return to [...] normal for early gestational age. Katiana Montez [facility] ORDER JANIE * Genetic Lab Result - HIM Scan (12/17/2023 12:00 AM CDT) 12/17/2023 Provider Outside LAB - [facility] ORDERABLES from Last 3 Months Care Teams Cattle Dealer Relationship Specialty Start Date End Date Rich Resendez MD [facility] [address] [place] [address] PCP - General Emergency Medicine 01/02/19
--- OUTSIDE RECORDS SUMMARY | 2024-02-11 09:29 | XMS_ITS | Clinical Summary ---
Author Organization [facility] Address [place], [place] [address] Care Team Providers Care Coke Inspector Name Role Phone Rich Resendez MD [...] Encounters Date Type Department Care Team Description 01/29/2024 10:00 AM CDT Ancillary Procedure [facility] [address] [place] [address] from Last 3 Months Immunizations Name Administration [...] Comments Blood Pressure 131/107 06/25/2021 3:02 AM LOTTERY MANAGER Pulse 95 06/25/2021 3:59 AM LOTTERY MANAGER Temperature 37.4 ??C (99.3 ??F) 06/25/2021 3:02 AM CS T Respiratory Rate 16 06/25/2021 3:02 AM LOTTERY MANAGER Oxygen Saturation 98% 06/25/2021 3:59 AM LOTTERY MANAGER Inhaled Oxygen Concentration - - Weight 83.9 kg (185 lb) 06/25/2021 3:02 AM LOTTERY MANAGER Height 167.6 cm (5' 6) 06/25/2021 3:02 AM LOTTERY MANAGER Body Mass Index 29.86 06/25/2021 3:02 AM LOTTERY MANAGER Plan of Treatment Health Maintenance Due [...] Procedure Name Priority Date/Time Associated Diagnosis Comments ECHO TTE COMPLETE WO CONTRAST Routine 01/29/2024 10:54 AM CDT Joint derangement, unspecified HPV HIGH RISK Routine 05/15/2023 12:30 PM LOTTERY MANAGER from Last 3 Months or Most Recently Relevant to Health Maintenance Results * ECHO TTE COMPLETE WO CONTRAST (01/29/2024 10:54 AM CDT) AORTIC VALVE MEAN PG 5 mmHg LVEDD 4.2 cm EJECTION FRACTION 65 - 70% Anatomical Region Laterality Modality Ultrasound 01/29/2024 10:1 5 AM CDT Narrative 01/29/2024 4:45 PM CDT ECHOCARDIOGRAM LENORE A DAILY ? Accession#: ?? [id number] : ?1995 29 years Study Date: ?? 01/29/2024 10:15:27 AM Gender: F ?BP: ? 132/85 mmHg Height: 168.00 cm ?BSA: ?1.94 m? ? ? Weight: 84.00 kg ? Tech: ? MBF ? Referring MD: NEETU NEGRETE Site: ? [facility] Reading Location: Mobile OP Patient Location: Outpatient. Procedure: 2D, Color Doppler and Spectral Doppler. Indication for study: Joint derangement, unspecified Cardiac Rhythm: Regular.Study quality: Technically limited. Imaging limitations: This study was subject to imaging limitations due to body habitus. Final Impressions: 1. Technically limited exam. 2. Normal LV size, normal wall thickness, normal global systolic function with an estimated EF of 65 - 70%. 3. Right ventricular cavity size is normal, global systolic RV function is normal. 4. No hemodynamically significant valve disease detected. 5. No pericardial effusion. Chamber Sizes and Function Normal left ventricular size, normal wall thickness, normal global systolic function with an estimated EF of 65 - 70%. Left atrial size is normal. Right ventricular cavity size is normal, global systolic RV function is normal. RV wall thickness is normal. The right atrium is normal. Right atrial volume index is 18 ml/m? ? ?. Right atrial area is 14 cm? ? ?. The pulmonary artery is not well visualized. The sinus of Valsalva is normal sized. The ascending aorta is normal sized. Valves, RV Pressures and Diastolic Function The aortic valve is not well visualized , no stenosis and no regurgitation. The mitral valve is normal in structure, trace mitral regurgitation. Normal diastolic function. The tricuspid valve is normal in structure. Tricuspid regurgitation is regurgitation is not evident. The pulmonic valve is not well visualized. No pulmonary regurgitation. Masses, Effusion, Shunts There is no pericardial effusion. The inferior vena cava is small sized, respiratory size variation greater than 50%. No left to right shunting was detected by limited color flow Doppler interrogation of the interatrial septum. MEASUREMENTS AND CALCULATIONS 2-D Measurements and LV Function: LVID (d) 4.2 cm LV FS% (2D) ?? 38 % LVID (s) 2.6 cm LVOT diameter 2.1 cm IVS (d) ??0.9 cm HR ?93 bpm LVPW (d) 0.9 cm LA Vol index ??22 ml/m2 Ao Sinus 2.8 cm RA Vol index ??18 ml/m2 Asc Ao ?? 2.8 cm RA area ? 14 cm?RV Max 4C (d) 2.9 cm Diastology: Mitral ?Tissue Doppler E Peak 0.9 m/s ??e', Septum ? 0.13 m/s A Peak 1.0 m/s ??e', Lateral ?0.14 m/s E/A ?0.9 ?E/e' Average ?? 6.67 DT ? 162 msec Aortic Valve: Vmax ? 1.5 m/s ??YAA (V) ?? 2.78 cm? ? ? VTI ?0.28 m ?? YAA (I) ?? 2.67 cm? ? ? LVOT V max 1.2 m/s ??Max PG ?9 mmHg LVOT VTI ?? 0.22 m ?? Mean PG ?? 5 mmHg SV ? 75 ml ?Dim Index 0.79 SV index ?? 39 ml/m? ? ? CO ?7.0 l/min ?CI ?3.6 l/min/m? ? ? Mitral Valve: MVA ?4.7 cm? ? ? MV P 1/2 47 msec Tricuspid Valve and estimated PA pressures: TAPSE 1.7 cm . This study was interpreted by an [facility] accredited facility. CC: [facility] ([facility]) [facility]. ??Final ?? Procedure Note Isaac Silverio MD - 01/29/2024 ECHOCARDIOGRAM LENORE Lugo DAILY : 1995 29 years Study Date: 01/29/2024 10:15:27 AM Gender: F BP: 132/85 mmHg Height: 168.00 cm BSA: 1.94 m? ? ? Weight: 84.00 kg Tech: [facility] Referring MD: NEETU NEGRETE Site: [facility] Reading Location: Mobile OP Patient Location: Outpatient. Procedure: 2D, Color Doppler and Spectral Doppler. Indication for study: Joint derangement, unspecified Cardiac Rhythm: Regular.Study quality: Technically limited. Imaging limitations: This study was subject to imaging limitations due tobody habitus. Final Impressions: 1. Technically limited exam. 2. Normal LV size, normal wall thickness, normal global systolic functionwith an estimated EF of 65 - 70%. 3. Right ventricular cavity size is normal, global systolic RV functionis normal. 4. No hemodynamically significant valve disease detected. 5. No pericardial effusion. Chamber Sizes and Function Normal left ventricular size, normal wall thickness, normal globalsystolic function with an estimated EF of 65 - 70%. Left atrial size isnormal. Right ventricular cavity size is normal, global systolic RVfunction is normal. RV wall thickness is normal. The right atrium isnormal. Right atrial volume index is 18 ml/m? ? ?. Right atrial area is 14cm? ? ?. The pulmonary artery is not well visualized. The sinus of Valsalvais normal sized. The ascending aorta is normal sized. Valves, RV Pressures and Diastolic Function The aortic valve is not well visualized , no stenosis and noregurgitation. The mitral valve is normal in structure, trace mitralregurgitation. Normal diastolic function. The tricuspid valve is normal instructure. Tricuspid regurgitation is regurgitation is not evident. Thepulmonic valve is not well visualized. No pulmonary regurgitation. Masses, Effusion, Shunts There is no pericardial effusion. The inferior vena cava is small sized,respiratory size variation greater than 50%. No left to right shunting wasdetected by limited color flow Doppler interrogation of the interatrialseptum. MEASUREMENTS AND CALCULATIONS 2-D Measurements and LV Function: LVID (d) 4.2 cm LV FS% (2D) 38 % LVID (s) 2.6 cm LVOT diameter 2.1 cm IVS (d) 0.9 cm HR 93 bpm LVPW (d) 0.9 cm LA Vol index 22 ml/m2 Ao Sinus 2.8 cm RA Vol index 18 ml/m2 Asc Ao 2.8 cm RA area 14 cm? ? ? RV Max 4C (d) 2.9 cm Diastology: Mitral Tissue Doppler E Peak 0.9 m/s e', Septum 0.13 m/s A Peak 1.0 m/s e', Lateral 0.14 m/s E/A 0.9 E/e' Average 6.67 DT 162 msec Aortic Valve: Vmax 1.5 m/s YAA (V) 2.78 cm? ? ? VTI 0.28 m YAA (I) 2.67 cm? ? ? LVOT V max 1.2 m/s Max PG 9 mmHg LVOT VTI 0.22 m Mean PG 5 mmHg SV 75 ml Dim Index 0.79 SV index 39 ml/m? ? ? CO 7.0 l/min CI 3.6 l/min/m? ? ? Mitral Valve: MVA 4.7 cm? ? ? MV P 1/2 47 msec Tricuspid Valve and estimated PA pressures: TAPSE 1.7 cm . This study was interpreted by an [facility] accredited facility. CC: [facility] (med records) [facility]. Final Neetu Negrete MD ECHO ORD * (ABNORMAL) HPV HIGH RISK (05/15/2023 12:30 PM LOTTERY MANAGER) TYPE 16 Negative Negative 05/22/2023 11:44 AM LOTTERY MANAGER [facility] TYPE 18 Negative Negative 05/22/2023 11:44 AM LOTTERY MANAGER [facility] OTHER HIGH RISK TYPES Positive(A) Negative 05/22/2023 11:44 AM LOTTERY MANAGER [facility] Other (Cervical) Non-Blood / Unknown 05/15/2023 12:30 PM LOTTERY MANAGER 05/21/2023 7:37 AM LOTTERY MANAGER Narrative [facility] - 05/22/2023 11:44 AM LOTTERY MANAGER Specimen is positive for the DNA of any one of, or combination of, the following high risk HPV types: 31, 33, 35, 39, 45, 51, 52, 56, 58, 59, 66, 68. HPV types 16 and 18 DNA were undetectable or below the pre-set threshold. ? Methodology: Smartsy Mabel 4800 HPV Test Vanessa Chavez NP MICROBIOLOGY [facility] [address] [place] [address], from Last 3 Months or Most Recently Relevant to Health Maintenance Care Teams Coke Inspector Relationship Specialty Start Date End Date Rich Resendez MD [address] [place] [address] PCP - General Internal Medicine 07/29/20
--- OUTSIDE RECORDS SUMMARY | 2024-02-11 09:29 | XMS_ITS | Encounter Summary ---
Author Organization [place] Address [address] [facility] [place] [address] Care Team Providers Care Sales Operations Associate Name Role Phone Rich Resendez MD Primary Care Provider Reason for Referral * Consultation (Routine: Next available opening) - Pending Review Specialty Diagnoses / Procedures Referred By Vale argueta Referred To Contact Diagnoses related condition Monica Becerril [address] [place] [address] Referral ID Status Reason Start Date Expiration Date V isits Requested Visits Authorized [id number] Pending Review 12/03/2023 12/02/2024 1 1 Question Answer Office Visit Type: MFM Consult Encounter Details Date Type Department Care Team (Latest Contact Info) Description 12/03/2023 Transcribe Orders [facility] M[facility] Medicine [facility] [address] [address] Monica Becerril [place] [address] [place] [id number] related condition (Primary Dx) Social History Tobacco Use Types Packs/Day Years Used Date Smoking Tobacco: Never Assessed Sex and Gender Information Value Date Recorded Sex Assigned at Female 12/03/2023 6:00 PM CDT Gender Identity Female 12/03/2023 6:00 PM CDT Sexual Orientation Straight 12/03/2023 6: 00 PM CDT documented as of this encounter Plan of Treatment Scheduled Referrals Name Type Priority Associated Diagnoses Orde r Schedule M Office Visit - [facility] Consult Referral Routine: Next available opening related condition Expected: 12/03/2023 (Approximate), Expires: 12/02/2024 documented as of this encounter Visit Diagnoses Diagnosis related condition- Primary Unspecified complication of , unspecified as to episode of care documented in this encounter Care Teams Sales Operations Associate Relationship Specialty Start Date End Date Rich Resendez MD [facility] [address] [place] [address] PCP - General Emergency Medicine 01/02/19 documented as of this encounter
--- OUTSIDE RECORDS SUMMARY | 2024-02-11 09:29 | XMS_ITS | Encounter Summary ---
Author Organization [place] Address [address] [place] [address]. [place] [address] Care Team Providers Care Benefits Sales Consultant Name Role Phone Rich Resendez MD Primary Care Provider Encounter Details Date Type Department Care Team (Late st Contact Info) Description 12/01/2023 Medical Correspondence [facility] Info [facility] [address] [place] [address] Scan, Non-Provider Social History Tobacco Use [...] on filedocumented in this encounter Care Teams Benefits Sales Consultant Relationship Specialty Start Date End Date Rich Resendez MD [facility] [address] [place] [address] PCP - General Emergency Medicine 01/02/19 documented as of this encounter
--- OUTSIDE RECORDS SUMMARY | 2024-02-11 09:29 | XMS_ITS | Encounter Summary ---
Author Organization [place] Address [facility] [place] [address] Care Team Providers Care Marketing Senior Recruiter Name Role Phone Rich Resendez MD [...] on filedocumented in this encounter Care Teams Marketing Senior Recruiter Relationship Specialty Start Date End Date Rich Resendez MD [facility] [address] [place] [address] PCP - General Emergency Medicine 01/02/19 documented as of this encounter
--- OUTSIDE RECORDS SUMMARY | 2024-02-11 09:29 | XMS_ITS | Encounter Summary ---
Author Organization [place] Address [address] [place] [address] Care Team Providers Care Cement Finisher Name Role Phone Rich Resendez MD Primary Care Provider Reason for Visit * Reason Comments Genetic Counseling Di/di twins, PCOS, F ibromyalgia, BMI>30, hx PPROM/PTD Ultrasound Twin NT- Di/di twins , PCOS, Fibromyalgia, BMI>30, hx PPROM/PTD Consult Di/di twins, PCOS, F ibromyalgia, BMI>30, hx PPROM/PTD Encounter Details Date Type Department Care Team (Late st Contact Info) Description 12/15/2023 PRE VISIT [facility] [place] [address] [place] [address] Lilia Moctezuma, RN Genetic Counseling (Di/di twins, [...] on filedocumented in this encounter Care Teams Cement Finisher Relationship Specialty Start Date End Date Rich Resendez MD [facility] [address] [place] [address] PCP - General Emergency Medicine 01/02/19 documented as of this encounter
--- OUTSIDE RECORDS SUMMARY | 2024-02-11 09:29 | XMS_ITS | Encounter Summary ---
Author Organization [place] Address [address] [facility] [place] [address] Care Team Providers Care Billet Assembler Name Role Phone Rich Resendez MD Primary Care Provider Reason for Referral * Consultation (Routine: Next available opening) - Pending Review Specialty Diagnoses / Procedures Referred By Vale argueta Referred To Contact Diagnoses Dichorionic diamniotic twin in first trimester Joint derangement Katiana Montez CNM [address] [place] [address] Referral ID Status Reason Start Date Expiration Date V isits Requested Visits Authorized [id number] Pending Review 12/02/2023 12/01/2024 1 1 * Diagnostic Imaging Ultrasound (Routine) - Pending Review Specialty Diagnoses / Procedures Referred By Vale argueta Referred To Contact Radiology. Diagnoses Dichorionic diamniotic twin in first trimester Joint derangement Procedures MFM Twins Nuchal Trans w/US Katiana Montez CNM [address] [place] [address] Referral ID Status Reason Start Date Expiration Date V isits Requested Visits Authorized [id number] Pending Review 12/02/2023 12/01/2024 1 1 Encounter Details Date Type Department Care Team (Late st Contact Info) Description 12/02/2023 [facility] Medicine [facility] [place] [address] [place] [address] Elsie Blanchard RN Dichorionic diamniotic twin in [...] Type Priority Associated Diagnoses Orde r Schedule [facility] Genetic Counseling Referral Routine: Next available opening Dichorionic diamniotic twin in first trimester Joint derangement Expected: 12/02/2023 (Approximate), Expires: 12/01/2024 documented as of this encounter Results * [facility] Twins Nuchal Trans w/US (12/17/2023 2:19 PM [...] ? Study Date: ??12/17/2023 1:29pm Pat. NO: ??[id number] ?Referring ??MD: AUGUST SADIE Site: ? Cryptography Teacher: Patricia Irvin RDMS : ??1995 ?Age: ?? [...] gestation and [facility] at patient's request. Return to primary provider for continued care. Thank-you for the opportunity to participate in the care of this patient. If you have questions regarding today's evaluation or if we can be of further service, please contact the Maternal- Medicine Center. anomalies may be present but not detected Procedure Note Rima Portillo MD - 12/17/2023 NT ----- Pat. Name: ELLILENORE Study Date: 12/17/2023 1:29pm Pat. NO: [id number] Referring MD: LAITSHA NOEL Site: Cryptography Teacher: Patricia Irvin RDMS : 1995 Age: 28 [...] [facility]. Please see the EPIC chart for [...] weeksgestation and has been [facility] atpatient's request. Return to primary [...] for early gestational age. Katiana Montez CN [facility] documented in this encounter Visit Diagnoses Diagnosis Dichorionic diamniotic twin in first trimester- Primary Twin , antepartum Joint derangement Unspecified derangement, joint, site unspecified Dichorionic diamniotic twin in first trimester Twin , antepartum Joint derangement Unspecified derangement, joint, site unspecified documented in this encounter Care Teams Billet Assembler Relationship Specialty Start Date End Date Rich Resendez MD [address] [address] PCP - General Emergency Medicine 01/02/19 documented as of this encounter
--- OUTSIDE RECORDS SUMMARY | 2024-02-11 09:29 | XMS_ITS | Encounter Summary ---
Author Organization [place] Address [address] [facility] 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 Maternal Medicine Center [address] [address] Rima Portillo MD [address] [place], [place] [address] [address] [address] Roxane Goldstein GC [address] [place] [id number] screening encounter (Primary Dx); Dichorionic diamniotic [...] Roxane Goldstein, - 12/17/2023 12:45 PM CDT [facility] Genetic Counseling Consult Patient: Constance Lugo Daily Date of : 1995 Date of Service: 12/17/23 Constance Lugo Daily was seen at [facility] M[facility] for genetic consultation to discuss the options for screening and testing for chromosome abnormalities. The indication for genetic counseling is desire to discuss options for genetic screening and diagnostics. Constance was accompanied to the appointment today by her nldqye-ii-eey (her brother's ) Yumi. IMPRESSION/ PLAN 1. Constance has not had genetic screening in this but elected to have screening today. 2. During today's [facility] visit, Constance had blood draw for NIPS (Panorama) through [employer]. The NIPS screens for trisomy 21, 18, [...] results, including sex, will be available in [employer]. 3. Constance had a blood draw for expanded carrier screening (Horizon carrier screen, 613 conditions,through [employer]). Results are expected within 14-21 days, and will be available in [employer]. We willcontact her to discuss the results, and a copy will be forwarded to the office of the referring OB provider. The patient was informed that results will also be available via [employer]. Consent to communicate form to share results [...] (EDS) at age 11 at [facility] and met many criteria but did not [...] as uterine or gastrointestinal). Constance also had [facility] consultation today with Dr. Portillo to discuss management recommendations. Please see [facility] consult note for details. FAMILY HISTORY A three-generation pedigree was obtained today and is scanned under the Media tab in [employer]. The family history was reported by Constance and her rrrnpl-xf-lzc Yumi. The following significant findings were reported [...] has a follow-up appointment with genetics at [facility] in January to discuss further testing. Constance [...] common genes related to nonsyndromic hearing loss. [place] screen involves a hearing screen and this family history can be sharedwith the coyote hunter. Constance had a sister who was born [...] dominant conditions. screening was reviewed. About [place] Screening Autosomal recessive conditions happen when a [...] option of proceeding with testing through either [employer] (up to 267 conditions) or [employer] (up to 613 conditions). After reviewing the [...] likely pathogenic. Although carrier status does not job change crew member time, it is possible that a variant could be reclassified as more information about the variant is learned. If this occurs, the couple will be contacted and a new risk assessment will be provided. We discussed that [employer] will generate a cost estimate and contact the patient with their expected don-pg-ezuzyi cost. If the estimated gpi-cn-lygorl cost is estimated to exceed $349, a patient-pay option of $349 is available. The patient must select this option in the [employer] portal within a specific window after receiving their cost estimate. It is the patient's responsibility to determine whether insurance billing or patient pay is a better financial decision and to follow up with [employer] to make the selection for patient pay if desired. The patient was also provided with a [employer] billing card and is encouraged to contact [employer]'s billing office directly if they have additional [...] conditions. NIPT run on a SNP platform (Wizzgo) can screen for monosomy X if the [...] one twin is a male. SNP-based NIPT ([employer] through [employer]) allows for sex to be reported for [...] higher than MPSS platforms. We discussed that [employer] or [employer] will perform a benefits investigation to determine coverage, butthat it is the patient's responsibility to select billing through insurance or self-pay ($249 for either test). If no contact from [employer] or [employer] is received, of if she is very concerned about cost, the patient should contact [employer]'s or [employer]'s billing office at the number provided today. [...] options: Nuchal translucency (NT) ultrasound Ultrasound between [id number] that includes nuchal translucency measurement and nasal [...] was a pleasure to be involved with Constance???s [facility]. Zesh-cj-ickn time of the meeting was 45 minutes. Roxane Goldstein [facility] Certified and [place] Licensed Genetic Counselor [facility] Maternal Medicine Office: [phone] MF: [phone] [facility] documented in this encounter Plan of Treatment Not on file documented as of this encounter Results * Other Laboratory; Iain; Tanja (Laboratory Miscellaneous Order) (12/17/2023 5:30 PM CDT) Specimen Status Specimen received. Reordered and sent to performing laboratory. Report to follow upon completion. [facility] 12/18/2023 2:56 PM CDT [facility] Performing Laboratory Iain RAMAKRISHNA 12/18/2023 2:56 PM CDT [facility] Test Name Horizon [facility] 12/18/2023 2:56 PM CDT UR LAB[facility]ATORY Blood BLOOD SPECIMEN / Unknown Venipuncture / Unknown 12/17/2023 5:30 PM CDT 12/17/2023 5:35 PM CDT Roxane Goldstein LAB - BLOOD ORDERABL ES Performing Organization Address City/[facility] [address]/ZIP Co de Phone Number [facility] [place] [facility] [address] [facility], [address] [place] [address], [facility]ATORY [facility] Acute Care Lab [facility], [address] [address] * Other Laboratory; Iain; Robertorasandra (Laboratory Miscellaneous Order) (12/17/2023 5:29 PM CDT) Specimen Status Specimen received. Reordered and sent to performing laboratory. Report to follow upon completion. [facility] 12/18/2023 2:50 PM CDT [facility] Performing Laboratory Iain [facility] 12/18/2023 2:50 PM CDT UR LABORATORY Test Name Panorasandra [facility] 12/18/2023 2:50 PM CDT UR LABORATORY Blood BLOOD SPECIMEN / Unknown Venipuncture / Unknown 12/17/2023 5:29 PM CDT 12/17/2023 5:30 PM CDT Roxane Goldstein LAB - BLOOD ORDERABL ES [facility] [place] [facility] [address] [facility], [address] [place] [address], [facility] UR LABORATORY [facility] Acute Care Lab [address] [facility], [address] [address], [facility] documented in this encounter Visit Diagnoses Diagnosis screening encounter- Primary Unspecified screening Dichorionic diamniotic twin in first trimester Twin , antepartum Encounter of female for testing for genetic disease carrier status for procreative management Testing of female for genetic disease carrier status documented in this encounter Care Teams Loom Blower Relationship Specialty Start Date End Date Rich Resendez MD [facility] [address] [place] [address] PCP - General Emergency Medicine 01/02/19 documented as of this encounter
--- OUTSIDE RECORDS SUMMARY | 2024-02-11 09:29 | XMS_ITS | Encounter Summary ---
Author Organization [place] Address [address] [place] [address]. [place] [address] Care Team Providers Care Accountant Property Name Role Phone Rich Resendez MD Primary Care Provider Encounter Details Date Type Department Care Team (Late st Contact Info) Description 12/11/2023 [facility] [address] [place] [address] [address] [place] [phone] [place] Social History Tobacco Use Types Packs/Day Years [...] on filedocumented in this encounter Care Teams Accountant Property Relationship Specialty Start Date End Date Rich Resendez MD [facility] [address] [place] [address] PCP - General Emergency Medicine 01/02/19 documented as of this encounter
--- OUTSIDE RECORDS SUMMARY | 2024-02-11 09:29 | XMS_ITS | Encounter Summary ---
Author Organization [place] Address [address] [facility] [address] Care Team Providers Care Animal Feeder Name Role Phone Rich Resendez MD Primary Care Provider Reason for Referral * Consultation (Routine: Next available opening) - Pending Review Specialty Diagnoses / Procedures Referred By Vale t Referred To Contact Diagnoses related condition, antepartum Jone August [address] [place] [address] Maternal Med [address] [place] [address] Referral ID Status Reason Start Date Expiration Date V isits Requested Visits Authorized [id number] Pending Review 12/02/2023 12/01/2024 1 1 Question Answer Preferred Location: [facility] [place] [facility] 06/30/2024 Ultrasound MFM Recommendation US PROC [...] Genetic Counseling Consultation: No fax [facility] August Jone [phone] Comments twin preg, di-di, joint derangement, supervision of other high risk preg Encounter Details Date Type Department Care Team (Latest Contact Info) Description 12/02/2023 Transcribe Orders [facility] Maternal Medicine Center [place] [address] [place] [address] JoneAugust [facility] [address] [address] related condition, antepartum (Primary Dx) Social History [...] Primary documented in this encounter Care Teams Animal Feeder Relationship Specialty Start Date End Date Rich Resendez MD [facility] [address] [place] [address] PCP - General Emergency Medicine 01/02/19 documented as of this encounter
--- NOTE | 2024-02-11 09:30 | CRLHL7_ITS ---
For Patients: As a result of the Century Cures Act, medical imaging exams and procedure reports are released immediately into your electronic medical record. You may view this report before your referring provider. If you have questions, please contact your health care provider. INDICATION: DI DI TWINS, HISTORY OF LABOR COMPARISON: 01/13/2024 TECHNIQUE: Real-time paul-scale imaging of the pelvis was performed. FINDINGS: Transvaginal imaging of the cervix performed. The cervix is closed and measures 4.5 cm. No funneling. Twin A: Vertex position, maternal right. Single deepest pocket of 5.6 cm. heart rate 144 beats per minute. Twin B: Variable position, maternal left. heart rate 139 beats per minute. Amniotic fluid single deepest pocket 5.9 cm. IMPRESSION: Closed cervix measuring 4.5 cm. Dictated by Roland Roberto MD @ 02/11/2024 12:14:10 PM (Electronically Signed)
== END 2024-02-11 09:27 | disposition home or self-care (01) ==
LOC: US 09:26
PROVIDERS: PCP Internal Medicine; Visit Provider Obstetrics & Gynecology
DX: O30.041 Twin pregnancy, dichorionic/diamniotic, first trimester (principal)
CPT/HCPCS: 76816; 76817

== ENCOUNTER 2024-02-25 10:43 | Outpatient (CLI) | payer BC, SELFPAY ==
--- NOTE | 2024-02-25 10:46 | CRLHL7_ITS ---
For Patients: As a result of the Century Cures Act, medical imaging exams and procedure reports are released immediately into your electronic medical record. You may view this report before your referring provider. If you have questions, please contact your health care provider. INDICATION: hx of labor, cx length and FHR COMPARISON: 02/11/2024 TECHNIQUE: Real-time paul-scale imaging of the pelvis was performed. FINDINGS/IMPRESSION: Transvaginal cervical measurement 4.5 cm without pressure and 3.4 cm with pressure. No endocervical fluid. No funneling. Amniotic fluid is normal. Twin A heart rate 150 beats per minute. Twin B heart rate 145 beats per minute. Dictated by Roland Roberto MD @ 02/26/2024 2:00:44 PM (Electronically Signed)
--- OUTSIDE RECORDS SUMMARY | 2024-02-25 10:46 | XMS_ITS | Encounter Summary ---
Author Organization [place] Address [facility] [place] [address] Care Team Providers Care Inside Sales Executive Name Role Phone Rich Resendez MD Primary Care Provider Encounter Details Date Type Department Care Team (Latest Contact Info) Description 12/12/2023 Travel Social History Tobacco Use Types Packs/Day Years Used Date Smoking Tobacco: Never Assessed Comments No Sex and Gender Information Value Date Recorded Sex Assigned at Female 12/03/2023 6:00 PM CDT Legal Sex Female 5:52 AM CDT Gender Identity Female 12/03/2023 6:00 PM CDT Sexual Orientation Straight 12/03/2023 6: 00 PM CDT documented as of this encounter Plan of Treatment Not on file documented as of this encounter Visit Diagnoses Not on filedocumented in this encounter Care Teams Inside Sales Executive Relationship Specialty Start Date End Date Rich Resendez MD [facility] [address] [place] [address] PCP - General Emergency Medicine 01/02/19 documented as of this encounter
--- OUTSIDE RECORDS SUMMARY | 2024-02-25 10:46 | XMS_ITS | Encounter Summary ---
Author Organization [place] Address [address] [place] [address]. [place] [address] Care Team Providers Care Flight Dynamicist Name Role Phone Rich Resendez MD Primary Care Provider Encounter Details Date Type Department Care Team (Late st Contact Info) Description 12/11/2023 [facility] [address] [place] [address] [address] [place] [phone] [place] Social History Tobacco Use Types Packs/Day Years [...] on filedocumented in this encounter Care Teams Flight Dynamicist Relationship Specialty Start Date End Date Rich Resendez MD [facility] [address] [place] [address] PCP - General Emergency Medicine 01/02/19 documented as of this encounter
--- OUTSIDE RECORDS SUMMARY | 2024-02-25 10:46 | XMS_ITS | Encounter Summary ---
Author Organization [place] Address [address] [facility] [place] [address] Care Team Providers Care Graphics Software Engineer Name Role Phone Rich Resendez MD Primary Care Provider Reason for Visit * Reason Onset Date Comments Clinic Care Coordination - Follow-up 12/18/2023 Encounter Details Date Type Department Care Team (Late st Contact Info) Description 12/18/2023 Telephone [facility] Maternal Medicine Center [place] [address] [place] [id number] Roxane Goldstein, [address] [place] [address] [address] [place] [address] Clinic Care Coordination - Follow-up [...] on filedocumented in this encounter Care Teams Graphics Software Engineer Relationship Specialty Start Date End Date Rich Resendez MD [facility] [address] [place] [address] PCP - General Emergency Medicine 01/02/19 documented as of this encounter
--- OUTSIDE RECORDS SUMMARY | 2024-02-25 10:46 | XMS_ITS | Clinical Summary ---
Author Organization [place] Address [address] [place] [address] Care Team Providers Care Home Delivery Driver Name Role Phone Rich Resendez MD Primary Care Provider Allergies Active Allergy Reactions Criticality Noted Date Comments Ketorolac Difficulty breathing,Itching High 015 Latex Rash Low 01/01/2019 Medications butalbital-acet aminophen-caffe ine (FIORICET/ESGIC ) 50-325-40 MG tabletIndicatio ns:Migraine Take 1 tablet by mouth every 6 hours as needed for headaches Active MV-Min-Fe Fum-FA-DHA ( 1 PO) Take 1 tablet by mouth daily Active ASPIRIN LOW DOSE 81 MG EC tablet Take 81 mg by mouth daily Active Active Problems Problem Noted Date Diagnosed Date Encounter for triage in patient 019 Estimated Date of Delivery Comme nts Yes 06/30/2024 Based on last me nstrual period of 09/24/2023 Resolved Problems Problem Noted Date Diagnosed Date Resolved Date related condition in second trimester 12/18/2023 12/18/2023 Encounters Date Type Department Care Team Description 02/01/2024 9:15 AM CDT Office Visit [facility] [place] [address] [place], [place] [phone] Raymundo Sinha MD Dichorionic diamniotic twin in second trimester (Primary Dx); H/O delivery, currently , second trimester 02/01/2024 7:57 AM CDT - 02/01/2024 11:59 PM CDT Hospital Encounter [facility] Maternal Medicine [facility] [address] [place] [phone] Raymundo Sinha MD related condition, antepartum Discharge Disposition: Home or Self Care 02/01/2024 Travel 01/29/2024 Travel 01/28/2024 Transcribe Orders [facility] Maternal Medicine [facility] [address] [place] [address] Monica Noel related condition, antepartum (Primary Dx) 12/30/2023 Telephone [facility] Maternal Medicine [facility] [address] [place] [address] Kaitlin Olivera GC 12/28/2023 Medical Correspondence [facility] [address] [place] [phone] Scan, Non-Provider 12/28/2023 Telephone [facility] Maternal Medicine [facility] [address] [place] [phone] Kaitlin Olivera GC Results (NIPT) 12/18/2023 Telephone [facility] Maternal Medicine [facility] [address] [place] [address] Roxane Goldstein GC Clinic Care Coordination - Follow-up 12/17/2023 4:00 PM CDT Lab [facility] [address] [place] [phone] Rima Portillo MD Dichorionic diamniotic twin in first trimester; screening encounter; Encounter of female for testing for genetic disease carrier status for procreative management 12/17/2023 2:15 PM CDT Office Visit [facility] Maternal Medicine [facility] [address] [place] [address] Rima Portillo MD Dichorionic diamniotic twin in first trimester (Primary Dx); History of delivery, currently in first trimester 12/17/2023 12:45 PM CDT Office Visit [facility] Maternal Medicine [facility] [address] [place] [address] Rima Portillo MD Meyer, Jennifer R, GC screening encounter (Primary Dx); Dichorionic diamniotic twin in first trimester; Encounter of female for testing for genetic disease carrier status for procreative management 12/17/2023 12:24 PM CDT - 12/17/2023 11:59 PM CDT Hospital Encounter [facility] Maternal Medicine [facility] [address] [place] [address] Rima Portillo MD Dichorionic diamniotic twin in first trimester; Joint derangement Discharge Disposition: Home or Self Care 12/17/2023 Travel 12/15/2023 PRE VISIT [facility] Medicine [facility] [address] [place] [address] Lilia Moctezuma RN Genetic Counseling (Di/di twins, PCOS, Fibromyalgia, BMI>30, hx PPROM/PTD); Ultrasound (Twin NT- Di/di twins, PCOS, Fibromyalgia, BMI>30, hx PPROM/PTD/); Consult (Di/di twins, PCOS, Fibromyalgia, BMI>30, hx PPROM/PTD/) 12/12/2023 Travel 12/11/2023 MyC Medical Advice [facility] [address] [facility] [address] [place] [address] Lorne Montemayor 12/03/2023 Transcribe Orders [facility] Medicine [facility] [address] [place] [address] Monica Noel related condition (Primary Dx) 12/02/2023 Orders Only [facility] Medicine [facility] [address] [place] [address] Elsie Blanchard, RN Dichorionic diamniotic twin in first trimester (Primary Dx); Joint derangement 12/02/2023 Transcribe Orders [facility] Maternal Medicine [facility] [address] [place] [phone] Senaaugust related condition, antepartum (Primary Dx) 12/01/2023 Medical Correspondence [facility] [address] [place] [address] Scan, Non-Provider from Last 3 Months [...] 9:44 AM CDT ?Comprehensive ----- Pat. Name: ELLI LENORE ? Study Date: ??02/01/2024 8:01am Pat. NO: ??[id number] ?Referring ??MD: MONICA SADIE Site: ? Access Services Representative: ??Kimberly Hernandez RDMS : ??1995 ?Age: ?? [...] ?0 lb 9 ?oz EFW by ?Hadlock (UWX-PX-AB-FL) EFW discordance ?0.5 ? % Head / Face / Neck Biometry: Casserole Preparer ?6.5 ? mm CM ? 5.4 ? [...] ?0 lb 9 ?oz EFW by ?Hadlock (DBE-PN-FW-FL) EFW discordance ?0.5 ? % Head / Face / Neck Biometry: Casserole Preparer ?7.4 ? mm CM ? 4.6 ? [...] view. RVOT view. LVOT view. 3-vessel view. 0-aieexu-wrrubjd view. Situs. Aortic arch view. Bicaval view. [...] view. RVOT view. LVOT view. 3-vessel view. 2-osurst-kfjmdeb view. Situs. Aortic arch view. Bicaval view. [...] has the cervical length assessments scheduled in [place] and will check to see if she [...] - 02/01/2024 Comprehensive ----- Pat. Name: LENORE DEL TORO Study Date: 02/01/2024 8:01am Pat. NO: [id number] Referring MD: MONICA NOEL Site: Access Services Representative: Kimberly Hernandez RDMS : 1995 Age: 29 [...] EFW (lb,oz) 0 lb 9oz EFW by Hadlock(QCF-LB-PP-FL) EFW discordance 0.5% Head / Face / Neck Biometry: Casserole Preparer 6.5mm CM 5.4mm Nasal bone 5.9mm Fetus 2: BIOMETRY ----- BPD 42.2mm 18w 5dHadlock OFD 54.4mm 18w 1dNicolaides HC 156.1mm 18w 4dHadlock Cerebellum tr 18.2mm 18w 1dNicolaides Nuchal fold 3.5mm AC 136.3mm 19w 1d 64%Hadlock Femur 28.1mm 18w 4dHadlock Humerus 29.0mm 19w 3dJeanty Weight Calculation: EFW 259g 59%Hadlock EFW (lb,oz) 0 lb 9oz EFW by Hadlock(SGT-QT-AQ-FL) EFW discordance 0.5% Head / Face / Neck Biometry: Casserole Preparer 7.4mm CM 4.6mm Nasal bone 6.0mm Fetus 1: ANATOMY ----- The following structures appear normal: Head / Neck Cranium. Head size. Head shape.Lateral ventricles. Choroid plexus. Midline falx. Cavum septi pellucidi.Cerebellum. Cisterna magna. Parenchyma. Thalami. Vermis. Neck. Nuchal fold. Face Lips. Profile. Nose. Maxilla.Mandible. Orbits. Lens. Heart / Thorax 4-chamber view. RVOT view. LVOT view.3-vessel view. 2-cgdlho-qabzeha view. Situs. Aortic arch view. Bicavalview. Ductal [...] 4-chamber view. RVOT view. LVOT view.3-vessel view. 8-wlssdw-xgydyxi view. Situs. Aortic arch view. Bicavalview. Ductal [...] She has the cervical length assessmentsscheduled in [place] and will check to see if she [...] long and closed at 39 mm. Monica [facility] US ORDERABLES Edited Res ult - Final * (ABNORMAL) Laboratory Miscellaneous Result (12/17/2023 5:30 PM CDT) Only the most recent of2 resultswithin the time period is included. Test Name [facility] 12/30/2023 11:13 AM CDT MISCELLANEOUS TESTING See Scanned Result LABORATORY MISCELLANEOUS RESULT-Scanned(A ) 12/30/2023 11:13 AM CDT MISCELLANEOUS TESTING Blood BLOOD SPECIMEN / Unknown Venipuncture / Unknown 12/17/2023 5:30 PM CDT 12/17/2023 5:35 PM CDT oRxane Goldstein LAB - BLOOD ORDERABLES Edite d Result - Final MISCELLANEOUS TESTING * Other Laboratory; [facility]; [facility] (Laboratory Miscellaneous Order) (12/17/2023 5:30 PM CDT) Only the most recent of2 resultswithin the time period is included. Specimen Status Specimen received. Reordered and sent to performing laboratory. Report to follow upon completion. [facility] 12/18/2023 2:56 PM CDT [facility] LAB[facility]ATORY Performing Laboratory I[facility] 12/18/2023 2:56 PM CDT UR LABORATORY Test Name Tanja [facility] 12/18/2023 2:56 PM CDT UR LABORATORY Blood BLOOD SPECIMEN / Unknown Venipuncture / Unknown 12/17/2023 5:30 PM CDT 12/17/2023 5:35 PM CDT us Roxane Goldstein GC LAB - BLOOD ORDERABLES Final Result [facility]U LABORATORY [facility] Core Lab [address] [place] [address], [facility] UR LABORATORY [facility] Acute Care Lab [address] [facility], [address] [place] [address] * MFM Twins Nuchal Trans w/US (12/17/2023 [...] PM CDT ?NT ----- Pat. Name: LENORE DEL TORO ? Study Date: ??12/17/2023 1:29pm Pat. NO: ??[id number] ?Referring ??MD: AUGUST SHIRAJEFFREY Site: ? Access Services Representative: Patricia Irvin RDMS : ??1995 ?Age: ?? [...] gestation and has been scheduled at our [facility] clinic at patient's request. Return [...] - 12/17/2023 NT ----- Pat. Name: LENORE DEL TORO Study Date: 12/17/2023 1:29pm Pat. NO: [id number] Referring MD: MONICA NOEL Site: Access Services Representative: Patricia Irvin RDMS : 1995 Age: 28 [...] for an [facility]. Please see the EPIC chart for [...] weeksgestation and has been scheduled at our [facility] atpatient's request. Return to primary provider for [...] for early gestational age. Katiana Montez CN [facility] ORDERABLES Ed ited Result - Final * Genetic Lab Result - HIM Scan (12/17/2023 12:00 AM CDT) 12/17/2023 Provider Outside LAB - COPATH SPECIAL DIAG ORDER JANIE Final Result from Last 3 Months Insurance [facility] [place] [id number] [employer] [facility] Address: [address] [place] [address] [employer] [facility] Address: [address] [place] [address] Care Teams Home Delivery Driver Relationship Specialty Start Date End Date Rich Resendez MD [facility] [address] [place] [address] PCP - General Emergency Medicine 01/02/19
--- OUTSIDE RECORDS SUMMARY | 2024-02-25 10:46 | XMS_ITS | Referral Summary ---
Author Organization [place] Address [address] [place] [address]. [place] [address] Care Team Providers Care Lead Ramp Service Man Name Role Phone Rich Resendez MD Primary Care Provider Encounters Date Type Department Care Team Description 02/01/2024 Travel 02/01/2024 9:15 AM CDT Office Visit [facility] Maternal Medicine [facility] [address] [place] [address] Raymundo Sinha MD Dichorionic diamniotic twin in second trimester (Primary Dx); H/O delivery, currently , second trimester 02/01/2024 7:57 AM CDT - 02/01/2024 11:59 PM CDT Hospital Encounter [facility] Maternal Medicine [facility] [address] [place] [phone] Raymundo Sinha MD related condition, antepartum Discharge Disposition: Home or Self Care 01/29/2024 Travel 01/28/2024 Transcribe Orders [facility] Maternal Medicine [facility] [address] [place] [address] Senaaugust related condition, antepartum (Primary Dx) 12/30/2023 Telephone [facility] Maternal Medicine [facility] [address] [place] [address] Kaitlin Olivera GC 12/28/2023 Medical [facility] [address] [place] [phone] Scan, Non-Provider 12/28/2023 Telephone [facility] Maternal Medicine [facility] [address] [place] [address] Kaitlin Olivera GC Results (NIPT) 12/18/2023 Telephone [facility] Maternal Medicine [facility] [address] [place] [address] Roxane Goldstein GC Clinic Care Coordination - Follow-up 12/17/2023 4:00 PM CDT Lab [facility] [address] [place] [phone] Rima Portillo MD Dichorionic diamniotic twin in first trimester; screening encounter; Encounter of female for testing for genetic disease carrier status for procreative management 12/17/2023 Travel 12/17/2023 2:15 PM CDT Office Visit [facility] Medicine [facility] [address] [place] [address] Rima Portillo MD Dichorionic diamniotic twin in first trimester (Primary Dx); History of delivery, currently in first trimester 12/17/2023 12:24 PM CDT - 12/17/2023 11:59 PM CDT Hospital Encounter [facility] Medicine [facility] [address] [place] [phone] Rima Portillo MD Dichorionic diamniotic twin in first trimester; Joint derangement Discharge Disposition: Home or Self Care 12/17/2023 12:45 PM CDT Office Visit [facility] Medicine [facility] [address] [place] [address] Rima Portillo MD Meyer, Jennifer R, GC screening encounter (Primary Dx); Dichorionic diamniotic twin in first trimester; Encounter of female for testing for genetic disease carrier status for procreative management 12/15/2023 PRE VISIT [facility] Medicine [facility] [address] [place] [address] Lilia Moctezuma, RN Genetic Counseling (Di/di twins, PCOS, Fibromyalgia, BMI>30, hx PPROM/PTD); Ultrasound (Twin NT- Di/di twins, PCOS, Fibromyalgia, BMI>30, hx PPROM/PTD/); Consult (Di/di twins, PCOS, Fibromyalgia, BMI>30, hx PPROM/PTD/) 12/12/2023 Travel 12/11/2023 MyC Medical Advice [facility] [address] [facility] [address] [place] [phone] [facility] 12/03/2023 Transcribe Orders [facility] Maternal Medicine [facility] [address] [place] [address] JoneAugust related condition (Primary Dx) 12/02/2023 Orders Only [facility] Maternal Medicine [facility] [address] [place] [address] Elsie Blanchard RN Dichorionic diamniotic twin in first trimester (Primary Dx); Joint derangement 12/02/2023 Transcribe Orders [facility] Maternal Medicine [facility] [address] [facility] [address] [place] [phone] JoneAugust related condition, antepartum (Primary Dx) 12/01/2023 Medical Correspondence [facility] [address] [place] [phone] Scan, Non-Provider from Last 3 Months Allergies [...] tablet Take 81 mg by mouth daily 4 Active Active Problems Problem Noted Date Diagnosed [...] AM CDT ?Comprehensive ----- Pat. Name: LENORE DEL TORO ? Study Date: ??02/01/2024 8:01am Pat. NO: ??[id number] ?Referring ??MD: AUGUST [facility] Site: ? Jar Filler: ??Kimberly Hernandez RDMS : ??1995 ?Age: ?? [...] ?0 lb 9 ?oz EFW by ?Hadlock (GSN-HI-ZL-FL) EFW discordance ?0.5 ? % Head / Face / Neck Biometry: Local Sales Manager ?6.5 ? mm CM ? 5.4 ? [...] ?0 lb 9 ?oz EFW by ?Hadlock (MDD-WP-BO-FL) EFW discordance ?0.5 ? % Head / Face / Neck Biometry: Local Sales Manager ?7.4 ? mm CM ? 4.6 ? [...] view. RVOT view. LVOT view. 3-vessel view. 8-xxiwkh-qraandf view. Situs. Aortic arch view. Bicaval view. [...] view. RVOT view. LVOT view. 3-vessel view. 0-owhcia-cjtpwed view. Situs. Aortic arch view. Bicaval view. [...] has the cervical length assessments scheduled in [place] and will check to see if she [...] TORO Study Date: 02/01/2024 8:01am Pat. NO: [id number] Referring MD: LATISHA NOEL Site: Jar Filler: Kimberly Hernandez RDMS : 1995 Age: 29 [...] EFW (lb,oz) 0 lb 9oz EFW by Hadlock(HZQ-GE-ZN-FL) EFW discordance 0.5% Head / Face / Neck Biometry: Local Sales Manager 6.5mm CM 5.4mm Nasal bone 5.9mm Fetus 2: BIOMETRY ----- BPD 42.2mm 18w 5dHadlock OFD 54.4mm 18w 1dNicolaides HC 156.1mm 18w 4dHadlock Cerebellum tr 18.2mm 18w 1dNicolaides Nuchal fold 3.5mm AC 136.3mm 19w 1d 64%Hadlock Femur 28.1mm 18w 4dHadlock Humerus 29.0mm 19w 3dJeanty Weight Calculation: EFW 259g 59%Hadlock EFW (lb,oz) 0 lb 9oz EFW by Hadlock(AGY-RP-LU-FL) EFW discordance 0.5% Head / Face / Neck Biometry: Local Sales Manager 7.4mm CM 4.6mm Nasal bone 6.0mm Fetus 1: ANATOMY ----- The following structures appear normal: Head / Neck Cranium. Head size. Head shape.Lateral ventricles. Choroid plexus. Midline falx. Cavum septi pellucidi.Cerebellum. Cisterna magna. Parenchyma. Thalami. Vermis. Neck. Nuchal fold. Face Lips. Profile. Nose. Maxilla.Mandible. Orbits. Lens. Heart / Thorax 4-chamber view. RVOT view. LVOT view.3-vessel view. 4-dgqqiu-gzpvcng view. Situs. Aortic arch view. Bicavalview. Ductal [...] 4-chamber view. RVOT view. LVOT view.3-vessel view. 0-jlqpsv-gfmaqtj view. Situs. Aortic arch view. Bicavalview. Ductal [...] She has the cervical length assessmentsscheduled in [place] and will check to see if she [...] appears long and closed at 39 mm. us August Jone [facility] US ORDERABLES Edited Res ult - Final * (ABNORMAL) Laboratory Miscellaneous Result (12/17/2023 5:30 PM CDT) Only the most recent of2 resultswithin the time period is included. Test Name [facility] 12/30/2023 11:13 AM CDT MISCELLANEOUS TESTING See Scanned Result LABORATORY MISCELLANEOUS RESULT-Scanned(A ) 12/30/2023 11:13 AM CDT MISCELLANEOUS TESTING Blood BLOOD SPECIMEN / Unknown Venipuncture / Unknown 12/17/2023 5:30 PM CDT 12/17/2023 5:35 PM CDT us Roxane Goldstein GC LAB - BLOOD ORDERABLES Edite d Result - Final MISCELLANEOUS TESTING * Other Laboratory; Iain; [facility] (Laboratory Miscellaneous Order) (12/17/2023 5:30 PM CDT) Only the most recent of2 resultswithin the time period is included. Specimen Status Specimen received. Reordered and sent to performing laboratory. Report to follow upon completion. [facility] 12/18/2023 2:56 PM CDT [facility] LABORATORY Performing Laboratory Iain [facility] 12/18/2023 2:56 PM CDT UR LABORATORY Test Name [facility] 12/18/2023 2:56 PM CDT UR LABORATORY Blood BLOOD SPECIMEN / Unknown Venipuncture / Unknown 12/17/2023 5:30 PM CDT 12/17/2023 5:35 PM CDT us Roxane Goldstein GC LAB - BLOOD ORDERABLES Final Result [facility] LABORATORY [facility] [place] Core Lab [address] [facility] [facility] [address], [address] [place] [address], [facility] UR LABORATORY [facility] Acute Care Lab [address] [facility], [address] [place] [address], [facility] * MFM Twins Nuchal Trans [...] ? Study Date: ??12/17/2023 1:29pm Pat. NO: ??[id number] ?Referring ??: LATISHA NOEL Site: ? Jar Filler: Patricia Irvin RDMS : ??1995 ?Age: ?? [...] gestation and has been scheduled at our [facility] clinic at patient's request. Return to [...] TORO Study Date: 12/17/2023 1:29pm Pat. NO: [id number] Referring MD: LATISHA NOEL Site: Jar Filler: Patricia Irvin RDMS : 1995 Age: 28 [...] weeksgestation and has been scheduled at our [facility] clinic atpatient's request. Return to primary [...] anatomy appears normal for early gestational age. us Katiana MULLINS [facility] US ORDERABLES Ed ited Result - Final * Genetic Lab Result - HIM Scan (12/17/2023 12:00 AM CDT) 12/17/2023 us Provider Outside LAB - COPATH SPECIAL DIAG ORDER JANIE Final Result from Last 3 Months Insurance [employer] [place] [employer] [place] Care Teams Lead Ramp Service Man Relationship Specialty Start Date End Date Rich Resendez MD [facility] [address] [place] [address] PCP - General Emergency Medicine 01/02/19
--- OUTSIDE RECORDS SUMMARY | 2024-02-25 10:46 | XMS_ITS | Encounter Summary ---
Author Organization [place] Address [address] [facility] [place] [address] Care Team Providers Care Mangle Roll Operator Name Role Phone Rich Resendez MD Primary Care Provider Reason for Referral * Diagnostic Imaging Ultrasound (Routine) - Pending Review Specialty Diagnoses / Procedures Referred By Vale argueta Referred To Contact Radiology. Diagnoses Dichorionic diamniotic twin in first trimester Joint derangement Procedures MFM Twins Nuchal Trans w/US Katiana Montez CNM [address] [facility] [address] [place] [address] Phone: tel: fax: Referral ID Status Reason Start Date Expiration Date V isits Requested Visits Authorized [id number] Pending Review 12/02/2023 12/01/2024 1 1 Reason for Visit * Diagnostic Imaging Ultrasound (Routine) - Pending Review Specialty Diagnoses / Procedures Referred By Vale argueta Referred To Contact Radiology. Diagnoses Dichorionic diamniotic twin in first trimester Joint derangement Procedures MFM Twins Nuchal Trans w/US Katiana Montez CNM [address] [place] [address] Phone: tel: fax: Referral ID Status Reason Start Date Expiration Date V isits Requested Visits Authorized [id number] Pending Review 12/02/2023 12/01/2024 1 1 Encounter Details Date Type Department Care Team (Latest Contact Info) Description 12/17/2023 12:24 PM CDT - 12/17/2023 11:59 PM CDT Hospital Encounter [facility] [place] [address] [place] [address] Rima Portillo MD [address] [place] [address] Dichorionic diamniotic twin in first trimester; Joint [...] this encounter Medications at Time of Discharge ASPIRIN LOW DOSE 81 MG EC tablet Take 81 mg by mouth daily 12/08/2023 butalbital-aceta minophen-caffein e (FIORICET/ESGIC) 50-325-40 MG tabletIndication s:Migraine Take 1 tablet by mouth every 6 [...] ? Study Date: ??12/17/2023 1:29pm Pat. NO: ??[id number] ?Referring ??MD: AUGUST SADIE Site: ? Bus Company Manager: Patricia Irvin RDMS : ??1995 ?Age: ?? [...] scheduled at our [facility] clinic at patient's request. Return to [...] [place] Study Date: 12/17/2023 1:29pm Pat. NO: [id number] Referring MD: LATISHA SADIE Site: Bus Company Manager: Patricia Irvin RDMS : 1995 Age: 28 [...] for an outpatient consultation [facility]. Please see the EPIC [...] normal for early gestational age. us [facility] ORDERAB[facility] Ed ited Result - Final documented in this encounter Visit Diagnoses Diagnosis Dichorionic diamniotic twin in first trimester Twin , antepartum Joint derangement Unspecified derangement, joint, site unspecified documented in this encounter Care Teams Mangle Roll Operator Relationship Specialty Start Date End Date Rich Resendez MD [facility] [address] [place] [address] PCP - General Emergency Medicine 01/02/19 documented as of this encounter
--- OUTSIDE RECORDS SUMMARY | 2024-02-25 10:46 | XMS_ITS | Encounter Summary ---
Author Organization [place] Address [address] [place] [address] Care Team Providers Care Elementary Vocal Music Teacher Name Role Phone Rich Resendez MD Primary Care Provider Reason for Visit * Reason Comments Genetic Counseling screening * Consultation (Routine: Next available opening) - Pending Review Specialty Diagnoses / Procedures Referred By Contac t Referred To Contact Diagnoses Dichorionic diamniotic twin in first trimester Joint derangement Katiana Montez CNM [address] [place] [address] Phone: tel: fax: Referral ID Status Reason Start Date Expiration Date V isits Requested Visits Authorized [id number] Pending Review 12/02/2023 12/01/2024 1 1 Encounter Details Date Type Department Care Team (Late st Contact Info) Description 12/17/2023 12:45 PM CDT Office Visit [facility] Maternal Medicine Center [address] [place] [address] Rima Portillo MD [address] [id number] Roxane Goldstein GC [address] [place] [address] screening encounter (Primary Dx); Dichorionic diamniotic [...] Roxane Goldstein, - 12/17/2023 12:45 PM CDT [facility] Genetic Counseling Consult Patient: Constance Lugo Daily Date of : 1995 Date of Service: 12/17/23 Constance Lugo Daily was seen at [facility] for genetic consultation to discuss the options for screening and testing for chromosome abnormalities. The indication for genetic counseling is desire to discuss options for genetic screening and diagnostics. Constance was accompanied to the appointment today by her stvlhg-ql-sik (her brother's ) Yumi. IMPRESSION/ PLAN 1. Constance has not had genetic screening in this but elected to have screening today. 2. During today's [facility] visit, Constance had blood draw for NIPS (Panorama) through [employer]. The NIPS screens for trisomy 21, 18, [...] results, including sex, will be available in [employer]. 3. Constance had a blood draw for expanded carrier screening (Horizon carrier screen, 613 conditions,through Outright). Results are expected within 14-21 days, and will be available in [employer]. We willcontact her to discuss the results, and a copy will be forwarded to the office of the referring OB provider. The patient was informed that results will also be available via [employer]. 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 Constance also had [facility] consultation today with Dr. Portillo to discuss management recommendations. Please see [facility] consult note for details. FAMILY HISTORY A three-generation pedigree was obtained today and is scanned under the Media tab in [employer]. The family history was reported by Constance and her jieunl-cx-aau Yumi. The following significant findings were reported [...] a follow-up appointment with genetics at [facility] in January to discuss further testing. [...] family history can be sharedwith the sales service supervisor. Constance had a sister who was born [...] dominant conditions. screening was reviewed. About [place] Screening Autosomal recessive conditions happen when a [...] option of proceeding with testing through either [employer] (up to 267 conditions) or [employer] (up to 613 conditions). After reviewing the [...] likely pathogenic. Although carrier status does not knife changer time, it is possible that a variant could be reclassified as more information about the variant is learned. If this occurs, the couple will be contacted and a new risk assessment will be provided. We discussed that [employer] will generate a cost estimate and contact the patient with their expected djm-rz-buankq cost. If the estimated dbm-gk-dpxsvr cost is estimated to exceed $349, a patient-pay option of $349 is available. The patient must select this option in the [employer] portal within a specific window after receiving their cost estimate. It is the patient's responsibility to determine whether insurance billing or patient pay is a better financial decision and to follow up with [employer] to make the selection for patient pay if desired. The patient was also provided with a [employer] billing card and is encouraged to contact [employer]'s billing office directly if they have additional [...] differences. NIPT runon MPSS platform (such as [employer]) does not allow for assessment of any sex chromosome conditions. NIPT run on a SNP platform ([employer]) can screen for monosomy X if the [...] one twin is a male. SNP-based NIPT ([facility] through [employer]) allows for sex to be reported for [...] higher than MPSS platforms. We discussed that [employer] or [employer] will perform a benefits investigation to determine coverage, butthat it is the patient's responsibility to select billing through insurance or self-pay ($249 for either test). If no contact from [employer] or [employer] is received, of if she is very concerned about cost, the patient should contact [employer]'s or [employer]'s billing office at the number provided today. [...] options: Nuchal translucency (NT) ultrasound Ultrasound between [id number]-[id number] that includes nuchal translucency measurement and nasal [...] was a pleasure to be involved with [facility]. Bkay-fp-xvqg time of the meeting was 45 minutes. Roxane Goldstein RUBENS, [facility] Certified and [place] Licensed Genetic Counselor [facility] Maternal Medicine Office: [phone] MFM: [phone] [facility] MFM documented in this encounter Plan of Treatment Not on file documented as of this encounter Results * Other Laboratory; Iain; Horizon (Laboratory Miscellaneous Order) (12/17/2023 5:30 PM CDT) Specimen Status Specimen received. Reordered and sent to performing laboratory. Report to follow upon completion. RAMAKRISHNA 12/18/2023 2:56 PM CDT [facility] LAB[facility]ATORY Performing Laboratory Iain [facility] 12/18/2023 2:56 PM CDT UR LABORATORY Test Name Horizon [facility] 12/18/2023 2:56 PM CDT UR LABORATORY Blood BLOOD SPECIMEN / Unknown Venipuncture / Unknown 12/17/2023 5:30 PM CDT 12/17/2023 5:35 PM CDT Roxane Goldstein GC LAB - BLOOD ORDERABLES Final Result U LABORATORY [facility] Core Lab [address] [facility], [address] [address], [facility] UR LABORATORY [facility] [address] [place] [address], [address] [address] * Other Laboratory; Iain; [facility] (Laboratory Miscellaneous Order) (12/17/2023 5:29 PM CDT) Specimen Status Specimen received. Reordered and sent to performing laboratory. Report to follow upon completion. [facility] 12/18/2023 2:50 PM CDT [facility] LAB[facility]ATORY Performing Laboratory Iain [facility] 12/18/2023 2:50 PM CDT UR LABORATORY Test Name Panorama [facility] 12/18/2023 2:50 PM CDT UR LABORATORY Blood BLOOD SPECIMEN / Unknown Venipuncture / Unknown 12/17/2023 5:29 PM CDT 12/17/2023 5:30 PM CDT Roxane Goldstein LAB - BLOOD ORDERABLES Final Result [facility]U LABORATORY [facility] Core Lab [address] [facility], [address] [place] [address], [facility] UR LABORATORY [facility] [address] [facility], [address] [address] documented in this encounter Visit Diagnoses Diagnosis screening encounter- Primary Unspecified screening Dichorionic diamniotic twin in first trimester Twin , antepartum Encounter of female for testing for genetic disease carrier status for procreative management Testing of female for genetic disease carrier status documented in this encounter Care Teams Elementary Vocal Music Teacher Relationship Specialty Start Date End Date Rich Resendez MD [address] [address] PCP - General Emergency Medicine 01/02/19 documented as of this encounter
--- OUTSIDE RECORDS SUMMARY | 2024-02-25 10:46 | XMS_ITS | Encounter Summary ---
Author Organization [place] Address [address] [place] [address] Care Team Providers Care Transfer Machine Operator Name Role Phone Rich Resendez MD Primary Care Provider Reason for Visit * Reason Comments Ultrasound L2/TV - Di/Di twins, Encounter Details Date Type Department Care Team (Late st Contact Info) Description 02/01/2024 9:15 AM CDT Office Visit [facility] Maternal Medicine Center [place] [address] [place], [place] [address] Raymundo Sinha MD [address] [place] [address] Dichorionic diamniotic twin in second [...] trimester documented in this encounter Care Teams Transfer Machine Operator Relationship Specialty Start Date End Date Rich Resendez MD [facility] [address] [place] [address] PCP - General Emergency Medicine 01/02/19 documented as of this encounter
--- OUTSIDE RECORDS SUMMARY | 2024-02-25 10:46 | XMS_ITS | Encounter Summary ---
Author Organization [place] Address [address] [facility] [place] [address] Care Team Providers Care Supervisor Floor Assembly Name Role Phone Rich Resendez MD Primary Care Provider Reason for Visit * Reason Comments Ultrasound Twin NT- Di/di twins , fibromyalgia, PCOS, BMI>30, hx PPROM/PTD Consult Di/di twins, fibromy algia, PCOS, BMI>30, hx PPROM/PTD * Consultation (Routine: Next available opening) - Pending Review Specialty Diagnoses / Procedures Referred By Contsana t Referred To Contact Diagnoses related condition JoneAugust [facility] [address] [facility] [place] [address] Phone: tel: fax: Referral ID Status Reason Start Date Expiration Date V isits Requested Visits Authorized [id number] Pending Review 12/03/2023 12/02/2024 1 1 Encounter Details Date Type Department Care Team (Late st Contact Info) Description 12/17/2023 2:15 PM CDT Office Visit [facility] Maternal Medicine Center [place] [address] [place], [place] [address] Rima Portillo MD [address] [place] [address] Dichorionic diamniotic twin in first [...] note were not included. Maternal Medicine Center [address] [place] [address] [address], [place] [address] Main: [phone], Referring Provider: Jone MCCOY Constancecrista Del Toro is a 28 year old at 12w0d by LMP consistent with 7w5d US here for MFM consultation regarding di/di twin with joint derangement. She presents with her sister in-law for this visit. Her obstetric history is notable for vaginal delivery of male at 36w3d in 2018 and one surgical induced at 15 weeks gestation on 07/2023. Her delivery was in the setting of PPROM and labor. During that , she endorsed hypermobile joints with episodes of falls she attributed to her joints. From her chart review, she has history of fibromyalgia and deviated septum s/p septoplasty. She endorsed being evaluated at [place] at the age of 11 for Ehler [...] this has been with Dr. Becerril from [facility]. OB History Para Term AB Living [...] Medication Sig Last Dose Taking? Auth Provider Production Line Technician End Date ASPIRIN LOW DOSE 81 MG EC tablet Take 81 mg by mouth daily Taking Yes Reported, Patient MV-Min-Fe Fum-FA-DHA ( 1 PO) Take 1 tablet by mouth daily Taking Yes Reported, Patient sovkimcxvb-jfnfjgqruirhf-empbgqlb (FIORICET/ESGIC) 50-325-40 MG tablet Take 1 tablet [...] [facility]2023[facility] - Genetic Screening: Planning on NIPT [...] (we presume these will be performed through [facility]). -Targeted anatomy at 18-20 weeks (schedule at [facility] due to patient preference/appointment access to coordinate with her child's appointments at the [facility] in [place]. -Serial growth ultrasounds every 4 weeks until [...] in this encounter Nursing Notes * Lilia Moctezuma, RN - 12/17/2023 2:15 PM CDT Constance [...] can potentially do these via MFM in [place]. Pt discharged stable and ambulatory to outpatient lab. Lilia Moctezuma, RN documented in this encounter Plan of Treatment Not on file documented as of this encounter Visit Diagnoses Diagnosis Dichorionic diamniotic twin in first trimester- Primary Twin , antepartum History of delivery, currently in first trimester documented in this encounter Care Teams Supervisor Floor Assembly Relationship Specialty Start Date End Date Rich Resendez MD [facility] [address] [place] [address] PCP - General Emergency Medicine 01/02/19 documented as of this encounter
--- OUTSIDE RECORDS SUMMARY | 2024-02-25 10:46 | XMS_ITS | Encounter Summary ---
Author Organization [place] Address [facility] [place] [address] Care Team Providers Care Ross Furnace Operator Name Role Phone Rich Resendez MD [...] on filedocumented in this encounter Care Teams Ross Furnace Operator Relationship Specialty Start Date End Date Rich Resendez MD [facility] [address] [place] [address] PCP - General Emergency Medicine 01/02/19 documented as of this encounter
--- OUTSIDE RECORDS SUMMARY | 2024-02-25 10:46 | XMS_ITS | Encounter Summary ---
Author Organization [place] Address [address] [place] [address]. [place] [address] Care Team Providers Care Audio Visual Design Engineer Name Role Phone Rich Resendez MD Primary Care Provider Encounter Details Date Type Department Care Team (Late st Contact Info) Description 12/17/2023 4:00 PM CDT Lab [facility] Laboratory [facility] [place] [address] Rima Portillo MD [address] [place] [address] [address] [place] [address] Dichorionic diamniotic twin [...] Result (12/17/2023 5:30 PM CDT) Test Name [facility] 12/30/2023 11:13 AM CDT MISCELLANEOUS TESTING See Scanned Result LABORATORY MISCELLANEOUS RESULT-Scanned(A ) 12/30/2023 11:13 AM CDT MISCELLANEOUS TESTING Blood BLOOD SPECIMEN / Unknown Venipuncture / Unknown 12/17/2023 5:30 PM CDT 12/17/2023 5:35 PM CDT Roxane Goldstein LAB - BLOOD ORDERABLES Edite d Result - Final MISCELLANEOUS TESTING * Other Laboratory; Iain; [facility] (Laboratory Miscellaneous Order) (12/17/2023 5:30 PM CDT) Specimen Status Specimen received. Reordered and sent to performing laboratory. Report to follow upon completion. [facility] 12/18/2023 2:56 PM CDT [facility]U LABORATORY Performing Laboratory Iain [facility] 12/18/2023 2:56 PM CDT UR LABORATORY Test Name Tanja [facility] 12/18/2023 2:56 PM CDT UR LABORATORY Blood BLOOD SPECIMEN / Unknown Venipuncture / Unknown 12/17/2023 5:30 PM CDT 12/17/2023 5:35 PM CDT Roxane Goldstein GC LAB - BLOOD ORDERABLES Final Result UU LABORATORY [facility] [place] [facility] Lab [address] [facility] [address], [address] [place] [address], [facility] UR LABORATORY [facility] Acute Care Lab [address] [facility], [address] [place] [address], [facility] * Laboratory Miscellaneous Result (12/17/2023 5:29 [...] Final MISCELLANEOUS TESTING * Other Laboratory; Iain; [facility]ama (Laboratory Miscellaneous Order) (12/17/2023 5:29 PM CDT) Specimen Status Specimen received. Reordered and sent to performing laboratory. Report to follow upon completion. [facility] 12/18/2023 2:50 PM CDT [facility]U LABORATORY Performing Laboratory Iain [facility] 12/18/2023 2:50 PM CDT UR LABORATORY Test Name Panorama [facility] 12/18/2023 2:50 PM CDT UR LABORATORY Blood BLOOD SPECIMEN / Unknown Venipuncture / Unknown 12/17/2023 5:29 PM CDT 12/17/2023 5:30 PM CDT Roxane Goldstein GC LAB - BLOOD ORDERABLES Final Result [facility]U LABORATORY [facility] [place] [facility] [address], [address] [place] [address], [facility] UR LABORATORY [facility] Acute Care Lab [address] [facility], [address] [place] [address], [facility] documented in this encounter Visit Diagnoses Diagnosis Dichorionic diamniotic twin in first trimester Twin , antepartum screening encounter Unspecified screening Encounter of female for testing for genetic disease carrier status for procreative management Testing of female for genetic disease carrier status documented in this encounter Care Teams Audio Visual Design Engineer Relationship Specialty Start Date End Date Rich Resendez MD [facility] [address] [place] [address] PCP - General Emergency Medicine 01/02/19 documented as of this encounter
--- OUTSIDE RECORDS SUMMARY | 2024-02-25 10:46 | XMS_ITS | Encounter Summary ---
Author Organization [place] Address [address] [facility] [place] [address] Care Team Providers Care Paratransit Driver Name Role Phone Rich eRsendez MD Primary Care Provider Reason for Visit * Reason Comments Genetic Counseling Di/di twins, PCOS, F ibromyalgia, BMI>30, hx PPROM/PTD Ultrasound Twin NT- Di/di twins , PCOS, Fibromyalgia, BMI>30, hx PPROM/PTD Consult Di/di twins, PCOS, F ibromyalgia, BMI>30, hx PPROM/PTD Encounter Details Date Type Department Care Team (Late st Contact Info) Description 12/15/2023 PRE VISIT [facility] Maternal Medicine Center [place] [address] [place], [place] [address] [place], [place] [id number] Lilia Moctezuma, RN Genetic Counseling (Di/di twins, [...] on filedocumented in this encounter Care Teams Paratransit Driver Relationship Specialty Start Date End Date Rich Resendez MD [facility] [address] [place] [address] PCP - General Emergency Medicine 01/02/19 documented as of this encounter
--- OUTSIDE RECORDS SUMMARY | 2024-02-25 10:46 | XMS_ITS | Encounter Summary ---
Author Organization [place] Address [address] 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 We discussed that should her partner desire carrier screening, or should she desire an amniocentesis to sequence the genes for an additional variant, she could leandra or Roxane Goldstein MS, [facility] directly. Napgg-Gnsnk-Aejzc syndrome (SLOS) (DHCR7: c.440G>A): This condition is [...] vary. Her results are available in her Epic chart for her primary OB to review. Kaitlin Olivera MS, [facility] Licensed Genetic Counselor [facility] Pager: [phone] Office: [phone] documented in this encounter Plan of Treatment Not on file documented as of this encounter Visit Diagnoses Not on filedocumented in this encounter Care Teams Supervisor Laundry Relationship Specialty Start Date End [place] [address] PCP - General Emergency Medicine 01/02/19 documented as of this encounter
--- OUTSIDE RECORDS SUMMARY | 2024-02-25 10:46 | XMS_ITS | Encounter Summary ---
Author Organization [place] Address [address] [facility] [place] [address] Care Team Providers Care Printed Circuit Photographer Name Role Phone Rich Resendez MD Primary Care Provider Reason for Referral * Diagnostic Imaging Ultrasound (Routine) - Pending Review Specialty Diagnoses / Procedures Referred By Contac t Referred To Contact Radiology. Diagnoses related condition, antepartum Procedures MFM [facility] [place] [address] [place] [address] Phone: tel: fax: Referral ID Status Reason Start Date Expiration Date V isits Requested Visits Authorized [id number] Pending Review 01/28/2024 01/27/2025 1 1 Reason for Visit * Diagnostic Imaging Ultrasound (Routine) - Pending Review Specialty Diagnoses / Procedures [facility] Referred To Contact Radiology. Diagnoses related condition, antepartum Procedures MFM [facility] [place] [address] [address] Phone: tel: fax: Referral ID Status Reason Start Date Expiration Date V isits Requested Visits Authorized [id number] Pending Review 01/28/2024 01/27/2025 1 1 Encounter Details Date Type Department Care Team (Latest Contact Info) Description 02/01/2024 7:57 AM CDT - 02/01/2024 11:59 PM CDT Hospital Encounter [facility] Maternal Medicine [facility] [address] [place] [address] Raymundo Sinha MD [address] [place], [place] [address] related condition, antepartum Discharge Disposition: Home or [...] ? Study Date: ??02/01/2024 8:01am Pat. NO: ??[id number] ?Referring ??: MONICA NOEL Site: ? Automobile Body Customizer: ??Kimberly Hernandez RDMS : ??1995 ?Age: ?? [...] ?0 lb 9 ?oz EFW by ?[place] ([id number]) EFW discordance ?0.5 ? % Head / Face / Neck Biometry: Desk Lieutenant ?6.5 ? mm CM ? 5.4 ? [...] ?0 lb 9 ?oz EFW by ?[place] ([id number]) EFW discordance ?0.5 ? % Head / Face / Neck Biometry: Desk Lieutenant ?7.4 ? mm CM ? 4.6 ? [...] view. RVOT view. LVOT view. 3-vessel view. 8-lcgmiy-qthzdnz view. Situs. Aortic arch view. Bicaval view. [...] view. RVOT view. LVOT view. 3-vessel view. 9-rcflvb-sspfwad view. Situs. Aortic arch view. Bicaval view. [...] has the cervical length assessments scheduled in [place] and will check to see if she [...] [place] Study Date: 02/01/2024 8:01am Pat. NO: [id number] Referring MD: MONICA NOEL Site: Automobile Body Customizer: Kimberly Hernandez RDMS : 1995 Age: 29 [...] EFW (lb,oz) 0 lb 9oz EFW by [place]([id number]) EFW discordance 0.5% Head / Face / Neck Biometry: Desk Lieutenant 6.5mm CM 5.4mm Nasal bone 5.9mm Fetus 2: BIOMETRY ----- BPD 42.2mm 18w 5d[place] OFD 54.4mm 18w 1dNicolaides HC 156.1mm 18w 4d[place]lock Cerebellum tr 18.2mm 18w 1dNicolaides Nuchal fold 3.5mm AC 136.3mm 19w 1d 64%[place] Femur 28.1mm 18w 4dHadlock Humerus 29.0mm 19w 3dJeanty Weight Calculation: EFW 259g 59%[place] EFW (lb,oz) 0 lb 9oz EFW by [place]([id number]) EFW discordance 0.5% Head / Face / Neck Biometry: Desk Lieutenant 7.4mm CM 4.6mm Nasal bone 6.0mm Fetus 1: ANATOMY ----- The following structures appear normal: Head / Neck Cranium. Head size. Head shape.Lateral ventricles. Choroid plexus. Midline falx. Cavum septi pellucidi.Cerebellum. Cisterna magna. Parenchyma. Thalami. Vermis. Neck. Nuchal fold. Face Lips. Profile. Nose. Maxilla.Mandible. Orbits. Lens. Heart / Thorax 4-chamber view. RVOT view. LVOT view.3-vessel view. 5-nhjptz-ndptjii view. Situs. Aortic arch view. Bicavalview. Ductal [...] 4-chamber view. RVOT view. LVOT view.3-vessel view. 6-dfwexj-gnxzawk view. Situs. Aortic arch view. Bicavalview. Ductal [...] She has the cervical length assessmentsscheduled in [place] and will check to see if she [...] long and closed at 39 mm. [facility] US ORDERABLES Edited Res ult - Final documented in this encounter Visit Diagnoses Diagnosis related condition, antepartum documented in this encounter Care Teams Printed Circuit Photographer Relationship Specialty Start Date End Date Rich Resendez MD [address] [address] PCP - General Emergency Medicine 01/02/19 documented as of this encounter
--- OUTSIDE RECORDS SUMMARY | 2024-02-25 10:46 | XMS_ITS | Encounter Summary ---
Author Organization [place] Address [facility] [place] [address] Care Team Providers Care Client Account Representative Name Role Phone Rich Resendez MD Primary [...] on filedocumented in this encounter Care Teams Client Account Representative Relationship Specialty Start Date End Date Rich Resendez MD [facility] [address] [place] [address] PCP - General Emergency Medicine 01/02/19 documented as of this encounter
--- OUTSIDE RECORDS SUMMARY | 2024-02-25 10:46 | XMS_ITS | Encounter Summary ---
Author Organization [place] Address [address] [facility] [place] [address] Care Team Providers Care Life Management Teacher Name Role Phone Rich Resendez MD Primary Care Provider Reason for Referral * Consultation (Routine: Next available opening) - Pending Review Specialty Diagnoses / Procedures Referred By Vale argueta Referred To Contact Diagnoses Dichorionic diamniotic twin in first trimester Joint derangement Katiana Montez CNM [address] [place] [address] Phone: tel: fax: Referral ID Status Reason Start Date Expiration Date V isits Requested Visits Authorized [id number] Pending Review 12/02/2023 12/01/2024 1 1 * Diagnostic Imaging Ultrasound (Routine) - Pending Review Specialty Diagnoses / Procedures Referred By Vale argueta Referred To Contact Radiology. Diagnoses Dichorionic diamniotic twin in first trimester Joint derangement Procedures MFM Twins Nuchal Trans w/US Katiana Montez CNM [address] [place] [address] Phone: tel: fax: Referral ID Status Reason Start Date Expiration Date V isits Requested Visits Authorized [id number] Pending Review 12/02/2023 12/01/2024 1 1 Encounter Details Date Type Department Care Team (Late st Contact Info) Description 12/02/2023 [facility] Only [facility] [address] [place] [address] Elsie Blanchard RN Dichorionic diamniotic twin in [...] Type Priority Associated Diagnoses Orde r Schedule [facility] Genetic Counseling Referral Routine: Next available opening Dichorionic diamniotic twin in first trimester Joint derangement Expected: 12/02/2023 (Approximate), Expires: 12/01/2024 documented as of this encounter Results * [facility] Twins Nuchal Trans w/US (12/17/2023 2:19 [...] 5:01 PM CDT ?NT ----- Pat. Name: ELLI, LENORE ? Study Date: ??12/17/2023 1:29pm Pat. NO: ??[id number] ?Referring ??MD: AUGUST SHIRAJEFFREY Site: ? [facility] Mounter: Patricia Irvin RDMS : ??1995 ?Age: ?? [...] and has been scheduled at our [facility] clinic at patient's request. Return to [...] ELLILENORE Study Date: 12/17/2023 1:29pm Pat. NO: [id number] Referring MD: LATISHA NOEL Site: [facility] Mounter: Patricia Irvin RDMS : 1995 Age: 28 [...] [facility]. Please see the EPIC chart for [...] and has been scheduled at our [facility] clinic atpatient's request. Return to primary [...] normal for early gestational age. us [facility] Ed ited Result - Final documented in this encounter Visit Diagnoses Diagnosis Dichorionic diamniotic twin in first trimester- Primary Twin , antepartum Joint derangement Unspecified derangement, joint, site unspecified Dichorionic diamniotic twin in first trimester Twin , antepartum Joint derangement Unspecified derangement, joint, site unspecified documented in this encounter Care Teams Life Management Teacher Relationship Specialty Start Date End Date Rich Resendez MD [address] [address] PCP - General Emergency Medicine 01/02/19 documented as of this encounter
--- OUTSIDE RECORDS SUMMARY | 2024-02-25 10:46 | XMS_ITS | Encounter Summary ---
Author Organization [place] Address [address] [facility] [place] [address] Care Team Providers Care Automotive General Sales Manager Name Role Phone Rich Resendez MD Primary Care Provider Reason for Referral * Diagnostic Imaging Ultrasound (Routine) - Pending Review Specialty Diagnoses / Procedures Referred By Vale argueta Referred To Contact Radiology. Diagnoses related condition, antepartum Procedures MFM Twins US Comprehensive Sadie [place] [address] [place] [address] Phone: tel: fax: Referral ID Status Reason Start Date Expiration Date V isits Requested Visits Authorized [id number] Pending Review 01/28/2024 01/27/2025 1 1 Encounter Details Date Type Department Care Team (Latest Contact Info) Description 01/28/2024 Transcribe Orders [facility] M[facility] [address] [place] [address] [facility] [place] [address] [place] [id number] related condition, antepartum (Primary Dx) Social History [...] of this encounter Results * MFM Twins Comprehensive [...] ? Study Date: ??02/01/2024 8:01am Pat. NO: ??[id number] ?Referring ??MD: MONICA SADIE Site: ? Control Center Operator: ??Kimberly Hernandez [facility] : ??1995 ?Age: ?? 29 ----- INDICATION [...] ?0 lb 9 ?oz EFW by ?Hadlock ([id number]) EFW discordance ?0.5 ? % Head / Face / Neck Biometry: Eclectic Doctor ?6.5 ? mm CM ? 5.4 ? [...] ?0 lb 9 ?oz EFW by ?Hadlock ([id number]-FL) EFW discordance ?0.5 ? % Head / Face / Neck Biometry: Eclectic Doctor ?7.4 ? mm CM ? 4.6 ? [...] view. RVOT view. LVOT view. 3-vessel view. 2-bnxxze-fpdbrzc view. Situs. Aortic arch view. Bicaval view. [...] view. RVOT view. LVOT view. 3-vessel view. 1-fvsqfb-rjdbqcp view. Situs. Aortic arch view. Bicaval view. [...] has the cervical length assessments scheduled in [place] and will check to see if she [...] [place] Study Date: 02/01/2024 8:01am Pat. NO: [id number] Referring MD: MONICA NOEL Site: Control Center Operator: Kimberly Hernandez RDMS : 1995 Age: 29 [...] EFW (lb,oz) 0 lb 9oz EFW by Hadlock(VHP-LL-CK-FL) EFW discordance 0.5% Head / Face / Neck Biometry: Eclectic Doctor 6.5mm CM 5.4mm Nasal bone 5.9mm Fetus 2: BIOMETRY ----- BPD 42.2mm 18w 5dHadlock OFD 54.4mm 18w 1dNicolaides HC 156.1mm 18w 4dHadlock Cerebellum tr 18.2mm 18w 1dNicolaides Nuchal fold 3.5mm AC 136.3mm 19w 1d 64%Hadlock Femur 28.1mm 18w 4dHadlock Humerus 29.0mm 19w 3dJeanty Weight Calculation: EFW 259g 59%Hadlock EFW (lb,oz) 0 lb 9oz EFW by Hadlock(RSS-KY-KQ-FL) EFW discordance 0.5% Head / Face / Neck Biometry: Eclectic Doctor 7.4mm CM 4.6mm Nasal bone 6.0mm Fetus 1: ANATOMY ----- The following structures appear normal: Head / Neck Cranium. Head size. Head shape.Lateral ventricles. Choroid plexus. Midline falx. Cavum septi pellucidi.Cerebellum. Cisterna magna. Parenchyma. Thalami. Vermis. Neck. Nuchal fold. Face Lips. Profile. Nose. Maxilla.Mandible. Orbits. Lens. Heart / Thorax 4-chamber view. RVOT view. LVOT view.3-vessel view. 1-hchyoq-yalsmfr view. Situs. Aortic arch view. Bicavalview. Ductal [...] 4-chamber view. RVOT view. LVOT view.3-vessel view. 1-fwzhcq-yfloios view. Situs. Aortic arch view. Bicavalview. Ductal [...] She has the cervical length assessmentsscheduled in [place] and will check to see if she [...] and closed at 39 mm. us August Senaoff [facility] US ORDERABLES Edited Res ult - Final documented in this encounter Visit Diagnoses Diagnosis related condition, antepartum- Primary related condition, antepartum documented in this encounter Care Teams Automotive General Sales Manager Relationship Specialty Start Date End Date Rich Resendez MD [facility] [address] [place] [address] PCP - General Emergency Medicine 01/02/19 documented as of this encounter
--- OUTSIDE RECORDS SUMMARY | 2024-02-25 10:46 | XMS_ITS | Encounter Summary ---
Author Organization [place] Address [address] [place] [address]. [place] [address] Care Team Providers Care Lumber Estimator Name Role Phone Rich Resendez MD Primary Care Provider Encounter Details Date Type Department Care Team (Late st Contact Info) Description 12/01/2023 Medical Correspondence [facility] Info [facility] [address] [place] [phone] Scan, Non-Provider Social History Tobacco Use [...] on filedocumented in this encounter Care Teams Lumber Estimator Relationship Specialty Start Date End Date Rich Resendez MD [facility] [address] [place] [address] PCP - General Emergency Medicine 01/02/19 documented as of this encounter
--- OUTSIDE RECORDS SUMMARY | 2024-02-25 10:46 | XMS_ITS | Encounter Summary ---
Author Organization [place] Address [address] [facility] [place] [address] Care Team Providers Care Furniture Duster Name Role Phone Rich Resendez MD Primary Care Provider Reason for Visit * Reason Onset Date Comments Results 12/28/2023 NIPT Encounter Details Date Type Department Care Team (Late st Contact Info) Description 12/28/2023 Telephone [facility] [place] [address] [facility] [place] [address] Kaitlin Olivera GC [address] [place] [address] Results (NIPT) Social History Tobacco [...] hours. Called and spoke to a Iain business development representative who has begun this process. Constance had no further questions. Kaitlin Olivera MS, [facility] Licensed Genetic Counselor [facility] Pager: [phone] Office: [phone] documented in this encounter Plan of Treatment Not on file documented as of this encounter Visit Diagnoses Not on filedocumented in this encounter Care Teams Furniture Duster Relationship Specialty Start Date End Date Rich Resendez MD [address] [address] PCP - General Emergency Medicine 01/02/19 documented as of this encounter
--- OUTSIDE RECORDS SUMMARY | 2024-02-25 10:46 | XMS_ITS | Encounter Summary ---
Author Organization [place] Address [address] [facility] [place] [address] Care Team Providers Care Mail Forwarding System Markup Clerk Name Role Phone Rich Resendez MD Primary Care Provider Reason for Referral * Consultation (Routine: Next available opening) - Pending Review Specialty Diagnoses / Procedures Referred By Vale argueta Referred To Contact Diagnoses related condition, antepartum Jone [place] [address] [place] [address] Phone: tel: fax: [facility] [place] [address] [place] [address] Phone: tel: fax: Referral ID Status Reason Start Date Expiration Date V isits Requested Visits Authorized [id number] Pending Review 12/02/2023 12/01/2024 1 1 Question Answer Preferred Location: [facility] [place] SHORTY 06/30/2024 Ultrasound MFM Recommendation US PROC [...] Consultation No Genetic Counseling Consultation: No fax [facility] August Jone [phone] Comments twin preg, di-di, joint derangement, supervision of other high risk preg Encounter Details Date Type Department Care Team (Latest Contact Info) Description 12/02/2023 Transcribe Orders [facility] [place] [address] [place] [address] JoneAugust [facility] [address] [facility] [place] [id number] related condition, antepartum (Primary Dx) Social History [...] Primary documented in this encounter Care Teams Mail Forwarding System Markup Clerk Relationship Specialty Start Date End Date Rich Resendez MD [facility] [address] [place] [address] PCP - General Emergency Medicine 01/02/19 documented as of this encounter
--- OUTSIDE RECORDS SUMMARY | 2024-02-25 10:46 | XMS_ITS | Encounter Summary ---
Author Organization [place] Address [facility] [place] [address] Care Team Providers Care Injection Molding Machine Setter Name Role Phone Rich Resendez MD [...] on filedocumented in this encounter Care Teams Injection Molding Machine Setter Relationship Specialty Start Date End Date Rich Resendez MD [facility] [address] [place] [address] PCP - General Emergency Medicine 01/02/19 documented as of this encounter
--- OUTSIDE RECORDS SUMMARY | 2024-02-25 10:46 | XMS_ITS | Encounter Summary ---
Author Organization [place] Address [address] [facility] [address] Care Team Providers Care Recycling Specialist Name Role Phone Rich Resendez MD Primary Care Provider Reason for Referral * Consultation (Routine: Next available opening) - Pending Review Specialty Diagnoses / Procedures Referred By Vale argueta Referred To Contact Diagnoses related condition Jone [place] [address] [place] [address] Phone: tel: fax: Referral ID Status Reason Start Date Expiration Date V isits Requested Visits Authorized [id number] Pending Review 12/03/2023 12/02/2024 1 1 Question Answer Office Visit Type: MFM Consult Encounter Details Date Type Department Care Team (Latest Contact Info) Description 12/03/[address] [facility] [place] [address] [facility] [place] [place] [address] Monica Bec[place] [address] [place] [address] related condition (Primary Dx) Social History Tobacco [...] Orde r Schedule M Office Visit - [facility] Consult Referral Routine: Next available opening related condition Expected: 12/03/2023 (Approximate), Expires: 12/02/2024 documented as of this encounter Visit Diagnoses Diagnosis related condition- Primary Unspecified complication of , unspecified as to episode of care documented in this encounter Care Teams Recycling Specialist Relationship Specialty Start Date End Date Rich Resendez MD [facility] [address] [place] [address] PCP - General Emergency Medicine 01/02/19 documented as of this encounter
--- OUTSIDE RECORDS SUMMARY | 2024-02-25 10:46 | XMS_ITS | Encounter Summary ---
Author Organization [place] Address [address] [place] [address]. [place] [address] Care Team Providers Care Vendor Quality Supervisor Name Role Phone Rich Resendez MD Primary Care Provider Encounter Details Date Type Department Care Team (Late st Contact Info) Description 12/28/2023 Medical Correspondence [facility] Info [facility] [address] [place] [phone] Scan, Non-Provider Social History Tobacco Use [...] on filedocumented in this encounter Care Teams Vendor Quality Supervisor Relationship Specialty Start Date End Date Rich Resendez MD [facility] [address] [place] [address] PCP - General Emergency Medicine 01/02/19 documented as of this encounter
--- OUTSIDE RECORDS SUMMARY | 2024-02-25 10:47 | XMS_ITS | Clinical Summary ---
Author Organization [facility] Address [place], [place] [address] Care Team Providers Care Dietary Services Manager Name Role Phone Rich Resendez MD [...] Description 01/29/2024 10:00 AM CDT Ancillary Procedure [facility] [address] [place] [address] from Last 3 Months Immunizations Name Administration [...] Comments Blood Pressure 131/107 06/25/2021 3:02 AM RAILROAD INSPECTOR Pulse 95 06/25/2021 3:59 AM RAILROAD INSPECTOR Temperature 37.4 ??C (99.3 ??F) 06/25/2021 3:02 AM CS T Respiratory Rate 16 06/25/2021 3:02 AM RAILROAD INSPECTOR Oxygen Saturation 98% 06/25/2021 3:59 AM RAILROAD INSPECTOR Inhaled Oxygen Concentration - - Weight 83.9 kg (185 lb) 06/25/2021 3:02 AM RAILROAD INSPECTOR Height 167.6 cm (5' 6) 06/25/2021 3:02 AM RAILROAD INSPECTOR Body Mass Index 29.86 06/25/2021 3:02 AM RAILROAD INSPECTOR Plan of Treatment Health Maintenance Due Date [...] HPV HIGH RISK Routine 05/15/2023 12:30 PM RAILROAD INSPECTOR from Last 3 Months or Most Recently Relevant to Health Maintenance Results * ECHO TTE COMPLETE WO CONTRAST (01/29/2024 10:54 AM CDT) AORTIC VALVE MEAN PG 5 mmHg LVEDD 4.2 cm EJECTION FRACTION 65 - 70% Anatomical Region Laterality Modality Ultrasound 01/29/2024 10:1 5 AM CDT Narrative 01/29/2024 4:45 PM CDT ECHOCARDIOGRAM LENORE A DAILY ? Accession#: ?? [id number] : ?1995 29 years Study Date: ?? 01/29/2024 10:15:27 AM Gender: F ?BP: ? 132/85 mmHg Height: 168.00 cm ?BSA: ?1.94 m? ? ? Weight: 84.00 kg ? Tech: ? MBF ? Referring MD: NEETU NEGRETE Site: ? [facility] Reading Location: Mobile OP Patient Location: Outpatient. [...] . This study was interpreted by an [facility] accredited facility. CC: [facility] ([facility]) [facility]. ??Final ?? Procedure Note Isaac Silverio MD - 01/29/2024 ECHOCARDIOGRAM LENORE Lugo DAILY : 1995 29 years Study Date: 01/29/2024 10:15:27 AM Gender: F BP: 132/85 mmHg Height: 168.00 cm BSA: 1.94 m? ? ? Weight: 84.00 kg Tech: [facility] Referring MD: NEETU NEGRETE Site: [facility] Reading Location: Mobile OP Patient [...] interpreted by an [facility] accredited facility. CC: [facility] (med records) [facility]. Final Neetu Negrete MD ECHO ORD * (ABNORMAL) HPV HIGH RISK (05/15/2023 12:30 PM RAILROAD INSPECTOR) TYPE 16 Negative Negative 05/22/2023 11:44 AM RAILROAD INSPECTOR [facility] TYPE 18 Negative Negative 05/22/2023 11:44 AM RAILROAD INSPECTOR [facility] OTHER HIGH RISK TYPES Positive(A) Negative 05/22/2023 11:44 AM RAILROAD INSPECTOR [facility] Other (Cervical) Non-Blood / Unknown 05/15/2023 12:30 PM RAILROAD INSPECTOR 05/21/2023 7:37 AM RAILROAD INSPECTOR Narrative [facility] - 05/22/2023 11:44 AM RAILROAD INSPECTOR Specimen is positive for the DNA of any one of, or combination of, the following high risk HPV types: 31, 33, 35, 39, 45, 51, 52, 56, 58, 59, 66, 68. HPV types 16 and 18 DNA were undetectable or below the pre-set threshold. ? Methodology: Rollbar Mabel 4800 HPV Test Vanessa Chavez NP MICROBIOLOGY [facility] [address] [place] [address], from Last 3 Months or Most Recently Relevant to Health Maintenance Care Teams Dietary Services Manager Relationship Specialty Start Date End Date Rich Resendez MD [address] [place] [address] PCP - General Internal Medicine 07/29/20
== END 2024-02-25 10:44 | disposition home or self-care (01) ==
LOC: US 10:43
PROVIDERS: PCP Internal Medicine; Visit Provider Obstetrics & Gynecology
DX: O30.041 Twin pregnancy, dichorionic/diamniotic, first trimester (principal)
CPT/HCPCS: 76816; 76817

== ENCOUNTER 2024-03-10 07:19 | Outpatient (CLI) | payer BC, SELFPAY ==
--- NOTE | 2024-03-10 07:15 | CRLHL7_ITS ---
For Patients: As a result of the Century Cures Act, medical imaging exams and procedure reports are released immediately into your electronic medical record. You may view this report before your referring provider. If you have questions, please contact your health care provider. INDICATION: Di-Di twin , hx of labor. Growth US COMPARISON: 02/25/2024, 02/11/2024 TECHNIQUE: Real-time grayscale imaging of the twins was performed FINDINGS: Sonographic imaging demonstrates a living twin intrauterine gestation. Twin A demonstrates a regular cardiac rate of 142 beats per minute. Twin A has a vertex position. The placenta lies right anterior. Amniotic fluid volume appears normal and the largest fluid pocket measures 6.7 cm. The estimated weight is 660 gm which lies at the 46th percentile. BPD 81st percentile. HC 55th percentile. AC 44th percentile. FL 32nd percentile. The HC/AC ratio measures 1.16 range (1.04-1.22). Sonographic gestational age 24 weeks 3 days and sonographic due date of 06/27/2024. Twin B demonstrates a regular cardiac rate of 138 beats per minute. Twin B has a breech position. The placenta lies left posterior. Amniotic fluid volume appears normal and the largest fluid pocket measures 5.2 cm. The estimated weight is 723 gm which lies at the 73rd percentile. BPD 68th percentile. HC 30th percentile. AC 85th percentile. FL 29th percentile. The HC/AC ratio measures 1.04 range (1.04-1.22). Sonographic gestational age 24 weeks 4 days and sonographic due date of 06/26/2024. IMPRESSION: Appropriate interval growth of the twins. Dictated by Roland Roberto MD @ 03/10/2024 11:51:08 AM (Electronically Signed)
--- OUTSIDE RECORDS SUMMARY | 2024-03-10 07:21 | XMS_ITS | Clinical Summary ---
Author Organization [place] Address [address] [facility] [place] [address] Care Team Providers Care Corrosion Engineer Name Role Phone Rich Reesndez MD Primary Care Provider Allergies Active Allergy [...] Description 02/01/2024 9:15 AM CDT Office Visit [facility] [place] [address] [place], [place] [address] Raymundo Sinha MD Dichorionic diamniotic twin in second trimester (Primary Dx); H/O delivery, currently , second trimester 02/01/2024 7:57 AM CDT - 02/01/2024 11:59 PM CDT Hospital Encounter [facility] [address] [place] [phone] Raymundo Sinha MD related condition, antepartum Discharge Disposition: Home or Self Care 02/01/2024 Travel 01/29/2024 Travel 01/28/2024 Transcribe Orders [facility]aternal [facility] [address] [place] [address] Monica Noel related condition, antepartum (Primary Dx) 12/30/2023 Telephone [facility] Maternal Medicine [facility] [address] [place] [address] Kaitlin Olivera GC 12/28/2023 Medical Correspondence [facility] [address] [place] [phone] Scan, Non-Provider 12/28/2023 Telephone [facility] Maternal Medicine [facility] [address] [place] [phone] Kaitlin Olivera GC Results (NIPT) 12/18/2023 Telephone [facility] Maternal Medicine [facility] [address] [place] [address] Roxane Goldstein GC Clinic Care Coordination - Follow-up 12/17/2023 4:00 PM CDT Lab [facility] [address] [place] [phone] Rima Portillo MD Dichorionic diamniotic twin in first trimester; screening encounter; Encounter of female for testing for genetic disease carrier status for procreative management 12/17/2023 2:15 PM CDT Office Visit [facility] [address] [place] [address] Rima Portillo MD Dichorionic diamniotic twin in first trimester (Primary Dx); History of delivery, currently in first trimester 12/17/2023 12:45 PM CDT Office Visit [facility] [place] [address] [place] [address] Rima Portillo MD Meyer, Jennifer R, GC screening encounter (Primary Dx); Dichorionic diamniotic twin in first trimester; Encounter of female for testing for genetic disease carrier status for procreative management 12/17/2023 12:24 PM CDT - 12/17/2023 11:59 PM CDT Hospital Encounter [facility] [place] [address] [place] [phone] Rima Portillo MD Dichorionic diamniotic twin in first trimester; Joint derangement Discharge Disposition: Home or Self Care 12/17/2023 Travel 12/15/2023 PRE VISIT [facility]aternal [facility] [address] [place] [address] Lilia Moctezuma, RN Genetic Counseling (Di/di twins, PCOS, Fibromyalgia, BMI>30, hx PPROM/PTD); Ultrasound (Twin NT- Di/di twins, PCOS, Fibromyalgia, BMI>30, hx PPROM/PTD/); Consult (Di/di twins, PCOS, Fibromyalgia, BMI>30, hx PPROM/PTD/) 12/12/2023 Travel 12/11/2023 MyC Medical Advice [facility] [address] [facility] [address] [place] [phone] Lorne Montemayor from Last 3 Months Social History Tobacco [...] ? Study Date: ??02/01/2024 8:01am Pat. NO: ??[id number] ?Referring ??MD: AUGUST SADIE Site: ? Market Manager: ??Kimberly Hernandez RDMS : ??1995 ?Age: ?? [...] BPD ? 44.6 ?mm ? 19w 3d ?Rodolfo RIVAS ? 55.1 ?mm ? 18w 2d ?Nicolaides [...] ?0 lb 9 ?oz EFW by ?Hadlock ([id number]-UL-QR-FL) EFW discordance ?0.5 ? % Head / Face / Neck Biometry: Striper Machine ?6.5 ? mm CM ? 5.4 ? [...] ?0 lb 9 ?oz EFW by ?Hadlock ([id number]-XA-[id number]-FL) EFW discordance ?0.5 ? % Head / Face / Neck Biometry: Striper Machine ?7.4 ? mm CM ? 4.6 ? [...] view. RVOT view. LVOT view. 3-vessel view. 1-dpzxeq-bkmicel view. Situs. Aortic arch view. Bicaval view. [...] view. RVOT view. LVOT view. 3-vessel view. 1-vpnnzz-dijggmf view. Situs. Aortic arch view. Bicaval view. [...] has the cervical length assessments scheduled in [place] and will check to see if she [...] TORO Study Date: 02/01/2024 8:01am Pat. NO: [id number] Referring MD: MONICA NOEL Site: Market Manager: Kimberly Hernandez RDMS : 1995 Age: 29 [...] Femur, HC 19w + 0 d 06/27/2024 /S Fetus 2based upon AC, BPD, Femur, HC18 [...] EFW (lb,oz) 0 lb 9oz EFW by Hadlock(GMK-CF-QV-FL) EFW discordance 0.5% Head / Face / Neck Biometry: Striper Machine 6.5mm CM 5.4mm Nasal bone 5.9mm Fetus 2: BIOMETRY ----- BPD 42.2mm 18w 5dHadlock OFD 54.4mm 18w 1dNicolaides HC 156.1mm 18w 4dHadlock Cerebellum tr 18.2mm 18w 1dNicolaides Nuchal fold 3.5mm AC 136.3mm 19w 1d 64%Hadlock Femur 28.1mm 18w 4dHadlock Humerus 29.0mm 19w 3dJeanty Weight Calculation: EFW 259g 59%Hadlock EFW (lb,oz) 0 lb 9oz EFW by Hadlock(CKW-YI-WS-FL) EFW discordance 0.5% Head / Face / Neck Biometry: Striper Machine 7.4mm CM 4.6mm Nasal bone 6.0mm Fetus 1: ANATOMY ----- The following structures appear normal: Head / Neck Cranium. Head size. Head shape.Lateral ventricles. Choroid plexus. Midline falx. Cavum septi pellucidi.Cerebellum. Cisterna magna. Parenchyma. Thalami. Vermis. Neck. Nuchal fold. Face Lips. Profile. Nose. Maxilla.Mandible. Orbits. Lens. Heart / Thorax 4-chamber view. RVOT view. LVOT view.3-vessel view. 2-cixpcs-mvbesgz view. Situs. Aortic arch view. Bicavalview. Ductal [...] 4-chamber view. RVOT view. LVOT view.3-vessel view. 9-hjjxgq-uyxikle view. Situs. Aortic arch view. Bicavalview. Ductal [...] She has the cervical [place] assessmentsscheduled in [place] and will check to see if she can do her twin growth US there aswell. We also recommend weekly BPP at 36 weeks. We also recommend a daily low dose aspirin for pre-eclampsia prevention. Return to primary provider for continued care. If you have questions regarding today's evaluation or if we can [facility] service, please contact the M[facility] Center. [...] long and closed at 39 mm. August Toby IMG [facility] US ORDERABLES Edited Res ult - Final * (ABNORMAL) Laboratory Miscellaneous Result (12/17/2023 5:30 PM CDT) Only the most recent of2 resultswithin the time period is included. Test Name [facility] 12/30/2023 11:13 AM CDT MISCELLANEOUS TESTING See Scanned Result LABORATORY MISCELLANEOUS RESULT-Scanned(A ) 12/30/2023 11:13 AM CDT MISCELLANEOUS TESTING Blood BLOOD SPECIMEN / Unknown Venipuncture / Unknown 12/17/2023 5:30 PM CDT 12/17/2023 5:35 PM CDT Roxane Goldstein LAB - BLOOD ORDERABLES Edite d Result - Final Performing Organization Address City/State/[facility] Co de Phone Number MISCELLANEOUS TESTING * Other Laboratory; [place]; [facility] (Laboratory Miscellaneous Order) (12/17/2023 5:30 PM CDT) Only the most recent of2 resultswithin the time period is included. Specimen Status Specimen received. Reordered and sent to performing laboratory. Report to follow upon completion. [facility] 12/18/2023 2:56 PM CDT [facility] LABORATORY Performing Laboratory [facility] 12/18/2023 2:56 PM CDT UR LABORATORY Test Name [facility] 12/18/2023 2:56 PM CDT UR LABORATORY Blood BLOOD SPECIMEN / Unknown Venipuncture / Unknown 12/17/2023 5:30 PM CDT 12/17/2023 5:35 PM CDT Roxane Goldstein [employer] [facility] [employer] LAB - BLOOD ORDERABLES Final Result [facility] LABORATORY [facility] [place] Core Lab [address] [facility] [facility] [address], [address] [place] [address], [facility] UR LABORATORY [facility] Acute Care Lab [address] [facility] [address], [address] [place] [address], [facility] * MFM Twins Nuchal Trans [...] ? Study Date: ??12/17/2023 1:29pm Pat. NO: ??[id number] ?Referring ??MD: MONICA SADIE Site: ? Market Manager: Patricia Irvin RDMS : ??1995 ?Age: [...] gestation and has been scheduled at our [facility] clinic at patient's request. Return to [...] TORO Study Date: 12/17/2023 1:29pm Pat. NO: [id number] Referring MD: MONICA NOEL Site: Market Manager: Patricia Irvin RDMS : 1995 Age: [...] weeksgestation and [facility] atpatient's request. Return to primary provider [...] age. Katiana Montez CNM IMG [facility] US ORDERABLES Ed ited Result - Final * Genetic Lab Result - HIM Scan (12/17/2023 12:00 AM CDT) 12/17/2023 Provider Outside LAB - [facility] SPECIAL DIAG ORDER JANIE Final Result from Last 3 Months Insurance [employer] MD Care Teams Corrosion Engineer Relationship Specialty Start Date End Date Reister, Villanueva Silviano, MD [facility] [address] [place] [address] PCP - General Emergency Medicine 01/02/19
--- OUTSIDE RECORDS SUMMARY | 2024-03-10 07:21 | XMS_ITS | Encounter Summary ---
Author Organization [place] Address [address] [facility] [place] [address] Care Team Providers Care Bingo Caller Name Role Phone Rich Resendez MD Primary Care Provider Reason for Visit * Reason Comments Ultrasound L2/TV - Di/Di twins, Encounter Details Date Type Department Care Team (Late st Contact Info) Description 02/01/2024 9:15 AM CDT Office Visit [facility] [place] [address] [place], [place] [address] Raymundo Sinha MD [address] [place] [address] Dichorionic diamniotic twin in second [...] trimester documented in this encounter Care Teams Bingo Caller Relationship Specialty Start Date End Date Rich Resendez MD [facility] [address] [place] [address] PCP - General Emergency Medicine 01/02/19 documented as of this encounter
--- OUTSIDE RECORDS SUMMARY | 2024-03-10 07:21 | XMS_ITS | Encounter Summary ---
Author Organization [place] Address [address] [facility] [address] Care Team Providers Care Casting Repairer Name Role Phone Rich Resendez MD Primary Care Provider Reason for Visit * Reason Onset Date Comments Clinic Care Coordination - Follow-up 12/18/2023 Encounter Details Date Type Department Care Team (Late st Contact Info) Description 12/18/2023 Telephone [facility] [place] [address] [place] [phone] Roxane Goldstein, [address] [place] [address] [address] [place] [address] Clinic Care Coordination - Follow-up [...] on filedocumented in this encounter Care Teams Casting Repairer Relationship Specialty Start Date End Date Rich Resendez MD [facility] [address] [place] [address] PCP - General Emergency Medicine 01/02/19 documented as of this encounter
--- OUTSIDE RECORDS SUMMARY | 2024-03-10 07:21 | XMS_ITS | Encounter Summary ---
Author Organization [place] Address [address] [place] [address] Care Team Providers Care Site Planner Name Role Phone Rich Resendez MD Primary Care Provider Reason for Visit * Reason Onset Date Comments Results 12/28/2023 NIPT Encounter Details Date Type Department Care Team (Late st Contact Info) Description 12/28/2023 Telephone [facility] M[facility] Medicine [facility] [place] [address] [facility] [address] [place] [address] Kaitlin Olivera GC [address] [place] [address] Results (NIPT) Social History Tobacco [...] hours. Called and spoke to a [employer] admissions representative who has begun this process. Constance had no further questions. Kaitlin Olivera MS, [facility] Licensed Genetic Counselor [facility] Pager: [phone] Office: [phone] documented in this encounter Plan of Treatment Not on file documented as of this encounter Visit Diagnoses Not on filedocumented in this encounter Care Teams Site Planner Relationship Specialty Start Date End Date Rich Resendez MD [address] [address] PCP - General Emergency Medicine 01/02/19 documented as of this encounter
--- OUTSIDE RECORDS SUMMARY | 2024-03-10 07:21 | XMS_ITS | Encounter Summary ---
Author Organization [place] Address [facility] [place] [address] Care Team Providers Care Web Sizer Name Role Phone Rich Resendez MD Primary [...] on filedocumented in this encounter Care Teams Web Sizer Relationship Specialty Start Date End Date Rich Resendez MD [facility] [address] [place] [address] PCP - General Emergency Medicine 01/02/19 documented as of this encounter
--- OUTSIDE RECORDS SUMMARY | 2024-03-10 07:21 | XMS_ITS | Encounter Summary ---
Author Organization [place] Address [address] [facility] 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 We discussed that should her partner desire carrier screening, or should she desire an amniocentesis to sequence the genes for an additional variant, she could leandra or Roxane Goldstein MS, [facility] directly. 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 Kaitlin Olivera MS, [facility] Licensed Genetic Counselor [facility] Pager: [phone] Office: [phone] documented in this encounter Plan of Treatment Not on file documented as of this encounter Visit Diagnoses Not on filedocumented in this encounter Care Teams Manager Construction Relationship Specialty Start Date End [place] [address] PCP - General Emergency Medicine 01/02/19 documented as of this encounter
--- OUTSIDE RECORDS SUMMARY | 2024-03-10 07:21 | XMS_ITS | Encounter Summary ---
Author Organization [place] Address [address] [place] [address]. [place] [address] Care Team Providers Care Replenishment Buyer Name Role Phone Rich Resendez MD Primary Care Provider Encounter Details Date Type Department Care Team (Late st Contact Info) Description 12/28/2023 Medical Correspondence [facility] Info [facility] [address] [place] [address] Scan, Non-Provider Social History Tobacco Use [...] on filedocumented in this encounter Care Teams Replenishment Buyer Relationship Specialty Start Date End Date Rich Resendez MD [facility] [address] [place] [address] PCP - General Emergency Medicine 01/02/19 documented as of this encounter
--- OUTSIDE RECORDS SUMMARY | 2024-03-10 07:21 | XMS_ITS | Encounter Summary ---
Author Organization [place] Address [facility] [place] [address] Care Team Providers Care Apartment Leasing Manager Name Role Phone Rich Resendez MD [...] on filedocumented in this encounter Care Teams Apartment Leasing Manager Relationship Specialty Start Date End Date Rich Resendez MD [facility] [address] [place] [address] PCP - General Emergency Medicine 01/02/19 documented as of this encounter
--- OUTSIDE RECORDS SUMMARY | 2024-03-10 07:21 | XMS_ITS | Referral Summary ---
Author Organization [facility] Address [address] [place] [address]. [place] [address] Care Team Providers Care Linotype Operator Name Role Phone Rich Resendez MD Primary Care Provider Encounters Date Type Department Care Team Description 02/01/2024 Travel 02/01/2024 9:15 AM CDT Office Visit [facility] [address] [place] [address] Raymundo Sinha MD Dichorionic diamniotic twin in second trimester (Primary Dx); H/O delivery, currently , second trimester 02/01/2024 7:57 AM CDT - 02/01/2024 11:59 PM CDT Hospital Encounter [facility] [address] [phone] Raymundo Sinha MD related condition, antepartum Discharge Disposition: Home or Self Care 01/29/2024 Travel 01/28/2024 Transcribe Orders [facility] [address] [place] [address] Senaaugust related condition, antepartum (Primary Dx) 12/30/2023 Telephone [facility] [address] [place] [address] Kaitlin Olivera GC 12/28/2023 Medical Correspondence [facility] [address] [place] [phone] Scan, Non-Provider 12/28/2023 Telephone [facility] [address] [place] [address] Kaitlin Olivera GC Results (NIPT) 12/18/2023 Telephone [facility] [address] [place] [address] Roxane Goldstein GC Clinic Care Coordination - Follow-up 12/17/2023 4:00 PM CDT Lab [facility] [address] [place] [phone] Rima Portillo MD Dichorionic diamniotic twin in first trimester; screening encounter; Encounter of female for testing for genetic disease carrier status for procreative management 12/17/2023 Travel 12/17/2023 2:15 PM CDT Office Visit [facility] Medicine [facility] [address] [place] [address] Rima Portillo MD Dichorionic diamniotic twin in first trimester (Primary Dx); History of delivery, currently in first trimester 12/17/2023 12:24 PM CDT - 12/17/2023 11:59 PM CDT Hospital Encounter [facility] Medicine [facility] [address] [place] [phone] Rima Portillo MD Dichorionic diamniotic twin in first trimester; Joint derangement Discharge Disposition: Home or Self Care 12/17/2023 12:45 PM CDT Office Visit [facility] Medicine [facility] [address] [place] [address] Rima Portillo MD Meyer, Jennifer R, GC screening encounter (Primary Dx); Dichorionic diamniotic twin in first trimester; Encounter of female for testing for genetic disease carrier status for procreative management 12/15/2023 PRE VISIT [facility] Medicine [facility] [address] [place] [address] Lilia Moctezuma, RN Genetic Counseling (Di/di twins, PCOS, Fibromyalgia, BMI>30, hx PPROM/PTD); Ultrasound (Twin NT- Di/di twins, PCOS, Fibromyalgia, BMI>30, hx PPROM/PTD/); Consult (Di/di twins, PCOS, Fibromyalgia, BMI>30, hx PPROM/PTD/) 12/12/2023 Travel 12/11/2023 [facility]ly [facility] [address] [facility] [address] [place] [address] Lorne Montemayor from Last 3 Months Allergies Active Allergy [...] ? Study Date: ??02/01/2024 8:01am Pat. NO: ??[id number] ?Referring ??: AUGUST SADIE Site: ? Clinical Quality Assurance Specialist: ??Kimberly Hernandez RDMS : ??1995 ?Age: ?? [...] ?0 lb 9 ?oz EFW by ?Hadlock (RLD-EG-WP-FL) EFW discordance ?0.5 ? % Head / Face / Neck Biometry: Calender Machine Operator Helper ?6.5 ? mm CM ? 5.4 ? [...] ?0 lb 9 ?oz EFW by ?Hadlock (RTY-XI-UT-FL) EFW discordance ?0.5 ? % Head / Face / Neck Biometry: Calender Machine Operator Helper ?7.4 ? mm CM ? 4.6 ? [...] view. RVOT view. LVOT view. 3-vessel view. 8-ecpdzo-pslbiio view. Situs. Aortic arch view. Bicaval view. [...] view. RVOT view. LVOT view. 3-vessel view. 1-onoovx-nwibcpl view. Situs. Aortic arch view. Bicaval view. [...] has the cervical length assessments scheduled in [place] and will check to see if she [...] TORO Study Date: 02/01/2024 8:01am Pat. NO: [id number] Referring MD: LATISHA NOEL Site: Clinical Quality Assurance Specialist: Kimberly Hernandez RDMS : 1995 Age: 29 [...] EFW (lb,oz) 0 lb 9oz EFW by Hadlock(HSY-MS-EX-FL) EFW discordance 0.5% Head / Face / Neck Biometry: Calender Machine Operator Helper 6.5mm CM 5.4mm Nasal bone 5.9mm Fetus 2: BIOMETRY ----- BPD 42.2mm 18w 5dHadlock OFD 54.4mm 18w 1dNicolaides HC 156.1mm 18w 4dHadlock Cerebellum tr 18.2mm 18w 1dNicolaides Nuchal fold 3.5mm AC 136.3mm 19w 1d 64%Hadlock Femur 28.1mm 18w 4dHadlock Humerus 29.0mm 19w 3dJeanty Weight Calculation: EFW 259g 59%Hadlock EFW (lb,oz) 0 lb 9oz EFW by Hadlock(OQW-DM-NA-FL) EFW discordance 0.5% Head / Face / Neck Biometry: Calender Machine Operator Helper 7.4mm CM 4.6mm Nasal bone 6.0mm Fetus 1: ANATOMY ----- The following structures appear normal: Head / Neck Cranium. Head size. Head shape.Lateral ventricles. Choroid plexus. Midline falx. Cavum septi pellucidi.Cerebellum. Cisterna magna. Parenchyma. Thalami. Vermis. Neck. Nuchal fold. Face Lips. Profile. Nose. Maxilla.Mandible. Orbits. Lens. Heart / Thorax 4-chamber view. RVOT view. LVOT view.3-vessel view. 9-putwgk-zstvyuc view. Situs. Aortic arch view. Bicavalview. Ductal [...] 4-chamber view. RVOT view. LVOT view.3-vessel view. 5-uszagf-ydouman view. Situs. Aortic arch view. Bicavalview. Ductal [...] She has the cervical length assessmentsscheduled in [place] and will check to see if she [...] and closed at 39 mm. August Sadie [facility] US ORDERABLES Edited Res ult - Final * (ABNORMAL) Laboratory Miscellaneous Result (12/17/2023 5:30 PM CDT) Only the most recent of2 resultswithin the time period is included. Test Name [facility] 12/30/2023 11:13 AM CDT MISCELLANEOUS TESTING See Scanned Result LABORATORY MISCELLANEOUS RESULT-Scanned(A ) 12/30/2023 11:13 AM CDT MISCELLANEOUS TESTING Blood BLOOD SPECIMEN / Unknown Venipuncture / Unknown 12/17/2023 5:30 PM CDT 12/17/2023 5:35 PM CDT Roxane Goldstein GC LAB - BLOOD ORDERABLES Edite d Result - Final MISCELLANEOUS TESTING * Other Laboratory; Iain; Tanja (Laboratory Miscellaneous Order) (12/17/2023 5:30 PM CDT) Only the most recent of2 resultswithin the time period is included. Specimen Status Specimen received. Reordered and sent to performing laboratory. Report to follow upon completion. [facility] 12/18/2023 2:56 PM CDT [facility] Performing Laboratory Iain [facility] 12/18/2023 2:56 PM CDT UR LABORATORY Test Name Tanja [facility] 12/18/2023 2:56 PM CDT UR LABORATORY Blood BLOOD SPECIMEN / Unknown Venipuncture / Unknown 12/17/2023 5:30 PM CDT 12/17/2023 5:35 PM CDT us Roxane Goldstein LAB - BLOOD ORDERABLES Final Result [facility] Lab [address] [facility], [address] [place] [address] UR LABORATORY [facility] Acute Care Lab [address] [facility], [address] [place] [phone] * [...] ? Study Date: ??12/17/2023 1:29pm Pat. NO: ??[id number] ?Referring ??MD: AUGUST SHIRAJEFFREY Site: ? Clinical Quality Assurance Specialist: Patricia Irvin RDMS : ??1995 ?Age: ?? [...] gestation and [facility] patient's request. Return to [...] TORO Study Date: 12/17/2023 1:29pm Pat. NO: [id number] Referring MD: LATISHA NOEL Site: Clinical Quality Assurance Specialist: Patricia Irvin RDMS : 1995 Age: 28 [...] [facility] an [facility]. Please see the EPIC chart [...] weeksgestation and has been scheduled at our [facility] clinic atpatient's request. Return to primary [...] for early gestational age. Katiana Montez CN [facility] US ORDERABLES Ed ited Result - Final * Genetic Lab Result - HIM Scan (12/17/2023 12:00 AM CDT) 12/17/2023 Provider Outside LAB - [facility] SPECIAL DIAG ORDER JANIE Final Result from Last 3 Months Insurance [facility] [place] Address: [address] [place] [id number] [facility] Care Teams Linotype Operator Relationship Specialty Start Date End Date Rich Resendez MD [facility] [address] [place] [address] PCP - General Emergency Medicine 01/02/19
--- OUTSIDE RECORDS SUMMARY | 2024-03-10 07:21 | XMS_ITS | Encounter Summary ---
Author Organization [place] Address [address] [facility] [place] [address] Care Team Providers Care Community Service Technician Name Role Phone Rich Resendez MD Primary Care Provider Reason for Referral * Diagnostic Imaging Ultrasound (Routine) - Pending Review Specialty Diagnoses / Procedures Referred By Vale argueta Referred To Contact Radiology. Diagnoses related condition, antepartum Procedures MFM Twins [facility] Sadie August [address] [place] [address] Phone: tel: fax: Referral ID Status Reason Start Date Expiration Date V isits Requested Visits Authorized [id number] Pending Review 01/28/2024 01/27/2025 1 1 Encounter Details Date Type Department Care Team (Latest Contact Info) Description 01/28/2024 Transcribe Orders [facility] [place] [address] [place] [address] Monica Noel [address] [address] related condition, antepartum (Primary Dx) Social History [...] ? Study Date: ??02/01/2024 8:01am Pat. NO: ??[id number] ?Referring ??MD: MONICA SADIE Site: ? Informal Waiter/Waitress: ??Kimberly Hernandez [facility] : ??1995 ?Age: ?? [...] ?0 lb 9 ?oz EFW by ?Hadlock (DXF-SI-QZ-FL) EFW discordance ?0.5 ? % Head / Face / Neck Biometry: Telecommunications Switch Technician ?6.5 ? mm CM ? 5.4 ? [...] ?0 lb 9 ?oz EFW by ?Hadlock (KIU-OT-XU-FL) EFW discordance ?0.5 ? % Head / Face / Neck Biometry: Telecommunications Switch Technician ?7.4 ? mm CM ? 4.6 ? [...] view. RVOT view. LVOT view. 3-vessel view. 0-twcrwr-znwugni view. Situs. Aortic arch view. Bicaval view. [...] view. RVOT view. LVOT view. 3-vessel view. 6-stalro-jqjoyzj view. Situs. Aortic arch view. Bicaval view. [...] has the cervical length assessments scheduled in [place] and will check to see if she [...] [place] Study Date: 02/01/2024 8:01am Pat. NO: [id number] Referring MD: MONICA NOEL Site: Informal Waiter/Waitress: Kimberly Hernandez RDMS : 1995 Age: 29 [...] EFW (lb,oz) 0 lb 9oz EFW by Hadlock(DNF-DC-IO-FL) EFW discordance 0.5% Head / Face / Neck Biometry: Telecommunications Switch Technician 6.5mm CM 5.4mm Nasal bone 5.9mm Fetus 2: BIOMETRY ----- BPD 42.2mm 18w 5dHadlock OFD 54.4mm 18w 1dNicolaides HC 156.1mm 18w 4dHadlock Cerebellum tr 18.2mm 18w 1dNicolaides Nuchal fold 3.5mm AC 136.3mm 19w 1d 64%Hadlock Femur 28.1mm 18w 4dHadlock Humerus 29.0mm 19w 3dJeanty Weight Calculation: EFW 259g 59%Hadlock EFW (lb,oz) 0 lb 9oz EFW by Hadlock(VXC-ZW-TG-FL) EFW discordance 0.5% Head / Face / Neck Biometry: Telecommunications Switch Technician 7.4mm CM 4.6mm Nasal bone 6.0mm Fetus 1: ANATOMY ----- The following structures appear normal: Head / Neck Cranium. Head size. Head shape.Lateral ventricles. Choroid plexus. Midline falx. Cavum septi pellucidi.Cerebellum. Cisterna magna. Parenchyma. Thalami. Vermis. Neck. Nuchal fold. Face Lips. Profile. Nose. Maxilla.Mandible. Orbits. Lens. Heart / Thorax 4-chamber view. RVOT view. LVOT view.3-vessel view. 2-rwsmho-rcytnvg view. Situs. Aortic arch view. Bicavalview. Ductal [...] 4-chamber view. RVOT view. LVOT view.3-vessel view. 6-ijcdpc-xqdekpd view. Situs. Aortic arch view. Bicavalview. Ductal [...] She has the cervical length assessmentsscheduled in [place] and will check to see if she [...] and closed at 39 mm. us August [facility] US ORDERABLES Edited Res ult - Final documented in this encounter Visit Diagnoses Diagnosis related condition, antepartum- Primary related condition, antepartum documented in this encounter Care Teams Community Service Technician Relationship Specialty Start Date End Date Rich Resendez MD [facility] [address] [place] [address] PCP - General Emergency Medicine 01/02/19 documented as of this encounter
--- OUTSIDE RECORDS SUMMARY | 2024-03-10 07:21 | XMS_ITS | Encounter Summary ---
Author Organization [facility] Address [address] [facility] [place] [address] Care Team Providers Care Ditching Machine Operating Engineer Name Role Phone Rich Resendez MD Primary Care Provider Reason for Referral * Diagnostic Imaging Ultrasound (Routine) - Pending Review Specialty Diagnoses / Procedures Referred By Contac t Referred To Contact Radiology. Diagnoses related condition, antepartum Procedures MFM Twins [facility] Monica [address] [place] [address] Phone: tel: fax: Referral ID Status Reason Start Date Expiration Date V isits Requested Visits Authorized [id number] Pending Review 01/28/2024 01/27/2025 1 1 Reason for Visit * Diagnostic Imaging Ultrasound (Routine) - Pending Review Specialty Diagnoses / Procedures [facility] Referred To Contact Radiology. Diagnoses related condition, antepartum Procedures MFM Twins [facility] Monica [address] [place] [address] Phone: tel: fax: Referral ID Status Reason Start Date Expiration Date V isits Requested Visits Authorized [id number] Pending Review 01/28/2024 01/27/2025 1 1 Encounter Details Date Type Department Care Team (Latest Contact Info) Description 02/01/2024 7:57 AM CDT - 02/01/2024 11:59 PM CDT Hospital Encounter [facility] [address] [place] [phone] Raymundo Sinha MD [address] [place], [place] [address] related condition, antepartum Discharge Disposition: Home or [...] ? Study Date: ??02/01/2024 8:01am Pat. NO: ??[id number] ?Referring ??: MONICA NOEL Site: ? Phototypesetting Equipment Monitor: ??Kimberly Hernandez RDMS : ??1995 ?Age: ?? [...] ?0 lb 9 ?oz EFW by ?Hadlock (MPO-UB-IS-FL) EFW discordance ?0.5 ? % Head / Face / Neck Biometry: Manufacturing Project Engineer ?6.5 ? mm CM ? 5.4 ? [...] ?0 lb 9 ?oz EFW by ?Hadlock (SCW-DG-UV-FL) EFW discordance ?0.5 ? % Head / Face / Neck Biometry: Manufacturing Project Engineer ?7.4 ? mm CM ? 4.6 ? [...] view. RVOT view. LVOT view. 3-vessel view. 3-uaifqy-psqixzy view. Situs. Aortic arch view. Bicaval view. [...] view. RVOT view. LVOT view. 3-vessel view. 2-epxrzr-vzfywyn view. Situs. Aortic arch view. Bicaval view. [...] has the cervical length assessments scheduled in [place] and will check to see if she [...] MD - 02/01/2024 Comprehensive ----- Pat. Name: LENOER CALLOWAY Study Date: 02/01/2024 8:01am Pat. NO: [id number] Referring MD: MONICA NOEL Site: Phototypesetting Equipment Monitor: Kimberly Hernandez RDMS : 1995 Age: 29 [...] EFW (lb,oz) 0 lb 9oz EFW by Hadlock(JCV-BJ-TD-FL) EFW discordance 0.5% Head / Face / Neck Biometry: Manufacturing Project Engineer 6.5mm CM 5.4mm Nasal bone 5.9mm Fetus 2: BIOMETRY ----- BPD 42.2mm 18w 5dHadlock OFD 54.4mm 18w 1dNicolaides HC 156.1mm 18w 4dHadlock Cerebellum tr 18.2mm 18w 1dNicolaides Nuchal fold 3.5mm AC 136.3mm 19w 1d 64%Hadlock Femur 28.1mm 18w 4dHadlock Humerus 29.0mm 19w 3dJeanty Weight Calculation: EFW 259g 59%Hadlock EFW (lb,oz) 0 lb 9oz EFW by Hadlock(NPW-BS-PB-FL) EFW discordance 0.5% Head / Face / Neck Biometry: Manufacturing Project Engineer 7.4mm CM 4.6mm Nasal bone 6.0mm Fetus 1: ANATOMY ----- The following structures appear normal: Head / Neck Cranium. Head size. Head shape.Lateral ventricles. Choroid plexus. Midline falx. Cavum septi pellucidi.Cerebellum. Cisterna magna. Parenchyma. Thalami. Vermis. Neck. Nuchal fold. Face Lips. Profile. Nose. Maxilla.Mandible. Orbits. Lens. Heart / Thorax 4-chamber view. RVOT view. LVOT view.3-vessel view. 0-exkcpv-uuabfhz view. Situs. Aortic arch view. Bicavalview. Ductal [...] 4-chamber view. RVOT view. LVOT view.3-vessel view. 7-ghozvk-kwkqqpo view. Situs. Aortic arch view. Bicavalview. Ductal [...] She has the cervical length assessmentsscheduled in [place] and will check to see if she [...] long and closed at 39 mm. Monica [facility] US ORDERABLES Edited Res ult - Final documented in this encounter Visit Diagnoses Diagnosis related condition, antepartum documented in this encounter Care Teams Ditching Machine Operating Engineer Relationship Specialty Start Date End Date Rich Resendez MD [address] [address] PCP - General Emergency Medicine 01/02/19 documented as of this encounter
--- OUTSIDE RECORDS SUMMARY | 2024-03-10 07:22 | XMS_ITS | Encounter Summary ---
Author Organization [place] Address [facility] [place] [address] Care Team Providers Care Spinning Mule Operator Name Role Phone Rich Resendez MD [...] on filedocumented in this encounter Care Teams Spinning Mule Operator Relationship Specialty Start Date End Date Rich Resendez MD [facility] [address] [place] [address] PCP - General Emergency Medicine 01/02/19 documented as of this encounter
--- OUTSIDE RECORDS SUMMARY | 2024-03-10 07:22 | XMS_ITS | Encounter Summary ---
Author Organization [place] Address [address] [facility] [place] [address] Care Team Providers Care Land Law Examiner Name Role Phone Rich Resendez MD Primary Care Provider Reason for Visit * Reason Comments Genetic Counseling Di/di twins, PCOS, F ibromyalgia, BMI>30, hx PPROM/PTD Ultrasound Twin NT- Di/di twins , PCOS, Fibromyalgia, BMI>30, hx PPROM/PTD Consult Di/di twins, PCOS, F ibromyalgia, BMI>30, hx PPROM/PTD Encounter Details Date Type Department Care Team (Late st Contact Info) Description 12/15/2023 PRE VISIT [facility] [place] [address] [place], [place] [address] Lilia Moctezuma, RN Genetic Counseling (Di/di twins, [...] on filedocumented in this encounter Care Teams Land Law Examiner Relationship Specialty Start Date End Date Rich Resendez MD [facility] [address] [place] [address] PCP - General Emergency Medicine 01/02/19 documented as of this encounter
--- OUTSIDE RECORDS SUMMARY | 2024-03-10 07:22 | XMS_ITS | Encounter Summary ---
Author Organization [place] Address [address] [place] [address]. [place] [address] Care Team Providers Care Clinical Nutritionist Name Role Phone Rich Resendez MD Primary Care Provider Encounter Details Date Type Department Care Team (Late st Contact Info) Description 12/11/2023 [facility] [address] [place] [address] [address] [place] [phone] Albina [place] Social History Tobacco Use Types Packs/Day Years [...] on filedocumented in this encounter Care Teams Clinical Nutritionist Relationship Specialty Start Date End Date Rich Resendez MD [facility] 3[facility] [address] [place] [address] PCP - General Emergency Medicine 01/02/19 documented as of this encounter
--- OUTSIDE RECORDS SUMMARY | 2024-03-10 07:22 | XMS_ITS | Encounter Summary ---
Author Organization [place] Address [address] [place] [address]. [place] [address] Care Team Providers Care Oil Field Pumper Name Role Phone Rich Resendez MD Primary Care Provider Encounter Details Date Type Department Care Team (Late st Contact Info) Description 12/01/2023 Medical Correspondence [facility] Info [facility] [address] [place] [phone] Scan, Non-Provider Social History Tobacco Use [...] on filedocumented in this encounter Care Teams Oil Field Pumper Relationship Specialty Start Date End Date Rich Resendez MD [facility] [address] [place] [address] PCP - General Emergency Medicine 01/02/19 documented as of this encounter
--- OUTSIDE RECORDS SUMMARY | 2024-03-10 07:22 | XMS_ITS | Clinical Summary ---
Author Organization [facility] Address [place], [place] [address] Care Team Providers Care Lpn Instructor Name Role Phone Rich Resendez MD Primary [...] Description 01/29/2024 10:00 AM CDT Ancillary Procedure [facility] [address] [place] [address] from Last 3 Months Immunizations Name Administration [...] Comments Blood Pressure 131/107 06/25/2021 3:02 AM GAS PLANT TECHNICIAN Pulse 95 06/25/2021 3:59 AM GAS PLANT TECHNICIAN Temperature 37.4 ??C (99.3 ??F) 06/25/2021 3:02 AM CS T Respiratory Rate 16 06/25/2021 3:02 AM GAS PLANT TECHNICIAN Oxygen Saturation 98% 06/25/2021 3:59 AM GAS PLANT TECHNICIAN Inhaled Oxygen Concentration - - Weight 83.9 kg (185 lb) 06/25/2021 3:02 AM GAS PLANT TECHNICIAN Height 167.6 cm (5' 6) 06/25/2021 3:02 AM GAS PLANT TECHNICIAN Body Mass Index 29.86 06/25/2021 3:02 AM GAS PLANT TECHNICIAN Plan of Treatment Health Maintenance Due [...] HPV HIGH RISK Routine 05/15/2023 12:30 PM GAS PLANT TECHNICIAN from Last 3 Months or Most Recently Relevant to Health Maintenance Results * ECHO TTE COMPLETE WO CONTRAST (01/29/2024 10:54 AM CDT) AORTIC VALVE MEAN PG 5 mmHg LVEDD 4.2 cm EJECTION FRACTION 65 - 70% Anatomical Region Laterality Modality Ultrasound 01/29/2024 10:1 5 AM CDT Narrative 01/29/2024 4:45 PM CDT ECHOCARDIOGRAM LENORE A DAILY ? Accession#: ?? [id number] : ?1995 29 years Study Date: ?? 01/29/2024 10:15:27 AM Gender: F ?BP: ? 132/85 mmHg Height: 168.00 cm ?BSA: ?1.94 m? ? ? Weight: 84.00 kg ? Tech: ? MBF ? Referring MD: NEETU NEGRETE Site: ? [facility] Reading Location: Mobile OP [...] . This study was interpreted by an [facility] accredited facility. CC: [facility] ([facility]) [facility]. ??Final ?? Procedure Note Isaac Silverio MD - 01/29/2024 ECHOCARDIOGRAM LENORE Lugo DAILY : 1995 29 years Study Date: 01/29/2024 10:15:27 AM Gender: F BP: 132/85 mmHg Height: 168.00 cm BSA: 1.94 m? ? ? Weight: 84.00 kg Tech: [facility] Referring MD: NEETU NEGRETE Site: [facility] Reading Location: Mobile OP Patient [...] interpreted by an [facility] accredited facility. CC: [facility] (med records) [facility]. Final Neetu Negrete MD ECHO ORD * (ABNORMAL) HPV HIGH RISK (05/15/2023 12:30 PM GAS PLANT TECHNICIAN) TYPE 16 Negative Negative 05/22/2023 11:44 AM GAS PLANT TECHNICIAN [facility] TYPE 18 Negative Negative 05/22/2023 11:44 AM GAS PLANT TECHNICIAN [facility] OTHER HIGH RISK TYPES Positive(A) Negative 05/22/2023 11:44 AM GAS PLANT TECHNICIAN [facility] Other (Cervical) Non-Blood / Unknown 05/15/2023 12:30 PM GAS PLANT TECHNICIAN 05/21/2023 7:37 AM GAS PLANT TECHNICIAN Narrative [facility] - 05/22/2023 11:44 AM GAS PLANT TECHNICIAN Specimen is positive for the DNA of any one of, or combination of, the following high risk HPV types: 31, 33, 35, 39, 45, 51, 52, 56, 58, 59, 66, 68. HPV types 16 and 18 DNA were undetectable or below the pre-set threshold. ? Methodology: Arbovax Mabel 4800 HPV Test Vanessa Chavez NP MICROBIOLOGY [facility] [address] [place] [address], from Last 3 Months or Most Recently Relevant to Health Maintenance Care Teams Lpn Instructor Relationship Specialty Start Date End Date Rich Resendez MD [address] [place] [address] PCP - General Internal Medicine 07/29/20
--- OUTSIDE RECORDS SUMMARY | 2024-03-10 07:22 | XMS_ITS | Encounter Summary ---
Author Organization [place] Address [facility] [place] [address] Care Team Providers Care Professor Of Oceanography Name Role Phone Rich Resendez MD Primary [...] on filedocumented in this encounter Care Teams Professor Of Oceanography Relationship Specialty Start Date End Date Rich Resendez MD [facility] [address] [place] [address] PCP - General Emergency Medicine 01/02/19 documented as of this encounter
--- OUTSIDE RECORDS SUMMARY | 2024-03-10 07:22 | XMS_ITS | Encounter Summary ---
Author Organization [place] Address [address] [facility] [place] [address] Care Team Providers Care Cylinder Valve Repairer Name Role Phone Rich Resendez MD Primary Care Provider Reason for Visit * Reason Comments Genetic Counseling screening * Consultation (Routine: Next available opening) - Pending Review Specialty Diagnoses / Procedures Referred By Contac t Referred To Contact Diagnoses Dichorionic diamniotic twin in first trimester Joint derangement Katiana Montez CNM [address] [place] [address] Phone: tel: fax: Referral ID Status Reason Start Date Expiration Date V isits Requested Visits Authorized [id number] Pending Review 12/02/2023 12/01/2024 1 1 Encounter Details Date Type Department Care Team (Late st Contact Info) Description 12/17/2023 12:45 PM CDT Office Visit [facility] Maternal Medicine Center [address] [place] [address] Rima Portillo MD [address] [address] Roxane Goldstein GC [address] [place] [address] screening encounter (Primary Dx); Dichorionic diamniotic [...] Roxane Goldstein, - 12/17/2023 12:[address] [facility] Genetic Counseling Consult Patient: Constance Lugo Daily Date of : 1995 Date of Service: 12/17/23 Constance Lugo Daily was seen at [facility] for genetic consultation to discuss the options for screening and testing for chromosome abnormalities. The indication for genetic counseling is desire to discuss options for genetic screening and diagnostics. Constance was accompanied to the appointment today by her [id number] (her brother's ) Yumi. IMPRESSION/ PLAN 1. Constance has not had genetic screening in this but elected to have screening today. 2. During today's [facility] visit, Constance had blood draw for NIPS (Panorama) through [employer]. The NIPS screens for trisomy 21, 18, [...] results, including sex, will be available in Planbox. 3. Constance had a blood draw for expanded carrier screening (Horizon carrier screen, 613 conditions,through [employer]). Results are expected within 14-21 days, and will be available in Magnomatics. We willcontact her to discuss the results, and a copy will be forwarded to the office of the referring OB provider. The patient was informed that results will also be available via Planbox. Consent to communicate form to share results [...] (EDS) at age 11 at [facility] and met many criteria but did [...] as uterine or gastrointestinal). Constance also had [facility] consultation today with Dr. Portillo to discuss management recommendations. Please see [facility] consult note for details. FAMILY HISTORY A three-generation pedigree was obtained today and is scanned under the Media tab in Magnomatics. The family history was reported by Constance and her bjoqtj-dq-ysg Yumi. The following significant findings were reported [...] has a follow-up appointment with genetics at [facility] in January to discuss further testing. Constance [...] this family history can be sharedwith the brimmer blocker. Constance had a sister who was born [...] dominant conditions. screening was reviewed. About [place] Screening Autosomal recessive conditions happen when a [...] option of proceeding with testing through either [employer] (up to 267 conditions) or [facility] (up to 613 conditions). After reviewing the [...] pathogenic. Although carrier status does not change consultant time, it is possible that a variant could be reclassified as more information about the variant is learned. If this occurs, the couple will be contacted and a new risk assessment will be provided. We discussed that [employer] will generate a cost estimate and contact the patient with their expected vit-ww-eaaaai cost. If the estimated ban-uk-gfklnx cost is estimated to exceed $349, a patient-pay option of $349 is available. The patient must select this option in the [employer] portal within a specific window after receiving their cost estimate. It is the patient's responsibility to determine whether insurance billing or patient pay is a better financial decision and to follow up with [employer] to make the selection for patient pay if desired. The patient was also provided with a [employer] billing card and is encouraged to contact [employer]'s billing office directly if they have additional [...] loss. Approximately 90% of cases are de maqruise (a sporadic new change in apregnancy) and [...] differences. NIPT runon MPSS platform (such as [employer]) does not allow for assessment of any sex chromosome conditions. NIPT run on a SNP platform ([employer]) can screen for monosomy X if the [...] one twin is a male. SNP-based NIPT ([employer] through [employer]) allows for sex to be reported for [...] higher than MPSS platforms. We discussed that [employer] or [employer] will perform a benefits investigation to determine coverage, butthat it is the patient's responsibility to select billing through insurance or self-pay ($249 for either test). If no contact from [employer] or [employer] is received, of if she is very concerned about cost, the patient should contact [employer]'s or [employer]'s billing office at the number provided today. [...] options: Nuchal translucency (NT) ultrasound Ultrasound between [id number] that includes nuchal translucency measurement and nasal [...] was a pleasure to be involved with [facility]. Onip-pa-stfq time of the meeting was 45 minutes. Roxane Goldstein RUBENS, [facility] Certified and [place] Licensed Genetic Counselor [facility] Maternal Medicine Office: [phone] MFM: [phone] [facility] MFM documented in this encounter Plan of Treatment Not on file documented as of this encounter Results * Other Laboratory; Iain; Horizon (Laboratory Miscellaneous Order) (12/17/2023 5:30 PM CDT) Specimen Status Specimen received. Reordered and sent to performing laboratory. Report to follow upon completion. RAMAKRISHNA 12/18/2023 2:56 PM CDT [facility] LAB[facility] Performing Laboratory Iain [facility] 12/18/2023 2:56 PM CDT UR LABORATORY Test Name Horizon [facility] 12/18/2023 2:56 PM CDT UR LABORATORY Blood BLOOD SPECIMEN / Unknown Venipuncture / Unknown 12/17/2023 5:30 PM CDT 12/17/2023 5:35 PM CDT Roxane Goldstein GC LAB - BLOOD ORDERABLES Final Result U LABORATORY [facility] Core Lab [address] [facility], [address] [address], [facility] UR LABORATORY [facility] Acute Care Lab [address] [place] [address], [address] [phone] * Other Laboratory; Iain; Robertorama (Laboratory Miscellaneous Order) (12/17/2023 5:29 PM CDT) Specimen Status Specimen received. Reordered and sent to performing laboratory. Report to follow upon completion. [facility] 12/18/2023 2:50 PM CDT [facility] LAB[facility]AT[facility] Performing Laboratory Iain [facility] 12/18/2023 2:50 PM CDT UR LABORATORY Test Name Panorama [facility] 12/18/2023 2:50 PM CDT UR LABORATORY Blood BLOOD SPECIMEN / Unknown Venipuncture / Unknown 12/17/2023 5:29 PM CDT 12/17/2023 5:30 PM CDT Roxane Goldstein LAB - BLOOD ORDERABLES Final Result [facility]U LABORATORY [facility] Core Lab [address] [facility], [address] [place] [address], [facility] UR LABORATORY [facility] Acute Care Lab [address] [facility], Room [address] [address] documented in this encounter Visit Diagnoses Diagnosis screening encounter- Primary Unspecified screening Dichorionic diamniotic twin in first trimester Twin , antepartum Encounter of female for testing for genetic disease carrier status for procreative management Testing of female for genetic disease carrier status documented in this encounter Care Teams Cylinder Valve Repairer Relationship Specialty Start Date End Date Rich Resendez MD [address] [address] PCP - General Emergency Medicine 01/02/19 documented as of this encounter
--- OUTSIDE RECORDS SUMMARY | 2024-03-10 07:22 | XMS_ITS | Encounter Summary ---
Author Organization [place] Address [address] [place] [address]. [place] [address] Care Team Providers Care Cutter First Name Role Phone Rich Resendez MD Primary Care Provider Encounter Details Date Type Department Care Team (Late st Contact Info) Description 12/17/2023 4:00 PM CDT Lab [facility] Laboratory [facility] [place] [address] Rima Portillo MD [address] [place] [address] [address] [place] [address] Dichorionic diamniotic twin in first [...] Result (12/17/2023 5:30 PM CDT) Test Name [facility] 12/30/2023 11:13 AM CDT MISCELLANEOUS TESTING See Scanned Result LABORATORY MISCELLANEOUS RESULT-Scanned(A ) 12/30/2023 11:13 AM CDT MISCELLANEOUS TESTING Blood BLOOD SPECIMEN / Unknown Venipuncture / Unknown 12/17/2023 5:30 PM CDT 12/17/2023 5:35 PM CDT Roxane Goldstein LAB - BLOOD ORDERABLES Edite d Result - Final MISCELLANEOUS TESTING * Other Laboratory; Iain; [facility] (Laboratory Miscellaneous Order) (12/17/2023 5:30 PM CDT) Specimen Status Specimen received. Reordered and sent to performing laboratory. Report to follow upon completion. [facility] 12/18/2023 2:56 PM CDT [facility] LABORATORY Performing Laboratory Iain [facility] 12/18/2023 2:56 PM CDT UR LABORATORY Test Name Tanja [facility] 12/18/2023 2:56 PM CDT UR LABORATORY Blood BLOOD SPECIMEN / Unknown Venipuncture / Unknown 12/17/2023 5:30 PM CDT 12/17/2023 5:35 PM CDT Roxane Goldstein GC LAB - BLOOD ORDERABLES Final Result UU LABORATORY [facility] Core Lab [address] [facility] [address], [address] [place] [address], [facility] UR LABORATORY [facility] Acute Care Lab [address] [facility], [address] [place] [address], [facility] * Laboratory Miscellaneous Result (12/17/2023 5:29 [...] performing laboratory. Report to follow upon completion. [facility] 12/18/2023 2:50 PM CDT [facility] LABORATORY Performing Laboratory Iain [facility] 12/18/2023 2:50 PM CDT UR LABORATORY Test Name Panorama [facility] 12/18/2023 2:50 PM CDT UR LABORATORY Blood BLOOD SPECIMEN / Unknown Venipuncture / Unknown 12/17/2023 5:29 PM CDT 12/17/2023 5:30 PM CDT Roxane Goldstein GC LAB - BLOOD ORDERABLES Final Result [facility]U LABORATORY [facility] Core Lab [address], [address] [place] [address], [facility] UR LABORATORY [facility] Acute Care Lab [address] [facility], [address] [place] [address], [facility] documented in this encounter Visit Diagnoses Diagnosis Dichorionic diamniotic twin in first trimester Twin , antepartum screening encounter Unspecified screening Encounter of female for testing for genetic disease carrier status for procreative management Testing of female for genetic disease carrier status documented in this encounter Care Teams Cutter First Relationship Specialty Start Date End Date Rich Resendez MD [facility] [address] [place] [address] PCP - General Emergency Medicine 01/02/19 documented as of this encounter
--- OUTSIDE RECORDS SUMMARY | 2024-03-10 07:22 | XMS_ITS | Encounter Summary ---
Author Organization [place] Address [address] [facility] [place] [address] Care Team Providers Care Candy Feeder Name Role Phone Rich Resendez MD Primary Care Provider Reason for Visit * Reason Comments Ultrasound Twin NT- Di/di twins , fibromyalgia, PCOS, BMI>30, hx PPROM/PTD Consult Di/di twins, fibromy algia, PCOS, BMI>30, hx PPROM/PTD * Consultation (Routine: Next available opening) - Pending Review Specialty Diagnoses / Procedures Referred By Contsana t Referred To Contact Diagnoses related condition JoneAugust [facility] [address] COUNT INCLUDES THE [facility] [place] [address] Phone: tel: fax: Referral ID Status Reason Start Date Expiration Date V isits Requested Visits Authorized [id number] Pending Review 12/03/2023 12/02/2024 1 1 Encounter Details Date Type Department Care Team (Late st Contact Info) Description 12/17/2023 2:15 PM CDT Office Visit [facility] Maternal Medicine Center [place] [address] [place], [place] [id number] Rima Portillo MD [address] [place] [address] Dichorionic diamniotic twin in first [...] note were not included. Maternal Medicine Center [address] [place] [address] [address] [address] Main: [phone], Referring Provider: Jone MCCOY Constancecrista Del Toro [...] s/p septoplasty. She endorsed being evaluated at [place] at the age of 11 for Ehler [...] this has been with Dr. Becerril from [facility] in [facility]. OB History Para Term AB Living 3 [...] Medication Sig Last Dose Taking? Auth Provider Suede Cleaner End Date ASPIRIN LOW DOSE 81 MG EC tablet Take 81 mg by mouth daily Taking Yes Reported, Patient MV-Min-Fe Fum-FA-DHA ( 1 PO) Take 1 tablet by mouth daily Taking Yes Reported, Patient wahkzbpfwl-lqqzlrxmhuras-jyrqqcdb (FIORICET/ESGIC) 50-325-40 MG tablet Take 1 tablet [...] [facility]2023[facility] - Genetic Screening: Planning on NIPT [...] (we presume these will be performed through [facility]). -Targeted anatomy at 18-20 weeks (schedule at [facility] due to patient preference/appointment access to coordinate with her child's appointments at the [facility] in [place]. -Serial growth ultrasounds every 4 weeks until [...] can potentially do these via MFM in [place]. Pt discharged stable and ambulatory to outpatient lab. Lilia Moctezuma, RN documented in this encounter Plan of Treatment Not on file documented as of this encounter Visit Diagnoses Diagnosis Dichorionic diamniotic twin in first trimester- Primary Twin , antepartum History of delivery, currently in first trimester documented in this encounter Care Teams Candy Feeder Relationship Specialty Start Date End Date Rich Resendez MD [facility] [address] [place] [address] PCP - General Emergency Medicine 01/02/19 documented as of this encounter
--- OUTSIDE RECORDS SUMMARY | 2024-03-10 07:22 | XMS_ITS | Encounter Summary ---
Author Organization [place] Address [address] [facility] [place] [address] Care Team Providers Care Repairer Welding Systems And Equipment Name Role Phone Rich Resendez MD Primary Care Provider Reason for Referral * Consultation (Routine: Next available opening) - Pending Review Specialty Diagnoses / Procedures Referred By Vale argueta Referred To Contact Diagnoses Dichorionic diamniotic twin in first trimester Joint derangement Katiana Montez CNM [address] [place] [address] Phone: tel: fax: Referral ID Status Reason Start Date Expiration Date V isits Requested Visits Authorized [id number] Pending Review 12/02/2023 12/01/2024 1 1 * Diagnostic Imaging Ultrasound (Routine) - Pending Review Specialty Diagnoses / Procedures Referred By Vale argueta Referred To Contact Radiology. Diagnoses Dichorionic diamniotic twin in first trimester Joint derangement Procedures MFM Twins Nuchal Trans w/US Katiana Montez CNM [address] [place] [address] Phone: tel: fax: Referral ID Status Reason Start Date Expiration Date V isits Requested Visits Authorized [id number] Pending Review 12/02/2023 12/01/2024 1 1 Encounter Details Date Type Department Care Team (Late st Contact Info) Description 12/02/2023 [facility] Only [facility] Maternal Medicine Center [place] [address] [place] [address] Elise Blanchard RN Dichorionic diamniotic twin in first [...] Type Priority Associated Diagnoses Orde r Schedule [facility] Genetic Counseling Referral Routine: Next available opening Dichorionic diamniotic twin in first trimester Joint derangement Expected: 12/02/2023 (Approximate), Expires: 12/01/2024 documented as of this encounter Results * [facility] Twins Nuchal Trans w/US (12/17/2023 [...] ? Study Date: ??12/17/2023 1:29pm Pat. NO: ??[id number] ?Referring ??MD: AUGUST SHIRAJEFFREY Site: ? Anesthesiology Crna: Patricia Irvin RDMS : ??1995 ?Age: ?? [...] gestation and has been scheduled at our [facility] clinic at patient's request. Return to [...] ELLILENORE Study Date: 12/17/2023 1:29pm Pat. NO: [id number] Referring MD: LATISHA NOEL Site: Anesthesiology Crna: Patricia Irvin RDMS : 1995 Age: 28 [...] weeksgestation and has been scheduled at our [facility] clinic atpatient's request. Return to primary [...] early gestational age. us Katiana Montez CN [facility] US ORDERABLES Ed ited Result - Final documented in this encounter Visit Diagnoses Diagnosis Dichorionic diamniotic twin in first trimester- Primary Twin , antepartum Joint derangement Unspecified derangement, joint, site unspecified Dichorionic diamniotic twin in first trimester Twin , antepartum Joint derangement Unspecified derangement, joint, site unspecified documented in this encounter Care Teams Repairer Welding Systems And Equipment Relationship Specialty Start Date End Date Rich Resendez MD [address] [address] PCP - General Emergency Medicine 01/02/19 documented as of this encounter
--- OUTSIDE RECORDS SUMMARY | 2024-03-10 07:22 | XMS_ITS | Encounter Summary ---
Author Organization [place] Address [address] [facility] [place] [address] Care Team Providers Care Store Person Name Role Phone Rich Resendez MD Primary Care Provider Reason for Referral * Consultation (Routine: Next available opening) - Pending Review Specialty Diagnoses / Procedures Referred By Vale argueta Referred To Contact Diagnoses related condition Jone Monica [address] [place] [address] Phone: tel: fax: Referral ID Status Reason Start Date Expiration Date V isits Requested Visits Authorized [id number] Pending Review 12/03/2023 12/02/2024 1 1 Question Answer Office Visit Type: MFM Consult Encounter Details Date Type Department Care Team (Latest Contact Info) Description 12/03/2023 Transcribe Orders [facility] Maternal Medicine Center [place] [address] [place] [address] [place] Becerril [address] [address] related condition (Primary Dx) Social History Tobacco [...] Type Priority Associated Diagnoses Orde r Schedule [facility] Office Visit - [facility] Consult Referral Routine: Next available opening related condition Expected: 12/03/2023 (Approximate), Expires: 12/02/2024 documented as of this encounter Visit Diagnoses Diagnosis related condition- Primary Unspecified complication of , unspecified as to episode of care documented in this encounter Care Teams Store Person Relationship Specialty Start Date End Date Rich Resendez MD [facility] [address] [place] [address] PCP - General Emergency Medicine 01/02/19 documented as of this encounter
--- OUTSIDE RECORDS SUMMARY | 2024-03-10 07:22 | XMS_ITS | Encounter Summary ---
Author Organization [place] Address [address] [place] [address] Care Team Providers Care Tool And Die Engineer Name Role Phone Rich Resendez MD Primary Care Provider Reason for Referral * Consultation (Routine: Next available opening) - Pending Review Specialty Diagnoses / Procedures Referred By Vale argueta Referred To Contact Diagnoses related condition, antepartum Jone Monica [place] [address] [place] [address] Phone: tel: fax: [facility] Maternal Medicine [facility] [place] [address] [facility] [address] [place] [address] Phone: tel: fax: Referral ID Status Reason Start Date Expiration Date V isits Requested Visits Authorized [id number] Pending Review 12/02/2023 12/01/2024 1 1 Question Answer Preferred Location: [facility] [place] [facility] 06/30/2024 Ultrasound MFM Recommendation US PROC [...] Consultation No Genetic Counseling Consultation: No fax [facility] August Jone [phone] Comments twin preg, di-di, joint derangement, supervision of other high risk preg Encounter Details Date Type Department Care Team (Latest Contact Info) Description 12/02/2023 Transcribe Orders [facility] M[facility] Medicine [facility] [place] [address] [place] [address] Monica Becerril [facility] [address] [place] [address] related condition, antepartum (Primary Dx) Social History [...] Primary documented in this encounter Care Teams Tool And Die Engineer Relationship Specialty Start Date End Date Rich Resendez MD [facility] [address] [place] [address] PCP - General Emergency Medicine 01/02/19 documented as of this encounter
--- OUTSIDE RECORDS SUMMARY | 2024-03-10 07:22 | XMS_ITS | Encounter Summary ---
Author Organization [place] Address [address] [facility] [place] [address] Care Team Providers Care Jointer Submarine Cable Name Role Phone Rich Resendez MD Primary Care Provider Reason for Referral * Diagnostic Imaging Ultrasound (Routine) - Pending Review Specialty Diagnoses / Procedures Referred By Vale argueta Referred To Contact Radiology. Diagnoses Dichorionic diamniotic twin in first trimester Joint derangement Procedures MFM Twins Nuchal Trans w/US Katiana Montez CNM [address] [facility] [address] [place] [address] Phone: tel: fax: Referral ID Status Reason Start Date Expiration Date V isits Requested Visits Authorized [id number] Pending Review 12/02/2023 12/01/2024 1 1 Reason for Visit * Diagnostic Imaging Ultrasound (Routine) - Pending Review Specialty Diagnoses / Procedures Referred By Vale argueta Referred To Contact Radiology. Diagnoses Dichorionic diamniotic twin in first trimester Joint derangement Procedures MFM Twins Nuchal Trans w/US Katiana Montez CNM [address] [place] [address] Phone: tel: fax: Referral ID Status Reason Start Date Expiration Date V isits Requested Visits Authorized [id number] Pending Review 12/02/2023 12/01/2024 1 1 Encounter Details Date Type Department Care Team (Latest Contact Info) Description 12/17/2023 12:24 PM CDT - 12/17/2023 11:59 PM CDT Hospital Encounter [facility] [place] [address] [place] [address] Rima Portillo MD [address] [place] [address] Dichorionic diamniotic twin in first trimester; Joint [...] ? Study Date: ??12/17/2023 1:29pm Pat. NO: ??[id number] ?Referring ??MD: AUGUST SADIE Site: ? Manager Reliability: Patricia Irvin RDMS : ??1995 ?Age: ?? [...] gestation and has been scheduled at our [facility] clinic at patient's request. Return to [...] CALL[place]AY Study Date: 12/17/2023 1:29pm Pat. NO: [id number] Referring MD: LATISHA SADIE Site: Manager Reliability: Patricia Irvin RDMS : 1995 Age: 28 [...] [facility] an [facility]. Please see the EPIC chart for [...] weeksgestation and has been scheduled at our [facility] clinic atpatient's request. Return to primary [...] normal for early gestational age. us [facility] US ORDERABLES Ed ited Result - Final documented in this encounter Visit Diagnoses Diagnosis Dichorionic diamniotic twin in first trimester Twin , antepartum Joint derangement Unspecified derangement, joint, site unspecified documented in this encounter Care Teams Jointer Submarine Cable Relationship Specialty Start Date End Date Rich Resendez MD [facility] [address] [place] [address] PCP - General Emergency Medicine 01/02/19 documented as of this encounter
== END 2024-03-10 07:20 | disposition home or self-care (01) ==
LOC: US 07:19
PROVIDERS: PCP Internal Medicine; Visit Provider Obstetrics & Gynecology
DX: O30.042 Twin pregnancy, dichorionic/diamniotic, second trimester (principal); Z3A.24 24 weeks gestation of pregnancy
CPT/HCPCS: 76816

== ENCOUNTER 2024-03-26 00:04 | Outpatient (CLI) | payer BC, SELFPAY ==
--- OUTSIDE RECORDS SUMMARY | 2024-03-26 00:06 | XMS_ITS | Encounter Summary ---
Author Organization [place] Address [address] [facility] [place] [address] Care Team Providers Care Wood Filler Name Role Phone Rich Resendez MD Primary Care Provider Reason for Visit * Reason Comments Ultrasound L2/TV - Di/Di twins, Encounter Details Date Type Department Care Team (Late st Contact Info) Description 02/01/2024 9:15 AM CDT Office Visit [facility] [place] [address] [place], [place] [address] Raymundo Sinha MD [address] [place] [address] Dichorionic diamniotic twin in second [...] trimester documented in this encounter Care Teams Wood Filler Relationship Specialty Start Date End Date Rich Resendez MD [facility] [address] [place] [address] PCP - General Emergency Medicine 01/02/19 documented as of this encounter
--- OUTSIDE RECORDS SUMMARY | 2024-03-26 00:06 | XMS_ITS | Referral Summary ---
Author Organization [place] Address [address] [place] [address]. [place] [address] Care Team Providers Care Representative Phlebotomy Services Name Role Phone Rich Resendez MD Primary Care Provider Encounters Date Type Department Care Team Description 02/01/2024 Travel 02/01/2024 9:15 AM CDT Office Visit [facility] Maternal Medicine [facility] [address] [address] Raymundo Sinha MD Dichorionic diamniotic twin in second trimester (Primary Dx); H/O delivery, currently , second trimester 02/01/2024 7:57 AM CDT - 02/01/2024 11:59 PM CDT Hospital Encounter [facility] Maternal Medicine [facility] [address] [phone] Raymundo Sinha MD related condition, antepartum Discharge Disposition: Home or Self Care 01/29/2024 Travel 01/28/2024 Transcribe Orders [facility] Maternal Medicine [facility] [address] [address] Senaaugust related condition, antepartum (Primary Dx) 12/30/2023 Telephone [facility] Maternal Medicine [facility] [address] [place] [address] Kaitlin Olivera GC 12/28/2023 Medical Correspondence [facility] [address] [place] [phone] Scan, Non-Provider 12/28/2023 Telephone [facility] [address] [facility] [address] [place] [address] Kaitlin Olivera, GC Results (NIPT) from Last 3 Months Allergies Active Allergy [...] 107 01/01/2019 6:25 AM CDT Temperature 37 C (98.6 F) 01/01/2019 6:25 AM CDT Respiratory Rate 20 01/01/2019 6:25 AM CDT Oxygen Saturation - - Inhaled Oxygen Concentration - - Weight - - Height - - Body Mass Index - - Plan of Treatment Not on file Procedures Procedure Name Priority Date/Time Associated Diagnosis Comments MFM TWINS US COMPREHENSIVE Routine 02/01/2024 9:29 AM CDT related condition, antepartum from Last 3 Months Results * MFM [...] 39 mm. Narrative 02/01/2024 9:44 AM CDT Comprehensive ----- Pat. Name: LENORE DEL TORO Study Date: 02/01/2024 8:01am Pat. NO: [id number] Referring MD: LATISHA NOEL Site: Catcher Filter Tip: Kimberly Hernandez RDMS : 1995 Age: 29 ----- INDICATION ----- Dichorionic, Diamniotic Twin gestation. Prior late at 36 weeks. METHOD ----- Transabdominal and transvaginal ultrasound approaches were used. (Transvaginal ultrasound examination was required to adequately complete the exam.). View: Sufficient. ----- Twin . Number of fetuses: 2. Dichorionic-diamniotic DATING ----- Date Details Gest. age SHORTY LMP 09/24/2023 18 w + 4 d 06/30/2024 Previous U/S 11/19/2023 GA, GA 7 w + 5 d 18 w + 2 d 07/02/2024 U/S Fetus 1 02/01/2024 based upon AC, BPD, Femur, HC 19 w + 0 d 06/27/2024 /S Fetus 2 based upon AC, BPD, Femur, HC 18 w + 5 d 06/29/2024 Assigned dating based on the LMP, selected on 12/17/2023 18 w + 4 d 06/30/2024 Fetus 1: [...] 4.5 cm Fetus 1: BIOMETRY ----- BPD 44.6 mm 19w 3d Hadlock OFD 55.1 mm 18w 2d Nicolaides HC 159.6 mm 18w 6d Hadlock Cerebellum tr 18.8 mm 18w 3d Nicolaides Nuchal fold 3.7 mm AC 135.1 mm 19w 0d 60% Hadlock Femur 27.9 mm 18w 4d Hadlock Humerus 26.6 mm 18w 3d Kimo Weight Calculation: EFW 258 g 57% Hadlock EFW (lb,oz) 0 lb 9 oz EFW by Hadlock ([id number]-FL) EFW discordance 0.5 % Head / Face / Neck Biometry: Hand Mexican Food Maker 6.5 mm CM 5.4 mm Nasal bone 5.9 mm Fetus 2: BIOMETRY ----- BPD 42.2 mm 18w 5d Hadlock OFD 54.4 mm 18w 1d Nicolaides HC 156.1 mm 18w 4d Hadlock Cerebellum tr 18.2 mm 18w 1d Nicolaides Nuchal fold 3.5 mm AC 136.3 mm 19w 1d 64% Hadlock Femur 28.1 mm 18w 4d Hadlock Humerus 29.0 mm 19w 3d Kimo Weight Calculation: EFW 259 g 59% Hadlock EFW (lb,oz) 0 lb 9 oz EFW by Hadlock ([id number]-PK-PX-FL) EFW discordance 0.5 % Head / Face / Neck Biometry: Hand Mexican Food Maker 7.4 mm CM 4.6 mm Nasal bone 6.0 mm Fetus 1: ANATOMY ----- The following structures appear normal: Head / Neck Cranium. Head size. Head shape. Lateral ventricles. Choroid plexus. Midline falx. Cavum septi pellucidi. Cerebellum. Cisterna magna. Parenchyma. Thalami. Vermis. Neck. Nuchal fold. Face Lips. Profile. Nose. Maxilla. Mandible. Orbits. Lens. Heart / Thorax 4-chamber view. RVOT view. LVOT view. 3-vessel view. 3-vlqxrp-ikfqsir view. Situs. Aortic arch view. Bicaval view. Ductal arch view. Superior vena cava. Inferior vena cava. Cardiac position. Cardiac size. Cardiac rhythm. Right lung. Left lung. Diaphragm. Abdomen Abdom. wall. Cord insertion. Stomach. Kidneys. Bladder. Liver. Bowel. Genitals. Spine Cervical spine. Thoracic spine. Lumbar spine. Sacral spine. Extremities / Skeleton Arms. Right arm. Right hand. Left arm. Left hand. Legs. Right leg. Right foot. Left leg. Left foot. sex: male. Fetus 2: ANATOMY ----- The following structures appear normal: Head / Neck Cranium. Head size. Head shape. Lateral ventricles. Choroid plexus. Midline falx. Cavum septi pellucidi. Cerebellum. Cisterna magna. Parenchyma. Thalami. Vermis. Neck. Nuchal fold. Face Lips. Profile. Nose. Maxilla. Mandible. Orbits. Lens. Heart / Thorax 4-chamber view. RVOT view. LVOT view. 3-vessel view. 6-lhwjil-bznwwsr view. Situs. Aortic arch view. Bicaval view. Ductal arch view. Superior vena cava. Inferior vena cava. Cardiac position. Cardiac size. Right lung. Left lung. Diaphragm. Abdomen Abdom. wall. Cord insertion. Stomach. Kidneys. Bladder. Liver. Bowel. Genitals. Spine Cervical spine. Thoracic spine. Lumbar spine. Sacral spine. Extremities / Skeleton Arms. Right hand. Left hand. Legs. Right foot. Left foot. sex: male. MATERNAL STRUCTURES ----- Cervix Visualized Appearance: Appears Closed, Approach - Transvaginal: Cervical length 39.6 mm Right Ovary Visualized Left [...] has the cervical length assessments scheduled in [place] and will check to see if [...] MD - 02/01/2024 Comprehensive ----- Pat. Name: ELLILENORE Study Date: 02/01/2024 8:01am Pat. NO: [id number] Referring MD: LATISHA NOEL Site: Catcher Filter Tip: Kimberly Hernandez RDMS : 1995 Age: 29 [...] EFW (lb,oz) 0 lb 9oz EFW by Hadlock([id number]-BD-FJ-FL) EFW discordance 0.5% Head / Face / Neck Biometry: Hand Mexican Food Maker 6.5mm CM 5.4mm Nasal bone 5.9mm Fetus 2: BIOMETRY ----- BPD 42.2mm 18w 5dHadlock OFD 54.4mm 18w 1dNicolaides HC 156.1mm 18w 4dHadlock Cerebellum tr 18.2mm 18w 1dNicolaides Nuchal fold 3.5mm AC 136.3mm 19w 1d 64%Hadlock Femur 28.1mm 18w 4dHadlock Humerus 29.0mm 19w 3dJeanty Weight Calculation: EFW 259g 59%Hadlock EFW (lb,oz) 0 lb 9oz EFW by Hadlock(FLH-KP-VN-FL) EFW discordance 0.5% Head / Face / Neck Biometry: Hand Mexican Food Maker 7.4mm CM 4.6mm Nasal bone 6.0mm Fetus 1: ANATOMY ----- The following structures appear normal: Head / Neck Cranium. Head size. Head shape.Lateral ventricles. Choroid plexus. Midline falx. Cavum septi pellucidi.Cerebellum. Cisterna magna. Parenchyma. Thalami. Vermis. Neck. Nuchal fold. Face Lips. Profile. Nose. Maxilla.Mandible. Orbits. Lens. Heart / Thorax 4-chamber view. RVOT view. LVOT view.3-vessel view. 3-yluzof-fvzmawa view. Situs. Aortic arch view. Bicavalview. Ductal [...] 4-chamber view. RVOT view. LVOT view.3-vessel view. 5-nyxjje-quvsvec view. Situs. Aortic arch view. Bicavalview. Ductal [...] She has the cervical length assessmentsscheduled in [place] and will check to see if [...] long and closed at 39 mm. August Jone [facility] US ORDERABLES Edited Res ult - Final from Last 3 Mon[place] [address] [employer] [place] [employer] [place] Care Teams Representative Phlebotomy Services Relationship Specialty Start Date End Date Rich Resendez MD [facility] [address] [place] [address] PCP - General Emergency Medicine 01/02/19
--- OUTSIDE RECORDS SUMMARY | 2024-03-26 00:06 | XMS_ITS | Encounter Summary ---
Author Organization [place] Address [address] [place] [address] Care Team Providers Care Ski Tow Operator Name Role Phone Rich Resendez MD Primary Care Provider Reason for Referral * Diagnostic Imaging Ultrasound (Routine) - Pending Review Specialty Diagnoses / Procedures Referred By Contac t Referred To Contact Radiology. Diagnoses related condition, antepartum Procedures MFM Twins [facility] August Phone: tel: fax: Referral ID Status Reason Start Date Expiration Date V isits Requested Visits Authorized [id number] Pending Review 01/28/2024 01/27/2025 1 1 Reason for Visit * Diagnostic Imaging Ultrasound (Routine) - Pending Review Specialty Diagnoses / Procedures Referred By Contac t Referred To Contact Radiology. Diagnoses related condition, antepartum Procedures MFM Twins [facility] August Phone: tel: fax: Referral ID Status Reason Start Date Expiration Date V isits Requested Visits Authorized [id number] Pending Review 01/28/2024 01/27/2025 1 1 Encounter Details Date Type Department Care Team (Latest Contact Info) Description 02/01/2024 7:57 AM CDT - 02/01/2024 11:59 PM CDT Hospital Encounter [facility] Maternal Medicine [facility] [address] [place] [address] Raymundo Sinha MD [address] [facility] [address] [place] [address] related condition, antepartum Discharge Disposition: Home or [...] AM CDT Comprehensive ----- Pat. Name: LENORE CALLOWAY Study Date: 02/01/2024 8:01am Pat. NO: [id number] Referring MD: MONICA NOEL Site: Svp Operations: Kimberly Hernandez RDMS : 1995 Age: 29 [...] HC 19 w + 0 d 06/27/2024 U/S Fetus 2 based upon AC, BPD, Femur, [...] 0 lb 9 oz EFW by Hadlock (CKW-LA-FI-FL) EFW discordance 0.5 % Head / Face / Neck Biometry: Color Making Supervisor 6.5 mm CM 5.4 mm Nasal bone [...] 0 lb 9 oz EFW by Hadlock (WKW-DF-GY-FL) EFW discordance 0.5 % Head / Face / Neck Biometry: Color Making Supervisor 7.4 mm CM 4.6 mm Nasal bone 6.0 mm Fetus 1: ANATOMY ----- The following structures appear normal: Head / Neck Cranium. Head size. Head shape. Lateral ventricles. Choroid plexus. Midline falx. Cavum septi pellucidi. Cerebellum. Cisterna magna. Parenchyma. Thalami. Vermis. Neck. Nuchal fold. Face Lips. Profile. Nose. Maxilla. Mandible. Orbits. Lens. Heart / Thorax 4-chamber view. RVOT view. LVOT view. 3-vessel view. 7-lmewsv-ywomzfb view. Situs. Aortic arch view. Bicaval view. [...] view. RVOT view. LVOT view. 3-vessel view. 7-fhzucd-ttdcvri view. Situs. Aortic arch view. Bicaval view. [...] has the cervical length assessments scheduled in [place] and will check to see if she [...] CALLOWAY Study Date: 02/01/2024 8:01am Pat. NO: [id number] Referring MD: MONICA NOEL Site: Svp Operations: Kimberly Hernandez RDMS : 1995 Age: 29 [...] EFW (lb,oz) 0 lb 9oz EFW by Hadlock(PKI-HF-CJ-FL) EFW discordance 0.5% Head / Face / Neck Biometry: Color Making Supervisor 6.5mm CM 5.4mm Nasal bone 5.9mm Fetus 2: BIOMETRY ----- BPD 42.2mm 18w 5dHadlock OFD 54.4mm 18w 1dNicolaides HC 156.1mm 18w 4dHadlock Cerebellum tr 18.2mm 18w 1dNicolaides Nuchal fold 3.5mm AC 136.3mm 19w 1d 64%Hadlock Femur 28.1mm 18w 4dHadlock Humerus 29.0mm 19w 3dJeanty Weight Calculation: EFW 259g 59%Hadlock EFW (lb,oz) 0 lb 9oz EFW by Hadlock(GEP-YY-DM-FL) EFW discordance 0.5% Head / Face / Neck Biometry: Color Making Supervisor 7.4mm CM 4.6mm Nasal bone 6.0mm Fetus 1: ANATOMY ----- The following structures appear normal: Head / Neck Cranium. Head size. Head shape.Lateral ventricles. Choroid plexus. Midline falx. Cavum septi pellucidi.Cerebellum. Cisterna magna. Parenchyma. Thalami. Vermis. Neck. Nuchal fold. Face Lips. Profile. Nose. Maxilla.Mandible. Orbits. Lens. Heart / Thorax 4-chamber view. RVOT view. LVOT view.3-vessel view. 5-weaipo-elwmgli view. Situs. Aortic arch view. Bicavalview. Ductal [...] 4-chamber view. RVOT view. LVOT view.3-vessel view. 0-rugzvu-pojvjym view. Situs. Aortic arch view. Bicavalview. Ductal [...] She has the cervical length assessmentsscheduled in [place] and will check to see if she [...] long and closed at 39 mm. Monica [facility] US ORDERABLES Edited Res ult - Final documented in this encounter Visit Diagnoses Diagnosis related condition, antepartum documented in this encounter Care Teams Ski Tow Operator Relationship Specialty Start Date End Date Rich Resendez MD [address] [address] PCP - General Emergency Medicine 01/02/19 documented as of this encounter
--- OUTSIDE RECORDS SUMMARY | 2024-03-26 00:06 | XMS_ITS | Encounter Summary ---
Author Organization [place] Address [facility] [facility] [place] [address] Care Team Providers Care Risk Manager Name Role Phone Rich Resendez MD [...] on filedocumented in this encounter Care Teams Risk Manager Relationship Specialty Start Date End Date Rich Resendez MD [facility] [address] [place] [address] PCP - General Emergency Medicine 01/02/19 documented as of this encounter
--- OUTSIDE RECORDS SUMMARY | 2024-03-26 00:06 | XMS_ITS | Clinical Summary ---
Author Organization [place] Address [address] [facility] [place] [address] Care Team Providers Care Bladder Trimmer Name Role Phone Rich Resendez MD Primary [...] Description 02/01/2024 9:15 AM CDT Office Visit [facility] [place] [address] [place], [place] [address] Raymundo Sinha MD Dichorionic diamniotic twin in second trimester (Primary Dx); H/O delivery, currently , second trimester 02/01/2024 7:57 AM CDT - 02/01/2024 11:59 PM CDT Hospital Encounter [facility] [place] [address] [place] [phone] Raymundo Sinha MD related condition, antepartum Discharge Disposition: Home or Self Care 02/01/2024 Travel 01/29/2024 Travel 01/28/2024 Transcribe Orders [facility] Maternal Medicine [facility] [address] [place] [address] JoneAugust related condition, antepartum (Primary Dx) 12/30/2023 Telephone [facility] Maternal Medicine [facility] [address] [place] [address] Kaitlin Olivera GC 12/28/2023 Medical Correspondence [facility] [address] [place] [phone] Scan, Non-Provider 12/28/2023 Telephone [facility] Maternal Medicine [facility] [address] [place] [phone] Kaitlin Olivera GC Results (NIPT) from Last 3 Months Social History Tobacco [...] Procedure Name Priority Date/Time Associated Diagnosis Comments M TWINS COMPREHENSIVE Routine 02/01/2024 9:29 AM CDT related condition, antepartum from Last 3 Months Results * M Twins US Comprehensive (02/01/2024 9:29 AM CDT) [...] TORO Study Date: 02/01/2024 8:01am Pat. NO: [id number] Referring MD: LATISHA NOEL Site: Cyber Intelligence Analyst: Kimberly Hernandez RDMS : 1995 Age: 29 ----- INDICATION ----- Dichorionic, Diamniotic Twin gestation. Prior late at 36 weeks. METHOD ----- Transabdominal and transvaginal ultrasound approaches were used. (Transvaginal ultrasound examination was required to adequately complete the exam.). View: Sufficient. ----- Twin . Number of fetuses: 2. Dichorionic-diamniotic DATING ----- Date Details Gest. age SOHRTY LMP 09/24/2023 18 w + 4 d [...] 0 lb 9 oz EFW by Hadlock (TSE-CH-SI-FL) EFW discordance 0.5 % Head / Face / Neck Biometry: Structural Iron Worker 6.5 mm CM 5.4 mm Nasal bone [...] 0 lb 9 oz EFW by Hadlock (SYY-PC-EC-FL) EFW discordance 0.5 % Head / Face / Neck Biometry: Structural Iron Worker 7.4 mm CM 4.6 mm Nasal bone 6.0 mm Fetus 1: ANATOMY ----- The following structures appear normal: Head / Neck Cranium. Head size. Head shape. Lateral ventricles. Choroid plexus. Midline falx. Cavum septi pellucidi. Cerebellum. Cisterna magna. Parenchyma. Thalami. Vermis. Neck. Nuchal fold. Face Lips. Profile. Nose. Maxilla. Mandible. Orbits. Lens. Heart / Thorax 4-chamber view. RVOT view. LVOT view. 3-vessel view. 4-bmajkj-rbomhss view. Situs. Aortic arch view. Bicaval view. [...] view. RVOT view. LVOT view. 3-vessel view. 6-burzww-xuxdrjj view. Situs. Aortic arch view. Bicaval view. [...] has the cervical length assessments scheduled in [place] and will check to see if she [...] Raymundo Sinha MD - 02/01/2024 Comprehensive ----- Jaye. Name: LENORE DEL TORO Study Date: 02/01/2024 8:01am Pat. NO: [id number] Referring MD: LATISHA NOEL Site: Cyber Intelligence Analyst: Kimberly Hernandez RDMS : 1995 Age: 29 [...] EFW (lb,oz) 0 lb 9oz EFW by Hadlock(PAN-LK-VO-FL) EFW discordance 0.5% Head / Face / Neck Biometry: Structural Iron Worker 6.5mm CM 5.4mm Nasal bone 5.9mm Fetus 2: BIOMETRY ----- BPD 42.2mm 18w 5dHadlock OFD 54.4mm 18w 1dNicolaides HC 156.1mm 18w 4dHadlock Cerebellum tr 18.2mm 18w 1dNicolaides Nuchal fold 3.5mm AC 136.3mm 19w 1d 64%Hadlock Femur 28.1mm 18w 4dHadlock Humerus 29.0mm 19w 3dJeanty Weight Calculation: EFW 259g 59%Hadlock EFW (lb,oz) 0 lb 9oz EFW by Hadlock(TTZ-SI-RW-FL) EFW discordance 0.5% Head / Face / Neck Biometry: Structural Iron Worker 7.4mm CM 4.6mm Nasal bone 6.0mm Fetus 1: ANATOMY ----- The following structures appear normal: Head / Neck Cranium. Head size. Head shape.Lateral ventricles. Choroid plexus. Midline falx. Cavum septi pellucidi.Cerebellum. Cisterna magna. Parenchyma. Thalami. Vermis. Neck. Nuchal fold. Face Lips. Profile. Nose. Maxilla.Mandible. Orbits. Lens. Heart / Thorax 4-chamber view. RVOT view. LVOT view.3-vessel view. 9-uohpld-ceuphtz view. Situs. Aortic arch view. Bicavalview. Ductal [...] 4-chamber view. RVOT view. LVOT view.3-vessel view. 6-oqtdkh-yfeafyg view. Situs. Aortic arch view. Bicavalview. Ductal [...] She has the cervical length assessmentsscheduled in [place] and will check to see if she [...] long and closed at 39 mm. August [facility] ORDERABLES Edited Res ult - Final from Last 3 Months Insurance [id number] [address] [place] Care Teams Bladder Trimmer Relationship Specialty Start Date End Date Rich Resendez MD [facility] [address] [place], [place] [id number] PCP - General Emergency Medicine 01/02/19
--- OUTSIDE RECORDS SUMMARY | 2024-03-26 00:07 | XMS_ITS | Encounter Summary ---
Author Organization [place] Address [address] [facility] [place] [address] Care Team Providers Care Stock Preparation Supervisor Name Role Phone Rich Resendez MD Primary Care Provider Reason for Referral * Diagnostic Imaging Ultrasound (Routine) - Pending Review Specialty Diagnoses / Procedures Referred By Vale t Referred To Contact Radiology. Diagnoses related condition, antepartum Procedures [facility] JoneAugust Phone: tel: fax: Referral ID Status Reason Start Date Expiration Date V isits Requested Visits Authorized [id number] Pending Review 01/28/2024 01/27/2025 1 1 Encounter Details Date Type Department Care Team (Latest Contact Info) Description 01/28/2024 Transcribe Orders [facility] M[facility] Medicine Center [place] [address] [place], [place] [id number] JoneAugust [address] [place] [address] related condition, antepartum (Primary Dx) Social History [...] CALLOWAY Study Date: 02/01/2024 8:01am Pat. NO: [id number] Referring MD: LATISHA NOEL Site: Cashier Office: Kimberly Hernandez RDMS : 1995 Age: 29 [...] 0 lb 9 oz EFW by Hadlock ([id number]) EFW discordance 0.5 % Head / Face / Neck Biometry: Crew Attendant 6.5 mm CM 5.4 mm Nasal bone [...] 0 lb 9 oz EFW by Hadlock ([id number]) EFW discordance 0.5 % Head / Face / Neck Biometry: Crew Attendant 7.4 mm CM 4.6 mm Nasal bone 6.0 mm Fetus 1: ANATOMY ----- The following structures appear normal: Head / Neck Cranium. Head size. Head shape. Lateral ventricles. Choroid plexus. Midline falx. Cavum septi pellucidi. Cerebellum. Cisterna magna. Parenchyma. Thalami. Vermis. Neck. Nuchal fold. Face Lips. Profile. Nose. Maxilla. Mandible. Orbits. Lens. Heart / Thorax 4-chamber view. RVOT view. LVOT view. 3-vessel view. 4-ijvbcc-zncbpma view. Situs. Aortic arch view. Bicaval view. [...] view. RVOT view. LVOT view. 3-vessel view. 6-nzkeap-raaqssk view. Situs. Aortic arch view. Bicaval view. [...] has the cervical length assessments scheduled in [place] and will check to see if she [...] CALLOWAY Study Date: 02/01/2024 8:01am Pat. NO: [id number] Referring MD: LATIHSA NOEL Site: Cashier Office: Kimberly Hernandez RDMS : 1995 Age: 29 [...] EFW (lb,oz) 0 lb 9oz EFW by Hadlock([id number]-FL) EFW discordance 0.5% Head / Face / Neck Biometry: Crew Attendant 6.5mm CM 5.4mm Nasal bone 5.9mm Fetus 2: BIOMETRY ----- BPD 42.2mm 18w 5dHadlock OFD 54.4mm 18w 1dNicolaides HC 156.1mm 18w 4dHadlock Cerebellum tr 18.2mm 18w 1dNicolaides Nuchal fold 3.5mm AC 136.3mm 19w 1d 64%Hadlock Femur 28.1mm 18w 4dHadlock Humerus 29.0mm 19w 3dJeanty Weight Calculation: EFW 259g 59%Hadlock EFW (lb,oz) 0 lb 9oz EFW by Hadlock([id number]-FI-VM-FL) EFW discordance 0.5% Head / Face / Neck Biometry: Crew Attendant 7.4mm CM 4.6mm Nasal bone 6.0mm Fetus 1: ANATOMY ----- The following structures appear normal: Head / Neck Cranium. Head size. Head shape.Lateral ventricles. Choroid plexus. Midline falx. Cavum septi pellucidi.Cerebellum. Cisterna magna. Parenchyma. Thalami. Vermis. Neck. Nuchal fold. Face Lips. Profile. Nose. Maxilla.Mandible. Orbits. Lens. Heart / Thorax 4-chamber view. RVOT view. LVOT view.3-vessel view. 4-xpmrab-uicwavh view. Situs. Aortic arch view. Bicavalview. Ductal [...] 4-chamber view. RVOT view. LVOT view.3-vessel view. 0-ogdyxt-zsmsoex view. Situs. Aortic arch view. Bicavalview. Ductal [...] She has the cervical length assessmentsscheduled in [place] and will check to see if she [...] and closed at 39 mm. August [facility] ORDERABLES Edited Res ult - Final documented in this encounter Visit Diagnoses Diagnosis related condition, antepartum- Primary related condition, antepartum documented in this encounter Care Teams Stock Preparation Supervisor Relationship Specialty Start Date End Date Rich Resendez MD [facility] [address] [place] [address] PCP - General Emergency Medicine 01/02/19 documented as of this encounter
--- OUTSIDE RECORDS SUMMARY | 2024-03-26 00:07 | XMS_ITS | Encounter Summary ---
Author Organization [place] Address [facility] access hospital[facility] [place] [address] Care Team Providers Care Nuclear Security Officer Name Role Phone Rich Resendez [...] filedocumented in this encounter Care Teams Nuclear Security Officer Relationship Specialty Start Date End Date Rich Resendez MD [facility] [address] [place] [address] PCP - General Emergency Medicine 01/02/19 documented as of this encounter
--- OUTSIDE RECORDS SUMMARY | 2024-03-26 00:07 | XMS_ITS | Encounter Summary ---
Author Organization [place] Address [address] [place] [address]. [place] [address] Care Team Providers Care Network Cabler Name Role Phone Rich Resendez MD Primary Care Provider Encounter Details Date Type Department Care Team (Late st Contact Info) Description 12/28/2023 Medical Correspondence [facility] Info [facility] [address] [place] [phone] Scan, Non-Provider Social History Tobacco Use [...] on filedocumented in this encounter Care Teams Network Cabler Relationship Specialty Start Date End Date Rich Resendez MD [facility] [address] [place] [address] PCP - General Emergency Medicine 01/02/19 documented as of this encounter
--- OUTSIDE RECORDS SUMMARY | 2024-03-26 00:07 | XMS_ITS | Encounter Summary ---
Author Organization [place] Address [address] 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 We discussed that should her partner desire carrier screening, or should she desire an amniocentesis to sequence the genes for an additional variant, she could leandra or Roxane Goldstein MS, [facility] directly. 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 Kaitlin Olivera MS, [facility] Licensed Genetic Counselor [facility] Pager: [phone] Office: [phone] documented in this encounter Plan of Treatment Not on file documented as of this encounter Visit Diagnoses Not on filedocumented in this encounter Care Teams Biodiesel Division Manager Relationship Specialty Start Date [place] [address] PCP - General Emergency Medicine 01/02/19 documented as of this encounter
--- OUTSIDE RECORDS SUMMARY | 2024-03-26 00:07 | XMS_ITS | Encounter Summary ---
Author Organization [place] Address [address] [facility] [place] [address] Care Team Providers Care Turner Off Name Role Phone Rich Resendez MD Primary Care Provider Reason for Visit * Reason Onset Date Comments Results 12/28/2023 NIPT Encounter Details Date Type Department Care Team (Late st Contact Info) Description 12/28/2023 Telephone [facility] Maternal Medicine Center [place] [address] [place] [address] Kaitlin Olivera GC [address] [place] [address] Results (NIPT) Social History Tobacco [...] hours. Called and spoke to a [facility] representative phlebotomy services who has begun this process. Constance had no further questions. Kaitlin Olivera MS, [facility] Licensed Genetic Counselor [facility] Pager: [phone] Office: [phone] documented in this encounter Plan of Treatment Not on file documented as of this encounter Visit Diagnoses Not on filedocumented in this encounter Care Teams Turner Off Relationship Specialty Start Date End Date Rich Resendez MD [address] [address] PCP - General Emergency Medicine 01/02/19 documented as of this encounter
--- OUTSIDE RECORDS SUMMARY | 2024-03-26 00:07 | XMS_ITS | Encounter Summary ---
Author Organization [place] Address [facility] [place] [address] Care Team Providers Care Security Operations Manager Name Role Phone Rich Resendez MD [...] on filedocumented in this encounter Care Teams Security Operations Manager Relationship Specialty Start Date End Date Rich Resendez MD [facility] [address] [place] [address] PCP - General Emergency Medicine 01/02/19 documented as of this encounter
--- OUTSIDE RECORDS SUMMARY | 2024-03-26 00:07 | XMS_ITS | Encounter Summary ---
Author Organization [place] Address [address] [facility] [place] [address] Care Team Providers Care Blueberry Grower Name Role Phone Rich Resendez MD Primary Care Provider Reason for Visit * Reason Onset Date Comments Clinic Care Coordination - Follow-up 12/18/2023 Encounter Details Date Type Department Care Team (Late st Contact Info) Description 12/18/2023 Telephone [facility] M[facility] Medicine [facility] [place] [address] [place] [phone] Roxane Goldstein, [address] [place] [address] [address] [place] [address] Clinic Care Coordination - Follow-up [...] on filedocumented in this encounter Care Teams Blueberry Grower Relationship Specialty Start Date End Date Rich Resendez MD [facility] [address] [place] [address] PCP - General Emergency Medicine 01/02/19 documented as of this encounter
--- OUTSIDE RECORDS SUMMARY | 2024-03-26 00:07 | XMS_ITS | Encounter Summary ---
Author Organization [place] Address [address] [place] [address]. [place] [address] Care Team Providers Care Agricultural Equipment Sales Manager Name Role Phone Rich Resendez MD Primary Care Provider Encounter Details Date Type Department Care Team (Late st Contact Info) Description 12/17/2023 4:00 PM CDT Lab [facility] Laboratory [facility] [place] [address] Rima Portillo MD [address] [place] [address] [address] [place] [address] Dichorionic diamniotic twin in first [...] Result (12/17/2023 5:30 PM CDT) Test Name [facility] 12/30/2023 11:13 AM CDT MISCELLANEOUS TESTING See Scanned Result LABORATORY MISCELLANEOUS RESULT-Scanned(A ) 12/30/2023 11:13 AM CDT MISCELLANEOUS TESTING Blood BLOOD SPECIMEN / Unknown Venipuncture / Unknown 12/17/2023 5:30 PM CDT 12/17/2023 5:35 PM CDT Roxane Goldstein LAB - BLOOD ORDERABLES Edite d Result - Final MISCELLANEOUS TESTING * Other Laboratory; [facility]; [facility] (Laboratory Miscellaneous Order) (12/17/2023 5:30 PM CDT) Specimen Status Specimen received. Reordered and sent to performing laboratory. Report to follow upon completion. [facility] 12/18/2023 2:56 PM CDT [facility] LAB[facility] Performing Laboratory Iain [facility] 12/18/2023 2:56 PM CDT UR LABORATORY Test Name Tanja [facility] 12/18/2023 2:56 PM CDT UR LABORATORY Blood BLOOD SPECIMEN / Unknown Venipuncture / Unknown 12/17/2023 5:30 PM CDT 12/17/2023 5:35 PM CDT Roxane Goldstein GC LAB - BLOOD ORDERABLES Final Result [facility] LABORATORY [facility] [address] [facility] [address], [address] [place] [address], [facility] UR LABORATORY [facility] Acute Care Lab [address] [facility] [place] [address], [facility] * Laboratory Miscellaneous Result (12/17/2023 [...] performing laboratory. Report to follow upon completion. [facility] 12/18/2023 2:50 PM CDT [facility] LABORATORY Performing Laboratory Iain [facility] 12/18/2023 2:50 PM CDT UR LABORATORY Test Name Panorama [facility] 12/18/2023 2:50 PM CDT UR LABORATORY Blood BLOOD SPECIMEN / Unknown Venipuncture / Unknown 12/17/2023 5:29 PM CDT 12/17/2023 5:30 PM CDT Roxane Goldstein GC LAB - BLOOD ORDERABLES Final Result [facility] [address], [address] [place] [address], [facility] UR LABORATORY [facility] Acute Care Lab [address] [facility], [address] [place] [address], [facility] documented in this encounter Visit Diagnoses Diagnosis Dichorionic diamniotic twin in first trimester Twin , antepartum screening encounter Unspecified screening Encounter of female for testing for genetic disease carrier status for procreative management Testing of female for genetic disease carrier status documented in this encounter Care Teams Agricultural Equipment Sales Manager Relationship Specialty Start Date End Date Rich Resendez MD [facility] [address] [place] [address] PCP - General Emergency Medicine 01/02/19 documented as of this encounter
--- OUTSIDE RECORDS SUMMARY | 2024-03-26 00:08 | XMS_ITS | Encounter Summary ---
Author Organization [place] Address [address] [facility] [place] [address] Care Team Providers Care Diamond Driller Helper Name Role Phone Rich Resendez MD Primary Care Provider Reason for Visit * Reason Comments Ultrasound Twin NT- Di/di twins , fibromyalgia, PCOS, BMI>30, hx PPROM/PTD Consult Di/di twins, fibromy algia, PCOS, BMI>30, hx PPROM/PTD * Consultation (Routine: Next available opening) - Pending Review Specialty Diagnoses / Procedures Referred By Contac t Referred To Contact Diagnoses related condition August Phone: tel: fax: Referral ID Status Reason Start Date Expiration Date V isits Requested Visits Authorized [id number] Pending Review 12/03/2023 12/02/2024 1 1 Encounter Details Date Type Department Care Team (Late st Contact Info) Description 12/17/2023 2:15 PM CDT Office Visit [facility] M[facility] [place] [address] [place], [place] [address] Rima Portillo MD [address] [place] [address] Dichorionic diamniotic twin in first [...] note were not included. Maternal Medicine Center [address] [place] [address] [address] [id number] Main: [phone], Referring Provider: Jone Lugo Katey is a 28 year old at 12w0d [...] s/p septoplasty. She endorsed being evaluated at [facility] at the age of 11 for Ehler [...] this has been with Dr. Becerril from [facility] in [facility]. OB History Para Term AB [...] Medication Sig Last Dose Taking? Auth Provider Half-Way End Date ASPIRIN LOW DOSE 81 MG EC tablet Take 81 mg by mouth daily Taking Yes Reported, Patient MV-Min-Fe Fum-FA-DHA ( 1 PO) Take 1 tablet by mouth daily Taking Yes Reported, Patient ynvqoleooi-gewncydcbuiyo-stxchlis (FIORICET/ESGIC) 50-325-40 MG tablet Take 1 tablet [...] Colposcopy 06/2023, result unable to see [facility]. - Genetic Screening: Planning on NIPT and [...] prophylactic tocolytic drugs, or prophylactic cerclage. Given Daily history of PPROM and PTB, recommendation [...] (we presume these will be performed through [facility]). -Targeted anatomy at 18-20 weeks (schedule at [facility] due to patient preference/appointment access to coordinate with her child's appointments at the [facility] in [place]. -Serial growth ultrasounds every 4 weeks until [...] can potentially do these via MFM in [place]. Pt discharged stable and ambulatory to outpatient lab. Lilia Moctezuma, RN documented in this encounter Plan of Treatment Not on file documented as of this encounter Visit Diagnoses Diagnosis Dichorionic diamniotic twin in first trimester- Primary Twin , antepartum History of delivery, currently in first trimester documented in this encounter Care Teams Diamond Driller Helper Relationship Specialty Start Date End Date Rich Resendez MD [facility] [address] [place] [address] PCP - General Emergency Medicine 01/02/19 documented as of this encounter
--- OUTSIDE RECORDS SUMMARY | 2024-03-26 00:08 | XMS_ITS | Encounter Summary ---
Author Organization [place] Address [address] [facility] [place] [address] Care Team Providers Care Qa Test Analyst Name Role Phone Rich Resendez MD Primary Care Provider Reason for Referral * Consultation (Routine: Next available opening) - Pending Review Specialty Diagnoses / Procedures Referred By Vale argueta Referred To Contact Diagnoses Dichorionic diamniotic twin in first trimester Joint derangement Katiana Montez CNM [address] [place] [address] Phone: tel: fax: Referral ID Status Reason Start Date Expiration Date V isits Requested Visits Authorized [id number] Pending Review 12/02/2023 12/01/2024 1 1 * Diagnostic Imaging Ultrasound (Routine) - Pending Review Specialty Diagnoses / Procedures Referred By Vale argueta Referred To Contact Radiology. Diagnoses Dichorionic diamniotic twin in first trimester Joint derangement Procedures MFM Twins Nuchal Trans w/US Katiana Montez CNM [address] [place] [address] Phone: tel: fax: Referral ID Status Reason Start Date Expiration Date V isits Requested Visits Authorized [id number] Pending Review 12/02/2023 12/01/2024 1 1 Encounter Details Date Type Department Care Team (Late st Contact Info) Description 12/02/2023 [facility] Only [facility] Maternal Medicine Center [place] [address] [place] [address] Elsie Blanchard RN Dichorionic diamniotic twin in [...] Type Priority Associated Diagnoses Orde r Schedule [facility] Genetic Counseling Referral Routine: Next available opening Dichorionic diamniotic twin in first trimester Joint derangement Expected: 12/02/2023 (Approximate), Expires: 12/01/2024 documented as of this encounter Results * [facility] Twins Nuchal Trans w/US (12/17/2023 2:19 [...] gestational age. Narrative 12/17/2023 5:01 PM CDT NT ----- Pat. Name: LENORE CALLOWAY Study Date: 12/17/2023 1:29pm Pat. NO: [id number] Referring MD: LATISHA NOEL [facility] Teacher: Patricia Irvin RDMS : 1995 Age: 28 ----- INDICATION ----- Twin gestation METHOD ----- Transabdominal ultrasound examination. View: Sufficient. ----- Twin . Number of fetuses: 2. Dichorionic-diamniotic Membrane Description: thick dividing membrane visualized between fetuses 1 and 2 DATING ----- Date Details Gest. age SHORTY LMP 09/24/2023 12 w + 0 d 06/30/2024 Previous U/S 11/19/2023 GA, GA 7 w + 5 d 11 w + 5 d 07/02/2024 U/S Fetus 1 12/17/2023 based upon CRL 12 w + 1 d 06/29/2024 U/S Fetus 2 based upon CRL 12 w + 2 d 06/28/2024 Assigned dating based on the LMP, selected on 12/17/2023 12 w + 0 d 06/30/2024 Fetus 1: GENERAL EVALUATION ----- Cardiac activity present Placenta: anterior Cord vessels: normal insertion Amniotic fluid: normal amount Fetus 2: GENERAL EVALUATION ----- Cardiac activity present Placenta: posterior Cord vessels: normal insertion Amniotic fluid: normal Fetus 1: BIOMETRY ----- FHR 158 bpm CRL 55.6 mm 12w 1d Hadlock NT 1.30 mm Fetus 2: BIOMETRY ----- FHR 153 bpm CRL 58.1 mm 12w 2d Hadlock NT 1.40 mm Fetus 1: ANATOMY ----- Face: Nasal [...] gestation and has been scheduled at our [facility] clinic at patient's request. Return to primary [...] [place] Study Date: 12/17/2023 1:29pm Pat. NO: [id number] Referring MD: LATISHA NOEL [facility] Teacher: Patricai Irvin RDMS : 1995 Age: 28 ----- [...] weeksgestation and [facility]. Return to primary [...] for early gestational age. us [facility] ORDERAB[facility] Ed ited Result - Final documented in this encounter Visit Diagnoses Diagnosis Dichorionic diamniotic twin in first trimester- Primary Twin , antepartum Joint derangement Unspecified derangement, joint, site unspecified Dichorionic diamniotic twin in first trimester Twin , antepartum Joint derangement Unspecified derangement, joint, site unspecified documented in this encounter Care Teams Qa Test Analyst Relationship Specialty Start Date [place] [address] PCP - General Emergency Medicine 01/02/19 documented as of this encounter
--- OUTSIDE RECORDS SUMMARY | 2024-03-26 00:08 | XMS_ITS | Encounter Summary ---
Author Organization [place] Address [address] [place] [address]. [place] [address] Care Team Providers Care Bee Robber Name Role Phone Rich Resendez MD Primary Care Provider Encounter Details Date Type Department Care Team (Late st Contact Info) Description 12/11/2023 [facility] [address] [place] [address] [address] [place] [phone] [facility] [place] Social History Tobacco Use Types Packs/Day Years [...] on filedocumented in this encounter Care Teams Bee Robber Relationship Specialty Start Date End Date Rich Resendez MD [facility] [address] [place] [address] PCP - General Emergency Medicine 01/02/19 documented as of this encounter
--- OUTSIDE RECORDS SUMMARY | 2024-03-26 00:08 | XMS_ITS | Encounter Summary ---
Author Organization [employer] Address [address] [facility] [place] [address] Care Team Providers Care Deputy United [place] Marshal Name Role Phone Rich Resendez MD Primary Care Provider Reason for Visit * Reason Comments Genetic Counseling screening * Consultation (Routine: Next available opening) - Pending Review Specialty Diagnoses / Procedures Referred By Contac t Referred To Contact Diagnoses Dichorionic diamniotic twin in first trimester Joint derangement Katiana Montez CNM [address] [place] [place] [address] Phone: tel: fax: Referral ID Status Reason Start Date Expiration Date V isits Requested Visits Authorized [id number] Pending Review 12/02/2023 12/01/2024 1 1 Encounter Details Date Type Department Care Team (Late st Contact Info) Description 12/17/2023 12:45 PM CDT Office Visit [facility] [address] [place] [address] Rima Portillo MD [address] [id number] Roxane Goldstein GC [address] [place] [id number] screening encounter (Primary Dx); Dichorionic diamniotic [...] Roxane Goldstein, - 12/17/2023 12:45 PM CDT [facility] Genetic Counseling Consult Patient: Constance Lugo Daily Date of : 1995 Date of Service: 12/17/23 Constance Lugo Daily was seen at [facility] for genetic consultation to discuss the options for screening and testing for chromosome abnormalities. The indication for genetic counseling is desire to discuss options for genetic screening and diagnostics. Constance was accompanied to the appointment today by her bivywi-ow-daz (her brother's ) Yumi. IMPRESSION/ PLAN 1. Constance has not had genetic screening in this but elected to have screening today. 2. During today's [facility] visit, Constance had blood draw for NIPS (Panorama) through [employer]. The NIPS screens for trisomy 21, 18, [...] results, including sex, will be available in NXVISION. 3. Constance had a blood draw for expanded carrier screening (Horizon carrier screen, 613 conditions,through [employer]). Results are expected within 14-21 days, and will be available in Solio. We willcontact her to discuss the results, and a copy will be forwarded to the office of the referring OB provider. The patient was informed that results will also be available via NXVISION. Consent to communicate form to share results [...] syndrome (EDS) at age 11 at [facility] and met many criteria but did not [...] as uterine or gastrointestinal). Constance also had [facility] consultation today with Dr. Portillo to discuss management recommendations. Please see [facility] consult note for details. FAMILY HISTORY A three-generation pedigree was obtained today and is scanned under the Media tab in Solio. The family history was reported by Constance and her wcfcht-lu-ert Yumi. The following significant findings were reported [...] has a follow-up appointment with genetics at [facility] in January to discuss further testing. [...] this family history can be sharedwith the fisheries officer. Constance had a sister who was born [...] dominant conditions. screening was reviewed. About [place] Screening Autosomal recessive conditions happen when a [...] option of proceeding with testing through either [employer] (up to 267 conditions) or [employer] (up to 613 conditions). After reviewing the [...] likely pathogenic. Although carrier status does not globe changer time, it is possible that a variant could be reclassified as more information about the variant is learned. If this occurs, the couple will be contacted and a new risk assessment will be provided. We discussed that [employer] will generate a cost estimate and contact the patient with their expected blc-ih-slhcad cost. If the estimated oun-qe-ezynum cost is estimated to exceed $349, a patient-pay option of $349 is available. The patient must select this option in the [employer] portal within a specific window after receiving their cost estimate. It is the patient's responsibility to determine whether insurance billing or patient pay is a better financial decision and to follow up with [employer] to make the selection for patient pay if desired. The patient was also provided with a [employer] billing card and is encouraged to contact [employer]'s billing office directly if they have additional [...] differences. NIPT runon MPSS platform (such as [facility]) does not allow for assessment of any sex chromosome conditions. NIPT run on a SNP platform (Mediasmart) can screen for monosomy X if the [...] one twin is a male. SNP-based NIPT (I-Stand through [employer]) allows for sex to be reported for [...] higher than MPSS platforms. We discussed that [employer] or [employer] will perform a benefits investigation to determine coverage, butthat it is the patient's responsibility to select billing through insurance or self-pay ($249 for either test). If no contact from [employer] or [employer] is received, of if she is very concerned about cost, the patient should contact [employer]s or [employer]'s billing office at the number provided today. [...] options: Nuchal translucency (NT) ultrasound Ultrasound between [id number]-[id number] that includes nuchal translucency measurement and nasal [...] was a pleasure to be involved with [facility]s [facility]. Fmmd-aw-kbhj time of the meeting was 45 minutes. Roxane Goldstein RUBENS, [facility] Certified and [place] Licensed Genetic Counselor [facility] Maternal Medicine Office: [phone] MFM: [phone] [facility] MFM documented in this encounter [...] - BLOOD ORDERABLES Final Result U LABORATORY [facility] Core Lab [address] [facility], [address] [address], [facility] UR LABORATORY [facility] Acute Care Lab [address] [place] [address], [address] [address] * Other Laboratory; Iain; Robertorama (Laboratory Miscellaneous Order) (12/17/2023 5:29 PM CDT) Specimen Status Specimen received. Reordered and sent to performing laboratory. Report to follow upon completion. [facility] 12/18/2023 2:50 PM CDT UU LABORATORY Performing Laboratory Iain [facility] 12/18/2023 2:50 PM CDT UR LABORATORY Test Name Panorama [facility] 12/18/2023 2:50 PM CDT UR LABORATORY Blood BLOOD SPECIMEN / Unknown Venipuncture / Unknown 12/17/2023 5:29 PM CDT 12/17/2023 5:30 PM CDT Roxane Goldstein LAB - BLOOD ORDERABLES Final Result UU LABORATORY [facility] Core Lab [address] [facility], [address] [place] [address], [facility] UR LABORATORY [facility] Acute Care Lab [address] [facility], [address] [address] documented in this encounter Visit Diagnoses Diagnosis screening encounter- Primary Unspecified screening Dichorionic diamniotic twin in first trimester Twin , antepartum Encounter of female for testing for genetic disease carrier status for procreative management Testing of female for genetic disease carrier status documented in this encounter Care Teams Deputy United [place] Marshal Relationship Specialty Start Date End Date Rich Resendez MD [address] [address] PCP - General Emergency Medicine 01/02/19 documented as of this encounter
--- OUTSIDE RECORDS SUMMARY | 2024-03-26 00:08 | XMS_ITS | Encounter Summary ---
Author Organization [employer] Address [address] [facility] [place] [address] Care Team Providers Care Neon Tube Bender Name Role Phone Rich Resendez MD Primary Care Provider Reason for Referral * Diagnostic Imaging Ultrasound (Routine) - Pending Review Specialty Diagnoses / Procedures Referred By Vale argueta Referred To Contact Radiology. Diagnoses Dichorionic diamniotic twin in first trimester Joint derangement Procedures MFM Twins Nuchal Trans w/US Katiana Montez CNM [address] [facility] [address] [place] [address] Phone: tel: fax: Referral ID Status Reason Start Date Expiration Date V isits Requested Visits Authorized [id number] Pending Review 12/02/2023 12/01/2024 1 1 Reason for Visit * Diagnostic Imaging Ultrasound (Routine) - Pending Review Specialty Diagnoses / Procedures Referred By Vale argueta Referred To Contact Radiology. Diagnoses Dichorionic diamniotic twin in first trimester Joint derangement Procedures MFM Twins Nuchal Trans w/US Katiana Montez CNM [address] [place] [address] Phone: tel: fax: Referral ID Status Reason Start Date Expiration Date V isits Requested Visits Authorized [id number] Pending Review 12/02/2023 12/01/2024 1 1 Encounter Details Date Type Department Care Team (Latest Contact Info) Description 12/17/2023 12:24 PM CDT - 12/17/2023 11:59 PM CDT Hospital Encounter [facility] M[facility] Medicine [facility] [place] [address] [place] [address] Rima Portillo MD [address] [place] [address] Dichorionic diamniotic twin in first trimester; Joint [...] CALLOWAY Study Date: 12/17/2023 1:29pm Pat. NO: [id number] Referring MD: LATISHA NOEL Site: Entry Level Electrical Engineer: Patricia Irvin RDMS : 1995 Age: 28 [...] gestation and [facility] at patient's [facility]. Return [...] CALLOWAY Study Date: 12/17/2023 1:29pm Pat. NO: [id number] Referring MD: LATISHA SADIE Site: Entry Level Electrical Engineer: Patricia Irvin RDMS : 1995 Age: 28 [...] [facility]. Please see the EPIC chart for [...] weeksgestation and has been scheduled at our [facility] clinic atpatient's request. Return to [...] early gestational age. us Katiana Montez CN [facility] US ORDERABLES Ed ited Result - Final documented in this encounter Visit Diagnoses Diagnosis Dichorionic diamniotic twin in first trimester Twin , antepartum Joint derangement Unspecified derangement, joint, site unspecified documented in this encounter Care Teams Neon Tube Bender Relationship Specialty Start Date End Date Rich Resendez MD [facility] [address] [place] [address] PCP - General Emergency Medicine 01/02/19 documented as of this encounter
--- OUTSIDE RECORDS SUMMARY | 2024-03-26 00:08 | XMS_ITS | Clinical Summary ---
Author Organization [facility] Address [place], [place] [address] Care Team Providers Care Manager Pediatric Name Role Phone Rich Resendez MD Primary [...] AM CDT Ancillary Procedure [facility] [address] [place] [address] from Last 3 Months Immunizations Name Administration [...] Comments Blood Pressure 131/107 06/25/2021 3:02 AM PRINCIPAL STATISTICAL SCIENTIST Pulse 95 06/25/2021 3:59 AM PRINCIPAL STATISTICAL SCIENTIST Temperature 37.4 C (99.3 F) 06/25/2021 3:02 AM PRINCIPAL STATISTICAL SCIENTIST Respiratory Rate 16 06/25/2021 3:02 AM PRINCIPAL STATISTICAL SCIENTIST Oxygen Saturation 98% 06/25/2021 3:59 AM PRINCIPAL STATISTICAL SCIENTIST Inhaled Oxygen Concentration - - Weight 83.9 kg (185 lb) 06/25/2021 3:02 AM PRINCIPAL STATISTICAL SCIENTIST Height 167.6 cm (5' 6) 06/25/2021 3:02 AM PRINCIPAL STATISTICAL SCIENTIST Body Mass Index 29.86 06/25/2021 3:02 AM PRINCIPAL STATISTICAL SCIENTIST Plan of Treatment Health Maintenance Due Date [...] HPV HIGH RISK Routine 05/15/2023 12:30 PM PRINCIPAL STATISTICAL SCIENTIST from Last 3 Months or Most Recently Relevant to Health Maintenance Results * ECHO TTE COMPLETE WO CONTRAST (01/29/2024 10:54 AM CDT) AORTIC VALVE MEAN PG 5 mmHg LVEDD 4.2 cm EJECTION FRACTION 65 - 70% Anatomical Region Laterality Modality Ultrasound 01/29/2024 10:1 5 AM CDT Narrative 01/29/2024 4:45 PM CDT ECHOCARDIOGRAM LENORE Lugo DAILY : 1995 29 years Study Date: 01/29/2024 10:15:27 AM Gender: F BP: 132/85 mmHg Height: 168.00 cm BSA: 1.94 m Weight: 84.00 kg Tech: [facility] Referring MD: NEETU NEGRETE Site: [facility] Reading Location: Mobile OP Patient [...] normal. Right atrial volume index is 18 ml/m . Right atrial area is 14 cm . The pulmonary artery is not well visualized. [...] Asc Ao 2.8 cm RA area 14 cm RV Max 4C (d) 2.9 cm Diastology: Mitral Tissue Doppler E Peak 0.9 m/s e', Septum 0.13 m/s A Peak 1.0 m/s e', Lateral 0.14 m/s E/A 0.9 E/e' Average 6.67 DT 162 msec Aortic Valve: Vmax 1.5 m/s YAA (V) 2.78 cm VTI 0.28 m YAA (I) 2.67 cm LVOT V max 1.2 m/s Max PG 9 mmHg LVOT VTI 0.22 m Mean PG 5 mmHg SV 75 ml Dim Index 0.79 SV index 39 ml/m CO 7.0 l/min CI 3.6 l/min/m Mitral Valve: MVA 4.7 cm MV P 1/2 47 msec Tricuspid Valve and estimated PA pressures: TAPSE 1.7 cm . This study was interpreted by an [facility] accredited facility. CC: ANATOLY (med records) [facility]. Final Procedure Note Isaac Silverio MD - 01/29/2024 ECHOCARDIOGRAM LENORE Lugo DAILY : 1995 29 years Study Date: 01/29/2024 10:15:27 AM Gender: F BP: 132/85 mmHg Height: 168.00 cm BSA: 1.94 m Weight: 84.00 kg Tech: MBF Referring MD: NEETU NEGRETE Site: [facility] Reading Location: Mobile OP Patient [...] isnormal. Right atrial volume index is 18 ml/m . Right atrial area is 14cm . The pulmonary artery is not well visualized. [...] Asc Ao 2.8 cm RA area 14 cm RV Max 4C (d) 2.9 cm Diastology: Mitral Tissue Doppler E Peak 0.9 m/s e', Septum 0.13 m/s A Peak 1.0 m/s e', Lateral 0.14 m/s E/A 0.9 E/e' Average 6.67 DT 162 msec Aortic Valve: Vmax 1.5 m/s YAA (V) 2.78 cm VTI 0.28 m YAA (I) 2.67 cm LVOT V max 1.2 m/s Max PG 9 mmHg LVOT VTI 0.22 m Mean PG 5 mmHg SV 75 ml Dim Index 0.79 SV index 39 ml/m CO 7.0 l/min CI 3.6 l/min/m Mitral Valve: MVA 4.7 cm MV P 1/2 47 msec Tricuspid Valve and estimated PA pressures: TAPSE 1.7 cm . This study was interpreted by an [facility] accredited facility. CC: [facility]. Final Neetu Negrete MD ECHO ORD * (ABNORMAL) HPV HIGH RISK (05/15/2023 12:30 PM PRINCIPAL STATISTICAL SCIENTIST) TYPE 16 Negative Negative 05/22/2023 11:44 AM [facility] TRAL LABORATORY TYPE 18 Negative Negative 05/22/2023 11:44 AM [facility] TRA LABORATORY OTHER HIGH RISK TYPES Positive(A) Negative 05/22/2023 11:44 AM [facility] TRA LABORATORY Other (Cervical) Non-Blood / Unknown 05/15/2023 12:30 PM PRINCIPAL STATISTICAL SCIENTIST 05/21/2023 7:37 [facility] - 05/22/2023 11:44 AM PRINCIPAL STATISTICAL SCIENTIST Specimen is positive for the DNA of any one of, or combination of, the following high risk HPV types: 31, 33, 35, 39, 45, 51, 52, 56, 58, 59, 66, 68. HPV types 16 and 18 DNA were undetectable or below the pre-set threshold. Methodology: Yung Mabel 4800 HPV Test Vanessa Chavez NP MICROBIOLOGY [facility] [address] [place] [address], from Last 3 Months or Most Recently Relevant to Health Maintenance Care Teams Manager Pediatric Relationship Specialty Start Date End Date Rich Resendez MD [address] [place] [address] PCP - General Internal Medicine 07/29/20
--- NOTE | 2024-03-26 00:09 | CRLHL7_ITS ---
For Patients: As a result of the Century Cures Act, medical imaging exams and procedure reports are released immediately into your electronic medical record. You may view this report before your referring provider. If you have questions, please contact your health care provider. INDICATION: Right upper quadrant abdominal pain TECHNIQUE: Ultrasound abdomen limited. Sonographic images of the gallbladder and biliary tree were obtained using paul-scale and color Doppler images. COMPARISON: None FINDINGS: Liver: The liver parenchyma is normal in echotexture. Gallbladder: The neck of the gallbladder is not well demonstrated. No gallstones or sludge seen in the lumen. The gallbladder wall is normal in appearance. No pericholecystic fluid is present. No sonographic López???s sign is present. Common bile duct: 2 mm. No intrahepatic biliary ductal dilatation seen. Vascular: Proximal abdominal aorta and IVC are not demonstrated. The visualized portal vein is patent with normal anterograde flow. IMPRESSION: 1. The gallbladder is unremarkable in appearance. Dictated by Viktor Deluca MD @ 03/26/2024 1:46:48 AM Dictated by: Viktor Deluca MD @ 03/26/2024 01:46:51 (Electronically Signed)
[2024-03-26 00:21] VITALS: PULSE 92; O2SAT 98
[2024-03-26 00:22] VITALS: BP 123/71; PULSE 90; RESP 16; TEMP 36.6
--- NOTE | 2024-03-26 02:45 | PC.OBNST ---
NST Note NST Note Start: 03/26/24 00:11 Freq: ONCE Status: Active Protocol: Document 03/26/24 02:44 TERRENCE (Rec: 03/26/24 02:45 TERRENCE [id number]) NST Note 3 Para (# of births) 1 EDC 06/30/24 Gestational Age In Weeks & Days 26 Weeks & 2 Days High Risk Factors Twins,History of Labor /Delivery Patient Presented with Complaint(s) of Pain If Pain, describe location RUQ Appropriate for Gestational Age Yes CHARAN Shaffer RN Date 03/26/24 Appropriate for Gestational Age Yes CHARAN Alvardao OBGYN Date 03/26/24 OB NST charge Yes Complete NST Note via Write Note Yes The provider's electronic signature indicates the NST is reactive/appropriate for gestational age. *Note to provider: If an addendum is required, open the patient's chart and click on the note under the Nurse/Allied Health tab.
== END 2024-03-26 01:50 | disposition home or self-care (01) ==
LOC: OB OUT 00:04 → OB 00:04
PROVIDERS: PCP Internal Medicine; Visit Provider Obstetrics & Gynecology
DX: R10.11 Right upper quadrant pain (principal)
CPT/HCPCS: 59025; 76705; G0463

== ENCOUNTER 2024-04-07 09:15 | Outpatient (CLI) | payer BC, SELFPAY ==
--- NOTE | 2024-04-07 09:15 | CRLHL7_ITS ---
For Patients: As a result of the Cures Act, medical imaging exams and procedure reports are released immediately into your electronic medical record. You may view this report before your referring provider. If you have questions, please contact your health care provider. INDICATION: Di-di twin , hx labor COMPARISON: 03/10/2024 TECHNIQUE: Real-time grayscale imaging of the twins was performed FINDINGS/IMPRESSION: Sonographic imaging demonstrates a living twin intrauterine gestation. Twin A demonstrates a regular cardiac rate of 137 beats per minute. Twin A has a vertex position, maternal right. The placenta lies anterior. Amniotic fluid volume appears normal and the largest fluid pocket measures 5.4 cm. The estimated weight is 1184 gm which lies at the 43rd percentile. BPD 79th percentile. HC 50th percentile. AC 43rd percentile. FL 32nd percentile. The HC/AC ratio measures 1.12 range (1.00-1.21). Sonographic gestational age 28 weeks 4 days and sonographic due date of 06/26/2024. Sonographic age 4 days ahead of the clinical age. Twin B demonstrates a regular cardiac rate of 134 beats per minute. Twin B has a breech position, maternal left. The placenta lies posterior. Amniotic fluid volume single deepest fluid pocket measures 8.0 cm. The estimated weight is 1377 gm which lies at the 86th percentile. BPD 70th percentile. HC 41st percentile. AC 94th percentile. FL 46th percentile. The HC/AC ratio measures 1.02 range (0.99-1.21). Sonographic gestational age 29 weeks 1 day and sonographic due date of 06/22/2024. Sonographic age 8 days ahead of the clinical age. Dictated by Roland Roberto MD @ 04/08/2024 9:06:48 AM (Electronically Signed)
== END 2024-04-07 09:16 | disposition home or self-care (01) ==
LOC: US 09:16
PROVIDERS: PCP Internal Medicine; Visit Provider Obstetrics & Gynecology
DX: O30.041 Twin pregnancy, dichorionic/diamniotic, first trimester (principal); O99.013 Anemia complicating pregnancy, third trimester; Z3A.28 28 weeks gestation of pregnancy; O28.8 Other abnormal findings on antenatal screening of mother
CPT/HCPCS: 76816

== ENCOUNTER 2024-04-07 10:42 | Outpatient (CLI) | payer BC, SELFPAY ==
--- OUTSIDE RECORDS SUMMARY | 2024-04-07 10:45 | XMS_ITS | Clinical Summary ---
Author Organization [place] Address [address] [place] [address] Care Team Providers Care Compliance Review Specialist Name Role Phone Rich Resendez MD [...] Description 02/01/2024 9:15 AM CDT Office Visit [facility] [place] [address] [place], [place] [address] Raymundo Sinha MD Dichorionic diamniotic twin in second trimester (Primary Dx); H/O delivery, currently , second trimester 02/01/2024 7:57 AM CDT - 02/01/2024 11:59 PM CDT Hospital Encounter [facility] [place] [address] [place] [address] Raymundo Sinha MD related condition, antepartum Discharge Disposition: Home or Self Care 02/01/2024 Travel 01/29/2024 Travel 01/28/2024 Transcribe Orders [facility] [address] [place] [address] JoneAugust related condition, antepartum (Primary Dx) from Last 3 Months Social History Tobacco [...] Procedure Name Priority Date/Time Associated Diagnosis Comments PRISCILLA MARTINI COMPREHENSIVE Routine 02/01/2024 9:29 AM CDT related condition, antepartum from Last 3 Months Results * MARTHAM Twins US Comprehensive (02/01/2024 9:29 AM CDT) [...] TORO Study Date: 02/01/2024 8:01am Pat. NO: [id number] Referring MD: LATISHA NOEL Site: Power Plant Operations Manager: Kimberly Hernandez RDMS : 1995 Age: [...] 0 lb 9 oz EFW by Hadlock ([id number]) EFW discordance 0.5 % Head / Face / Neck Biometry: Head Sulfide Operator 6.5 mm CM 5.4 mm Nasal bone [...] 0 lb 9 oz EFW by Hadlock ([id number]) EFW discordance 0.5 % Head / Face / Neck Biometry: Head Sulfide Operator 7.4 mm CM 4.6 mm Nasal bone 6.0 mm Fetus 1: ANATOMY ----- The following structures appear normal: Head / Neck Cranium. Head size. Head shape. Lateral ventricles. Choroid plexus. Midline falx. Cavum septi pellucidi. Cerebellum. Cisterna magna. Parenchyma. Thalami. Vermis. Neck. Nuchal fold. Face Lips. Profile. Nose. Maxilla. Mandible. Orbits. Lens. Heart / Thorax 4-chamber view. RVOT view. LVOT view. 3-vessel view. 1-znbpsh-alsdnxu view. Situs. Aortic arch view. Bicaval view. [...] view. RVOT view. LVOT view. 3-vessel view. 8-umkygs-hdrfypd view. Situs. Aortic arch view. Bicaval view. [...] has the cervical length assessments scheduled in [place] and will check to see if she [...] TORO Study Date: 02/01/2024 8:01am Pat. NO: [id number] Referring MD: LATISHA NOEL Site: Power Plant Operations Manager: Kimberly Hernandez RDMS : 1995 Age: [...] EFW (lb,oz) 0 lb 9oz EFW by Hadlock([id number]) EFW discordance 0.5% Head / Face / Neck Biometry: Head Sulfide Operator 6.5mm CM 5.4mm Nasal bone 5.9mm Fetus 2: BIOMETRY ----- BPD 42.2mm 18w 5dHadlock OFD 54.4mm 18w 1dNicolaides HC 156.1mm 18w 4dHadlock Cerebellum tr 18.2mm 18w 1dNicolaides Nuchal fold 3.5mm AC 136.3mm 19w 1d 64%Hadlock Femur 28.1mm 18w 4dHadlock Humerus 29.0mm 19w 3dJeanty Weight Calculation: EFW 259g 59%Hadlock EFW (lb,oz) 0 lb 9oz EFW by Hadlock([id number]) EFW discordance 0.5% Head / Face / Neck Biometry: Head Sulfide Operator 7.4mm CM 4.6mm Nasal bone 6.0mm Fetus 1: ANATOMY ----- The following structures appear normal: Head / Neck Cranium. Head size. Head shape.Lateral ventricles. Choroid plexus. Midline falx. Cavum septi pellucidi.Cerebellum. Cisterna magna. Parenchyma. Thalami. Vermis. Neck. Nuchal fold. Face Lips. Profile. Nose. Maxilla.Mandible. Orbits. Lens. Heart / Thorax 4-chamber view. RVOT view. LVOT view.3-vessel view. 7-raboki-brhzzvs view. Situs. Aortic arch view. Bicavalview. Ductal [...] 4-chamber view. RVOT view. LVOT view.3-vessel view. 4-qwxmqi-cbuqpka view. Situs. Aortic arch view. Bicavalview. Ductal [...] She has the cervical length assessmentsscheduled in [place] and will check to see if she [...] and closed at 39 mm. us August Fitzloff [facility] US ORDERABLES Edited Res ult - Final from Last 3 Months Insurance Violet Grey [facility] Violet Grey [facility] Care Teams Compliance Review Specialist Relationship Specialty Start Date End Date Rich Resendez MD [facility] [address] [place] [address] PCP - General Emergency Medicine 01/02/19
--- OUTSIDE RECORDS SUMMARY | 2024-04-07 10:45 | XMS_ITS | Referral Summary ---
Author Organization [place] Address [address] [facility] [place] [address] Care Team Providers Care Rn Social Work Name Role Phone Rich Resendez MD Primary Care Provider Encounters Date Type Department Care Team Description 02/01/2024 Travel 02/01/2024 9:15 AM CDT Office Visit [facility] Maternal Medicine [address] [place] [address] Raymundo Sinha MD Dichorionic diamniotic twin in second trimester (Primary Dx); H/O delivery, currently , second trimester 02/01/2024 7:57 AM CDT - 02/01/2024 11:59 PM CDT Hospital Encounter [facility] Medicine [facility] [address] [address] Raymundo Sinha MD related condition, antepartum Discharge Disposition: Home or Self Care 01/29/2024 Travel 01/28/2024 Transcribe Orders [facility] Maternal Medicine [address] [place] [address] Tobyaugust related condition, antepartum (Primary Dx) from Last 3 Months Allergies Active Allergy [...] TORO Study Date: 02/01/2024 8:01am Pat. NO: [id number] Referring MD: LATISHA NOEL Site: Meat Cutting Block Repairer: Kimberly Hernandez RDMS : 1995 Age: 29 [...] 0 lb 9 oz EFW by Hadlock (OKB-LD-CT-FL) EFW discordance 0.5 % Head / Face / Neck Biometry: Pusher Runner 6.5 mm CM 5.4 mm Nasal bone [...] 0 lb 9 oz EFW by Hadlock ([id number]-NH-RJ-FL) EFW discordance 0.5 % Head / Face / Neck Biometry: Pusher Runner 7.4 mm CM 4.6 mm Nasal bone 6.0 mm Fetus 1: ANATOMY ----- The following structures appear normal: Head / Neck Cranium. Head size. Head shape. Lateral ventricles. Choroid plexus. Midline falx. Cavum septi pellucidi. Cerebellum. Cisterna magna. Parenchyma. Thalami. Vermis. Neck. Nuchal fold. Face Lips. Profile. Nose. Maxilla. Mandible. Orbits. Lens. Heart / Thorax 4-chamber view. RVOT view. LVOT view. 3-vessel view. 0-nuywmv-vrvjklm view. Situs. Aortic arch view. Bicaval view. [...] view. RVOT view. LVOT view. 3-vessel view. 8-hnyucr-gjeelow view. Situs. Aortic arch view. Bicaval view. [...] has the cervical length assessments scheduled in [place] and will check to see if she [...] TORO Study Date: 02/01/2024 8:01am Pat. NO: [id number] Referring MD: LATISHA NOEL Site: Meat Cutting Block Repairer: Kimberly Hernandez RDMS : 1995 Age: 29 [...] EFW (lb,oz) 0 lb 9oz EFW by Hadlock([id number]-BB-UN-FL) EFW discordance 0.5% Head / Face / Neck Biometry: Pusher Runner 6.5mm CM 5.4mm Nasal bone 5.9mm Fetus 2: BIOMETRY ----- BPD 42.2mm 18w 5dHadlock OFD 54.4mm 18w 1dNicolaides HC 156.1mm 18w 4dHadlock Cerebellum tr 18.2mm 18w 1dNicolaides Nuchal fold 3.5mm AC 136.3mm 19w 1d 64%Hadlock Femur 28.1mm 18w 4dHadlock Humerus 29.0mm 19w 3dJeanty Weight Calculation: EFW 259g 59%Hadlock EFW (lb,oz) 0 lb 9oz EFW by Hadlock(MCU-DG-OQ-FL) EFW discordance 0.5% Head / Face / Neck Biometry: Pusher Runner 7.4mm CM 4.6mm Nasal bone 6.0mm Fetus 1: ANATOMY ----- The following structures appear normal: Head / Neck Cranium. Head size. Head shape.Lateral ventricles. Choroid plexus. Midline falx. Cavum septi pellucidi.Cerebellum. Cisterna magna. Parenchyma. Thalami. Vermis. Neck. Nuchal fold. Face Lips. Profile. Nose. Maxilla.Mandible. Orbits. Lens. Heart / Thorax 4-chamber view. RVOT view. LVOT view.3-vessel view. 4-ewgsqe-iynkevl view. Situs. Aortic arch view. Bicavalview. Ductal [...] 4-chamber view. RVOT view. LVOT view.3-vessel view. 7-lvaeve-hukiaks view. Situs. Aortic arch view. Bicavalview. Ductal [...] She has the cervical length assessmentsscheduled in [place] and will check to see if she [...] long and closed at 39 mm. August [facility] US ORDERABLES Edited Res ult - Final from Last 3 Months Insurance [facility] Address: [address] [place] [address] [employer] [place] Care Teams Rn Social Work Relationship Specialty Start Date End Date Rich Resendez MD [facility] [address] [place] [address] PCP - General Emergency Medicine 01/02/19
--- OUTSIDE RECORDS SUMMARY | 2024-04-07 10:45 | XMS_ITS | Encounter Summary ---
Author Organization [place] Address [facility] [place] [address] Care Team Providers Care Painter Touch Up Name Role Phone Rich Resendez MD Primary [...] on filedocumented in this encounter Care Teams Painter Touch Up Relationship Specialty Start Date End Date Rich Resendez MD [facility] [address] [place] [address] PCP - General Emergency Medicine 01/02/19 documented as of this encounter
--- OUTSIDE RECORDS SUMMARY | 2024-04-07 10:46 | XMS_ITS | Clinical Summary ---
Author Organization [facility] Address [place], [place] [address] Care Team Providers Care Manager Equipment Name Role Phone Rich Resendez MD [...] Description 01/29/2024 10:00 AM CDT Ancillary Procedure [facility] [address] [place] [address] from Last 3 Months Immunizations Name Administration [...] Comments Blood Pressure 131/107 06/25/2021 3:02 AM ENFORCEMENT OFFICER Pulse 95 06/25/2021 3:59 AM ENFORCEMENT OFFICER Temperature 37.4 C (99.3 F) 06/25/2021 3:02 AM ENFORCEMENT OFFICER Respiratory Rate 16 06/25/2021 3:02 AM ENFORCEMENT OFFICER Oxygen Saturation 98% 06/25/2021 3:59 AM ENFORCEMENT OFFICER Inhaled Oxygen Concentration - - Weight 83.9 kg (185 lb) 06/25/2021 3:02 AM ENFORCEMENT OFFICER Height 167.6 cm (5' 6) 06/25/2021 3:02 AM ENFORCEMENT OFFICER Body Mass Index 29.86 06/25/2021 3:02 AM ENFORCEMENT OFFICER Plan of Treatment Health Maintenance Due Date [...] HPV HIGH RISK Routine 05/15/2023 12:30 PM ENFORCEMENT OFFICER from Last 3 Months or Most Recently [...] BSA: 1.94 m Weight: 84.00 kg Tech: [facility] Referring MD: NEETU NEGRETE Site: [facility] Reading Location: Mobile OP [...] . This study was interpreted by an [facility] accredited facility. CC: ANATOLY (med records) [facility]. Final Procedure Note Isaac Silverio MD - 01/29/2024 ECHOCARDIOGRAM LENORE Lugo DAILY : 1995 29 years Study Date: 01/29/2024 10:15:27 AM Gender: F BP: 132/85 mmHg Height: 168.00 cm BSA: 1.94 m Weight: 84.00 kg Tech: MBF Referring MD: NEETU NEGRETE Site: [facility] Reading Location: Mobile OP [...] interpreted by an [facility] accredited facility. CC: [facility] ([facility]) [facility]. Final Neetu Negrete MD ECHO ORD * (ABNORMAL) HPV HIGH RISK (05/15/2023 12:30 PM ENFORCEMENT OFFICER) TYPE 16 Negative Negative 05/22/2023 11:44 AM [facility] TYPE 18 Negative Negative 05/22/2023 11:44 AM [facility] TRA LABORATORY OTHER HIGH RISK TYPES Positive(A) Negative 05/22/2023 11:44 AM [facility] Other (Cervical) Non-Blood / Unknown 05/15/2023 12:30 PM ENFORCEMENT OFFICER 05/21/2023 7:[address] [facility] - 05/22/2023 11:44 AM ENFORCEMENT OFFICER Specimen is positive for the DNA of any one of, or combination of, the following high risk HPV types: 31, 33, 35, 39, 45, 51, 52, 56, 58, 59, 66, 68. HPV types 16 and 18 DNA were undetectable or below the pre-set threshold. Methodology: Yung Mabel 4800 HPV Test Vanessa Chavez NP MICROBIOLOGY [facility] [address] [place] [address], from Last 3 Months or Most Recently Relevant to Health Maintenance Care Teams Manager Equipment Relationship Specialty Start Date End Date Rich Resendez MD [address] [place] [address] PCP - General Internal Medicine 07/29/20
--- OUTSIDE RECORDS SUMMARY | 2024-04-07 10:46 | XMS_ITS | Encounter Summary ---
Author Organization [place] Address [address] [facility] [place] [address] Care Team Providers Care Fabrication Supervisor Name Role Phone Rich Resendez MD Primary Care Provider Reason for Referral * Consultation (Routine: Next available opening) - Pending Review Specialty Diagnoses / Procedures Referred By Vale argueta Referred To Contact Diagnoses Dichorionic diamniotic twin in first trimester Joint derangement Katiana Montez CNM [address] [place] [address] Phone: tel: fax: Referral ID Status Reason Start Date Expiration Date V isits Requested Visits Authorized [id number] Pending Review 12/02/2023 12/01/2024 1 1 * Diagnostic Imaging Ultrasound (Routine) - Pending Review Specialty Diagnoses / Procedures Referred By Vale argueta Referred To Contact Radiology. Diagnoses Dichorionic diamniotic twin in first trimester Joint derangement Procedures MFM Twins Nuchal Trans w/US Katiana Montez CNM [address] [place] [address] Phone: tel: fax: Referral ID Status Reason Start Date Expiration Date V isits Requested Visits Authorized [id number] Pending Review 12/02/2023 12/01/2024 1 1 Encounter Details Date Type Department Care Team (Late st Contact Info) Description 12/02/2023 [facility] Only [facility] [place] [address] [place] [address] Elsie Blanchard RN Dichorionic diamniotic twin in [...] Type Priority Associated Diagnoses Orde r Schedule [facility] Genetic Counseling Referral Routine: Next available opening Dichorionic diamniotic twin in first trimester Joint derangement Expected: 12/02/2023 (Approximate), Expires: 12/01/2024 documented as of this encounter Results * [facility] Twins Nuchal Trans w/US (12/17/2023 [...] [place] Study Date: 12/17/2023 1:29pm Pat. NO: [id number] Referring MD: LATISHA NOEL Site: Secondary School Special Ed Teacher: Patricia Irvin RDMS : 1995 Age: [...] [place] Study Date: 12/17/2023 1:29pm Pat. NO: [id number] Referring MD: LATISHA NOEL Site: Secondary School Special Ed Teacher: Patricia Irvin RDMS : 1995 Age: [...] weeksgestation [facility] at[facility]. Return to primary [...] for early gestational age. us [facility] Ed ited Result - Final documented in this encounter Visit Diagnoses Diagnosis Dichorionic diamniotic twin in first trimester- Primary Twin , antepartum Joint derangement Unspecified derangement, joint, site unspecified Dichorionic diamniotic twin in first trimester Twin , antepartum Joint derangement Unspecified derangement, joint, site unspecified documented in this encounter Care Teams Fabrication Supervisor Relationship Specialty Start Date [place] [address] PCP - General Emergency Medicine 01/02/19 documented as of this encounter
--- OUTSIDE RECORDS SUMMARY | 2024-04-07 10:46 | XMS_ITS | Encounter Summary ---
Author Organization [place] Address [address] [place] [address]. [place] [address] Care Team Providers Care Candy Bar Attendant Name Role Phone Rich Resendez MD Primary Care Provider Encounter Details Date Type Department Care Team (Late st Contact Info) Description 12/28/[address] [facility] Info [facility] [address] [place] [phone] Scan, Non-Provider Social History Tobacco Use [...] on filedocumented in this encounter Care Teams Candy Bar Attendant Relationship Specialty Start Date End Date Rich Resendez MD [facility] [address] [place] [address] PCP - General Emergency Medicine 01/02/19 documented as of this encounter
--- OUTSIDE RECORDS SUMMARY | 2024-04-07 10:46 | XMS_ITS | Encounter Summary ---
Author Organization [place] Address [address] [facility] [place] [address] Care Team Providers Care Bond Manager Name Role Phone Rich Resendez MD Primary Care Provider Reason for Referral * Diagnostic Imaging Ultrasound (Routine) - Pending Review Specialty Diagnoses / Procedures Referred By Vale t Referred To Contact Radiology. Diagnoses related condition, antepartum Procedures MFM Twins [facility] Jone[facility] Phone: tel: fax: Referral ID Status Reason Start Date Expiration Date V isits Requested Visits Authorized [id number] Pending Review 01/28/2024 01/27/2025 1 1 Encounter Details Date Type Department Care Team (Latest Contact Info) Description 01/28/[address] [facility] Maternal Medicine Center [place] [address] [place], [place] [address] Jone[place] [address] [place] [address] related condition, antepartum (Primary Dx) Social History [...] [place] Study Date: 02/01/2024 8:01am Pat. NO: [id number] Referring MD: LATISHA NOEL Site: Gunner'S Mate: Kimberly Hernandez RDMS : 1995 Age: 29 [...] 0 lb 9 oz EFW by Hadlock (RVF-YE-PB-FL) EFW discordance 0.5 % Head / Face / Neck Biometry: Architectural Practice Manager 6.5 mm CM 5.4 mm Nasal bone [...] 0 lb 9 oz EFW by Hadlock (ZZT-BT-GJ-FL) EFW discordance 0.5 % Head / Face / Neck Biometry: Architectural Practice Manager 7.4 mm CM 4.6 mm Nasal bone 6.0 mm Fetus 1: ANATOMY ----- The following structures appear normal: Head / Neck Cranium. Head size. Head shape. Lateral ventricles. Choroid plexus. Midline falx. Cavum septi pellucidi. Cerebellum. Cisterna magna. Parenchyma. Thalami. Vermis. Neck. Nuchal fold. Face Lips. Profile. Nose. Maxilla. Mandible. Orbits. Lens. Heart / Thorax 4-chamber view. RVOT view. LVOT view. 3-vessel view. 8-huuplv-csiczwz view. Situs. Aortic arch view. Bicaval view. [...] view. RVOT view. LVOT view. 3-vessel view. 3-qicjyn-xktzdmh view. Situs. Aortic arch view. Bicaval view. [...] has the cervical length assessments scheduled in [place] and will check to see if she [...] present but not detected Procedure Note Raymundo iSnha MD - 02/01/2024 Comprehensive ----- Pat. Name: LENORE CALLOWAY Study Date: 02/01/2024 8:01am Pat. NO: [id number] Referring MD: LATISHA NOEL Site: Gunner'S Mate: Kimberly Hernandez RDMS : 1995 Age: 29 [...] EFW (lb,oz) 0 lb 9oz EFW by Hadlock([id number]-FX-DN-FL) EFW discordance 0.5% Head / Face / Neck Biometry: Architectural Practice Manager 6.5mm CM 5.4mm Nasal bone 5.9mm Fetus 2: BIOMETRY ----- BPD 42.2mm 18w 5dHadlock OFD 54.4mm 18w 1dNicolaides HC 156.1mm 18w 4dHadlock Cerebellum tr 18.2mm 18w 1dNicolaides Nuchal fold 3.5mm AC 136.3mm 19w 1d 64%Hadlock Femur 28.1mm 18w 4dHadlock Humerus 29.0mm 19w 3dJeanty Weight Calculation: EFW 259g 59%Hadlock EFW (lb,oz) 0 lb 9oz EFW by Hadlock(RZP-KU-CS-FL) EFW discordance 0.5% Head / Face / Neck Biometry: Architectural Practice Manager 7.4mm CM 4.6mm Nasal bone 6.0mm Fetus 1: ANATOMY ----- The following structures appear normal: Head / Neck Cranium. Head size. Head shape.Lateral ventricles. Choroid plexus. Midline falx. Cavum septi pellucidi.Cerebellum. Cisterna magna. Parenchyma. Thalami. Vermis. Neck. Nuchal fold. Face Lips. Profile. Nose. Maxilla.Mandible. Orbits. Lens. Heart / Thorax 4-chamber view. RVOT view. LVOT view.3-vessel view. 1-ryndtd-ufeqikj view. Situs. Aortic arch view. Bicavalview. Ductal [...] 4-chamber view. RVOT view. LVOT view.3-vessel view. 5-mftual-ffaazia view. Situs. Aortic arch view. Bicavalview. Ductal [...] She has the cervical length assessmentsscheduled in [place] and will check to see if she [...] and closed at 39 mm. August [facility] Edited Res ult - Final documented in this encounter Visit Diagnoses Diagnosis related condition, antepartum- Primary related condition, antepartum documented in this encounter Care Teams Bond Manager Relationship Specialty Start Date End Date Rich Resendez MD [facility] [address] [place] [address] PCP - General Emergency Medicine 01/02/19 documented as of this encounter
--- OUTSIDE RECORDS SUMMARY | 2024-04-07 10:46 | XMS_ITS | Encounter Summary ---
Author Organization [place] Address [facility] [place] [address] Care Team Providers Care Adult Health Clinical Nurse Specialist Name Role Phone Rich Resendez MD [...] on filedocumented in this encounter Care Teams Adult Health Clinical Nurse Specialist Relationship Specialty Start Date End Date Rich Resendez MD [facility] [address] [place] [address] PCP - General Emergency Medicine 01/02/19 documented as of this encounter
--- OUTSIDE RECORDS SUMMARY | 2024-04-07 10:46 | XMS_ITS | Encounter Summary ---
Author Organization [place] Address [address] [address] Care Team Providers Care Head Of Visual Merchandising Name Role Phone Rich Resendez MD Primary Care Provider Reason for Referral * Diagnostic Imaging Ultrasound (Routine) - Pending Review Specialty Diagnoses / Procedures Referred By Contac t Referred To Contact Radiology. Diagnoses related condition, antepartum Procedures MFM Twins [facility] August Phone: tel: fax: Referral ID Status Reason Start Date Expiration Date V isits Requested Visits Authorized [id number] Pending Review 01/28/2024 01/27/2025 1 1 Reason for Visit * Diagnostic Imaging Ultrasound (Routine) - Pending Review Specialty Diagnoses / Procedures Referred By Contac t Referred To Contact Radiology. Diagnoses related condition, antepartum Procedures MFM Twins [facility] August Phone: tel: fax: Referral ID Status Reason Start Date Expiration Date V isits Requested Visits Authorized [id number] Pending Review 01/28/2024 01/27/2025 1 1 Encounter Details Date Type Department Care Team (Latest Contact Info) Description 02/01/2024 7:57 AM CDT - 02/01/2024 11:59 PM CDT Hospital Encounter [facility] Maternal Medicine [facility] [address] [place] [address] Raymundo Sinha MD [address] [facility] [address] [place] [address] related condition, antepartum Discharge Disposition: Home or [...] [place] Study Date: 02/01/2024 8:01am Pat. NO: [id number] Referring MD: MONICA NOEL Site: Golf Club Maker: Kimberly Hernandez RDMS : 1995 Age: 29 [...] 0 lb 9 oz EFW by Hadlock (TMH-GI-WO-FL) EFW discordance 0.5 % Head / Face / Neck Biometry: Real Estate Sales Supervisor 6.5 mm CM 5.4 mm Nasal [...] 0 lb 9 oz EFW by Hadlock (SZD-GP-DB-FL) EFW discordance 0.5 % Head / Face / Neck Biometry: Real Estate Sales Supervisor 7.4 mm CM 4.6 mm Nasal [...] view. RVOT view. LVOT view. 3-vessel view. 4-zasqpx-mqiyxfu view. Situs. Aortic arch view. Bicaval view. [...] view. RVOT view. LVOT view. 3-vessel view. 1-vpznks-dpqkqps view. Situs. Aortic arch view. Bicaval view. [...] has the cervical length assessments scheduled in [place] and will check to see if she [...] [place]AY Study Date: 02/01/2024 8:01am Pat. NO: [id number] Referring MD: MONICA NOEL Site: Golf Club Maker: Kimberly Hernandez RDMS : 1995 Age: 29 [...] EFW (lb,oz) 0 lb 9oz EFW by Hadlock(MRC-JC-CW-FL) EFW discordance 0.5% Head / Face / Neck Biometry: Real Estate Sales Supervisor 6.5mm CM 5.4mm Nasal bone 5.9mm Fetus 2: BIOMETRY ----- BPD 42.2mm 18w 5dHadlock OFD 54.4mm 18w 1dNicolaides HC 156.1mm 18w 4dHadlock Cerebellum tr 18.2mm 18w 1dNicolaides Nuchal fold 3.5mm AC 136.3mm 19w 1d 64%Hadlock Femur 28.1mm 18w 4dHadlock Humerus 29.0mm 19w 3dJeanty Weight Calculation: EFW 259g 59%Hadlock EFW (lb,oz) 0 lb 9oz EFW by Hadlock(CCB-YZ-KD-FL) EFW discordance 0.5% Head / Face / Neck Biometry: Real Estate Sales Supervisor 7.4mm CM 4.6mm Nasal bone 6.0mm Fetus 1: ANATOMY ----- The following structures appear normal: Head / Neck Cranium. Head size. Head shape.Lateral ventricles. Choroid plexus. Midline falx. Cavum septi pellucidi.Cerebellum. Cisterna magna. Parenchyma. Thalami. Vermis. Neck. Nuchal fold. Face Lips. Profile. Nose. Maxilla.Mandible. Orbits. Lens. Heart / Thorax 4-chamber view. RVOT view. LVOT view.3-vessel view. 5-oddwaj-ybtujwq view. Situs. Aortic arch view. Bicavalview. Ductal [...] 4-chamber view. RVOT view. LVOT view.3-vessel view. 0-epmgkp-csujvqp view. Situs. Aortic arch view. Bicavalview. Ductal [...] She has the cervical length assessmentsscheduled in [place] and will check to see if she [...] long and closed at 39 mm. Monica [facility] US ORDERABLES Edited Res ult - Final documented in this encounter Visit Diagnoses Diagnosis related condition, antepartum documented in this encounter Care Teams Head Of Visual Merchandising Relationship Specialty Start Date End Date Rich Resendez MD [address] [address] PCP - General Emergency Medicine 01/02/19 documented as of this encounter
--- OUTSIDE RECORDS SUMMARY | 2024-04-07 10:46 | XMS_ITS | Encounter Summary ---
Author Organization [place] Address [address] [place] [address] Care Team Providers Care Airline Reservationist Name Role Phone Rich Resendez MD Primary Care Provider Reason for Visit * Reason Comments Ultrasound L2/TV - Di/Di twins, Encounter Details Date Type Department Care Team (Late st Contact Info) Description 02/01/2024 9:15 AM CDT Office Visit [facility] M[facility] Medicine [facility] [place] [address] [place], [place] [address] Raymundo Sinha MD [address] [place] [address] Dichorionic diamniotic twin in second [...] trimester documented in this encounter Care Teams Airline Reservationist Relationship Specialty Start Date End Date Rich Resendez MD [facility] [address] [place] [address] PCP - General Emergency Medicine 01/02/19 documented as of this encounter
--- OUTSIDE RECORDS SUMMARY | 2024-04-07 10:46 | XMS_ITS | Encounter Summary ---
Author Organization [place] Address [address] [facility] 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 We discussed that should her partner desire carrier screening, or should she desire an amniocentesis to sequence the genes for an additional variant, she could leandra or Roxane Goldstein MS, [facility] directly. Snckw-Gpicw-Pgqck syndrome (SLOS) (DHCR7: c.440G>A): This condition is [...] primary OB to review. Kaitlin Olivera MS, [facility] Licensed Genetic Counselor [facility] Pager: [phone] Office: [phone] documented in this encounter Plan of Treatment Not on file documented as of this encounter Visit Diagnoses Not on filedocumented in this encounter Care Teams Social Services Designee Relationship Specialty Start Date End Date [place] [address] PCP - General Emergency Medicine 01/02/19 documented as of this encounter
--- OUTSIDE RECORDS SUMMARY | 2024-04-07 10:46 | XMS_ITS | Encounter Summary ---
Author Organization [place] Address [address] [place] [address]. [place] [address] Care Team Providers Care Automated Cutting Machine Operator Name Role Phone Rich Resendez MD Primary Care Provider Encounter Details Date Type Department Care Team (Late st Contact Info) Description 12/11/2023 [facility] [address] [place] [address] [address] [place] [phone] Albina [facility] Social History Tobacco Use Types Packs/Day Years [...] on filedocumented in this encounter Care Teams Automated Cutting Machine Operator Relationship Specialty Start Date End Date Rich Resendez MD [facility] [address] [place] [address] PCP - General Emergency Medicine 01/02/19 documented as of this encounter
== END 2024-04-07 10:43 | disposition home or self-care (01) ==
PROVIDERS: PCP Internal Medicine; Visit Provider Obstetrics & Gynecology
DX: O99.013 Anemia complicating pregnancy, third trimester (principal); Z3A.28 28 weeks gestation of pregnancy
CPT/HCPCS: 80076; 82607; 82728; 86592

== ENCOUNTER 2024-04-07 11:25 | Outpatient (CLI) | payer BC, SELFPAY ==
--- OUTSIDE RECORDS SUMMARY | 2024-04-07 11:27 | XMS_ITS | Encounter Summary ---
Author Organization [place] Address [address] [place] [address] Care Team Providers Care Broadcast Transmitter Operator Name Role Phone Rich Resendez MD Primary Care Provider Reason for Referral * Diagnostic Imaging Ultrasound (Routine) - Pending Review Specialty Diagnoses / Procedures Referred By Contac t Referred To Contact Radiology. Diagnoses related condition, antepartum Procedures [facility] August Phone: tel: fax: Referral ID Status Reason Start Date Expiration Date V isits Requested Visits Authorized [id number] Pending Review 01/28/2024 01/27/2025 1 1 Reason for Visit * Diagnostic Imaging Ultrasound (Routine) - Pending Review Specialty Diagnoses / Procedures Referred By Contac t Referred To Contact Radiology. Diagnoses related condition, antepartum Procedures [facility] August Phone: tel: fax: Referral ID Status Reason Start Date Expiration Date V isits Requested Visits Authorized [id number] Pending Review 01/28/2024 01/27/2025 1 1 Encounter Details Date Type Department Care Team (Latest Contact Info) Description 02/01/2024 7:57 AM CDT - 02/01/2024 11:59 PM CDT Hospital Encounter [facility] [address] [place] [address] Raymundo Sinha MD [address] [facility] [address] [place] [address] related condition, antepartum Discharge Disposition: Home or [...] [place] Study Date: 02/01/2024 8:01am Pat. NO: [id number] Referring MD: MONICA NOEL Site: Certified Hyperbaric Technician: Kimberly Hernandez RDMS : 1995 Age: 29 [...] 0 lb 9 oz EFW by Hadlock (WJI-PE-FJ-FL) EFW discordance 0.5 % Head / Face / Neck Biometry: Auger Machine Offbearer 6.5 mm CM 5.4 mm Nasal bone [...] 0 lb 9 oz EFW by Hadlock (IIB-DE-WU-FL) EFW discordance 0.5 % Head / Face / Neck Biometry: Auger Machine Offbearer 7.4 mm CM 4.6 mm Nasal bone 6.0 mm Fetus 1: ANATOMY ----- The following structures appear normal: Head / Neck Cranium. Head size. Head shape. Lateral ventricles. Choroid plexus. Midline falx. Cavum septi pellucidi. Cerebellum. Cisterna magna. Parenchyma. Thalami. Vermis. Neck. Nuchal fold. Face Lips. Profile. Nose. Maxilla. Mandible. Orbits. Lens. Heart / Thorax 4-chamber view. RVOT view. LVOT view. 3-vessel view. 6-mwsarv-eozarfp view. Situs. Aortic arch view. Bicaval view. [...] view. RVOT view. LVOT view. 3-vessel view. 7-fpzcub-xilyslh view. Situs. Aortic arch view. Bicaval view. [...] has the cervical length assessments scheduled in [place] and will check to see if she [...] [place] Study Date: 02/01/2024 8:01am Pat. NO: [id number] Referring MD: MONICA NOEL Site: Certified Hyperbaric Technician: Kimberly Hernandez RDMS : 1995 Age: 29 [...] EFW (lb,oz) 0 lb 9oz EFW by Hadlock(NGL-XF-IW-FL) EFW discordance 0.5% Head / Face / Neck Biometry: Auger Machine Offbearer 6.5mm CM 5.4mm Nasal bone 5.9mm Fetus 2: BIOMETRY ----- BPD 42.2mm 18w 5dHadlock OFD 54.4mm 18w 1dNicolaides HC 156.1mm 18w 4dHadlock Cerebellum tr 18.2mm 18w 1dNicolaides Nuchal fold 3.5mm AC 136.3mm 19w 1d 64%Hadlock Femur 28.1mm 18w 4dHadlock Humerus 29.0mm 19w 3dJeanty Weight Calculation: EFW 259g 59%Hadlock EFW (lb,oz) 0 lb 9oz EFW by Hadlock(KDB-KD-OA-FL) EFW discordance 0.5% Head / Face / Neck Biometry: Auger Machine Offbearer 7.4mm CM 4.6mm Nasal bone 6.0mm Fetus 1: ANATOMY ----- The following structures appear normal: Head / Neck Cranium. Head size. Head shape.Lateral ventricles. Choroid plexus. Midline falx. Cavum septi pellucidi.Cerebellum. Cisterna magna. Parenchyma. Thalami. Vermis. Neck. Nuchal fold. Face Lips. Profile. Nose. Maxilla.Mandible. Orbits. Lens. Heart / Thorax 4-chamber view. RVOT view. LVOT view.3-vessel view. 4-hooepc-ehmbhaf view. Situs. Aortic arch view. Bicavalview. Ductal [...] 4-chamber view. RVOT view. LVOT view.3-vessel view. 3-halkns-vanbrfi view. Situs. Aortic arch view. Bicavalview. Ductal [...] She has the cervical length assessmentsscheduled in [place] and will check to see if she [...] long and closed at 39 mm. [facility] US ORDERABLES Edited Res ult - Final documented in this encounter Visit Diagnoses Diagnosis related condition, antepartum documented in this encounter Care Teams Broadcast Transmitter Operator Relationship Specialty Start Date End Date Rich Resendez MD [address] [address] PCP - General Emergency Medicine 01/02/19 documented as of this encounter
--- OUTSIDE RECORDS SUMMARY | 2024-04-07 11:27 | XMS_ITS | Encounter Summary ---
Author Organization [place] Address [address] [place] [address] Care Team Providers Care Child Specialist Name Role Phone Rich Resendez MD Primary Care Provider Reason for Visit * Reason Comments Ultrasound L2/TV - Di/Di twins, Encounter Details Date Type Department Care Team (Late st Contact Info) Description 02/01/2024 9:15 AM CDT Office Visit [facility] Maternal Medicine Center [place] [address] [place], [place] [address] Raymundo Sinha MD [address] [place] [place] [address] Dichorionic diamniotic twin in second [...] trimester documented in this encounter Care Teams Child Specialist Relationship Specialty Start Date End Date Rich Resendez MD [facility] [address] [place] [address] PCP - General Emergency Medicine 01/02/19 documented as of this encounter
--- OUTSIDE RECORDS SUMMARY | 2024-04-07 11:27 | XMS_ITS | Encounter Summary ---
Author Organization [place] Address [address] [facility] 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 We discussed that should her partner desire carrier screening, or should she desire an amniocentesis to sequence the genes for an additional variant, she could leandra or Roxane Goldstein MS, [facility] directly. Mcdgg-Jjzxg-Brlag syndrome (SLOS) (DHCR7: c.[id number]): This condition is [...] primary OB to review. Kaitlin Olivera MS, [facility] Licensed Genetic Counselor [facility] Pager: [phone] Office: [phone] documented in this encounter Plan of Treatment Not on file documented as of this encounter Visit Diagnoses Not on filedocumented in this encounter Care Teams Electrician Third Relationship Specialty Start Date [place] [address] PCP - General Emergency Medicine 01/02/19 documented as of this encounter
--- OUTSIDE RECORDS SUMMARY | 2024-04-07 11:27 | XMS_ITS | Encounter Summary ---
Author Organization [facility] Address [address] [place] [address]. [place] [address] Care Team Providers Care Hadoop Infrastructure Architect Name Role Phone Rich Resendez MD Primary Care Provider Encounter Details Date Type Department Care Team (Late st Contact Info) Description 12/28/2023 Medical Correspondence [employer] Info [facility] [address] [place] [address] Scan, Non-Provider Social History Tobacco Use [...] on filedocumented in this encounter Care Teams Hadoop Infrastructure Architect Relationship Specialty Start Date End Date Rich Resendez MD [facility] [address] [place] [address] PCP - General Emergency Medicine 01/02/19 documented as of this encounter
--- OUTSIDE RECORDS SUMMARY | 2024-04-07 11:27 | XMS_ITS | Encounter Summary ---
Author Organization [facility] Address [address] [place] [address]. [place] [address] Care Team Providers Care Bias Cutter Helper Name Role Phone Rich Resendez MD Primary Care Provider Encounter Details Date Type Department Care Team (Late st Contact Info) Description 12/11/2023 [facility] [address] [place] [address] [address] [place] [phone] Albina [facility] Social History Tobacco Use Types Packs/Day Years [...] on filedocumented in this encounter Care Teams Bias Cutter Helper Relationship Specialty Start Date End Date Rich Resendez MD [facility] [address] [place] [address] PCP - General Emergency Medicine 01/02/19 documented as of this encounter
--- OUTSIDE RECORDS SUMMARY | 2024-04-07 11:27 | XMS_ITS | Referral Summary ---
Author Organization [place] Address [address] [facility] [place] [address] Care Team Providers Care Tool Supervisor Name Role Phone Rich Resendez MD Primary Care Provider Encounters Date Type Department Care Team Description 02/01/2024 Travel 02/01/2024 9:15 AM CDT Office Visit [facility] Maternal Medicine [address] [place] [address] Raymundo Sinha MD Dichorionic diamniotic twin in second trimester (Primary Dx); H/O delivery, currently , second trimester 02/01/2024 7:57 AM CDT - 02/01/2024 11:59 PM CDT Hospital Encounter [facility] Medicine [facility] [address] [address] Raymundo Sinha MD related condition, antepartum Discharge Disposition: Home or Self Care 01/29/2024 Travel 01/28/2024 Transcribe Orders [facility] Maternal Medicine [address] [place] [address] [place]ust related condition, antepartum (Primary Dx) from [...] TORO Study Date: 02/01/2024 8:01am Pat. NO: [id number] Referring MD: LATISHA NOEL Site: Veterans Adviser: Kimberly Hernandez RDMS : 1995 Age: 29 [...] 0 lb 9 oz EFW by Hadlock (BOD-AQ-SF-FL) EFW discordance 0.5 % Head / Face / Neck Biometry: Ged Teacher 6.5 mm CM 5.4 mm Nasal bone [...] 0 lb 9 oz EFW by Hadlock (GMB-EL-YH-FL) EFW discordance 0.5 % Head / Face / Neck Biometry: Ged Teacher 7.4 mm CM 4.6 mm Nasal bone 6.0 mm Fetus 1: ANATOMY ----- The following structures appear normal: Head / Neck Cranium. Head size. Head shape. Lateral ventricles. Choroid plexus. Midline falx. Cavum septi pellucidi. Cerebellum. Cisterna magna. Parenchyma. Thalami. Vermis. Neck. Nuchal fold. Face Lips. Profile. Nose. Maxilla. Mandible. Orbits. Lens. Heart / Thorax 4-chamber view. RVOT view. LVOT view. 3-vessel view. 7-dzomfv-naedigq view. Situs. Aortic arch view. Bicaval view. [...] view. RVOT view. LVOT view. 3-vessel view. 1-iamucm-dqupvdt view. Situs. Aortic arch view. Bicaval view. [...] has the cervical length assessments scheduled in [place] and will check to see if she [...] TORO Study Date: 02/01/2024 8:01am Pat. NO: [id number] Referring MD: LATISHA NOEL Site: Veterans Adviser: Kimberly Hernandez RDMS : 1995 Age: 29 [...] EFW (lb,oz) 0 lb 9oz EFW by Hadlock(SPQ-LY-QU-FL) EFW discordance 0.5% Head / Face / Neck Biometry: Ged Teacher 6.5mm CM 5.4mm Nasal bone 5.9mm Fetus 2: BIOMETRY ----- BPD 42.2mm 18w 5dHadlock OFD 54.4mm 18w 1dNicolaides HC 156.1mm 18w 4dHadlock Cerebellum tr 18.2mm 18w 1dNicolaides Nuchal fold 3.5mm AC 136.3mm 19w 1d 64%Hadlock Femur 28.1mm 18w 4dHadlock Humerus 29.0mm 19w 3dJeanty Weight Calculation: EFW 259g 59%Hadlock EFW (lb,oz) 0 lb 9oz EFW by Hadlock(BPV-QZ-ZB-FL) EFW discordance 0.5% Head / Face / Neck Biometry: Ged Teacher 7.4mm CM 4.6mm Nasal bone 6.0mm Fetus 1: ANATOMY ----- The following structures appear normal: Head / Neck Cranium. Head size. Head shape.Lateral ventricles. Choroid plexus. Midline falx. Cavum septi pellucidi.Cerebellum. Cisterna magna. Parenchyma. Thalami. Vermis. Neck. Nuchal fold. Face Lips. Profile. Nose. Maxilla.Mandible. Orbits. Lens. Heart / Thorax 4-chamber view. RVOT view. LVOT view.3-vessel view. 5-xawekp-myqkzwn view. Situs. Aortic arch view. Bicavalview. Ductal [...] 4-chamber view. RVOT view. LVOT view.3-vessel view. 2-lzsbsv-vtcpsaj view. Situs. Aortic arch view. Bicavalview. Ductal [...] She has the cervical length assessmentsscheduled in [place] and will check to see if she [...] long and closed at 39 mm. August [facility] US ORDERABLES Edited Res ult - Final from Last 3 Months Insurance [facility] BLUE [employer] Care Teams Tool Supervisor Relationship Specialty Start Date End Date Rich Resendez MD [facility] [address] [place] [address] PCP - General Emergency Medicine 01/02/19
--- OUTSIDE RECORDS SUMMARY | 2024-04-07 11:27 | XMS_ITS | Encounter Summary ---
Author Organization [place] Address [facility] [place] [address] Care Team Providers Care Helicopter Pilot Name Role Phone Rich Resendez MD Primary [...] on filedocumented in this encounter Care Teams Helicopter Pilot Relationship Specialty Start Date End Date Rich Resendez MD [facility] [address] [place] [address] PCP - General Emergency Medicine 01/02/19 documented as of this encounter
--- OUTSIDE RECORDS SUMMARY | 2024-04-07 11:27 | XMS_ITS | Clinical Summary ---
Author Organization [place] Address [address] [facility] [place] [address] Care Team Providers Care Clinical Office Technician Name Role Phone Rich Resendez MD [...] Description 02/01/2024 9:15 AM CDT Office Visit [facility] [place] [facility] [address] [place], [place] [address] Raymundo Sinha MD Dichorionic diamniotic twin in second trimester (Primary Dx); H/O delivery, currently , second trimester 02/01/2024 7:57 AM CDT - 02/01/2024 11:59 PM CDT Hospital Encounter [facility] [address] [place] [address] Raymundo Sinha MD related condition, antepartum Discharge Disposition: Home or Self Care 02/01/2024 Travel 01/29/2024 Travel 01/28/2024 Transcribe Orders [facility] Maternal Medicine [facility] [address] [place] [address] JoneAugust related condition, antepartum (Primary Dx) from [...] TORO Study Date: 02/01/2024 8:01am Pat. NO: [id number] Referring MD: LATISHA NOEL Site: Factory Assembler: Kimberly Hernandez RDMS : 1995 Age: 29 [...] 0 lb 9 oz EFW by Hadlock (RTR-YD-YW-FL) EFW discordance 0.5 % Head / Face / Neck Biometry: Outsole Scheduler 6.5 mm CM 5.4 mm Nasal bone [...] 0 lb 9 oz EFW by Hadlock (CMG-NY-EO-FL) EFW discordance 0.5 % Head / Face / Neck Biometry: Outsole Scheduler 7.4 mm CM 4.6 mm Nasal bone 6.0 mm Fetus 1: ANATOMY ----- The following structures appear normal: Head / Neck Cranium. Head size. Head shape. Lateral ventricles. Choroid plexus. Midline falx. Cavum septi pellucidi. Cerebellum. Cisterna magna. Parenchyma. Thalami. Vermis. Neck. Nuchal fold. Face Lips. Profile. Nose. Maxilla. Mandible. Orbits. Lens. Heart / Thorax 4-chamber view. RVOT view. LVOT view. 3-vessel view. 1-bbhxtn-zkvmxfn view. Situs. Aortic arch view. Bicaval view. [...] view. RVOT view. LVOT view. 3-vessel view. 2-kqrbhz-jlxcyev view. Situs. Aortic arch view. Bicaval view. [...] has the cervical length assessments scheduled in [place] and will check to see if she [...] TORO Study Date: 02/01/2024 8:01am Pat. NO: [id number] Referring MD: LATISHA NOEL Site: Factory Assembler: Kimberly Hernandez RDMS : 1995 Age: 29 [...] EFW (lb,oz) 0 lb 9oz EFW by Hadlock(IDD-FR-WH-FL) EFW discordance 0.5% Head / Face / Neck Biometry: Outsole Scheduler 6.5mm CM 5.4mm Nasal bone 5.9mm Fetus 2: BIOMETRY ----- BPD 42.2mm 18w 5dHadlock OFD 54.4mm 18w 1dNicolaides HC 156.1mm 18w 4dHadlock Cerebellum tr 18.2mm 18w 1dNicolaides Nuchal fold 3.5mm AC 136.3mm 19w 1d 64%Hadlock Femur 28.1mm 18w 4dHadlock Humerus 29.0mm 19w 3dJeanty Weight Calculation: EFW 259g 59%Hadlock EFW (lb,oz) 0 lb 9oz EFW by Hadlock(ONI-DY-HY-FL) EFW discordance 0.5% Head / Face / Neck Biometry: Outsole Scheduler 7.4mm CM 4.6mm Nasal bone 6.0mm Fetus 1: ANATOMY ----- The following structures appear normal: Head / Neck Cranium. Head size. Head shape.Lateral ventricles. Choroid plexus. Midline falx. Cavum septi pellucidi.Cerebellum. Cisterna magna. Parenchyma. Thalami. Vermis. Neck. Nuchal fold. Face Lips. Profile. Nose. Maxilla.Mandible. Orbits. Lens. Heart / Thorax 4-chamber view. RVOT view. LVOT view.3-vessel view. 1-qmlvmw-zihsmgg view. Situs. Aortic arch view. Bicavalview. Ductal [...] 4-chamber view. RVOT view. LVOT view.3-vessel view. 4-irwxlp-drekytj view. Situs. Aortic arch view. Bicavalview. Ductal [...] She has the cervical length assessmentsscheduled in [place] and will check to see if she [...] closed at 39 mm. us August Fitzloff [facility] US ORDERABLES Edited Res ult - Final from Last 3 Months Insurance Local Dirt [facility] Local Dirt [facility] Care Teams Clinical Office Technician Relationship Specialty Start Date End Date Rich Resendez MD [facility] [address] [place] [address] PCP - General Emergency Medicine 01/02/19
--- OUTSIDE RECORDS SUMMARY | 2024-04-07 11:27 | XMS_ITS | Encounter Summary ---
Author Organization [place] Address [facility] [place] [address] Care Team Providers Care Aircraft Mechanic Name Role Phone Rich Resendez MD Primary [...] on filedocumented in this encounter Care Teams Aircraft Mechanic Relationship Specialty Start Date End Date Rich Resendez MD [facility] [address] [place] [address] PCP - General Emergency Medicine 01/02/19 documented as of this encounter
--- OUTSIDE RECORDS SUMMARY | 2024-04-07 11:27 | XMS_ITS | Encounter Summary ---
Author Organization [place] Address [address] [facility] [place] [address] Care Team Providers Care Applications Manager Name Role Phone Rich Resendez MD Primary Care Provider Reason for Referral * Diagnostic Imaging Ultrasound (Routine) - Pending Review Specialty Diagnoses / Procedures Referred By Vale t Referred To Contact Radiology. Diagnoses related condition, antepartum Procedures [facility] JoneAugust Phone: tel: fax: Referral ID Status Reason Start Date Expiration Date V isits Requested Visits Authorized [id number] Pending Review 01/28/2024 01/27/2025 1 1 Encounter Details Date Type Department Care Team (Latest Contact Info) Description 01/28/2024 Transcribe Orders [facility] Maternal Medicine Center [place] [address] [place], [place] [address] JoneAugust [address] [place] [address] related condition, antepartum (Primary Dx) Social History [...] [place] Study Date: 02/01/2024 8:01am Pat. NO: [id number] Referring MD: LATISHA NOEL Site: Net Sql Developer: Kimberly Hernandez RDMS : 1995 Age: 29 [...] 0 lb 9 oz EFW by Hadlock (SPN-NZ-DT-FL) EFW discordance 0.5 % Head / Face / Neck Biometry: Concrete Analyst 6.5 mm CM 5.4 mm Nasal bone [...] 0 lb 9 oz EFW by Hadlock (UAM-TK-SN-FL) EFW discordance 0.5 % Head / Face / Neck Biometry: Concrete Analyst 7.4 mm CM 4.6 mm Nasal bone 6.0 mm Fetus 1: ANATOMY ----- The following structures appear normal: Head / Neck Cranium. Head size. Head shape. Lateral ventricles. Choroid plexus. Midline falx. Cavum septi pellucidi. Cerebellum. Cisterna magna. Parenchyma. Thalami. Vermis. Neck. Nuchal fold. Face Lips. Profile. Nose. Maxilla. Mandible. Orbits. Lens. Heart / Thorax 4-chamber view. RVOT view. LVOT view. 3-vessel view. 7-suekup-zaorrod view. Situs. Aortic arch view. Bicaval view. [...] view. RVOT view. LVOT view. 3-vessel view. 3-cywpsq-wqpjqfh view. Situs. Aortic arch view. Bicaval view. [...] has the cervical length assessments scheduled in [place] and will check to see if she [...] [place] Study Date: 02/01/2024 8:01am Pat. NO: [id number] Referring MD: LATISHA NOEL Site: Net Sql Developer: Kimberly Hernandez RDMS : 1995 Age: 29 [...] EFW (lb,oz) 0 lb 9oz EFW by Hadlock(RUP-VE-FS-FL) EFW discordance 0.5% Head / Face / Neck Biometry: Concrete Analyst 6.5mm CM 5.4mm Nasal bone 5.9mm Fetus 2: BIOMETRY ----- BPD 42.2mm 18w 5dHadlock OFD 54.4mm 18w 1dNicolaides HC 156.1mm 18w 4dHadlock Cerebellum tr 18.2mm 18w 1dNicolaides Nuchal fold 3.5mm AC 136.3mm 19w 1d 64%Hadlock Femur 28.1mm 18w 4dHadlock Humerus 29.0mm 19w 3dJeanty Weight Calculation: EFW 259g 59%Hadlock EFW (lb,oz) 0 lb 9oz EFW by Hadlock(RAG-ES-SL-FL) EFW discordance 0.5% Head / Face / Neck Biometry: Concrete Analyst 7.4mm CM 4.6mm Nasal bone 6.0mm Fetus 1: ANATOMY ----- The following structures appear normal: Head / Neck Cranium. Head size. Head shape.Lateral ventricles. Choroid plexus. Midline falx. Cavum septi pellucidi.Cerebellum. Cisterna magna. Parenchyma. Thalami. Vermis. Neck. Nuchal fold. Face Lips. Profile. Nose. Maxilla.Mandible. Orbits. Lens. Heart / Thorax 4-chamber view. RVOT view. LVOT view.3-vessel view. 1-yersmm-apssalb view. Situs. Aortic arch view. Bicavalview. Ductal [...] 4-chamber view. RVOT view. LVOT view.3-vessel view. 1-jplqvh-xbaowsd view. Situs. Aortic arch view. Bicavalview. Ductal [...] She has the cervical length assessmentsscheduled in [place] and will check to see if she [...] long and closed at 39 mm. August [facility] US [facility]AB[facility] Edited Res ult - Final documented in this encounter Visit Diagnoses Diagnosis related condition, antepartum- Primary related condition, antepartum documented in this encounter Care Teams Applications Manager Relationship Specialty Start Date End Date Rich Resendez MD [facility] [address] [place] [address] PCP - General Emergency Medicine 01/02/19 documented as of this encounter
--- OUTSIDE RECORDS SUMMARY | 2024-04-07 11:28 | XMS_ITS | Encounter Summary ---
Author Organization [facility] Address [address] [facility] [place] [address] Care Team Providers Care Research Chemical Engineer Name Role Phone Rich Resendez MD Primary Care Provider Reason for Referral * Consultation (Routine: Next available opening) - Pending Review Specialty Diagnoses / Procedures Referred By Vale argueta Referred To Contact Diagnoses Dichorionic diamniotic twin in first trimester Joint derangement Katiana Montez CNM [address] [place] [address] Phone: tel: fax: Referral ID Status Reason Start Date Expiration Date V isits Requested Visits Authorized [id number] Pending Review 12/02/2023 12/01/2024 1 1 * Diagnostic Imaging Ultrasound (Routine) - Pending Review Specialty Diagnoses / Procedures Referred By Vale argueta Referred To Contact Radiology. Diagnoses Dichorionic diamniotic twin in first trimester Joint derangement Procedures MFM Twins Nuchal Trans w/US Katiana Montez CNM [address] [place] [address] Phone: tel: fax: Referral ID Status Reason Start Date Expiration Date V isits Requested Visits Authorized [id number] Pending Review 12/02/2023 12/01/2024 1 1 Encounter Details Date Type Department Care Team (Late st Contact Info) Description 12/02/2023 [facility] Only [facility] [place] [address] [place] [address] Elsie Blanchard RN Dichorionic diamniotic twin in [...] Type Priority Associated Diagnoses Orde r Schedule [facility] Genetic Counseling Referral Routine: Next available opening Dichorionic diamniotic twin in first trimester Joint derangement Expected: 12/02/2023 (Approximate), Expires: 12/01/2024 documented as of this encounter Results * [facility] Twins Nuchal Trans w/US (12/17/2023 2:19 PM [...] [place] Study Date: 12/17/2023 1:29pm Pat. NO: [id number] Referring MD: LATISHA NOEL Site: Educational Interpreter: Patricia Irvin RDMS : 1995 Age: 28 [...] gestation and has been scheduled at our [facility] clinic at patient's request. Return to [...] [place] Study Date: 12/17/2023 1:29pm Pat. NO: [id number] Referring MD: LATISHA NOEL Site: Educational Interpreter: Patricia Irvin RDMS : 1995 Age: 28 [...] weeksgestation and [facility]. Return to primary [...] for early gestational age. us Katiana MULLINS [facility] ORDERABLES Ed ited Result - Final documented in this encounter Visit Diagnoses Diagnosis Dichorionic diamniotic twin in first trimester- Primary Twin , antepartum Joint derangement Unspecified derangement, joint, site unspecified Dichorionic diamniotic twin in first trimester Twin , antepartum Joint derangement Unspecified derangement, joint, site unspecified documented in this encounter Care Teams Research Chemical Engineer Relationship Specialty Start Date [place] [address] PCP - General Emergency Medicine 01/02/19 documented as of this encounter
--- OUTSIDE RECORDS SUMMARY | 2024-04-07 11:28 | XMS_ITS | Clinical Summary ---
Author Organization [email or web address] Address [place], [place] [address] Care Team Providers Care Master Control Supervisor Name Role Phone Rich Resendez MD [...] Description 01/29/2024 10:00 AM CDT Ancillary Procedure [facility] [address] [place] [address] from Last 3 Months Immunizations Name Administration [...] Comments Blood Pressure 131/107 06/25/2021 3:02 AM [facility] Pulse 95 06/25/2021 3:59 AM [facility] Temperature 37.4 C (99.3 F) 06/25/2021 3:02 AM [facility] Respiratory Rate 16 06/25/2021 3:02 AM [facility] HELPER Oxygen Saturation 98% 06/25/2021 3:59 AM [facility] Inhaled Oxygen Concentration - - Weight 83.9 kg (185 lb) 06/25/2021 3:02 AM SAWYER HELPER Height 167.6 cm (5' 6) 06/25/2021 3:02 AM [facility] HEL[facility] Body Mass Index 29.86 06/25/2021 3:02 AM [facility] HEL[facility] Plan of Treatment Health Maintenance Due [...] HPV HIGH RISK Routine 05/15/2023 12:30 PM [facility] HELPER from Last 3 Months or Most [...] BSA: 1.94 m Weight: 84.00 kg Tech: [facility] Referring MD: NEETU NEGRETE Site: [facility] [...] . This study was interpreted by an [facility] accredited facility. CC: [facility] (med records) [...] interpreted by an [facility] accredited facility. CC: [facility] ([facility]. Final Neetu Negrete MD ECHO ORD * (ABNORMAL) HPV HIGH RISK (05/15/2023 12:30 PM [facility]) TYPE 16 Negative Negative 05/22/2023 11:44 AM [facility] TYPE 18 Negative Negative 05/22/2023 11:44 AM [facility] OTHER HIGH RISK TYPES Positive(A) Negative 05/22/2023 11:44 AM [facility] Other (Cervical) Non-Blood / Unknown 05/15/2023 12:30 PM [facility] 05/22/2023 11:44 AM [facility] Specimen is positive for the DNA of any one of, or combination of, the following high risk HPV types: 31, 33, 35, 39, 45, 51, 52, 56, 58, 59, 66, 68. HPV types 16 and 18 DNA were undetectable or below the pre-set threshold. Methodology: Yung Mabel 4800 HPV Test Vanessa Chavez NP MICROBIOLOGY [facility] [address] [place] [address], from Last 3 Months or Most Recently Relevant to Health Maintenance Care Teams Master Control Supervisor Relationship Specialty Start Date End Date Rich Resendez MD [address] [place] [address] PCP - General Internal Medicine 07/29/20
--- NOTE | 2024-04-07 12:00 | CRLHL7_ITS ---
For Patients: As a result of the Cures Act, medical imaging exams and procedure reports are released immediately into your electronic medical record. You may view this report before your referring provider. If you have questions, please contact your health care provider. INDICATION: Fetus B nonreactive nonstress test. COMPARISON: Ob ultrasound from the same date. FINDINGS: Transabdominal examination of the is performed. This is a twin gestation without a demonstrated membrane the gestations. Fetus A is seen in cephalic presentation with regular cardiac activity at 125 beats per minute. The placenta for fetus A is anterior and is free of the cervical os. The placental grade is 0. Fetus B is seen in breech presentation with regular cardiac activity at 128 beats per minute. The placenta for fetus B is posterior. The placental grade is 0 The single deepest vertical pocket for fetus A is normal at 4.7 cm. The single deepest vertical pocket for fetus B is elevated at 12.6 cm. The biophysical profile score for fetus A is 8/8 with no points off. The biophysical profile score for fetus B is 8/8 with no points off. IMPRESSION: 1. Twin intrauterine gestation. 2. Fetus A in cephalic presentation with regular cardiac activity. 3. Fetus B in breech deepest vertical pocket 4 presentation with regular cardiac activity. 4. Single deepest vertical pocket for fetus A is normal at 4.7 cm. 5. Single deepest vertical pocket for fetus B is elevated at 12.6 cm. 6. Normal biophysical profile score of 8/8 for fetus A and 8/8 for fetus B. Dictated by Adarsh Etienne MD @ 04/08/2024 9:30:00 PM (Electronically Signed)
== END 2024-04-07 11:26 | disposition home or self-care (01) ==
LOC: US 11:25
PROVIDERS: PCP Internal Medicine; Visit Provider Obstetrics & Gynecology
DX: O28.8 Other abnormal findings on antenatal screening of mother (principal)
CPT/HCPCS: 76819

== ENCOUNTER 2024-04-14 07:55 | Outpatient (CLI) | payer BC, SELFPAY | END 2024-04-14 07:56 | disposition home or self-care (01) | LOC: NFLDREF 11:41 | PROVIDERS: PCP Internal Medicine; Referring Provider Internal Medicine; Visit Provider Obstetrics & Gynecology | DX: R73.09 Other abnormal glucose (principal); R10.11 Right upper quadrant pain | CPT/HCPCS: 80076; 82951; 82952 ==

== ENCOUNTER 2024-04-22 08:12 | Outpatient (CLI) | payer BC, SELFPAY ==
--- NOTE | 2024-04-22 08:15 | CRLHL7_ITS ---
For Patients: As a result of the Century Cures Act, medical imaging exams and procedure reports are released immediately into your electronic medical record. You may view this report before your referring provider. If you have questions, please contact your health care provider. INDICATION: polyhydramnios baby b COMPARISON: 04/07/2024 TECHNIQUE: Real-time paul-scale imaging of the pelvis was performed. FINDINGS/IMPRESSION: Twin A: heart rate 135 beats per minute. Vertex maternal right position. Anterior placenta. Single deepest pocket 4.1 cm. Twin B: heart rate 124 beats per minute. Breech maternal left position. Posterior placenta. Amniotic fluid single deepest pocket 10.0 cm. KARLA not measured. Dictated by Roland Roberto MD @ 04/22/2024 9:23:09 AM (Electronically Signed)
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
== END 2024-04-22 08:13 | disposition home or self-care (01) ==
PROVIDERS: PCP Internal Medicine; Visit Provider Obstetrics & Gynecology
DX: O30.049 Twin pregnancy, dichorionic/diamniotic, unspecified trimester (principal); O40.9XX0 Polyhydramnios, unspecified trimester, not applicable or unspecified
CPT/HCPCS: 76815; 76819

== ENCOUNTER 2024-04-29 09:28 | Outpatient (CLI) | payer BC, SELFPAY ==
--- NOTE | 2024-04-29 09:30 | CRLHL7_ITS ---
For Patients: As a result of the Century Cures Act, medical imaging exams and procedure reports are released immediately into your electronic medical record. You may view this report before your referring provider. If you have questions, please contact your health care provider. INDICATION: Twin ultrasound OB pelvis TECHNIQUE: Ultrasound OB pelvis transabdominal. Real-time paul-scale imaging of the fetus was performed as well as color Doppler . COMPARISON: Ultrasound exam April 22, 2024. FINDINGS: Re-demonstration of twin live intrauterine gestations. Fetus A: Maternal right side, in cephalic presentation. heart rates are regular and measures 141 beats per minute. Single vertical pocket of amniotic fluid measures 5.7 cm. Placenta is anterior. Biophysical profile score is 6/8 with intact body movement, active extension/flexion and normal amniotic fluid. 0/2 breathing movements during the current ultrasound assessment. Fetus B: Maternal left side, in breech presentation. heart rate is regular and measures 125 beats per minute. Single largest pocket of amniotic fluid measures 9.2 cm. Placenta is posterior. Biophysical profile score is 8/8. IMPRESSION.: Twin intrauterine with BPP of fetus P A 6/8 and fetus B 8/8 as described. Dictated by Ariana Vila MD @ 04/29/2024 11:41:11 AM (Electronically Signed)
== END 2024-04-29 09:29 | disposition home or self-care (01) ==
LOC: US 09:29
PROVIDERS: PCP Internal Medicine; Visit Provider Obstetrics & Gynecology
DX: O30.049 Twin pregnancy, dichorionic/diamniotic, unspecified trimester (principal)
CPT/HCPCS: 76819

== ENCOUNTER 2024-05-01 17:12 | Outpatient (CLI) | payer OTHER, SELFPAY | END 2024-05-01 17:13 | disposition home or self-care (01) | LOC: AMB 05-03 15:17 | PROVIDERS: PCP Internal Medicine; Visit Provider Family Medicine | DX: T14.90XA Injury, unspecified, initial encounter (principal); O26.893 Other specified pregnancy related conditions, third trimester; O47.03 False labor before 37 completed weeks of gestation, third trimester; Z3A.30 30 weeks gestation of pregnancy | CPT/HCPCS: A0425; A0427 ==

== ENCOUNTER 2024-05-01 17:33 | Outpatient (CLI) | payer OTHER, SELFPAY ==
[2024-05-01] VITALS (42 sets, daily range): BP systolic 122–153; BP diastolic 83–107; PULSE 111–151; RESP 22; TEMP 37.4; O2SAT 96–99; BMI 36.7
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
[2024-05-01 17:55] LABS: Basophils Absolute Auto 0.04 K/uL (0.00-0.30); Basophils Percent Auto 0.5 % (0.0-3.0); Eosinophils Absolute Auto 0.18 K/uL (0.00-0.50); Eosinophils Percent Auto 2.4 % (0.0-7.0); Hematocrit 34.3 % (33.0-51.0); Hemoglobin* 11.1 gm/dL (12.0-16.0); Immature Granulocytes Abs Auto 0.05 K/uL (0.00-0.30); Immature Granulocytes Pct Auto 0.7 %; Lymphocytes Absolute Auto 2.02 K/uL (0.90-2.90); Lymphocytes Percent Auto 27.4 % (20-44); Mean Corpuscular HGB Conc 32 gm/dL (32-36); Mean Corpuscular Hemoglobin 27 pg (26-34); Mean Corpuscular Volume 85 fL (80-100); Monocytes Percent Auto 5.4 % (0.0-11.0); Neutrophils Absolute Auto 4.67 K/uL (1.7-7.0); Neutrophils Percent Auto 63.6 % (42.0-72.0); Platelet Count* 297 K/uL (140-440); RDW Coefficient of Variation % 13.9 % (11.5-15.5); Red Blood Count 4.06 m/uL (4.00-5.20); White Blood Count* 7.36 K/uL (4.50-11.00)
[2024-05-01 18:06] LABS: Slide Review Reflex No
[2024-05-01] MEDS: ACETAMINOPHEN 325 MG TABLET 650 MG PO (18:12)
[2024-05-01] MEDS: OXYCODONE 5 MG TABLET PO (18:12)
[2024-05-01 18:13] LABS: Albumin* 3.7 g/dL (3.3-5.0); Chloride* 107 mmol/L (96-114); Sodium* 134 mmol/L (135-149)
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
[2024-05-01 18:14] LABS: Potassium* 3.6 mmol/L (3.6-5.1)
[2024-05-01 18:16] LABS: Alanine Aminotransferase* 10 U/L (4-35); Alkaline Phosphatase* 180 U/L (40-150); Anion Gap 10 mEq/L (7-15); Aspartate Amino Transferase* 14 U/L (12-35); Bilirubin Total* 0.2 mg/dL (0.1-1.5); Blood Urea Nitrogen* 7 mg/dL (5-24); Carbon Dioxide* 17 mmol/L (20-32); Creatinine* 0.4 mg/dL (0.5-1.5); Estimated Glomerular Filt Rate 136 ml/min; Glucose* 84 mg/dL (60-115); Total Protein* 6.8 g/dL (6.0-8.3)
[2024-05-01 18:17] LABS: Calcium* 8.8 mg/dL (8.4-10.6); Partial Thromboplastin Time* 26 Seconds (23-33); Prothrombin Time 12.6 Seconds
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
[2024-05-01 18:33] LABS: Troponin I* < 0.01 ng/mL (0.01-0.04)
[2024-05-01] MEDS: BETAMETHASONE SOD PHOS/ACETATE 6 MG/ML ML 12 MG IM (18:34)
[2024-05-01] MEDS: MAGNESIUM IV 2 GM/50 ML PIGGYBACK IVPB (18:37)
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
[2024-05-01] MEDS: LACTATED RINGERS 1000 ML 1,000 ML 75 ML IV (18:47)
[2024-05-01] MEDS: MAGNESIUM IV 4 GM/100 ML PIGGYBACK IVPB (18:54)
[2024-05-01 18:55] LABS: Fibrinogen* 606 mg/dL (200-450)
[2024-05-01 19:01] LABS: Fetal Fibronectin* Negative (Negative)
--- NOTE | 2024-05-01 19:03 | ED.NURSE ---
Patient to CT. Per radiology, needs to be off of magnesium. OBGYN Dr. Negerte notified and gave verbal okay to hold magnesium until CT complete. OB nurses and radiology notified.
[2024-05-01] MEDS: MAGNESIUM Infusion 40 GM/1,000 ML IV.SOLN IVPB (19:52)
--- NOTE | 2024-05-01 19:56 | ED.NURSE ---
Patient medically cleared by ED MD. OB staff in with patient during her time in the ED. Patient will transfer to OB unit until transfer to [place]. Patient recieved news of mothers passing while in ED. Staff present with patient to help with news.
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
== END 2024-05-01 21:02 | disposition short-term general hospital (02) ==
LOC: ED 18:58 → OB OUT 20:01 → OB 20:02
PROVIDERS: Emergency Provider Family Medicine; PCP Internal Medicine; Visit Provider Obstetrics & Gynecology
DX: O9A.219 Injury, poisoning and certain other consequences of external causes complicating pregnancy, unspecified trimester (principal); O30.043 Twin pregnancy, dichorionic/diamniotic, third trimester; O47.00 False labor before 37 completed weeks of gestation, unspecified trimester; Z3A.31 31 weeks gestation of pregnancy
CPT/HCPCS: 36415; 59025; 71045; 71260; 74177; 76815; 80053; 84112; 84484; 85025; 85384; 85460; 85610; 85730; 86850; 86900; 86901; 93005; 94761; 99285; 99291; G0463; A9270; G0390; J0702; J3475; J7120; Q9967

== ENCOUNTER 2024-05-01 20:50 | Outpatient (CLI) | payer OTHER, SELFPAY | END 2024-05-01 20:51 | disposition home or self-care (01) | LOC: AMB 05-03 15:43 | PROVIDERS: PCP Internal Medicine; Visit Provider Family Medicine | DX: O47.03 False labor before 37 completed weeks of gestation, third trimester (principal); Z3A.31 31 weeks gestation of pregnancy | CPT/HCPCS: A0425; A0434 ==

== ENCOUNTER 2024-05-23 08:01 | Outpatient (CLI) | payer OTHER, SELFPAY ==
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
== END 2024-05-23 08:02 | disposition home or self-care (01) ==
LOC: CT 08:02
PROVIDERS: PCP Internal Medicine; Visit Provider Internal Medicine
DX: S29.9XXA Unspecified injury of thorax, initial encounter (principal); S22.39XA Fracture of one rib, unspecified side, initial encounter for closed fracture; V49.50XA Passenger injured in collision with unspecified motor vehicles in traffic accident, initial encounter
CPT/HCPCS: 71250

== ENCOUNTER 2024-06-17 10:30 | Outpatient (RCR) | payer OTHER, SELFPAY | END 2024-07-07 10:37 | disposition home or self-care (01) | PROVIDERS: PCP Internal Medicine; Visit Provider Internal Medicine | DX: S06.0XAA Concussion with loss of consciousness status unknown, initial encounter (principal); V49.50XA Passenger injured in collision with unspecified motor vehicles in traffic accident, initial encounter; R41.840 Attention and concentration deficit; Z51.89 Encounter for other specified aftercare | CPT/HCPCS: 97166; 97530; 97535 ==

== ENCOUNTER 2024-06-24 08:06 | Outpatient (CLI) | payer BC, SELFPAY ==
[2024-06-27 17:39] LABS: HPV Source Cervical; HPV, High Risk by TMA Detected
[2024-06-28 15:11] LABS: HPV Genotype 16 by TMA Not Detected; HPV Genotype 18/45 by TMA Not Detected; HPVG Source Cervical
[2024-07-12 14:44] LABS: Pap Test Reviewed by Path Done
== END 2024-06-24 08:07 | disposition home or self-care (01) ==
PROVIDERS: PCP Internal Medicine; Referring Provider Internal Medicine; Visit Provider Obstetrics & Gynecology
DX: R73.09 Other abnormal glucose (principal); R03.0 Elevated blood-pressure reading, without diagnosis of hypertension; Z12.4 Encounter for screening for malignant neoplasm of cervix; Z39.2 Encounter for routine postpartum follow-up
CPT/HCPCS: 82947; 82950; 87624; 87625; 88141; 88142

== ENCOUNTER 2024-10-26 10:01 | Outpatient (CLI) | payer BC, SELFPAY ==
--- NOTE | 2024-10-26 10:15 | CRLHL7_ITS ---
For Patients: As a result of the Century Cures Act, medical imaging exams and procedure reports are released immediately into your electronic medical record. You may view this report before your referring provider. If you have questions, please contact your health care provider. INDICATION: Neck pain TECHNIQUE: Noncontrast sagittal T1, T2, STIR and axial GRE sequences are provided. No comparisons. FINDINGS: The overall stature, alignment and intrinsic marrow signal of the cervical spine is within normal limits. Cervical cord is normal. C5-6: Left posterior paracentral disc extrusion with caudal migration extends 3 millimeters beyond the posterior vertebral body margin and extends caudally a distance of 5 millimeters resulting in contact of the left hemicord. Mild to moderate left and mild right foraminal narrowing. C6-7: No central canal or foraminal narrowing. Remainder of the cervical spine is unremarkable, specifically no evidence of suspicious central canal or foraminal narrowing. IMPRESSION: 1. Left posterior paracentral disc extrusion with caudal migration at C5-6 contacting the left hemicord but resulting in no significant central canal narrowing with mild to moderate left and mild right foraminal narrowing. Dictated by Los Rothman MD @ 10/26/2024 1:15:10 PM (Electronically Signed)
--- OUTSIDE RECORDS SUMMARY | 2024-10-27 00:17 | XMS_ITS | Encounter Summary ---
Author Organization [facility] Address [address] 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 Never 05/07/2024 Food Insecurity Answer Date Recorded Within the past 12 months, d id you worry that your food would run out before you got money to buy more? No 05/02/2024 Within the past 12 months, d id the food you bought just not last and you didn t have money to get more? No 05/02/2024 Housing Stability Answer Date Recorded Do you have housing? (Housin g is defined as stable permanent housing and does not include staying outside in a car, in a tent, in an abandoned building, in an overnight prison, or couch-surfing.) Yes 05/02/2024 Are you worried about losing your housing? No 05/02/2024 Financial Resource Strain Answer Date R ecorded Within the past 12 months, h ave you or your family members you live with been unable to get utilities (heat, electricity) when it was really needed? No 05/02/2024 Transportation Needs Answer Date Record ed Within the past 12 months, h as lack of transportation kept you from medical appointments, getting your medicines, non-medical meetings or appointments, work, or from getting things that you need? No 05/02/2024 Interpersonal Safety Answer Date Record ed Do you feel physically and e motionally safe where you currently live? Yes 05/07/2024 Within the past 12 months, h ave you been hit, slapped, kicked or otherwise physically hurt by someone? No 05/07/2024 Within the past 12 months, h ave you been humiliated or emotionally abused in other ways by your partner or ex-partner? 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
--- OUTSIDE RECORDS SUMMARY | 2024-10-27 00:17 | XMS_ITS | Encounter Summary ---
Author Organization [place] Address [address] [place] [address]. [place] [address] Care Team Providers Care Library Circulation Department Chief Name Role Phone Rich Resendez MD Primary Care Provider Encounter Details Date Type Department Care Team (Late st Contact Info) Description 05/09/2024 [facility] [place] [id number] [place] [phone] Meera Pino, PhD [address] [place] [address] Social History Tobacco Use Types Packs/Day Years Used Date Smoking Tobacco: Never Assessed Franklin Depression Scale Answer Date Recorded Franklin Depression Scale Total 14 05/07/2024 The thought [...] in an abandoned building, in an overnight nursing home, or couch-surfing.) Yes 05/02/2024 Are you worried [...] on filedocumented in this encounter Care Teams Library Circulation Department Chief Relationship Specialty Start Date End Date Rich Resendez MD [facility] [address] [place] [address] PCP - General Emergency Medicine 01/02/19 documented as of this encounter
--- OUTSIDE RECORDS SUMMARY | 2024-10-27 00:17 | XMS_ITS | Encounter Summary ---
Author Organization [place] Address [address] [place] [address] Care Team Providers Care Barking Machine Feeder Name Role Phone Rich Resendez MD Primary Care Provider Encounter Details Date Type Department Care Team (Late st Contact Info) Description 05/09/2024 [facility] Medical Advice Initial Department Lorne Montemayor Social History Tobacco Use Types Packs/Day Years Used Date Smoking Tobacco: Never Assessed [place] Depression Scale Answer Date Recorded [place] Depression Scale Total 14 05/07/2024 The thought [...] in an abandoned building, in an overnight penitentiary, or couch-surfing.) Yes 05/02/2024 Are you worried [...] on filedocumented in this encounter Care Teams Barking Machine Feeder Relationship Specialty Start Date End Date Rich Resendez MD [facility] [address] [place] [address] PCP - General Emergency Medicine 01/02/19 documented as of this encounter
--- OUTSIDE RECORDS SUMMARY | 2024-10-27 00:17 | XMS_ITS | Encounter Summary ---
Author Organization [place] Address [address] [facility] [place] [address] Care Team Providers Care Cartridge Assembling Machine Adjuster Name Role Phone Rich Resendez MD Primary Care Provider Encounter Details Date Type Department Care Team (Late st Contact Info) Description 05/09/2024 [facility] Medical Advice Initial Department Lorne Montemayor Social History Tobacco Use Types Packs/Day Years Used Date Smoking Tobacco: Never Assessed [place] Depression Scale Answer Date Recorded [place] Depression Scale Total 14 05/07/2024 The thought [...] in an abandoned building, in an overnight longterm, or couch-surfing.) Yes 05/02/2024 Are you worried [...] on filedocumented in this encounter Care Teams Cartridge Assembling Machine Adjuster Relationship Specialty Start Date End Date Rich Resendez MD [facility] [address] [place] [address] PCP - General Emergency Medicine 01/02/19 documented as of this encounter
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
--- OUTSIDE RECORDS SUMMARY | 2024-10-27 00:18 | XMS_ITS | Clinical Summary ---
Author Organization [facility] Address [address] [place] [address] Care Team Providers Care Briquette Machine Operator Helper Name Role Phone Rich Resendez MD Primary Care Provider Allergies Active Allergy Reactions Criticality Noted Date Comments Ketorolac Itching 02/07/2015 Medications NUVARING vaginal ring Insert 1 ring into the vagina. 1 7 Active celecoxib (CELEBREX) 100 mg capsule Take 1 capsule by mouth 2 times daily if needed. 0 7 Active cyclobenzaprine (FLEXERIL) 10 mg tablet Take 1 tablet by mouth once daily. At bedtime if needed. 0 7 Active fluticasone (50 mcg per actuation) nasal solution (FLONASE) Inhale 2 Sprays into both nostrils once daily. 11 7 Active ferrous sulfate, 65 mg elemental, (IRON) tablet Take 1 tablet by mouth 2 times daily with meals. 0 7 Active ondansetron (ZOFRAN ODT) 4 mg disintegrating tabletIndications: Nausea and vomiting, unspecified vomiting type Place 1 Tablet (4 mg) on the tongue every 8 hours if needed for Nausea/Vomitin g. 10 Tablet 2 Active loperamide (IMODIUM) 2 mg capsuleIndications :Abdominal pain, unspecified abdominal location,Nausea and vomiting, unspecified vomiting type Take 4mg by mouth with 1st loose stool, then 2mg with each subsequent loose stool. Max 16 mg in 24 hrs 15 Capsule 2 Active Active Problems Problem Noted Date Diagnosed Date Adjustment disorder with depressed mood 06/25/19 09 Immunizations Immunization Administration Dates Next Due DTP 12/19/1999 Hepatitis [...] drink = 0.6 oz pur e alcohol) Comments No Sex and Gender Information Value Date Recorded Sex Assigned at Not on file Legal Sex Female 5:47 AM SCARIFIER OPERATOR Gender Identity Not on file Sexual Orientation Not on file Occupation Industry Job Start Date Job End Date STUDENT Not on file Not on file Not on file Obstetrics History Last Filed Vital Signs Vital Sign Reading Time Taken Comments Blood Pressure 131/107 06/25/2021 3:02 AM SCARIFIER OPERATOR Pulse 95 06/25/2021 3:59 AM SCARIFIER OPERATOR Temperature 37.4 C (99.3 F) 06/25/2021 3:02 AM SCARIFIER OPERATOR Respiratory Rate 16 06/25/2021 3:02 AM SCARIFIER OPERATOR Oxygen Saturation 98% 06/25/2021 3:59 AM SCARIFIER OPERATOR Inhaled Oxygen Concentration - - Weight 83.9 kg (185 lb) 06/25/2021 3:02 AM SCARIFIER OPERATOR Height 167.6 cm (5' 6) 06/25/2021 3:02 AM SCARIFIER OPERATOR Body Mass Index 29.86 06/25/2021 3:02 AM SCARIFIER OPERATOR Plan of Treatment Health Maintenance Due Date Last Done Comments Depression screening for age 12+ 2006 HIV for age 15-65 2009 Hepatitis C screening for age 18-79 01/23/2012 Tetanus booster 02/02/2017 02/02/2007 BMI (ht and wt on same day) for age 18+ 03/23/2018 03/23/2017 COVID-19 vaccine series (2023- season) 2024 Influenza Vaccine (Season Ended) 2025 Pap test for age 21-65 05/15/2026 4, 05/15/2023, 01/04/2021, Additional history exists Hepatitis B series for 19+ Completed 08/14, 1994, 1994 Tdap Completed 02/02/2007 Pneumococcal series for age 6-49 Aged Out No longer eligible based on patient's age to complete this topic Procedures Procedure Name Priority Date/Time Associated Diagnosis Comments HPV HIGH RISK Routine 05/15/2023 12:30 PM SCARIFIER OPERATOR from Last 3 Months or Most Recently Relevant to Health Maintenance Results * (ABNORMAL) HPV HIGH RISK (05/15/2023 12:30 PM SCARIFIER OPERATOR) TYPE 16 Negative Negative 05/22/2023 11:44 AM SCARIFIER OPERATOR [facility] LABORAT[facility] TYPE 18 Negative Negative 05/22/2023 11:44 AM SCARIFIER OPERATOR [facility] TR[facility] LAB[facility]ORY OTHER HIGH RISK TYPES Positive(A) Negative 05/22/2023 11:44 AM SCARIFIER OPERATOR [facility] Other (Cervical) Non-Blood / Unknown 05/15/2023 12:30 PM SCARIFIER OPERATOR 05/21/2023 7:37 AM SCARIFIER OPERATOR Narrative [facility] - 05/22/2023 11:44 AM SCARIFIER OPERATOR Specimen is positive for the DNA of any one of, or combination of, the following high risk HPV types: 31, 33, 35, 39, 45, 51, 52, 56, 58, 59, 66, 68. HPV types 16 and 18 DNA were undetectable or below the pre-set threshold. Methodology: Yung Mabel 4800 HPV Test us Vanessa Chavez NP MICROBIOLOGY Final Res ult [facility] [address] [place] [address], from Last 3 Months or Most Recently Relevant to Health Maintenance Insurance [facility] [address] [id number] [employer] [facility] [address] [place] [id number] [place] [address] Care Teams Briquette Machine Operator Helper Relationship Specialty Start Date End Date Rich Resendez MD [address] [place] [address] PCP - General Internal Medicine 07/29/20
--- OUTSIDE RECORDS SUMMARY | 2024-10-27 00:18 | XMS_ITS | Encounter Summary ---
Author Organization [place] Address [address] [place] [address]. [place] [address] Care Team Providers Care Team Foreman Name Role Phone Rich Resendez MD Primary Care Provider Encounter Details Date Type Department Care Team (Late st Contact Info) Description 12/11/2023 [facility] [address] [facility] [address] [place] [address] [facility] Social History Tobacco Use Types Packs/Day [...] Diagnoses Not on filedocumented in this encounter Additional Health Concerns Infection Onset Date Last Indicated Resolved Time COVID-19 Comment:COVID positive 04/29/24 (day zero) 05/09/24: day ten of isolation 05/10/24: first day patient can be evaluated for discontinuation of special precautions 05/05/2024 05/05/2024 05/07/2024 10:09 AM DESTINATION IMAGINATION COORDINATOR documented as of this encounter Care Teams Team Foreman Relationship Specialty Start Date End Date Rihc Resendez MD [facility] [address] [place] [address] PCP - General Emergency Medicine 01/02/19 documented as of this encounter
--- OUTSIDE RECORDS SUMMARY | 2024-10-27 00:18 | XMS_ITS | Encounter Summary ---
Author Organization [place] Address [address] [place] [address] Care Team Providers Care Skirt Maker Name Role Phone Rich Resendez MD Primary Care Provider Encounter Details Date Type Department Care Team (Late st Contact Info) Description 06/16/2024 [facility] Medical Advice [facility] [place] [address] [place] [address] Elsie Marsh, RN Social History Tobacco Use Types Packs/Day Years Used Date Smoking Tobacco: Never Assessed [place] Depression Scale Answer Date Recorded [place] Depression Scale Total 14 05/07/2024 The thought [...] in an abandoned building, in an overnight skilled nursing, or couch-surfing.) Yes 05/02/2024 Are you worried [...] on filedocumented in this encounter Care Teams Skirt Maker Relationship Specialty Start Date End Date Rich Resendez MD [facility] [address] [place] [address] PCP - General Emergency Medicine 01/02/19 documented as of this encounter
--- OUTSIDE RECORDS SUMMARY | 2024-10-27 00:18 | XMS_ITS | Encounter Summary ---
Author Organization [place] Address [address] [place] [address]. [place] [address] Care Team Providers Care Jd Edwards Name Role Phone Rich Resendez MD Primary Care Provider Encounter Details Date Type Department Care Team (Late st Contact Info) Description 05/11/2024 [facility] [place] [id number] [place] [phone] Meera Pino, PhD [address] [place] [address] Social History Tobacco Use Types Packs/Day Years Used Date Smoking Tobacco: Never Assessed [place] Depression Scale Answer Date Recorded [place] Depression Scale Total 14 05/07/2024 The thought [...] in an abandoned building, in an overnight chcf, or couch-surfing.) Yes 05/02/2024 Are you worried [...] on filedocumented in this encounter Care Teams Jd Edwards Relationship Specialty Start Date End Date Rich Resendez MD [facility] [address] [place] [address] PCP - General Emergency Medicine 01/02/19 documented as of this encounter
--- OUTSIDE RECORDS SUMMARY | 2024-10-27 00:18 | XMS_ITS | Encounter Summary ---
Author Organization [place] Address [address] [facility] [place] [address] Care Team Providers Care Accounts Receivable Clerk Name Role Phone Rich Resendez MD Primary Care Provider Reason for Referral * Consultation (Routine: Next available opening) - Pending Review Specialty Diagnoses / Procedures Referred By Vale argueta Referred To Contact Diagnoses Dichorionic diamniotic twin in first trimester Joint derangement Katiana Montez CNM [address] [place] [address] Phone: tel: fax: Referral ID Status Reason Start Date Expiration Date V isits Requested Visits Authorized [id number] Pending Review 12/02/2023 12/01/2024 1 1 * Diagnostic Imaging Ultrasound (Routine) - Pending Review Specialty Diagnoses / Procedures Referred By Vale argueta Referred To Contact Radiology. Diagnoses Dichorionic diamniotic twin in first trimester Joint derangement Procedures MFM Twins Nuchal Trans w/US Katiana Montez CNM [address] [place] [address] Phone: tel: fax: Referral ID Status Reason Start Date Expiration Date V isits Requested Visits Authorized [id number] Pending Review 12/02/2023 12/01/2024 1 1 Encounter Details Date Type Department Care Team (Late st Contact Info) Description 12/02/2023 Orders Only [facility] [place] [address] [place] [address] Elsie Blanchard, RN Dichorionic diamniotic twin in first trimester (Primary Dx); Joint derangement Social History Tobacco Use Types Packs/Day Years Used Date Smoking Tobacco: Never Assessed [place] Depression Scale Answer Date Recorded [place] Depression Scale Total 14 05/07/2024 The thought [...] Type Priority Associated Diagnoses Orde r Schedule [facility] Genetic Counseling Referral Routine: Next available opening Dichorionic diamniotic twin in first trimester Joint derangement Expected: 12/02/2023 (Approximate), Expires: 12/01/2024 documented as of this encounter Results * [facility] Twins Nuchal Trans w/US (12/17/2023 2:19 [...] PM CDT NT ----- Pat. Name: LENORE DEL TORO Study Date: 12/17/2023 1:29pm Pat. NO: [id number] Referring MD: AUGUST SADIE Site: [employer] Driver: Patricia Irvin RDMS : 1995 Age: 28 [...] gestation and has been scheduled at our [facility] clinic at patient's request. Return to [...] TORO Study Date: 12/17/2023 1:29pm Pat. NO: [id number] Referring MD: LATISHA NOEL Site: [employer] Driver: Patricia Irvin RDMS : 1995 Age: 28 [...] [facility] an [facility]. Please see the EPIC chart [...] weeksgestation and has been scheduled at our [facility] clinic atpatient's request. Return to primary [...] for early gestational age. us Katiana [facility] US ORDERABLES Ed ited Result - Final documented in this encounter Visit Diagnoses Diagnosis Dichorionic diamniotic twin in first trimester- Primary Twin , antepartum Joint derangement Unspecified derangement, joint, site unspecified Dichorionic diamniotic twin in first trimester Twin , antepartum Joint derangement Unspecified derangement, joint, site unspecified documented in this encounter Additional Health Concerns Infection Onset Date Last Indicated Resolved Time COVID-19 Comment:COVID positive 04/29/24 (day zero) 05/09/24: day ten of isolation 05/10/24: first day patient can be evaluated for discontinuation of special precautions 05/05/2024 05/05/2024 05/07/2024 10:09 AM GRADE CHECKER documented as of this encounter Care Teams Accounts Receivable Clerk Relationship Specialty Start Date End Date Rich Resendez MD [address] [address] PCP - General Emergency Medicine 01/02/19 documented as of this encounter
--- OUTSIDE RECORDS SUMMARY | 2024-10-27 00:18 | XMS_ITS | Encounter Summary ---
Author Organization [place] Address [address] [place] [address]. [place] [address] Care Team Providers Care Jewish History Professor Name Role Phone Rich Resendez MD Primary Care Provider Encounter Details Date Type Department Care Team (Late st Contact Info) Description 05/06/2024 [facility] Medical Advice [facility] Mental Health & Addiction [place] [id number] [place] [phone] Meera Pino, PhD [address] [place] [address] Social History Tobacco Use Types Packs/Day Years Used Date Smoking Tobacco: Never Assessed [place] Depression Scale Answer Date Recorded [place] Depression Scale Total 14 05/07/2024 The thought [...] in an abandoned building, in an overnight jail, or couch-surfing.) Yes 05/02/2024 Are you worried [...] special precautions 05/05/2024 05/05/2024 05/07/2024 10:09 AM YARN SPINNER documented as of this encounter Care Teams Jewish History Professor Relationship Specialty Start Date End Date Rich Resendez MD [facility] [address] [place] [address] PCP - General Emergency Medicine 01/02/19 documented as of this encounter
--- OUTSIDE RECORDS SUMMARY | 2024-10-27 00:18 | XMS_ITS | Encounter Summary ---
Author Organization [facility] Address [address] [place] [address] Care Team Providers Care Head Machine Feeder Name Role Phone Rich Resendez MD Primary Care Provider Encounter Details Date Type Department Care Team (Late st Contact Info) Description 05/10/2024 [facility] Medical Advice [facility] [place] [address] [place] [address] Wanda Pablo, CHARAN Social History Tobacco Use Types Packs/Day Years Used Date Smoking Tobacco: Never Assessed [place] Depression Scale Answer Date Recorded [place] Depression Scale Total 14 05/07/2024 The thought [...] on filedocumented in this encounter Care Teams Head Machine Feeder Relationship Specialty Start Date End Date Rich Resendez MD [facility] [address] [place] [address] PCP - General Emergency Medicine 01/02/19 documented as of this encounter
--- OUTSIDE RECORDS SUMMARY | 2024-10-27 00:18 | XMS_ITS | Encounter Summary ---
Author Organization [facility] Address [address] [place] [address]. [place] [address] Care Team Providers Care Carton Machine Operator Name Role Phone Rich Resendez MD Primary Care Provider Encounter Details Date Type Department Care Team (Late st Contact Info) Description 05/11/2024 [facility] Medical Advice [facility] [place] [id number] [place] [phone] Meera Pino, PhD [address] [place] [id number] Social History Tobacco Use Types Packs/Day Years Used Date Smoking Tobacco: Never Assessed [place] Depression Scale Answer Date Recorded [place] Depression Scale Total 14 05/07/2024 The thought [...] in an abandoned building, in an overnight fdc, or couch-surfing.) Yes 05/02/2024 Are you worried [...] on filedocumented in this encounter Care Teams Carton Machine Operator Relationship Specialty Start Date End Date Rich Resendez MD [facility] [address] [place] [address] PCP - General Emergency Medicine 01/02/19 documented as of this encounter
--- OUTSIDE RECORDS SUMMARY | 2024-10-27 00:18 | XMS_ITS | Encounter Summary ---
Author Organization [facility] Address [address] [place] [address] Care Team Providers Care Teasel Setter Name Role Phone Rich Resendez MD Primary Care Provider Encounter Details Date Type Department Care Team (Late st Contact Info) Description 05/25/[address] [facility] [place] [address] [place] [address] Elsie Marsh, RN Social History Tobacco Use Types Packs/Day Years Used Date Smoking Tobacco: Never Assessed [place] Depression Scale Answer Date Recorded [place] Depression Scale Total 14 05/07/2024 The thought [...] on filedocumented in this encounter Care Teams Teasel Setter Relationship Specialty Start Date End Date Rich Resendez MD [facility] [address] [place] [address] PCP - General Emergency Medicine 01/02/19 documented as of this encounter
== END 2024-10-26 10:02 | disposition home or self-care (01) ==
LOC: MRI 10:02
PROVIDERS: PCP Internal Medicine; Visit Provider Internal Medicine
DX: M54.2 Cervicalgia (principal); M50.222 Other cervical disc displacement at C5-C6 level
CPT/HCPCS: 72141

== ENCOUNTER 2025-02-03 11:09 | Outpatient (CLI) | payer BC, SELFPAY | END 2025-02-03 11:10 | disposition home or self-care (01) | PROVIDERS: PCP Internal Medicine; Visit Provider Registered Nurse | DX: N91.2 Amenorrhea, unspecified (principal) | CPT/HCPCS: 82670; 83001; 83498; 84146; 84403; 84443 ==